=== PATIENT | male | born 1935 | race Caucasian/White ===

== ENCOUNTER 2018-02-02 17:33 | Emergency (ER) | payer MEDICARE ==
[~2018-02-02] VITALS: Ht 182.9 cm; Wt 105.2 kg
--- OUTSIDE RECORDS SUMMARY | 2018-02-02 17:35 | XMS REPORT | Summary of Care ---
Author Author [facility] Address [address] [place] [address] Phone Unavailable Care Team Providers Care Stem Teacher Name Role Phone SAMI Sewell, ALYX Unavailable Unavailable OLENA Sewell, ANN-MARIE Unavailable Unavailable Unavailable Unavailable Functional Status Name Dates Details Functional status health issues are not documented Status: Name Dates Details Cognitive status health issues are not documented Status: Problems Name Dates Details Pain, lower leg (729.5, M79.669) Status: Active Anxiety (300.00, F41.9) Status: Active Generalized anxiety disorder (300.02, F41.1) Status: Active Intermittent claudication (443.9, I73.9) Status: Active Rheumatic heart disease (398.90, I09.9) Status: Active Benign hypertensive 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, 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 Atrial fibrillation (427.31, I48.91) Status: Active 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, I25.10) Status: Active CABG Status: Active Diabetes mellitus (250.00, E11.9) Status: Active Edema (782.3, R60.9) Status: Active Encounter for long-term (current) use of medications (V58.69, Z79.899) Status: Active Peripheral neuropathy, hereditary/idiopathic (356.9, G60.9) Status: Active Renal insufficiency (593.9, N28.9) Status: Active Diabetes mellitus with peripheral circulatory disorder (250.70, E11.51) Status: Active CHF (congestive heart failure) (428.0, I50.9) Status: Active Back muscle spasm (724.8, M62.830) Status: Active Chronic kidney disease, stage III (moderate) (585.3, N18.3) Status: Active Decreased creatinine clearance (794.4, R94.4) Status: Active 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, M47.812) Status: Active Neck pain (723.1, M54.2) Status: Active Neck muscle spasm (728.85, M62.838) Status: Active Type 2 diabetes mellitus with chronic kidney disease, with long-term current use of insulin, unspecified CKD stage (250.40, E11.22) Status: Active Type 2 diabetes mellitus with other circulatory complication, with long-term current use of insulin (250.70, E11.59) Status: Active Essential (primary) hypertension (401.9, I10) Status: Active Hyperlipidemia (272.4, E78.5) Status: Active Medications Name Dates Details Klor-Con 8 MEQ Oral Tablet Extended Release TAKE 1 TABLET TWICE A DAY WITH MEALS Quantity: 180 ALYX GALLARDO M.D. * Start : 14-Dec-2008 Active Iron 325 (65 Fe) MG Oral Tablet TAKE 1 TABLET DAILY * Quantity: 90 Refills: 3 Active Potassium Chloride ER 8 MEQ Oral Tablet Extended Release TAKE 1 TABLET TWICE A DAY WITH MEALS * Quantity: 180 Refills: 2 ALYX GALLARDO M.D. * Start : 28-Sep-2016 Active Atorvastatin Calcium 20 MG Oral Tablet TAKE 1 TABLET DAILY AT BEDTIME * Quantity: 90 Refills: 3 ALYX GALLARDO M.D. * Start : 14-Sep-2016 Active Metoprolol Succinate ER 50 MG Oral Tablet Extended Release 24 Hour Take 1 tablet twice a day * Quantity: 180 Refills: 3 ALYX GALLARDO M.D. * Start : 14-Sep-2016 Active Colestipol HCl - 1 GM Oral Tablet Take 1 tablet twice a day * Quantity: 180 Refills: 2 ALYX GALLARDO M.D. * Start : 28-Sep-2016 Active Omeprazole 20 MG Oral Capsule Delayed Release take 1 capsule twice a day * Quantity: 180 Refills: 3 ALYX GALLARDO M.D. * Start : 14-Sep-2016 Active Accu-Chek FastClix Lancets Check BG 3x a day * Quantity: 3 Refills: 3 ANN-MARIE HYATT M.D. * Start : 25-Jan-2013 Active 102 Unit Box BD Pen Needle Mini U/F 31G X 5 MM 5 a day * Quantity: 5 Refills: 3 ANN-MARIE HYATT M.D. * Start : 02-Jun-2013 Active 100 Miscellaneous Box NovoLOG FlexPen 100 UNIT/ML Subcutaneous Solution Pen-injector 13 units breakfast; 12 lunch; 20 supper; 3-5 snacks; CF~40; up to 80 units Rep lacing Humalog in 2018 * Refills: 0 ANN-MARIE HYATT M.D. * Start : 05-Feb-2017 Active 5 x 3 ML Pen NovoLOG FlexPen 100 UNIT/ML Subcutaneous Solution Pen-injector 13 units breakfast; 12 lunch; 20 supper; 3-5 snacks; CF~40; up to 80 units Rep lacing Humalog * Refills: 0 ANN-MARIE HYATT M.D. * Start : 11-May-2017 Active 5 x 3 ML Pen Accu-Chek Guide In Vitro Strip CHECK 3 TIMES DAILY * Quantity: 6 Refills: 3 ANN-MARIE HYATT M.D. * Start : 14-Feb-2016 Active 50 Strip Bottle Uloric 40 MG Oral Tablet TAKE 1 TABLET DAILY. * Refills: 0 Active ALPRAZolam 0.5 MG Oral Tablet TAKE 1 TABLET 3 TIMES DAILY NEEDED. * Refills: 0 * Start : 24-Jan-2015 Active NovoTwist 32G X 5 MM USE 4 A DAY DIRECTED * Quantity: 4 Refills: 4 ANN-MARIE HYATT M.D. * Start : 08-Apr-2012 Active 100 EA Box Levemir FlexTouch 100 UNIT/ML Subcutaneous Solution Pen-injector INJECT 29-30 UNITS EVERY MORNING AND 29-30 UNITS EVERY NIGHT. MAY SELF TITRATE U PTO 60 UNITS DAILY. * Quantity: 4 Refills: 1 ANN-MARIE HYATT M.D. * Start : 08-Apr-2012 Active 5 x 3 ML Pen Allopurinol 300 MG Oral Tablet * Refills: 0 ANN-MARIE HYATT M.D. * Start : 02-Apr-2012 Active HydroCHLOROthiazide 25 MG Oral Tablet TAKE 1 TABLET DAILY * Quantity: 90 Refills: 3 ALYX GALLARDO M.D. * Start : 14-Sep-2016 Active Dipyridamole 75 MG Oral Tablet Take 1 tablet twice a day * Quantity: 180 Refills: 2 ALYX GALLARDO M.D. * Start : 28-Sep-2016 Active Lisinopril 20 MG Oral Tablet TAKE 1 TABLET DAILY * Quantity: 90 Refills: 2 ALYX GALLARDO M.D. * Start : 28-Sep-2016 Active Shayan Back & Body 500-32.5 MG Oral Tablet TAKE 1 TABLET DAILY PRN * Refills: 0 * Start : 30-Jul-2016 Active Aspirin 325 MG Oral Tablet TAKE 1 TABLET DAILY. * Refills: 0 * Start : 29-Sep-2005 Active Testosterone Cypionate 200 MG/ML Intramuscular Solution Per PCP * Refills: 0 ANN-MARIE HYATT M.D. * Start : 05-Dec-2015 Active HumaLOG KwikPen 100 UNIT/ML Subcutaneous Solution Pen-injector 13 units breakfast; 12 lunch; 20 supper; 3-5 snacks; CF~40; up to 80 units * Quantity: 25 Refills: 1 ANN-MARIE HYATT M.D. * Start : 02-Jun-2013 Active 3 ML Pen Micronized Colestipol HCl 1 GM TABS Take 1 tablet twice a day * Quantity: 180 Refills: 3 ALYX GALLARDO M.D. * Start : 12-Sep-2012 Active Vitamin D3 5000 UNIT Oral Tablet 1 a day * Refills: 0 Active Gabapentin 300 MG Oral Capsule TAKE 2 CAPSULES TWICE A DAY * Quantity: 540 Refills: 2 ALYX GALLARDO M.D. * Start : 17-Aug-2016 Active Allergies and Adverse Reactions Name Dates Details No Known Drug Allergies (Allergy) Status: Active Past Medical History Name Dates Details Personal history of gout (V12.29, Z87.39) Status: Resolved Procedures Procedure Dates Details History of CABG Completed CABG History of Hernia Repair Completed History of Cataract Surgery Completed History of Shoulder Surgery Completed Immunization Name Dates Details Influenza Comments: Approx [id number] Family History Name Dates Details Family history of Diabetes Mellitus (V18.0) Comments: Family History Status: Active Name Dates Details Family history of hypertension (V17.49, Z82.49) Status: Active Family history of cardiac disorder (V17.49, Z82.49) Status: Active Name Dates Details Family history of Diabetes Mellitus (V18.0) Status: Active Social History Name Dates Details - Status: Name Dates Details Former smoker Vital Signs Date Test Result Details :09 BP Systolic 140 mm[Hg] Status: BP Diastolic 70 mm[Hg] Status: [id number] BP Systolic 144 mm[Hg] Status: Comments: Location: LUE; Position: Sitting BP Diastolic 66 mm[Hg] Status: Comments: Location: LUE; Position: Sitting Height 72 in Status: Weight 235.5 lb Status: Body Mass Index Calculated 31.94 kg/m2 Status: Body Surface Area Calculated 2.28 m2 Status: Heart Rate 61 /min Status: Results Date Description Value Details [id number] [O] Hemoglobin A1c (in office) HEMOGLOBIN A1c 7.5 23-[id number]:44 [O] Lipid Panel (In Office) CHOLESTEROL, TOTAL 146 HDL CHOLESTEROL 37 TRIGLYCERIDES 243 LDL-CHOLESTEROL 60 NON HDL CHOLESTEROL 109 T. Chol/HDL Ratio 3.9 GLUCOSE 93 [id number] Glucose (Point of Care In Office) Glucose POC Lifescan 85 Plan of Care Name Dates Details Planned Observations Planned Goals not documented Planned Encounters Appointment; ALYX GALLARDO M.D. On: 22-Jun-2017 15:00 Appointment; ANN-MARIE HYATT M.D. On: 11-Aug-2017 14:15 Instructions Name Dates Details Instructions not documented Encounters Appointment; ALYX GALLARDO M.D. Encounter Diagnosis: Problem not documented On: 13-Jun-2015 14:40 Appointment; [facility] M.D. Encounter Diagnosis: Problem not documented On: 27-Jun-2015 13:00 Appointment; [facility] M.D. Encounter Diagnosis: Problem not documented On: 04-Jul-2015 13:30 Appointment; ANN-MARIE HYATT M.D. Encounter Diagnosis: Problem not documented On: 29-Aug-2015 14:45 Appointment; ANN-MARIE HYATT M.D. Encounter Diagnosis: Problem not documented On: 05-Dec-2015 14:15 Appointment; ALYX GALLARDO M.D. Encounter Diagnosis: Problem not documented On: 12-Dec-2015 15:00 Appointment; AMY JOHNSON M.D. Encounter Diagnosis: Problem not documented On: 19-Dec-2015 13:00 Appointment; AMY JOHNSON M.D. Encounter Diagnosis: Problem not documented On: 29-Jan-2016 15:00 Appointment; ANN-MARIE HYATT M.D. Encounter Diagnosis: Problem not documented On: 14-Feb-2016 9:30 Appointment; ANN-MARIE HYATT M.D. Encounter Diagnosis: Problem not documented On: 14-May-2016 14:15 Appointment; ALYX GALLARDO M.D. Encounter Diagnosis: Problem not documented On: 11-Jun-2016 14:40 Appointment; AMY JOHNSON M.D. Encounter Diagnosis: Problem not documented On: 29-Jul-2016 15:00 Appointment; AMY JOHNSON M.D. Encounter Diagnosis: Problem not documented On: 30-Jul-2016 15:30 Appointment; ANN-MARIE HYATT M.D. Encounter Diagnosis: Problem not documented On: 28-Aug-2016 14:15 Appointment; AMY JOHNSON M.D. Encounter Diagnosis: Problem not documented On: 01-Sep-2016 15:00 Appointment; ANN-MARIE HYATT M.D. Encounter Diagnosis: Problem not documented On: 20-Nov-2016 13:30 Appointment; AMY JOHNSON M.D. Encounter Diagnosis: Problem not documented On: 01-Dec-2016 14:30 Appointment; ALYX GALLARDO M.D. Encounter Diagnosis: Problem not documented On: 17-Dec-2016 14:40 Appointment; ANN-MARIE HYATT M.D. Encounter Diagnosis: Problem not documented On: 05-Feb-2017 13:00 Appointment; ANN-MARIE HYATT M.D. Encounter Diagnosis: Problem not documented On: 11-May-2017 15:45
[2018-02-02] MEDS ORDERED: CYCLOBENZAPRINE HCL 10 MG TAB PO ONE (18:00)
[2018-02-02] MEDS ORDERED: HYDROCODONE/APAP 5MG-325MG TAB PO ONE (18:00)
--- NOTE | 2018-02-02 18:40 | Diagnostic Imaging Report ---
Humerus left CPT code: 74334 Indication: Fell off chair, left shoulder pain. Technique: 5 views of the left humerus obtained. Comparison: Rib series performed at the same time. Findings: Glenohumeral fracture through the surgical neck with subtle fracture planes that extend through the lateral humeral head. There is mild ventral and medial angulation of the distal fracture fragment. The humeral head remains articulated with the glenoid. The glenoid, acromion, and scapula are intact. Visualized ribs are intact. The distal humerus and proximal radius/ulna are intact. Visualized portion of the left lung is clear. IMPRESSION: Comminuted and displaced fracture of the surgical neck of the left humerus with a fracture plane that extends to the lateral humeral head. No glenohumeral dislocation. The remainder of the humerus is intact. Signed by: Dr. Gifty Christina MD on 02/02/2018 6:37 PM
--- NOTE | 2018-02-02 18:45 | Diagnostic Imaging Report ---
Left rib multiple views CPT code: 85816 History: Fall Comparison: Humerus x-rays obtained at the same time. Findings: The patient is suboptimally positioned. The rib structures on the left appear intact. There is no evidence of acute rib fracture or dislocation identified. Single PA view of the chest demonstrates intact median sternotomy wires. The lungs are clear. No pleural effusion or pneumothorax. Fracture deformity of the surgical neck of the left humerus. The scapular body, acromion, and clavicle are intact. Visualized portion of the right shoulder is intact. IMPRESSION: No displaced rib fracture or dislocation. Thank you for your referral. Signed by: Dr. Gifty Christina MD on 02/02/2018 6:41 PM
== END 2018-02-02 18:48 | disposition home or self-care (01) ==
LOC: FSED 17:33
DX: R07.89 Other chest pain (principal); S20.212A Contusion of left front wall of thorax, initial encounter; S42.302A Unspecified fracture of shaft of humerus, left arm, initial encounter for closed fracture; W01.0XXA Fall on same level from slipping, tripping and stumbling without subsequent striking against object, initial encounter; Y92.89 Other specified places as the place of occurrence of the external cause; I10 Essential (primary) hypertension; E11.9 Type 2 diabetes mellitus without complications; I50.9 Heart failure, unspecified; K21.9 Gastro-esophageal reflux disease without esophagitis; E78.5 Hyperlipidemia, unspecified; G89.29 Other chronic pain
CPT/HCPCS: 71101; 99283

== ENCOUNTER 2018-04-12 11:57 | Outpatient (RCR) | payer MEDICARE | END 2018-04-14 | LOC: OT 11:57 | PROVIDERS: ATTEND Specialist | DX: S42.201D Unspecified fracture of upper end of right humerus, subsequent encounter for fracture with routine healing (principal); M25.512 Pain in left shoulder; M25.612 Stiffness of left shoulder, not elsewhere classified; R53.1 Weakness ==

== ENCOUNTER 2018-05-12 09:00 | Outpatient (RCR) | payer MEDICARE | END 2018-05-15 | LOC: OT 09:00 | PROVIDERS: ATTEND Specialist | DX: S42.202D Unspecified fracture of upper end of left humerus, subsequent encounter for fracture with routine healing (principal); M25.512 Pain in left shoulder; M25.612 Stiffness of left shoulder, not elsewhere classified; R53.1 Weakness ==

== ENCOUNTER 2018-06-10 10:00 | Outpatient (RCR) | payer MEDICARE | END 2018-06-14 | LOC: OT 10:00 | PROVIDERS: ATTEND Specialist | DX: S42.202A Unspecified fracture of upper end of left humerus, initial encounter for closed fracture (principal) | CPT/HCPCS: 97139 ==

== ENCOUNTER 2018-06-24 10:00 | Outpatient (RCR) | payer MEDICARE | END 2018-07-15 | LOC: OT 10:00 | PROVIDERS: ATTEND Specialist | DX: S42.202D Unspecified fracture of upper end of left humerus, subsequent encounter for fracture with routine healing (principal); M25.512 Pain in left shoulder; M25.612 Stiffness of left shoulder, not elsewhere classified; R53.1 Weakness | CPT/HCPCS: 97139 ==

== ENCOUNTER 2018-08-12 09:00 | Outpatient (RCR) | payer MEDICARE | END 2018-08-14 | LOC: OT 09:00 | PROVIDERS: ATTEND Specialist | DX: S42.202A Unspecified fracture of upper end of left humerus, initial encounter for closed fracture (principal) ==

== ENCOUNTER 2018-09-06 09:00 | Outpatient (RCR) | payer MEDICARE | END 2018-09-14 | LOC: OT 09:00 | PROVIDERS: ATTEND Specialist | DX: S42.202A Unspecified fracture of upper end of left humerus, initial encounter for closed fracture (principal) | CPT/HCPCS: 97139 ==

== ENCOUNTER 2019-07-20 13:12 | Observation (INO) | payer MEDICARE ==
[~2019-07-20] VITALS: Ht 182.9 cm; Wt 105.2 kg
[2019-07-20] MEDS: ALBUTEROL SULF 0.083% NEB SOLN 3 ML NEB NEB SCH (00:25)
[2019-07-20] MEDS ORDERED: CALCIUM GLUCONATE 10% INJ 4.65 MEQ in SODIUM CHLORIDE 0.9% 50ML 50 ML IV ONE (13:45)
[2019-07-20] MEDS ORDERED: ASPIRIN 81 MG CHEW TAB PO ONE (13:45)
--- OUTSIDE RECORDS SUMMARY | 2019-07-20 13:50 | XMS REPORT | Continuity of Care Document ---
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 Name Role Phone [facility] Unavailable Un available Problems Problem Status Onset Date Classification Date Reported Comments Source Diabetes Mellitus Active 05/17/2013 [facility] Benign Hypertensive Heart Disease Active 05/17/2013 [facility] Edema (On Exam) Active 05/17/2013 [facility] Generalized Anxiety Disorder A ctive 05/17/2013 [facility] Taking Medication For A Long Time Active 05/17/2013 [facility] Peripheral Neuropathy Active 05/17/2013 [facility] 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 [facility] Hypertension Active 05/17/2013 [facility] Hyperlipidemia Active 05/17/2013 [facility] Coronary Artery Disease Active 05/17/2013 [facility] Pain In The Leg (Below The Knee) Active 05/17/2013 [facility] Intermittent Claudication Acti ve 05/17/2013 [facility] Anxiety (Symptom) Active 05/17/2013 [facility] Chronic Kidney Disease, Stage 3 Active 05/17/2013 [facility] Medications Medication Details Route Status Patient Instructions Ordering Provider Order Date Source NovoLOG FlexPen 100 UNIT/ML Subcutaneous Solution ; Start Date: 05/17/2013; End Date: (Active) Active 05/17/2013 [facility] Shar Christensenets Fine Miscellaneous ; Start Date: 01/25/2013 (Active) Active 01/25/2013 [facility] Glimepiride 4 MG Oral Tablet ; Start Date: 11/18/2012 (Active) Active 11/18/2012 [facility] Pioglitazone HCl 15 MG Oral Tablet ; Start Date: 09/12/2012; End Date: (Active) Active 09/12/2012 [facility] Micronized Colestipol HCl 1 GM Oral Tablet ; Start Date: 09/12/2012 (Active) Active 09/12/2012 [facility] Micronized Colestipol HCl 1 GM Oral Tablet ; Start Date: 09/12/2012 (Active) Active 09/12/2012 [facility] Levemir FlexPen 100 UNIT/ML Subcutaneous Solution ; Start Date: 04/08/2012 (Active) Active 04/08/2012 [facility] NovoTwist 32G X 5 MM Miscellaneous ; Start Date: 04/08/2012; End Date: (Active) Active 04/08/2012 [facility] Allopurinol 300 MG Oral Tablet ; Start Date: 04/02/2012 (Active) Active 04/02/2012 [facility] Atorvastatin Calcium 20 MG Oral Tablet ; Start Date: 03/19/2011 (Active) Active 03/19/2011 [facility] Metoprolol Succinate ER 50 MG Oral Table t Extended Release 24 Hour ; Start Date: 03/19/2011 (Active) Active 03/19/2011 [facility] Diazepam 5 MG Oral Tablet ; St art Date: 03/19/2011 (Active) Active 03/19/2011 [facility] Colestipol HCl 1 GM Oral Tablet ; Start Date: 03/19/2011 (Active) Active 03/19/2011 [facility] Omeprazole 20 MG Oral Capsule Delayed Release ; Start Date: 03/19/2011 (Active) Active 03/19/2011 [facility] Lisinopril 40 MG Oral Tablet ; Start Date: 03/19/2011 (Active) Active 03/19/2011 [facility] Dipyridamole 75 MG Oral Tablet ; Start Date: 03/19/2011 (Active) Active 03/19/2011 [facility] Colestipol HCl 1 GM Oral Tablet ; Start Date: 03/19/2011 (Active) Active 03/19/2011 [facility] Metoprolol Succinate ER 50 MG Oral Table t Extended Release 24 Hour ; Start Date: 03/19/2011 (Active) Active 03/19/2011 [facility] Klor-Con 8 MEQ Oral Tablet Extended Release ; Start Date: 12/14/2008 (Active) Active 12/14/2008 [facility] Actos 45 MG Oral Tablet ; Star t Date: 02/19/2008 (Active) Active 02/19/2008 [facility] Hydrochlorothiazide 25 MG Oral Tablet ; Start Date: 12/26/2007 (Active) Active 12/26/2007 [facility] Omeprazole 20 MG Oral Capsule Delayed Release ; Start Date: 09/15/2007 (Active) Active 09/15/2007 [facility] Accu-Chek Compact Test Drum In Vitro Strip ; Start Date: 08/23/2006 (Active) Active 08/23/2006 [facility] Metoprolol Tartrate 50 MG Oral Tablet ; Start Date: 10/01/2005; End Date: (Active) Active 10/01/2005 [facility] Gabapentin 300 MG Oral Capsule ; Start Date: 09/29/2005 (Active) Active 09/29/2005 [facility] Lisinopril 40 MG Oral Tablet ; Start Date: 09/29/2005; End Date: (Active) Active 09/29/2005 [facility] Dipyridamole 75 MG Oral Tablet ; Start Date: 09/29/2005; End Date: (Active) Active 09/29/2005 [facility] GlyBURIDE-MetFORMIN 2.5-500 MG Oral Tablet ; Start Date: 09/29/2005 (Active) Active 09/29/2005 [facility] Aspirin 325 MG Oral Tablet ; S tart Date: 09/29/2005 (Active) Active 09/29/2005 [facility] Fish Oil CAPS ; Start Date: (Active) Active 09/29/2005 [facility] Iron 325 (65 Fe) MG Oral Tablet (Active) Active [facility] Victoza 18 MG/3ML Subcutaneous Solution (Active) Active [facility] Vitamin D3 5000 UNIT Oral Tablet (Active) Active [facility] Allergies, Adverse Reactions, Alerts Substance Category Reaction Severity Reaction type Status Date Reported Comments Source No Known Drug Allergies drug a llergy drug aller gy Active [facility] Immunizations No Data Provided for This Section Results No Data Provided for This Section Pathology Reports No Data Provided for This Section Diagnostic Reports No Data Provided for This Section Consultation Notes No Data Provided for This Section Discharge Summaries No Data Provided for This Section History and Physicals No Data Provided for This Section Vital Signs No Data Provided for This Section Encounters Location Location Details Encounter Type Encounter Number Reason For Visit Attending Provider ADM Date DC Date Status Source AUDIT [id number] 04/08/2012 04/08/2012 [facility] AUDIT [id number] 04/25/2012 04/25/2012 [facility] AUDIT [id number] 05/20/2012 05/20/2012 [facility] AUDIT [id number] 05/20/2012 05/20/2012 [facility] AUDIT [id number] 06/10/2012 06/10/2012 [facility] AUDIT [id number] 06/23/2012 06/23/2012 [facility] EST, Provi tosha: ALYX GALLARDO, Status: Pen, Time: 2:40 PM [id number] 06/23/2012 06/10/2012 [facility] AUDIT [id number] 07/21/2012 07/21/2012 [facility] E30, Provi tosha: ANN-MARIE HYATT, Status: Pen, Time: 3:30 PM [id number] 07/23/19 13 07/21/2012 [facility] AUDIT [id number] 07/22/2012 07/22/2012 [facility] AUDIT [id number] 07/25/2012 07/25/2012 [facility] AUDIT [id number] 08/12/2012 08/12/2012 [facility] AUDIT [id number] 09/09/2012 09/09/2012 [facility] AUDIT [id number] 09/12/2012 09/12/2012 [facility] ECH, Provi tosha: ROSALBA MCKEON, Status: Pen, Time: 1:00 PM [id number] 09/13/19 13 09/12/2012 [facility] AUDIT [id number] 09/12/2012 09/12/2012 [facility] E30, Provi tosha: ANN-MARIE HYATT, Status: Pen, Time: 4:00 PM [id number] 09/17/19 13 08/12/2012 [facility] AUDIT [id number] 09/22/2012 09/22/2012 [facility] EST, Provi tosha: ALYX GALLARDO, Status: Pen, Time: 3:20 PM [id number] 09/22/2012 09/12/2012 [facility] AUDIT [id number] 09/22/2012 09/22/2012 [facility] AUDIT [id number] 09/23/2012 09/23/2012 [facility] AUDIT [id number] 10/21/2012 10/21/2012 [facility] AUDIT [id number] 11/17/2012 11/17/2012 [facility] AUDIT [id number] 11/18/2012 11/18/2012 [facility] AUDIT [id number] 11/18/2012 11/18/2012 [facility] E30, Provi tosha: ANN-MARIE HYATT, Status: Pen, Time: 2:15 PM [id number] 11/19/19 13 10/21/2012 [facility] AUDIT [id number] 01/02/2013 01/02/2013 [facility] AUDIT [id number] 01/04/2013 01/04/2013 [facility] AUDIT [id number] 01/24/2013 01/24/2013 [facility] E30, Provi tosha: OLENAANN-MARIE, Status: Pen, Time: 10:15 AM [id number] 01/26/20 13 01/24/2013 [facility] AUDIT [id number] 01/25/2013 01/25/2013 [facility] EST, Provi tosha: ALYX GALLARDO, Status: Pen, Time: 1:20 PM [id number] 01/26/2013 01/25/2013 [facility] AUDIT [id number] 01/26/2013 01/26/2013 [facility] AUDIT [id number] 01/31/2013 01/31/2013 [facility] AUDIT [id number] 02/06/2013 02/06/2013 [facility] AUDIT [id number] 02/10/2013 02/10/2013 [facility] AUDIT [id number] 02/21/2013 02/21/2013 [facility] AUDIT [id number] 02/23/2013 02/23/2013 [facility] EST, Provi tosha: ALYX GALLARDO, Status: Pen, Time: 1:40 PM [id number] 05/11/2013 02/23/2013 [facility] AUDIT [id number] 05/11/2013 05/11/2013 [facility] AUDIT [id number] 05/12/2013 05/12/2013 [facility] E30, Provi tosha: OLENA,ANN-MARIE, Status: Pen, Time: 8:30 AM [id number] 05/18/19 14 05/12/2013 [facility] AUDIT [id number] 05/17/2013 05/17/2013 [facility] AUDIT [id number] 05/17/2013 05/17/2013 [facility] E30, Provi tosha: OLENAANN-MARIE, Status: Pen, Time: 11:30 AM [id number] 06/03/19 14 05/17/2013 [facility] EST, Provi tosha: ALYX GALLARDO, Status: Pen, Time: 2:20 PM [id number] 08/10/2013 05/17/2013 [facility] Procedures No Data Provided for This Section Assessment and Plan No Data Provided for This Section Plan of Care Plan of Care Date Source [N] Venous Duplex Lower Bilateral 2012 Routine[N] 2D Echo complete, with Doppler [id number] 06/23/2012 RoutinePulse 01/26/2013 Routine[QLH] CBC (INCLUDES DIFF/PLT) 05/11/2013 Routine[L] CMP14 05/11/2013 Routine[QLH] CREATINE KINASE, TOTAL 05/11/2013 Routine[QLH] LIPID PANEL 05/11/2013 Routine[QLH] HEMOGLOBIN A1c 05/11/2013 Routine[N] Arterial Duplex Lower Extremity Bilateral [id number] 09/22/2012 Routine 05/17/2013 [facility] [N] Venous Duplex Lower Bilateral 2012 Routine[N] 2D Echo complete, with Doppler 48350 06/23/2012 RoutinePulse 01/26/2013 Routine[QLH] CBC (INCLUDES DIFF/PLT) 05/11/2013 Routine[L] CMP14 05/11/2013 Routine[QLH] CREATINE KINASE, TOTAL 05/11/2013 Routine[QLH] LIPID PANEL 05/11/2013 Routine[QLH] HEMOGLOBIN A1c 05/11/2013 Routine[N] Arterial Duplex Lower Extremity Bilateral 47555 09/22/2012 Routine 05/17/2013 [facility] [N] Venous Duplex Lower Bilateral 2012 Routine[N] 2D Echo complete, with Doppler 69109 06/23/2012 RoutinePulse 01/26/2013 Routine[QLH] CBC (INCLUDES DIFF/PLT) 05/11/2013 Routine[L] CMP14 05/11/2013 Routine[QLH] CREATINE KINASE, TOTAL 05/11/2013 Routine[QLH] LIPID PANEL 05/11/2013 Routine[QLH] HEMOGLOBIN A1c 05/11/2013 Routine[N] Arterial Duplex Lower Extremity Bilateral 31627 09/22/2012 Routine 05/12/2013 [facility] [N] Venous Duplex Lower Bilateral 2012 Routine[N] 2D Echo complete, with Doppler 37587 06/23/2012 RoutinePulse 01/26/2013 Routine[QLH] CBC (INCLUDES DIFF/PLT) 05/11/2013 Routine[L] CMP14 05/11/2013 Routine[QLH] CREATINE KINASE, TOTAL 05/11/2013 Routine[QLH] LIPID PANEL 05/11/2013 Routine[QLH] HEMOGLOBIN A1c 05/11/2013 Routine[N] Arterial Duplex Lower Extremity Bilateral 49389 09/22/2012 Routine 05/11/2013 [facility] [N] Venous Duplex Lower Bilateral 2012 Routine[N] 2D Echo complete, with Doppler 21886 06/23/2012 RoutinePulse 01/26/2013 Routine[QLH] CBC (INCLUDES DIFF/PLT) 01/26/2013 Routine[L] CMP14 01/26/2013 Routine[QLH] CREATINE KINASE, TOTAL 01/26/2013 Routine[QLH] LIPID PANEL 01/26/2013 Routine[QLH] TSH, 3RD GENERATION 01/26/2013 Routine[QLH] HEMOGLOBIN A1c 01/26/2013 Routine[N] Arterial Duplex Lower Extremity Bilateral 54973 09/22/2012 Routine 02/23/2013 [facility] [N] Venous Duplex Lower Bilateral 2012 Routine[N] 2D Echo complete, with Doppler 37286 06/23/2012 RoutinePulse 01/26/2013 Routine[QLH] CBC (INCLUDES DIFF/PLT) 01/26/2013 Routine[L] CMP14 01/26/2013 Routine[QLH] CREATINE KINASE, TOTAL 01/26/2013 Routine[QLH] LIPID PANEL 01/26/2013 Routine[QLH] TSH, 3RD GENERATION 01/26/2013 Routine[QLH] HEMOGLOBIN A1c 01/26/2013 Routine[N] Arterial Duplex Lower Extremity Bilateral 73461 09/22/2012 Routine 02/21/2013 [facility] [N] Venous Duplex Lower Bilateral 2012 Routine[N] 2D Echo complete, with Doppler 94421 06/23/2012 RoutinePulse 01/26/2013 Routine[QLH] CBC (INCLUDES DIFF/PLT) 01/26/2013 Routine[L] CMP14 01/26/2013 Routine[QLH] CREATINE KINASE, TOTAL 01/26/2013 Routine[QLH] LIPID PANEL 01/26/2013 Routine[QLH] TSH, 3RD GENERATION 01/26/2013 Routine[QLH] HEMOGLOBIN A1c 01/26/2013 Routine[N] Arterial Duplex Lower Extremity Bilateral 46624 09/22/2012 Routine 02/10/2013 [facility] [N] Venous Duplex Lower Bilateral 2012 Routine[N] 2D Echo complete, with Doppler 69993 06/23/2012 RoutinePulse 01/26/2013 Routine[QLH] CBC (INCLUDES DIFF/PLT) 01/26/2013 Routine[L] CMP14 01/26/2013 Routine[QLH] CREATINE KINASE, TOTAL 01/26/2013 Routine[QLH] LIPID PANEL 01/26/2013 Routine[QLH] TSH, 3RD GENERATION 01/26/2013 Routine[QLH] HEMOGLOBIN A1c 01/26/2013 Routine[N] Arterial Duplex Lower Extremity Bilateral 73304 09/22/2012 Routine 02/06/2013 [facility] [N] Venous Duplex Lower Bilateral 2012 Routine[N] 2D Echo complete, with Doppler 17260 06/23/2012 RoutinePulse 01/26/2013 Routine[QLH] CBC (INCLUDES DIFF/PLT) 01/26/2013 Routine[L] CMP14 01/26/2013 Routine[QLH] CREATINE KINASE, TOTAL 01/26/2013 Routine[QLH] LIPID PANEL 01/26/2013 Routine[QLH] TSH, 3RD GENERATION 01/26/2013 Routine[QLH] HEMOGLOBIN A1c 01/26/2013 Routine[N] Arterial Duplex Lower Extremity Bilateral 95786 09/22/2012 Routine 01/31/2013 [facility] [N] Venous Duplex Lower Bilateral 2012 Routine[N] 2D Echo complete, with Doppler 54171 06/23/2012 RoutinePulse 01/26/2013 Routine[QLH] CBC (INCLUDES DIFF/PLT) 01/26/2013 Routine[L] CMP14 01/26/2013 Routine[QLH] CREATINE KINASE, TOTAL 01/26/2013 Routine[QLH] LIPID PANEL 01/26/2013 Routine[QLH] TSH, 3RD GENERATION 01/26/2013 Routine[QLH] HEMOGLOBIN A1c 01/26/2013 Routine[N] Arterial Duplex Lower Extremity Bilateral 19257 09/22/2012 Routine 01/26/2013 [facility] [N] Venous Duplex Lower Bilateral 2012 Routine[N] 2D Echo complete, with Doppler 65587 06/23/2012 Routine[N] Arterial Duplex Lower Extremity Bilateral 95178 09/22/2012 Routine 01/25/2013 [facility] [N] Venous Duplex Lower Bilateral 2012 Routine[N] 2D Echo complete, with Doppler 64302 06/23/2012 Routine[N] Arterial Duplex Lower Extremity Bilateral 53333 09/22/2012 Routine 01/24/2013 [facility] [N] Venous Duplex Lower Bilateral 2012 Routine[N] 2D Echo complete, with Doppler 34329 06/23/2012 Routine[QLH] CBC (INCLUDES DIFF/PLT) 09/22/2012 Routine[L] CMP14 09/22/2012 Routine[QLH] CREATINE KINASE, TOTAL 09/22/2012 Routine[N] Arterial Duplex Lower Extremity Bilateral 72091 09/22/2012 Routine 01/04/2013 [facility] [N] Venous Duplex Lower Bilateral 2012 Routine[N] 2D Echo complete, with Doppler 15909 06/23/2012 Routine[QLH] CBC (INCLUDES DIFF/PLT) 09/22/2012 Routine[L] CMP14 09/22/2012 Routine[QLH] CREATINE KINASE, TOTAL 09/22/2012 Routine[N] Arterial Duplex Lower Extremity Bilateral 67318 09/22/2012 Routine 01/02/2013 [facility] [QLH] CBC (INCLUDES DIFF/PLT) 12/24/2011 Routine[QLH] CMP W/EGFR 12/24/2011 Routine[QLH] CALCIUM 12/24/2011 Routine[QLH] CREATINE KINASE, TOTAL 12/24/2011 Routine[QLH] LIPID PANEL 12/24/2011 Routine[QLH] B TYPE NATRIURETIC PEPTIDE (BNP) 12/24/2011 Routine[QLH] HEMOGLOBIN A1c 12/24/2011 Routine[N] Venous Duplex Lower Bilateral 09/22/2012 Routine[N] 2D Echo complete, with Doppler 18560 06/23/2012 Routine[QLH] CBC (INCLUDES DIFF/PLT) 09/22/2012 Routine[L] CMP14 09/22/2012 Routine[QLH] CREATINE KINASE, TOTAL 09/22/2012 Routine[N] Arterial Duplex Lower Extremity Bilateral 46535 09/22/2012 Routine 11/18/2012 [facility] [QLH] CBC (INCLUDES DIFF/PLT) 12/24/2011 Routine[QLH] CMP W/EGFR 12/24/2011 Routine[QLH] CALCIUM 12/24/2011 Routine[QLH] CREATINE KINASE, TOTAL 12/24/2011 Routine[QLH] LIPID PANEL 12/24/2011 Routine[QLH] B TYPE NATRIURETIC PEPTIDE (BNP) 12/24/2011 Routine[QLH] HEMOGLOBIN A1c 12/24/2011 Routine[N] Venous Duplex Lower Bilateral 09/22/2012 Routine[N] 2D Echo complete, with Doppler 68162 06/23/2012 Routine[QLH] CBC (INCLUDES DIFF/PLT) 09/22/2012 Routine[L] CMP14 09/22/2012 Routine[QLH] CREATINE KINASE, TOTAL 09/22/2012 Routine[N] Arterial Duplex Lower Extremity Bilateral 65813 09/22/2012 Routine 11/18/2012 [facility] [QLH] CBC (INCLUDES DIFF/PLT) 12/24/2011 Routine[QLH] CMP W/EGFR 12/24/2011 Routine[QLH] CALCIUM 12/24/2011 Routine[QLH] CREATINE KINASE, TOTAL 12/24/2011 Routine[QLH] LIPID PANEL 12/24/2011 Routine[QLH] B TYPE NATRIURETIC PEPTIDE (BNP) 12/24/2011 Routine[QLH] HEMOGLOBIN A1c 12/24/2011 Routine[N] Venous Duplex Lower Bilateral 09/22/2012 Routine[N] 2D Echo complete, with Doppler 49254 06/23/2012 Routine[QLH] CBC (INCLUDES DIFF/PLT) 09/22/2012 Routine[L] CMP14 09/22/2012 Routine[QLH] CREATINE KINASE, TOTAL 09/22/2012 Routine[N] Arterial Duplex Lower Extremity Bilateral 12933 09/22/2012 Routine 11/17/2012 [facility] [QLH] CBC (INCLUDES DIFF/PLT) 12/24/2011 Routine[QLH] CMP W/EGFR 12/24/2011 Routine[QLH] CALCIUM 12/24/2011 Routine[QLH] CREATINE KINASE, TOTAL 12/24/2011 Routine[QLH] LIPID PANEL 12/24/2011 Routine[QLH] B TYPE NATRIURETIC PEPTIDE (BNP) 12/24/2011 Routine[QLH] HEMOGLOBIN A1c 12/24/2011 Routine[N] Venous Duplex Lower Bilateral 09/22/2012 Routine[N] 2D Echo complete, with Doppler 49370 06/23/2012 Routine[QLH] CBC (INCLUDES DIFF/PLT) 09/22/2012 Routine[L] CMP14 09/22/2012 Routine[QLH] CREATINE KINASE, TOTAL 09/22/2012 Routine[N] Arterial Duplex Lower Extremity Bilateral 69241 09/22/2012 Routine 10/21/2012 [facility] [QLH] CBC (INCLUDES DIFF/PLT) 12/24/2011 Routine[QLH] CMP W/EGFR 12/24/2011 Routine[QLH] CALCIUM 12/24/2011 Routine[QLH] CREATINE KINASE, TOTAL 12/24/2011 Routine[QLH] LIPID PANEL 12/24/2011 Routine[QLH] B TYPE NATRIURETIC PEPTIDE (BNP) 12/24/2011 Routine[QLH] HEMOGLOBIN A1c 12/24/2011 Routine[N] Venous Duplex Lower Bilateral 09/22/2012 Routine[N] 2D Echo complete, with Doppler 74880 06/23/2012 Routine[QLH] CBC (INCLUDES DIFF/PLT) 09/22/2012 Routine[L] CMP14 09/22/2012 Routine[QLH] CREATINE KINASE, TOTAL 09/22/2012 Routine[N] Arterial Duplex Lower Extremity Bilateral 65522 09/22/2012 Routine 09/23/2012 [facility] [QLH] CBC (INCLUDES DIFF/PLT) 12/24/2011 Routine[QLH] CMP W/EGFR 12/24/2011 Routine[QLH] CALCIUM 12/24/2011 Routine[QLH] CREATINE KINASE, TOTAL 12/24/2011 Routine[QLH] LIPID PANEL 12/24/2011 Routine[QLH] B TYPE NATRIURETIC PEPTIDE (BNP) 12/24/2011 Routine[QLH] HEMOGLOBIN A1c 12/24/2011 Routine[N] 2D Echo complete, with Doppler 22658 06/23/2012 Routine[QLH] CBC (INCLUDES DIFF/PLT) 09/22/2012 Routine[L] CMP14 09/22/2012 Routine[QLH] CREATINE KINASE, TOTAL 09/22/2012 Routine[N] Venous Duplex Lower Bilateral 09/22/2012 Routine[N] Arterial Duplex Lower Extremity Bilateral 56024 09/22/2012 Routine 09/22/2012 [facility] [QLH] CBC (INCLUDES DIFF/PLT) 12/24/2011 Routine[QLH] CMP W/EGFR 12/24/2011 Routine[QLH] CALCIUM 12/24/2011 Routine[QLH] CREATINE KINASE, TOTAL 12/24/2011 Routine[QLH] LIPID PANEL 12/24/2011 Routine[QLH] B TYPE NATRIURETIC PEPTIDE (BNP) 12/24/2011 Routine[QLH] HEMOGLOBIN A1c 12/24/2011 Routine[N] 2D Echo complete, with Doppler 15572 06/23/2012 Routine[QLH] CBC (INCLUDES DIFF/PLT) 09/22/2012 Routine[L] CMP14 09/22/2012 Routine[QLH] CREATINE KINASE, TOTAL 09/22/2012 Routine[N] Venous Duplex Lower Bilateral 09/22/2012 Routine[N] Arterial Duplex Lower Extremity Bilateral 09402 09/22/2012 Routine 09/22/2012 [facility] [QLH] CBC (INCLUDES DIFF/PLT) 12/18/2011 Routine[L] CMP14 12/18/2011 Routine[L] Calcium, Serum 12/18/2011 Routine[QLH] CREATINE KINASE, TOTAL 12/18/2011 Routine[QLH] LIPID PANEL 12/18/2011 Routine[QLH] TSH, 3RD GENERATION 12/18/2011 Routine[QLH] B TYPE NATRIURETIC PEPTIDE (BNP) 12/18/2011 Routine[QLH] HEMOGLOBIN A1c 12/18/2011 Routine[QLH] CBC (INCLUDES DIFF/PLT) 12/24/2011 Routine[QLH] CMP W/EGFR 12/24/2011 Routine[QLH] CALCIUM 12/24/2011 Routine[QLH] CREATINE KINASE, TOTAL 12/24/2011 Routine[QLH] LIPID PANEL 12/24/2011 Routine[QLH] B TYPE NATRIURETIC PEPTIDE (BNP) 12/24/2011 Routine[QLH] HEMOGLOBIN A1c 12/24/2011 Routine[QLH] CBC (INCLUDES DIFF/PLT) 06/23/2012 Routine[L] CMP14 06/23/2012 Routine[QLH] CALCIUM 06/23/2012 Routine[QLH] CREATINE KINASE, TOTAL 06/23/2012 Routine[QLH] LIPID PANEL 06/23/2012 Routine[QLH] TSH, 3RD GENERATION 06/23/2012 Routine[QLH] B TYPE NATRIURETIC PEPTIDE (BNP) 06/23/2012 Routine[QLH] HEMOGLOBIN A1c 06/23/2012 Routine[N] 2D Echo complete, with Doppler 34975 06/23/2012 Routine 09/12/2012 [facility] [QLH] CBC (INCLUDES DIFF/PLT) 12/18/2011 Routine[L] CMP14 12/18/2011 Routine[L] Calcium, Serum 12/18/2011 Routine[QLH] CREATINE KINASE, TOTAL 12/18/2011 Routine[QLH] LIPID PANEL 12/18/2011 Routine[QLH] TSH, 3RD GENERATION 12/18/2011 Routine[QLH] B TYPE NATRIURETIC PEPTIDE (BNP) 12/18/2011 Routine[QLH] HEMOGLOBIN A1c 12/18/2011 Routine[QLH] CBC (INCLUDES DIFF/PLT) 12/24/2011 Routine[QLH] CMP W/EGFR 12/24/2011 Routine[QLH] CALCIUM 12/24/2011 Routine[QLH] CREATINE KINASE, TOTAL 12/24/2011 Routine[QLH] LIPID PANEL 12/24/2011 Routine[QLH] B TYPE NATRIURETIC PEPTIDE (BNP) 12/24/2011 Routine[QLH] HEMOGLOBIN A1c 12/24/2011 Routine[QLH] CBC (INCLUDES DIFF/PLT) 06/23/2012 Routine[L] CMP14 06/23/2012 Routine[QLH] CALCIUM 06/23/2012 Routine[QLH] CREATINE KINASE, TOTAL 06/23/2012 Routine[QLH] LIPID PANEL 06/23/2012 Routine[QLH] TSH, 3RD GENERATION 06/23/2012 Routine[QLH] B TYPE NATRIURETIC PEPTIDE (BNP) 06/23/2012 Routine[QLH] HEMOGLOBIN A1c 06/23/2012 Routine[N] 2D Echo complete, with Doppler 08825 06/23/2012 Routine 09/12/2012 [facility] [QLH] CBC (INCLUDES DIFF/PLT) 12/18/2011 Routine[L] CMP14 12/18/2011 Routine[L] Calcium, Serum 12/18/2011 Routine[QLH] CREATINE KINASE, TOTAL 12/18/2011 Routine[QLH] LIPID PANEL 12/18/2011 Routine[QLH] TSH, 3RD GENERATION 12/18/2011 Routine[QLH] B TYPE NATRIURETIC PEPTIDE (BNP) 12/18/2011 Routine[QLH] HEMOGLOBIN A1c 12/18/2011 Routine[QLH] CBC (INCLUDES DIFF/PLT) 12/24/2011 Routine[QLH] CMP W/EGFR 12/24/2011 Routine[QLH] CALCIUM 12/24/2011 Routine[QLH] CREATINE KINASE, TOTAL 12/24/2011 Routine[QLH] LIPID PANEL 12/24/2011 Routine[QLH] B TYPE NATRIURETIC PEPTIDE (BNP) 12/24/2011 Routine[QLH] HEMOGLOBIN A1c 12/24/2011 Routine[QLH] CBC (INCLUDES DIFF/PLT) 06/23/2012 Routine[L] CMP14 06/23/2012 Routine[QLH] CALCIUM 06/23/2012 Routine[QLH] CREATINE KINASE, TOTAL 06/23/2012 Routine[QLH] LIPID PANEL 06/23/2012 Routine[QLH] TSH, 3RD GENERATION 06/23/2012 Routine[QLH] B TYPE NATRIURETIC PEPTIDE (BNP) 06/23/2012 Routine[QLH] HEMOGLOBIN A1c 06/23/2012 Routine[N] 2D Echo complete, with Doppler 76508 06/23/2012 Routine 09/09/2012 [facility] [QLH] CBC (INCLUDES DIFF/PLT) 12/18/2011 Routine[L] CMP14 12/18/2011 Routine[L] Calcium, Serum 12/18/2011 Routine[QLH] CREATINE KINASE, TOTAL 12/18/2011 Routine[QLH] LIPID PANEL 12/18/2011 Routine[QLH] TSH, 3RD GENERATION 12/18/2011 Routine[QLH] B TYPE NATRIURETIC PEPTIDE (BNP) 12/18/2011 Routine[[facility]] HEMOGLOBIN A1c 12/18/2011 Routine[[facility]] CBC (INCLUDES DIFF/PLT) 12/24/2011 Routine[[facility]] CMP W/EGFR 12/24/2011 Routine[[facility]] CALCIUM 12/24/2011 Routine[[facility]] CREATINE KINASE, TOTAL 12/24/2011 Routine[QL[facility]] LIPID PANEL 12/24/2011 Routine[QL[facility]] B TYPE NATRIURETIC PEPTIDE (BNP) 12/24/2011 Routine[[facility]] HEMOGLOBIN A1c 12/24/2011 Routine[[facility]] CBC (INCLUDES DIFF/PLT) 06/23/2012 Routine[L] CMP14 06/23/2012 Routine[QL[facility]] CALCIUM 06/23/2012 Routine[QL[facility]] CREATINE KINASE, TOTAL 06/23/2012 Routine[QLH] LIPID PANEL 06/23/2012 Routine[QL[facility]] TSH, 3RD GENERATION 06/23/2012 Routine[QLH] B TYPE NATRIURETIC PEPTIDE (BNP) 06/23/2012 Routine[QL[facility]] HEMOGLOBIN A1c 06/23/2012 Routine[N] 2D Echo complete, with Doppler 06/23/2012 Routine 08/12/2012 [facility] [[facility]] CBC (INCLUDES DIFF/PLT) 12/18/2011 Routine[L] CMP14 12/18/2011 Routine[L] Calcium, Serum 12/18/2011 Routine[QLH] CREATINE KINASE, TOTAL 12/18/2011 Routine[QLH] LIPID PANEL 12/18/2011 Routine[QL[facility]] TSH, 3RD GENERATION 12/18/2011 Routine[QL[facility]] B TYPE NATRIURETIC PEPTIDE (BNP) 12/18/2011 Routine[[facility]] HEMOGLOBIN A1c 12/18/2011 Routine[[facility]] CBC (INCLUDES DIFF/PLT) 12/24/2011 Routine[[facility]] CMP W/EGFR 12/24/2011 Routine[[facility]] CALCIUM 12/24/2011 Routine[QL[facility]] CREATINE KINASE, TOTAL 12/24/2011 Routine[QLH] LIPID PANEL 12/24/2011 Routine[QLH] B TYPE NATRIURETIC PEPTIDE (BNP) 12/24/2011 Routine[[facility]] HEMOGLOBIN A1c 12/24/2011 Routine[[facility]] CBC (INCLUDES DIFF/PLT) 06/23/2012 Routine[L] CMP14 06/23/2012 Routine[QLH] CALCIUM 06/23/2012 Routine[QLH] CREATINE KINASE, TOTAL 06/23/2012 Routine[QLH] LIPID PANEL 06/23/2012 Routine[QLH] TSH, 3RD GENERATION 06/23/2012 Routine[QLH] B TYPE NATRIURETIC PEPTIDE (BNP) 06/23/2012 Routine[QL[facility]] HEMOGLOBIN A1c 06/23/2012 Routine[N] 2D Echo complete, with Doppler 06/23/2012 Routine 07/25/2012 [facility] [[facility]] CBC (INCLUDES DIFF/PLT) 12/18/2011 Routine[L] CMP14 12/18/2011 Routine[L] Calcium, Serum 12/18/2011 Routine[QLH] CREATINE KINASE, TOTAL 12/18/2011 Routine[QLH] LIPID PANEL 12/18/2011 Routine[QLH] TSH, 3RD GENERATION 12/18/2011 Routine[QLH] B TYPE NATRIURETIC PEPTIDE (BNP) 12/18/2011 Routine[QLH] HEMOGLOBIN A1c 12/18/2011 Routine[QLH] CBC (INCLUDES DIFF/PLT) 12/24/2011 Routine[QLH] CMP W/EGFR 12/24/2011 Routine[QLH] CALCIUM 12/24/2011 Routine[QLH] CREATINE KINASE, TOTAL 12/24/2011 Routine[QLH] LIPID PANEL 12/24/2011 Routine[QLH] B TYPE NATRIURETIC PEPTIDE (BNP) 12/24/2011 Routine[QLH] HEMOGLOBIN A1c 12/24/2011 Routine[QLH] CBC (INCLUDES DIFF/PLT) 06/23/2012 Routine[L] CMP14 06/23/2012 Routine[QLH] CALCIUM 06/23/2012 Routine[QLH] CREATINE KINASE, TOTAL 06/23/2012 Routine[QLH] LIPID PANEL 06/23/2012 Routine[QLH] TSH, 3RD GENERATION 06/23/2012 Routine[QLH] B TYPE NATRIURETIC PEPTIDE (BNP) 06/23/2012 Routine[QLH] HEMOGLOBIN A1c 06/23/2012 Routine[N] 2D Echo complete, with Doppler 06/23/2012 Routine 07/22/2012 [facility] [QLH] CBC (INCLUDES DIFF/PLT) 12/18/2011 Routine[L] CMP14 12/18/2011 Routine[L] Calcium, Serum 12/18/2011 Routine[QLH] CREATINE KINASE, TOTAL 12/18/2011 Routine[QLH] LIPID PANEL 12/18/2011 Routine[QLH] TSH, 3RD GENERATION 12/18/2011 Routine[QLH] B TYPE NATRIURETIC PEPTIDE (BNP) 12/18/2011 Routine[QLH] HEMOGLOBIN A1c 12/18/2011 Routine[QLH] CBC (INCLUDES DIFF/PLT) 12/24/2011 Routine[QLH] CMP W/EGFR 12/24/2011 Routine[QLH] CALCIUM 12/24/2011 Routine[QLH] CREATINE KINASE, TOTAL 12/24/2011 Routine[QLH] LIPID PANEL 12/24/2011 Routine[QLH] B TYPE NATRIURETIC PEPTIDE (BNP) 12/24/2011 Routine[QLH] HEMOGLOBIN A1c 12/24/2011 Routine[QLH] CBC (INCLUDES DIFF/PLT) 06/23/2012 Routine[L] CMP14 06/23/2012 Routine[QLH] CALCIUM 06/23/2012 Routine[QLH] CREATINE KINASE, TOTAL 06/23/2012 Routine[QLH] LIPID PANEL 06/23/2012 Routine[QLH] TSH, 3RD GENERATION 06/23/2012 Routine[QLH] B TYPE NATRIURETIC PEPTIDE (BNP) 06/23/2012 Routine[QLH] HEMOGLOBIN A1c 06/23/2012 Routine[N] 2D Echo complete, with Doppler 06/23/2012 Routine 07/21/2012 [facility] [QLH] CBC (INCLUDES DIFF/PLT) 12/18/2011 Routine[L] CMP14 12/18/2011 Routine[L] Calcium, Serum 12/18/2011 Routine[QLH] CREATINE KINASE, TOTAL 12/18/2011 Routine[QLH] LIPID PANEL 12/18/2011 Routine[QLH] TSH, 3RD GENERATION 12/18/2011 Routine[QLH] B TYPE NATRIURETIC PEPTIDE (BNP) 12/18/2011 Routine[QLH] HEMOGLOBIN A1c 12/18/2011 Routine[QLH] CBC (INCLUDES DIFF/PLT) 12/24/2011 Routine[QLH] CMP W/EGFR 12/24/2011 Routine[QLH] CALCIUM 12/24/2011 Routine[QLH] CREATINE KINASE, TOTAL 12/24/2011 Routine[QLH] LIPID PANEL 12/24/2011 Routine[QLH] B TYPE NATRIURETIC PEPTIDE (BNP) 12/24/2011 Routine[QLH] HEMOGLOBIN A1c 12/24/2011 Routine[QLH] CBC (INCLUDES DIFF/PLT) 06/23/2012 Routine[L] CMP14 06/23/2012 Routine[QLH] CALCIUM 06/23/2012 Routine[QLH] CREATINE KINASE, TOTAL 06/23/2012 Routine[QLH] LIPID PANEL 06/23/2012 Routine[QLH] TSH, 3RD GENERATION 06/23/2012 Routine[QLH] B TYPE NATRIURETIC PEPTIDE (BNP) 06/23/2012 Routine[QLH] HEMOGLOBIN A1c 06/23/2012 Routine[N] 2D Echo complete, with Doppler 06/23/2012 Routine 06/23/2012 [facility] [QLH] CBC (INCLUDES DIFF/PLT) 09/17/2011 Routine[L] CMP14 09/17/2011 Routine[L] Calcium, Serum 09/17/2011 Routine[QLH] CREATINE KINASE, TOTAL 09/17/2011 Routine[QLH] LIPID PANEL 09/17/2011 Routine[QLH] TSH, 3RD GENERATION 09/17/2011 Routine[QLH] B TYPE NATRIURETIC PEPTIDE (BNP) 09/17/2011 Routine[QLH] LIPOPROTEIN (a) 09/17/2011 Routine[QLH] HEMOGLOBIN A1c 09/17/2011 Routine[QLH] URINALYSIS, COMPLETE 09/17/2011 Routine[QLH] MAGNESIUM 09/17/2011 Routine[QLH] CBC (INCLUDES DIFF/PLT) 12/18/2011 Routine[L] CMP14 12/18/2011 Routine[L] Calcium, Serum 12/18/2011 Routine[QLH] CREATINE KINASE, TOTAL 12/18/2011 Routine[QLH] LIPID PANEL 12/18/2011 Routine[QLH] TSH, 3RD GENERATION 12/18/2011 Routine[QLH] B TYPE NATRIURETIC PEPTIDE (BNP) 12/18/2011 Routine[QLH] HEMOGLOBIN A1c 12/18/2011 Routine[QLH] CBC (INCLUDES DIFF/PLT) 12/24/2011 Routine[QLH] CMP W/EGFR 12/24/2011 Routine[QLH] CALCIUM 12/24/2011 Routine[QLH] CREATINE KINASE, TOTAL 12/24/2011 Routine[QLH] LIPID PANEL 12/24/2011 Routine[QLH] B TYPE NATRIU RETIC PEPTIDE (BNP) 12/24/2011 Routine[QLH] HEMOGLOBIN A1c 12/24/2011 Routine[QLH] CBC (INCLUDES DIFF/PLT) 03/22/2012 Routine[L] CMP14 03/22/2012 Routine[QLH] CALCIUM 03/22/2012 Routine[QLH] CREATINE KINASE, TOTAL 03/22/2012 Routine[QLH] LIPID PANEL 03/22/2012 Routine[QLH] B TYPE NATRIURETIC PEPTIDE (BNP) 03/22/2012 Routine[QLH] HEMOGLOBIN A1c 03/22/2012 Routine[QLH] TSH, 3RD GENERATION 03/22/2012 Routine 06/10/2012 [facility] [QLH] CBC (INCLUDES DIFF/PLT) 09/17/2011 Routine[L] CMP14 09/17/2011 Routine[L] Calcium, Serum 09/17/2011 Routine[QLH] CREATINE KINASE, TOTAL 09/17/2011 Routine[QLH] LIPID PANEL 09/17/2011 Routine[QLH] TSH, 3RD GENERATION 09/17/2011 Routine[QLH] B TYPE NATRIURETIC PEPTIDE (BNP) 09/17/2011 Routine[QLH] LIPOPROTEIN (a) 09/17/2011 Routine[QLH] HEMOGLOBIN A1c 09/17/2011 Routine[QLH] URINALYSIS, COMPLETE 09/17/2011 Routine[QLH] MAGNESIUM 09/17/2011 Routine[QLH] CBC (INCLUDES DIFF/PLT) 12/18/2011 Routine[L] CMP14 12/18/2011 Routine[L] Calcium, Serum 12/18/2011 Routine[QLH] CREATINE KINASE, TOTAL 12/18/2011 Routine[QLH] LIPID PANEL 12/18/2011 Routine[QLH] TSH, 3RD GENERATION 12/18/2011 Routine[QLH] B TYPE NATRIURETIC PEPTIDE (BNP) 12/18/2011 Routine[QLH] HEMOGLOBIN A1c 12/18/2011 Routine[QLH] CBC (INCLUDES DIFF/PLT) 12/24/2011 Routine[QLH] CMP W/EGFR 12/24/2011 Routine[QLH] CALCIUM 12/24/2011 Routine[QLH] CREATINE KINASE, TOTAL 12/24/2011 Routine[QLH] LIPID PANEL 12/24/2011 Routine[QLH] B TYPE NATRIU RETIC PEPTIDE (BNP) 12/24/2011 Routine[QLH] HEMOGLOBIN A1c 12/24/2011 Routine[QLH] CBC (INCLUDES DIFF/PLT) 03/22/2012 Routine[L] CMP14 03/22/2012 Routine[QLH] CALCIUM 03/22/2012 Routine[QLH] CREATINE KINASE, TOTAL 03/22/2012 Routine[QLH] LIPID PANEL 03/22/2012 Routine[QLH] B TYPE NATRIURETIC PEPTIDE (BNP) 03/22/2012 Routine[QLH] HEMOGLOBIN A1c 03/22/2012 Routine[QLH] TSH, 3RD GENERATION 03/22/2012 Routine 05/20/2012 [facility] [QLH] CBC (INCLUDES DIFF/PLT) 09/17/2011 Routine[L] CMP14 09/17/2011 Routine[L] Calcium, Serum 09/17/2011 Routine[QLH] CREATINE KINASE, TOTAL 09/17/2011 Routine[QLH] LIPID PANEL 09/17/2011 Routine[QLH] TSH, 3RD GENERATION 09/17/2011 Routine[QLH] B TYPE NATRIURETIC PEPTIDE (BNP) 09/17/2011 Routine[QLH] LIPOPROTEIN (a) 09/17/2011 Routine[QLH] HEMOGLOBIN A1c 09/17/2011 Routine[QLH] URINALYSIS, COMPLETE 09/17/2011 Routine[QLH] MAGNESIUM 09/17/2011 Routine[QLH] CBC (INCLUDES DIFF/PLT) 12/18/2011 Routine[L] CMP14 12/18/2011 Routine[L] Calcium, Serum 12/18/2011 Routine[QLH] CREATINE KINASE, TOTAL 12/18/2011 Routine[QLH] LIPID PANEL 12/18/2011 Routine[QLH] TSH, 3RD GENERATION 12/18/2011 Routine[QLH] B TYPE NATRIURETIC PEPTIDE (BNP) 12/18/2011 Routine[QLH] HEMOGLOBIN A1c 12/18/2011 Routine[QLH] CBC (INCLUDES DIFF/PLT) 12/24/2011 Routine[QLH] CMP W/EGFR 12/24/2011 Routine[QLH] CALCIUM 12/24/2011 Routine[QLH] CREATINE KINASE, TOTAL 12/24/2011 Routine[QLH] LIPID PANEL 12/24/2011 Routine[QLH] B TYPE NATRIU RETIC PEPTIDE (BNP) 12/24/2011 Routine[QLH] HEMOGLOBIN A1c 12/24/2011 Routine[QLH] CBC (INCLUDES DIFF/PLT) 03/22/2012 Routine[L] CMP14 03/22/2012 Routine[QLH] CALCIUM 03/22/2012 Routine[QLH] CREATINE KINASE, TOTAL 03/22/2012 Routine[QLH] LIPID PANEL 03/22/2012 Routine[QLH] B TYPE NATRIURETIC PEPTIDE (BNP) 03/22/2012 Routine[QLH] HEMOGLOBIN A1c 03/22/2012 Routine[QLH] TSH, 3RD GENERATION 03/22/2012 Routine 05/20/2012 [facility] [QLH] CBC (INCLUDES DIFF/PLT) 09/17/2011 Routine[L] CMP14 09/17/2011 Routine[L] Calcium, Serum 09/17/2011 Routine[QLH] CREATINE KINASE, TOTAL 09/17/2011 Routine[QLH] LIPID PANEL 09/17/2011 Routine[QLH] TSH, 3RD GENERATION 09/17/2011 Routine[QLH] B TYPE NATRIURETIC PEPTIDE (BNP) 09/17/2011 Routine[QLH] LIPOPROTEIN (a) 09/17/2011 Routine[QLH] HEMOGLOBIN A1c 09/17/2011 Routine[QLH] URINALYSIS, COMPLETE 09/17/2011 Routine[QLH] MAGNESIUM 09/17/2011 Routine[QLH] CBC (INCLUDES DIFF/PLT) 12/18/2011 Routine[L] CMP14 12/18/2011 Routine[L] Calcium, Serum 12/18/2011 Routine[QLH] CREATINE KINASE, TOTAL 12/18/2011 Routine[QLH] LIPID PANEL 12/18/2011 Routine[QLH] TSH, 3RD GENERATION 12/18/2011 Routine[QLH] B TYPE NATRIURETIC PEPTIDE (BNP) 12/18/2011 Routine[QLH] HEMOGLOBIN A1c 12/18/2011 Routine[QLH] CBC (INCLUDES DIFF/PLT) 12/24/2011 Routine[QLH] CMP W/EGFR 12/24/2011 Routine[QLH] CALCIUM 12/24/2011 Routine[QLH] CREATINE KINASE, TOTAL 12/24/2011 Routine[QLH] LIPID PANEL 12/24/2011 Routine[QLH] B TYPE NATRIU RETIC PEPTIDE (BNP) 12/24/2011 Routine[QLH] HEMOGLOBIN A1c 12/24/2011 Routine[QLH] CBC (INCLUDES DIFF/PLT) 03/22/2012 Routine[L] CMP14 03/22/2012 Routine[QLH] CALCIUM 03/22/2012 Routine[QLH] CREATINE KINASE, TOTAL 03/22/2012 Routine[QLH] LIPID PANEL 03/22/2012 Routine[QLH] B TYPE NATRIURETIC PEPTIDE (BNP) 03/22/2012 Routine[QLH] HEMOGLOBIN A1c 03/22/2012 Routine[QLH] TSH, 3RD GENERATION 03/22/2012 Routine 04/25/2012 [facility] [QLH] CBC (INCLUDES DIFF/PLT) 09/17/2011 Routine[L] CMP14 09/17/2011 Routine[L] Calcium, Serum 09/17/2011 Routine[QLH] CREATINE KINASE, TOTAL 09/17/2011 Routine[QLH] LIPID PANEL 09/17/2011 Routine[QLH] TSH, 3RD GENERATION 09/17/2011 Routine[QLH] B TYPE NATRIURETIC PEPTIDE (BNP) 09/17/2011 Routine[QLH] LIPOPROTEIN (a) 09/17/2011 Routine[QLH] HEMOGLOBIN A1c 09/17/2011 Routine[QLH] URINALYSIS, COMPLETE 09/17/2011 Routine[QLH] MAGNESIUM 09/17/2011 Routine[QLH] CBC (INCLUDES DIFF/PLT) 12/18/2011 Routine[L] CMP14 12/18/2011 Routine[L] Calcium, Serum 12/18/2011 Routine[QLH] CREATINE KINASE, TOTAL 12/18/2011 Routine[QLH] LIPID PANEL 12/18/2011 Routine[QLH] TSH, 3RD GENERATION 12/18/2011 Routine[QLH] B TYPE NATRIURETIC PEPTIDE (BNP) 12/18/2011 Routine[QLH] HEMOGLOBIN A1c 12/18/2011 Routine[QLH] CBC (INCLUDES DIFF/PLT) 12/24/2011 Routine[QLH] CMP W/EGFR 12/24/2011 Routine[QLH] CALCIUM 12/24/2011 Routine[QLH] CREATINE KINASE, TOTAL 12/24/2011 Routine[QLH] LIPID PANEL 12/24/2011 Routine[QLH] B TYPE NATRIU RETIC PEPTIDE (BNP) 12/24/2011 Routine[QLH] HEMOGLOBIN A1c 12/24/2011 Routine[QLH] CBC (INCLUDES DIFF/PLT) 03/22/2012 Routine[L] CMP14 03/22/2012 Routine[QLH] CALCIUM 03/22/2012 Routine[QLH] CREATINE KINASE, TOTAL 03/22/2012 Routine[QLH] LIPID PANEL 03/22/2012 Routine[QLH] B TYPE NATRIURETIC PEPTIDE (BNP) 03/22/2012 Routine[QLH] HEMOGLOBIN A1c 03/22/2012 Routine[QLH] TSH, 3RD GENERATION 03/22/2012 Routine 04/08/2012 [facility] Social History Social History Date Source Smoking Cigarettes For ____ Pack-years (Active) Marital History - Currently (Active) Former Smoker (Active) 05/17/2013 [facility] Family History Value Date S ource No Family history of Pancreatitis (Denied) No Family history of Thyroid Cancer (Denied) Family history of Diabetes Mellitus (V18.0); (Active) 05/17/2013 [facility] No Family history of Pancreatitis (Denied) No Family history of Thyroid Cancer (Denied) Family history of Diabetes Mellitus (V18.0); (Active) 05/17/2013 [facility] No Family history of Pancreatitis (Denied) No Family history of Thyroid Cancer (Denied) Family history of Diabetes Mellitus (V18.0); (Active) 05/12/2013 [facility] No Family history of Pancreatitis (Denied) No Family history of Thyroid Cancer (Denied) Family history of Diabetes Mellitus (V18.0); (Active) 05/11/2013 [facility] No Family history of Pancreatitis (Denied) No Family history of Thyroid Cancer (Denied) Family history of Diabetes Mellitus (V18.0); (Active) 02/23/2013 [facility] No Family history of Pancreatitis (Denied) No Family history of Thyroid Cancer (Denied) Family history of Diabetes Mellitus (V18.0); (Active) 02/21/2013 [facility] No Family history of Pancreatitis (Denied) No Family history of Thyroid Cancer (Denied) Family history of Diabetes Mellitus (V18.0); (Active) 02/10/2013 [facility] No Family history of Pancreatitis (Denied) No Family history of Thyroid Cancer (Denied) Family history of Diabetes Mellitus (V18.0); (Active) 02/06/2013 [facility] No Family history of Pancreatitis (Denied) No Family history of Thyroid Cancer (Denied) Family history of Diabetes Mellitus (V18.0); (Active) 01/31/2013 [facility] No Family history of Pancreatitis (Denied) No Family history of Thyroid Cancer (Denied) Family history of Diabetes Mellitus (V18.0); (Active) 01/26/2013 [facility] No Family history of Pancreatitis (Denied) No Family history of Thyroid Cancer (Denied) Family history of Diabetes Mellitus (V18.0); (Active) 01/25/2013 [facility] No Family history of Pancreatitis (Denied) No Family history of Thyroid Cancer (Denied) Family history of Diabetes Mellitus (V18.0); (Active) 01/24/2013 [facility] No Family history of Pancreatitis (Denied) No Family history of Thyroid Cancer (Denied) Family history of Diabetes Mellitus (V18.0); (Active) 01/04/2013 [facility] No Family history of Pancreatitis (Denied) No Family history of Thyroid Cancer (Denied) Family history of Diabetes Mellitus (V18.0); (Active) 01/02/2013 [facility] No Family history of Pancreatitis (Denied) No Family history of Thyroid Cancer (Denied) Family history of Diabetes Mellitus (V18.0); (Active) 11/18/2012 [facility] No Family history of Pancreatitis (Denied) No Family history of Thyroid Cancer (Denied) Family history of Diabetes Mellitus (V18.0); (Active) 11/18/2012 [facility] No Family history of Pancreatitis (Denied) No Family history of Thyroid Cancer (Denied) Family history of Diabetes Mellitus (V18.0); (Active) 11/17/2012 [facility] No Family history of Pancreatitis (Denied) No Family history of Thyroid Cancer (Denied) Family history of Diabetes Mellitus (V18.0); (Active) 10/21/2012 [facility] No Family history of Pancreatitis (Denied) No Family history of Thyroid Cancer (Denied) Family history of Diabetes Mellitus (V18.0); (Active) 09/23/2012 [facility] No Family history of Pancreatitis (Denied) No Family history of Thyroid Cancer (Denied) Family history of Diabetes Mellitus (V18.0); (Active) 09/22/2012 [facility] No Family history of Pancreatitis (Denied) No Family history of Thyroid Cancer (Denied) Family history of Diabetes Mellitus (V18.0); (Active) 09/22/2012 [facility] No Family history of Pancreatitis (Denied) No Family history of Thyroid Cancer (Denied) Family history of Diabetes Mellitus (V18.0); (Active) 09/12/2012 [facility] No Family history of Pancreatitis (Denied) No Family history of Thyroid Cancer (Denied) Family history of Diabetes Mellitus (V18.0); (Active) 09/12/2012 [facility] No Family history of Pancreatitis (Denied) No Family history of Thyroid Cancer (Denied) Family history of Diabetes Mellitus (V18.0); (Active) 09/09/2012 [facility] No Family history of Pancreatitis (Denied) No Family history of Thyroid Cancer (Denied) Family history of Diabetes Mellitus (V18.0); (Active) 08/12/2012 [facility] No Family history of Pancreatitis (Denied) No Family history of Thyroid Cancer (Denied) Family history of Diabetes Mellitus (V18.0); (Active) 07/25/2012 [facility] No Family history of Pancreatitis (Denied) No Family history of Thyroid Cancer (Denied) Family history of Diabetes Mellitus (V18.0); (Active) 07/22/2012 [facility] No Family history of Pancreatitis (Denied) No Family history of Thyroid Cancer (Denied) Family history of Diabetes Mellitus (V18.0); (Active) 07/21/2012 [facility] No Family history of Pancreatitis (Denied) No Family history of Thyroid Cancer (Denied) Family history of Diabetes Mellitus (V18.0); (Active) 06/23/2012 [facility] No Family history of Pancreatitis (Denied) No Family history of Thyroid Cancer (Denied) Family history of Diabetes Mellitus (V18.0); (Active) 06/10/2012 [facility] No Family history of Pancreatitis (Denied) No Family history of Thyroid Cancer (Denied) Family history of Diabetes Mellitus (V18.0); (Active) 05/20/2012 [facility] No Family history of Pancreatitis (Denied) No Family history of Thyroid Cancer (Denied) Family history of Diabetes Mellitus (V18.0); (Active) 05/20/2012 [facility] No Family history of Pancreatitis (Denied) No Family history of Thyroid Cancer (Denied) Family history of Diabetes Mellitus (V18.0); (Active) 04/25/2012 [facility] No Family history of Pancreatitis (Denied) No Family history of Thyroid Cancer (Denied) Family history of Diabetes Mellitus (V18.0); (Active) 04/08/2012 [facility] Advance Directives Order Name Results Value Date Source Advance Directives Advance Dir ectives No Advance Directives available. 05/17/2013 [facility] Advance Directives Advance Dir ectives No Advance Directives available. 05/17/2013 [facility] Advance Directives Advance Dir ectives No Advance Directives available. 05/12/2013 [facility] Advance Directives Advance Dir ectives No Advance Directives available. 05/11/2013 [facility] Advance Directives Advance Dir ectives No Advance Directives available. 02/23/2013 [facility] Advance Directives Advance Dir ectives No Advance Directives available. 02/21/2013 [facility] Advance Directives Advance Dir ectives No Advance Directives available. 02/10/2013 [facility] Advance Directives Advance Dir ectives No Advance Directives available. 02/06/2013 [facility] Advance Directives Advance Dir ectives No Advance Directives available. 01/31/2013 [facility] Advance Directives Advance Dir ectives No Advance Directives available. 01/26/2013 [facility] Advance Directives Advance Dir ectives No Advance Directives available. 01/25/2013 [facility] Advance Directives Advance Dir ectives No Advance Directives available. 01/24/2013 [facility] Advance Directives Advance Dir ectives No Advance Directives available. 01/04/2013 [facility] Advance Directives Advance Dir ectives No Advance Directives available. 01/02/2013 [facility] Advance Directives Advance Dir ectives No Advance Directives available. 11/18/2012 [facility] Advance Directives Advance Dir ectives No Advance Directives available. 11/18/2012 [facility] Advance Directives Advance Dir ectives No Advance Directives available. 11/17/2012 [facility] Advance Directives Advance Dir ectives No Advance Directives available. 10/21/2012 [facility] Advance Directives Advance Dir ectives No Advance Directives available. 09/23/2012 [facility] Advance Directives Advance Dir ectives No Advance Directives available. 09/22/2012 [facility] Advance Directives Advance Dir ectives No Advance Directives available. 09/22/2012 [facility] Advance Directives Advance Dir ectives No Advance Directives available. 09/12/2012 [facility] Advance Directives Advance Dir ectives No Advance Directives available. 09/12/2012 [facility] Advance Directives Advance Dir ectives No Advance Directives available. 09/09/2012 [facility] Advance Directives Advance Dir ectives No Advance Directives available. 08/12/2012 [facility] Advance Directives Advance Dir ectives No Advance Directives available. 07/25/2012 [facility] Advance Directives Advance Dir ectives No Advance Directives available. 07/22/2012 [facility] Advance Directives Advance Dir ectives No Advance Directives available. 07/21/2012 [facility] Advance Directives Advance Dir ectives No Advance Directives available. 06/23/2012 [facility] Advance Directives Advance Dir ectives No Advance Directives available. 06/10/2012 [facility] Advance Directives Advance Dir ectives No Advance Directives available. 05/20/2012 [facility] Advance Directives Advance Dir ectives No Advance Directives available. 05/20/2012 [facility] Advance Directives Advance Dir ectives No Advance Directives available. 04/25/2012 [facility] Advance Directives Advance Dir ectives No Advance Directives available. 04/08/2012 [facility] Functional Status No Data Provided for This Section
--- OUTSIDE RECORDS SUMMARY | 2019-07-20 13:50 | XMS REPORT ---
Author Author VERONICA Lake Organization Unknown Address Unknown Phone Care Team Providers Care Grounds Crew Supervisor Name Role Phone [place]to Lake PP Reason for Referral No Reason for Referral was given. History of Present Illness No HPI available. 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); ( Active) * Hypertension (401.9); (Active) * Hyperlipidemia (272.4); (Active) * Coronary Artery Disease (414.00); (Active) Medication * Omeprazole 20 MG Oral Capsule Delayed Release; TAKE 1 CAPSULE TWICE DAILY; Start Date: 09/15/2007 (Active) * Gabapentin 300 MG Oral Capsule; TAKE 2 CAPSULE 3 TIMES DAILY; Start Date: 09/29/2005 (Active) * Metoprolol Tartrate 50 MG Oral Tablet; Take 1 tablet twice a day; Start Date: 10/01/2005; End Date: (Active) * Lisinopril 40 MG Oral Tablet; TAKE 1 TABLET DAILY.; Start Date: 09/29/2005; End Date: (Active) * Dipyridamole 75 MG Oral Tablet; TAKE TABLET TWICE DAILY; Start Date: 09/29/2005; End Date: (Active) * GlyBURIDE-MetFORMIN 2.5-500 MG Oral Tablet; TAKE 1 TABLET AT NOON AND 1 TABLET IN PM; Start Date: 09/29/2005 (Active) * Aspirin 325 MG Oral Tablet; TAKE 1 TABLET DAILY.; Start Date: 09/29/2005 (Active) * Fish Oil CAPS; TAKE TABLET; Start Date: 09/29/2005 (Active) * Hydrochlorothiazide 25 MG Oral Tablet; TAKE 1 TABLET DAILY.; Start Date: 12/26/2007; End Date: (Active) * Actos 45 MG Oral Tablet; TAKE 1/2 TABLET ONCE DAILY.; Start Date: 02/19/2008 (Active) * Accu-Chek Compact Test Drum In Vitro Strip; Check BG 2x a day; Start Date: 08/23/2006 (Active) * Iron 325 (65 Fe) MG Oral Tablet; TAKE 1 TABLET DAILY (Active) * Metoprolol Succinate ER 50 MG Oral Tablet Extended Release 24 Hour; TAKE 1 TABLET TWICE DAILY; Start Date: 03/19/2011; End Date: (Active) * Klor-Con 8 MEQ Oral Tablet Extended Release; TAKE 1 TABLET TWICE A DAY WITH MEALS; Start Date: 12/14/2008; End Date: (Active) * Colestipol HCl 1 GM Oral Tablet; TAKE 2 TABLETS TWICE DAILY; Start Date: 03/19/2011 (Active) * NovoTwist 32G X 5 MM Miscellaneous; 2 a day; Start Date: 04/08/2012 (Active) * Allopurinol 300 MG Oral Tablet; Start Date: 04/02/2012 (Active) * Victoza 18 MG/3ML Subcutaneous Solution; INJECT 1.8 MG SUBCUTANEOUSLY EVERY DAY (may take in morning at same time with Levemir) (Active) * Vitamin D3 5000 UNIT Oral Tablet; 1 a day (Active) * Omeprazole 20 MG Oral Capsule Delayed Release; TAKE 1 CAPSULE TWICE DAILY; Start Date: 03/19/2011; End Date: (Active) * Levemir FlexPen 100 UNIT/ML Subcutaneous Solution; 20 units every morning; Start Date: 04/08/2012 (Active) * Diazepam 5 MG Oral Tablet; TAKE 1 TABLET TWICE DAILY.; Start Date: 03/19/2011 (Active) * Atorvastatin Calcium 20 MG Oral Tablet; TAKE 1 TABLET DAILY AT BEDTIME; Start Date: 03/19/2011; End Date: (Active) Allergies and Adverse Reactions * No Known Drug Allergies (Active) Past Medical History * History of Gout (274.9); (Resolved) * No History of Pancreatitis (Denied) * No History of Thyroid Cancer (Denied) Procedures Procedure Procedure Date Date Completed Status CABG (CABG) - - Resolved Family History * No Family history of Pancreatitis (Denied) * No Family history of Thyroid Cancer (Denied) * Family history of Diabetes Mellitus (V18.0); (Active) Social History * Smoking Cigarettes For ____ Pack-years (Active) * Former Smoker (Active) * Marital History - Currently (Active) Treatment Plan * [QLH] CBC (INCLUDES DIFF/PLT) 12/18/2011 Routine * [L] CMP14 12/18/2011 Routine * [L] Calcium, Serum 12/18/2011 Routine * [QLH] CREATINE KINASE, TOTAL 12/18/2011 Routine * [QLH] LIPID PANEL 12/18/2011 Routine * [QLH] TSH, 3RD GENERATION 12/18/2011 Routine * [QLH] B TYPE NATRIURETIC PEPTIDE (BNP) 12/18/2011 Routine * [QLH] HEMOGLOBIN A1c 12/18/2011 Routine * [QLH] CBC (INCLUDES DIFF/PLT) 12/24/2011 Routine * [QLH] CMP W/EGFR 12/24/2011 Routine * [QLH] CALCIUM 12/24/2011 Routine * [QLH] CREATINE KINASE, TOTAL 12/24/2011 Routine * [QLH] LIPID PANEL 12/24/2011 Routine * [QLH] B TYPE NATRIURETIC PEPTIDE (BNP) 12/24/2011 Routine * [QLH] HEMOGLOBIN A1c 12/24/2011 Routine * [QLH] CBC (INCLUDES DIFF/PLT) 06/23/2012 Routine * [L] CMP14 06/23/2012 Routine * [QLH] CALCIUM 06/23/2012 Routine * [QLH] CREATINE KINASE, TOTAL 06/23/2012 Routine * [QLH] LIPID PANEL 06/23/2012 Routine * [QLH] TSH, 3RD GENERATION 06/23/2012 Routine * [QLH] B TYPE NATRIURETIC PEPTIDE (BNP) 06/23/2012 Routine * [QLH] HEMOGLOBIN A1c 06/23/2012 Routine * [N] 2D Echo complete, with Doppler 06/23/2012 Routine Advance Directives * No Advance Directives available. Encounters * AUDIT 08/12/2012 * E30, Provider: ANN-MARIE HYATT, Status: Pen, Time: 4:00 PM 09/16/2012 * EST, Provider: ALYX GALLARDO, Status: Pen, Time: 3:20 PM 09/22/2012
--- OUTSIDE RECORDS SUMMARY | 2019-07-20 13:50 | XMS REPORT ---
Author Author VERONICA Cannon Organization Unknown Address Unknown Phone Care Team Providers Care Drill Press Operator Helper Name Role Phone Davis Dede PP Reason for Referral No Reason for Referral was given. History of Present Illness No HPI available. 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); ( Active) * Diabetes Mellitus (250.00); (Active) * Hypertension (401.9); (Active) * Hyperlipidemia (272.4); (Active) * Coronary Artery Disease (414.00); (Active) Medication * Omeprazole 20 MG Oral Capsule Delayed Release; TAKE 1 CAPSULE TWICE DAILY; Start Date: 09/15/2007 (Active) * Gabapentin 300 MG Oral Capsule; TAKE 2 CAPSULE 3 TIMES DAILY; Start Date: 09/29/2005 (Active) * Lisinopril 40 MG Oral Tablet; [...] Start Date: 12/26/2007; End Date: (Active) * Accu-Chek Compact Test Drum In [...] TWICE DAILY; Start Date: 03/19/2011 (Active) * Allopurinol 300 MG Oral Tablet; Start Date: 04/02/2012 (Active) * NovoTwist 32G X 5 MM Miscellaneous; 2 a day; Start Date: 04/08/2012 (Active) * Vitamin D3 5000 UNIT Oral Tablet; 1 a day (Active) * Levemir FlexPen 100 UNIT/ML Subcutaneous Solution; 20 units every morning; Start Date: 04/08/2012 (Active) * Diazepam 5 MG Oral Tablet; TAKE 1 TABLET TWICE DAILY.; Start Date: 03/19/2011 (Active) * Micronized Colestipol HCl 1 GM Oral Tablet; TAKE 2 TABLET TWICE A DAY; Start Date: 09/12/2012 (Active) * Omeprazole 20 MG Oral Capsule Delayed Release; TAKE 1 CAPSULE TWICE DAILY; Start Date: 03/19/2011 (Active) * Atorvastatin Calcium 20 MG Oral Tablet; TAKE 1 TABLET DAILY AT BEDTIME; Start Date: 03/19/2011 (Active) * Victoza 18 MG/3ML Subcutaneous Solution; INJECT 1.8 MG SUBCUTANEOUSLY EVERY DAY (may take in morning at same time with Levemir) (Active) * Pioglitazone HCl 15 MG Oral Tablet; TAKE 1 TABLET ONCE DAILY.; Start Date: 09/12/2012 (Active) * Lisinopril 40 MG Oral Tablet; TAKE 1 TABLET DAILY; Start Date: 03/19/2011; End Date: (Active) Allergies [...] Treatment Plan * [QLH] CBC (INCLUDES DIFF/PLT) 12/24/2011 Routine * [QLH] CMP W/EGFR 12/24/2011 Routine * [QLH] CALCIUM 12/24/2011 Routine * [QLH] CREATINE KINASE, TOTAL 12/24/2011 Routine * [QLH] LIPID PANEL 12/24/2011 Routine * [QLH] B TYPE NATRIURETIC PEPTIDE (BNP) 12/24/2011 Routine * [QLH] HEMOGLOBIN A1c 12/24/2011 Routine * [N] Venous Duplex Lower Bilateral 09/22/2012 Routine * [N] 2D Echo complete, with Doppler [id number] 06/23/2012 Routine * [QLH] CBC (INCLUDES DIFF/PLT) 09/22/2012 Routine * [L] CMP14 09/22/2012 Routine * [QLH] CREATINE KINASE, TOTAL 09/22/2012 Routine * [N] Arterial Duplex Lower Extremity Bilateral [id number] 09/22/2012 Routine Advance Directives * No Advance Directives available. Encounters * AUDIT 10/21/2012 * E30, Provider: ANN-MARIE HYATT, Status: Elian, Time: 2:15 PM 11/18/2012 * EST, Provider: ALYX GALLARDO, Status: Elian, Time: 1:20 PM 01/26/2013
--- OUTSIDE RECORDS SUMMARY | 2019-07-20 13:50 | XMS REPORT ---
Author Author VERONICA HYATT Organization Unknown Address Unknown Phone Care Team Providers Care Sr. Manager Marketing Name Role Phone OLENA ANN-MARIE PP Reason for Referral No Reason for [...] TAKE TABLET; Start Date: 09/29/2005 (Active) * Accu-Chek Compact Test Drum In Vitro Strip; Start Date: 08/23/2006 (Active) * Hydrochlorothiazide 25 MG Oral Tablet; TAKE 1 TABLET DAILY.; Start Date: 12/26/2007; End Date: (Active) * Actos 45 MG Oral Tablet; TAKE 1/2 TABLET ONCE DAILY.; Start Date: 02/19/2008 (Active) * Iron 325 (65 Fe) MG Oral Tablet; TAKE 1 TABLET DAILY (Active) * Atorvastatin Calcium 20 MG Oral Tablet; TAKE 1 TABLET DAILY AT BEDTIME.; Start Date: 03/19/2011; End Date: (Active) * Metoprolol Succinate ER 50 MG Oral Tablet Extended Release 24 Hour; TAKE 1 TABLET TWICE DAILY; Start Date: 03/19/2011; End Date: (Active) * Klor-Con 8 MEQ Oral Tablet Extended Release; TAKE 1 TABLET TWICE A DAY WITH MEALS; Start Date: 12/14/2008; End Date: (Active) * Diazepam 5 MG Oral Tablet; TAKE 1 TABLET TWICE DAILY.; Start Date: 03/19/2011 (Active) * Colestipol HCl 1 GM Oral Tablet; TAKE 2 TABLETS TWICE DAILY; Start Date: 03/19/2011 (Active) * Allopurinol 300 MG Oral Tablet; Start Date: 04/02/2012 (Active) * Levemir FlexPen 100 UNIT/ML Subcutaneous Solution; 15 units every morning; Start Date: 04/08/2012 (Active) * NovoTwist 32G X 5 MM Miscellaneous; 2 a day; Start Date: 04/08/2012 (Active) * Victoza 18 MG/3ML Subcutaneous Solution; INJECT 1.8 MG SUBCUTANEOUSLY EVERY DAY (may take in morning at same time with Levemir) (Active) * Vitamin D3 5000 UNIT Oral Tablet; 1 a day (Active) Allergies and Adverse Reactions * No Known Drug Allergies (Active) Past Medical History * History of Gout (274.9); (Resolved) * No History of Pancreatitis (Denied) * No History of Thyroid Cancer (Denied) Procedures Procedure Procedure Date Date Completed Status Coronary Artery Bypass Graft (Cabg) - - Resolved Family History * No Family history of Pancreatitis (Denied) * No Family history of Thyroid Cancer (Denied) * Family history of Diabetes Mellitus (V18.0); (Active) Social History * Smoking Cigarettes For ____ Pack-Years (Active) * Former Smoker (Active) * Marital History - Currently (Active) Treatment Plan * [QLH] CBC (INCLUDES DIFF/PLT) 09/17/2011 Routine * [L] CMP14 09/17/2011 Routine * [L] Calcium, Serum 09/17/2011 Routine * [QLH] CREATINE KINASE, TOTAL 09/17/2011 Routine * [QLH] LIPID PANEL 09/17/2011 Routine * [QLH] TSH, 3RD GENERATION 09/17/2011 Routine * [QLH] B TYPE NATRIURETIC PEPTIDE (BNP) 09/17/2011 Routine * [QLH] LIPOPROTEIN (a) 09/17/2011 Routine * [QLH] HEMOGLOBIN A1c 09/17/2011 Routine * [QLH] URINALYSIS, COMPLETE 09/17/2011 Routine * [QLH] MAGNESIUM 09/17/2011 Routine * [QLH] CBC (INCLUDES DIFF/PLT) 12/18/2011 Routine [...] 12/24/2011 Routine * [QLH] CBC (INCLUDES DIFF/PLT) 03/22/2012 Routine * [L] CMP14 03/22/2012 Routine * [QLH] CALCIUM 03/22/2012 Routine * [QLH] CREATINE KINASE, TOTAL 03/22/2012 Routine * [QLH] LIPID PANEL 03/22/2012 Routine * [QLH] B TYPE NATRIURETIC PEPTIDE (BNP) 03/22/2012 Routine * [QLH] HEMOGLOBIN A1c 03/22/2012 Routine * [QL] TSH, 3RD GENERATION 03/22/2012 Routine Advance Directives * No Advance Directives available. Encounters * AUDIT 04/08/2012 * EST, Provider: ALYX GALLARDO, Status: Elian, Time: 2:40 PM 06/23/2012
--- OUTSIDE RECORDS SUMMARY | 2019-07-20 13:50 | XMS REPORT ---
Author Author VERONICA Hays Organization Unknown Address Unknown Phone Care Team Providers Care Instrument Technician Apprentice Name Role Phone Saúl Lola PP Reason for Referral No Reason for [...] Oral Tablet; Start Date: 04/02/2012 (Active) * Vitamin D3 5000 UNIT Oral [...] BEDTIME; Start Date: 03/19/2011; End Date: (Active) * Victoza 18 MG/3ML Subcutaneous Solution; INJECT 1.8 MG SUBCUTANEOUSLY EVERY DAY (may take in morning at same time with Levemir) (Active) * Pioglitazone HCl 15 MG Oral Tablet; TAKE 1 TABLET ONCE DAILY.; Start Date: 09/12/2012 (Active) * Micronized Colestipol HCl 1 GM Oral Tablet; TAKE 2 TABLET TWICE A DAY; Start Date: 09/12/2012; End Date: (Active) Allergies and Adverse Reactions [...] * [N] 2D Echo complete, with Doppler [id number] 06/23/2012 Routine Advance Directives * No Advance Directives available. Encounters * AUDIT 09/12/2012 * EST, Provider: ALYX GALLARDO, Status: Pen, Time: 3:20 PM 09/22/2012
--- OUTSIDE RECORDS SUMMARY | 2019-07-20 13:50 | XMS REPORT ---
Author Author VERONICA Thomas Organization Unknown Address Unknown Phone Care Team Providers Care Veterinary Radiologist Name Role Phone Newton HamiltonAnali gore PP Reason for Referral No Reason for [...] Start Date: 03/19/2011; End Date: (Active) * Micronized Colestipol HCl 1 GM [...] TYPE NATRIURETIC PEPTIDE (BNP) 06/23/2012 Routine * [QL] HEMOGLOBIN A1c 06/23/2012 Routine * [N] 2D Echo complete, with Doppler [id number] 06/23/2012 Routine Advance Directives * No Advance Directives available. Encounters * AUDIT 09/12/2012 * ECH, Provider: ROSALBA MCKEON, Status: Elian, Time: 1:00 PM 09/12/2012 * EST, Provider: ALYX GALLARDO, Status: Elian, Time: 3:20 PM 09/22/2012
--- OUTSIDE RECORDS SUMMARY | 2019-07-20 13:50 | XMS REPORT ---
Author Author VERONICA Grider Organization Unknown Address Unknown Phone Care Team Providers Care Banana Loader Name Role Phone [place] PP Reason for Referral No Reason for [...] [QLH] HEMOGLOBIN A1c 12/24/2011 Routine * [N] 2D Echo complete, with Doppler [id number] 06/23/2012 Routine * [QLH] CBC (INCLUDES DIFF/PLT) 09/22/2012 Routine * [L] CMP14 09/22/2012 Routine * [QLH] CREATINE KINASE, TOTAL 09/22/2012 Routine * [N] Venous Duplex Lower Bilateral 09/22/2012 Routine * [N] Arterial Duplex Lower Extremity Bilateral [id number] 09/22/2012 Routine Advance Directives * No Advance Directives available. Encounters * AUDIT 09/22/2012 * E30, Provider: ANN-MARIE HYATT, Status: Elian, Time: 2:15 PM 11/18/2012 * EST, Provider: ALYX GALLARDO, Status: Elian, Time: 1:20 PM 01/26/2013
--- OUTSIDE RECORDS SUMMARY | 2019-07-20 13:50 | XMS REPORT ---
Author Author VERONICA GALLARDO Organization Unknown Address Unknown Phone Care Team Providers Care Crm Administrator Name Role Phone GALLARDO, ALYX PP Reason for Referral No Reason for [...] * [N] 2D Echo complete, with Doppler [id number] 06/23/2012 Routine * [QLH] CBC (INCLUDES DIFF/PLT) 09/22/2012 Routine * [L] CMP14 09/22/2012 Routine * [QLH] CREATINE KINASE, TOTAL 09/22/2012 Routine * [N] Venous Duplex Lower Bilateral 09/22/2012 Routine * [N] Arterial Duplex Lower Extremity Bilateral [id number] 09/22/2012 Routine Advance Directives * No Advance Directives available. Encounters * AUDIT 09/22/2012 * E30, Provider: ANN-MARIE HYATT, Status: Elian, Time: 2:15 PM 11/18/2012 * EST, Provider: AYLX GALLARDO, Status: Elian, Time: 1:20 PM 01/26/2013
--- OUTSIDE RECORDS SUMMARY | 2019-07-20 13:50 | XMS REPORT ---
Author Author VERONICA GALLARDO Organization Unknown Address Unknown Phone Care Team Providers Care Director Airport Name Role Phone GALLARDO, ALYX PP Reason [...] * Levemir FlexPen 100 UNIT/ML Subcutaneous Solution; 17 units every morning; Start Date: 04/08/2012 (Active) * Omeprazole 20 MG Oral Capsule Delayed Release; TAKE 1 CAPSULE TWICE DAILY; Start Date: 03/19/2011; End Date: (Active) * Diazepam 5 MG Oral Tablet; TAKE 1 TABLET TWICE DAILY.; Start Date: 03/19/2011 (Active) Allergies and Adverse Reactions * No [...] No Advance Directives available. Encounters * AUDIT 06/23/2012 * E30, Provider: ANN-MARIE HYATT, Status: Pen, Time: 3:30 PM 07/22/2012 * EST, Provider: ALYX GALLARDO, Status: Pen, Time: 3:20 PM 09/22/2012
--- OUTSIDE RECORDS SUMMARY | 2019-07-20 13:50 | XMS REPORT ---
Author Author VERONICA GALLARDO Organization Unknown Address Unknown Phone Care Team Providers Care Audio Production Manager Name Role Phone GALLARDO, ALYX PP Reason [...] TWICE DAILY; Start Date: 03/19/2011 (Active) * Diazepam 5 MG Oral Tablet; TAKE 1 TABLET TWICE DAILY.; Start Date: 03/19/2011 (Active) * Micronized Colestipol HCl 1 GM Oral Tablet; TAKE 2 TABLET TWICE A DAY; Start Date: 09/12/2012 (Active) * Atorvastatin Calcium 20 MG Oral Tablet; TAKE 1 TABLET DAILY AT BEDTIME; Start Date: 03/19/2011 (Active) * Victoza 18 MG/3ML Subcutaneous Solution; INJECT 1.8 MG SUBCUTANEOUSLY EVERY DAY (may take in morning at same time with Levemir) (Active) * Pioglitazone HCl 15 MG Oral Tablet; TAKE 1 TABLET ONCE DAILY.; Start Date: 09/12/2012 (Active) Allergies and Adverse Reactions * No [...] * [N] 2D Echo complete, with Doppler [id number] 06/23/2012 Routine * [QLH] CBC (INCLUDES DIFF/PLT) 09/22/2012 Routine * [L] CMP14 09/22/2012 Routine * [QLH] CREATINE KINASE, TOTAL 09/22/2012 Routine * [N] Arterial Duplex Lower Extremity Bilateral [id number] 09/22/2012 Routine Advance Directives * No Advance Directives available. Encounters * AUDIT 09/23/2012 * E30, Provider: ANN-MARIE HYATT, Status: Elian, Time: 2:15 PM 11/18/2012 * EST, Provider: ALYX GALLARDO, Status: Elian, Time: 1:20 PM 01/26/2013
--- OUTSIDE RECORDS SUMMARY | 2019-07-20 13:50 | XMS REPORT ---
Author Author VERONICA HYATT Organization Unknown Address Unknown Phone Care Team Providers Care Veterinarian Epidemiologist Name Role Phone OLENA, ANN-MARIE PP Reason for Referral No Reason [...] * [QLH] HEMOGLOBIN A1c 03/22/2012 Routine * [QLH] TSH, 3RD GENERATION 03/22/2012 Routine Advance Directives * No Advance Directives available. Encounters * AUDIT 05/20/2012 * EST, Provider: ALYX GALLARDO, Status: Elian, Time: 2:40 PM 06/23/2012 * E30, Provider: ANN-MARIE HYATT, Status: Elina, Time: 3:30 PM 07/22/2012
--- OUTSIDE RECORDS SUMMARY | 2019-07-20 13:50 | XMS REPORT ---
Author Author VERONICA Thomas Organization Unknown Address Unknown Phone Care Team Providers Care Certified Pedorthotist Name Role Phone Anali Thomas PP Reason for Referral No Reason for [...] (Active) * Coronary Artery Disease (414.00); (Active) * Pain In The Leg (Below The Knee) (729.5); (Active) * Intermittent Claudication (443.9); (Active) Medication * Gabapentin 300 MG Oral Capsule; TAKE 2 CAPSULE 3 TIMES DAILY; Start Date: 09/29/2005 (Active) * Lisinopril 40 MG Oral Tablet; TAKE 1 TABLET DAILY.; Start Date: 09/29/2005; End Date: (Active) * Dipyridamole 75 MG Oral Tablet; TAKE TABLET TWICE DAILY; Start Date: 09/29/2005; End Date: (Active) * Aspirin 325 MG Oral Tablet; [...] Oral Tablet; 1 a day (Active) * Atorvastatin Calcium 20 MG Oral Tablet; TAKE 1 TABLET DAILY AT BEDTIME; Start Date: 03/19/2011 (Active) * Omeprazole 20 MG Oral Capsule Delayed Release; TAKE 1 CAPSULE TWICE DAILY; Start Date: 03/19/2011 (Active) * Diazepam 5 MG Oral Tablet; TAKE 1 TABLET TWICE DAILY.; Start Date: 03/19/2011 (Active) * Micronized Colestipol HCl 1 GM Oral Tablet; TAKE 2 TABLET TWICE A DAY; Start Date: 09/12/2012 (Active) * Pioglitazone HCl 15 MG Oral Tablet; TAKE 1 TABLET ONCE DAILY.; Start Date: 09/12/2012 (Active) * Victoza 18 MG/3ML Subcutaneous Solution; INJECT 1.8 MG SUBCUTANEOUSLY EVERY DAY (may take in morning at same time with Levemir) (Active) * Lisinopril 40 MG Oral Tablet; TAKE 1 TABLET DAILY; Start Date: 03/19/2011; End Date: (Active) * Glimepiride 4 MG Oral Tablet; TAKE 1 TABLET TWICE DAILY.; Start Date: 11/18/2012 (Active) * Levemir FlexPen 100 UNIT/ML Subcutaneous Solution; 20 units every morning; Start Date: 04/08/2012 (Active) * Dipyridamole 75 MG Oral Tablet; Take 1 tablet twice a day; Start Date: 03/19/2011; End Date: (Active) Allergies [...] History - Currently (Active) Treatment Plan * [N] Venous Duplex Lower Bilateral 09/22/2012 Routine * [N] 2D Echo complete, with Doppler [id number] 06/23/2012 Routine * [QLH] CBC (INCLUDES DIFF/PLT) 09/22/2012 Routine * [L] CMP14 09/22/2012 Routine * [QLH] CREATINE KINASE, TOTAL 09/22/2012 Routine * [N] Arterial Duplex Lower Extremity Bilateral [id number] 09/22/2012 Routine Advance Directives * No Advance Directives available. Encounters * AUDIT 01/04/2013 * E30, Provider: ANN-MARIE HYATT, Status: Elian, Time: 10:15 AM 01/25/2013 * EST, Provider: ALYX GALLARDO, Status: Elian, Time: 1:20 PM 01/26/2013
--- OUTSIDE RECORDS SUMMARY | 2019-07-20 13:50 | XMS REPORT ---
Author Author VERONICA Domingo Maia Organization Unknown Address Unknown Phone Care Team Providers Care Skein Mercerizing Machine Operator Name Role Phone Jose L, Maia PP Reason for Referral No Reason for [...] No Advance Directives available. Encounters * AUDIT 04/25/2012 * EST, Provider: ALYX GALLARDO, Status: Pen, Time: 2:40 PM 06/23/2012
--- OUTSIDE RECORDS SUMMARY | 2019-07-20 13:50 | XMS REPORT ---
Author Author VERONICA Domingo Organization Unknown Address Unknown Phone Care Team Providers Care Seed Packer Name Role Phone Jose L, Maia PP [...] No Advance Directives available. Encounters * AUDIT 07/25/2012 * E30, Provider: ANN-MARIE HYATT, Status: Elian, Time: 4:00 PM 09/16/2012 * EST, Provider: ALYX GALLARDO, Status: Elian, Time: 3:20 PM 09/22/2012
--- OUTSIDE RECORDS SUMMARY | 2019-07-20 13:50 | XMS REPORT ---
Author Author VERONICA HYATT Organization Unknown Address Unknown Phone Care Team Providers Care Bar Host Name Role Phone OLENA, ANN-MARIE PP Reason [...] No Advance Directives available. Encounters * AUDIT 07/21/2012 * E30, Provider: ANN-MARIE HYATT, Status: Pen, Time: 3:30 PM 07/22/2012 * EST, Provider: ALYX GALLARDO, Status: Pen, Time: 3:20 PM 09/22/2012
--- OUTSIDE RECORDS SUMMARY | 2019-07-20 13:50 | XMS REPORT ---
Author Author VERONICA Domingo Maia Organization Unknown Address Unknown Phone Care Team Providers Care Staffing Executive Name Role Phone Jose L, Maia PP [...] No Advance Directives available. Encounters * AUDIT 06/10/2012 * EST, Provider: ALYX GALLARDO, Status: Elian, Time: 2:40 PM 06/23/2012 * E30, Provider: ANN-MARIE HYATT, Status: Elian, Time: 3:30 PM 07/22/2012
--- OUTSIDE RECORDS SUMMARY | 2019-07-20 13:50 | XMS REPORT ---
Author Author VERONICA HYATT Organization Unknown Address Unknown Phone Care Team Providers Care Silk Snapper Name Role Phone OLENA, ANN-MARIE PP Reason [...] No Advance Directives available. Encounters * AUDIT 07/22/2012 * EST, Provider: ALYX GALLARDO, Status: Pen, Time: 3:20 PM 09/22/2012
--- OUTSIDE RECORDS SUMMARY | 2019-07-20 13:50 | XMS REPORT ---
Author Author VERONICA HYATT Organization Unknown Address Unknown Phone Care Team Providers Care Monotypist Name Role Phone OLENA, ANN-MARIE PP Reason [...] 05/20/2012 * EST, Provider: ALYX GALLARDO, Status: Pen, Time: 2:40 PM 06/23/2012
--- OUTSIDE RECORDS SUMMARY | 2019-07-20 13:51 | XMS REPORT ---
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 Encounters * AUDIT 11/17/2012 * EST, Provider: ALYX GALLARDO, Status: Elian, Time: 1:20 PM 01/26/2013
--- OUTSIDE RECORDS SUMMARY | 2019-07-20 13:51 | XMS REPORT ---
Author Author VERONICA Lake Organization Unknown Address Unknown Phone Care Team Providers Care Manager Editorial Name Role Phone Aleksandra Loreto PP Reason for Referral No Reason for [...] TIMES DAILY; Start Date: 09/29/2005 (Active) * Aspirin 325 MG Oral Tablet; TAKE 1 TABLET DAILY.; Start Date: 09/29/2005 (Active) * Fish Oil CAPS; TAKE TABLET; Start Date: 09/29/2005 (Active) * Lisinopril 40 MG Oral Tablet; TAKE 1 TABLET DAILY.; Start Date: 09/29/2005; End Date: (Active) * Dipyridamole 75 MG Oral Tablet; TAKE TABLET TWICE DAILY; Start Date: 09/29/2005; End Date: (Active) * GlyBURIDE-MetFORMIN 2.5-500 MG Oral Tablet; TAKE 1 TABLET AT NOON AND 1 TABLET IN PM; Start Date: 09/29/2005 (Active) * Iron 325 (65 Fe) MG [...] TWICE DAILY; Start Date: 03/19/2011 (Active) * Hydrochlorothiazide 25 MG Oral Tablet; TAKE 1 TABLET DAILY.; Start Date: 12/26/2007; End Date: (Active) * Vitamin D3 5000 UNIT Oral Tablet; 1 a day (Active) * Allopurinol 300 MG Oral Tablet; Start Date: 04/02/2012 (Active) * NovoTwist 32G X 5 MM Miscellaneous; 2 a day; Start Date: 04/08/2012 (Active) * Levemir FlexPen 100 UNIT/ML Subcutaneous Solution; 20 units every morning; Start Date: 04/08/2012 (Active) * Diazepam 5 MG Oral Tablet; TAKE 1 TABLET TWICE DAILY.; Start Date: 03/19/2011 (Active) * Omeprazole 20 MG Oral Capsule Delayed Release; TAKE 1 CAPSULE TWICE DAILY; Start Date: 03/19/2011 (Active) * Atorvastatin Calcium 20 MG Oral Tablet; TAKE 1 TABLET DAILY AT BEDTIME; Start Date: 03/19/2011 (Active) * Micronized Colestipol HCl 1 GM Oral Tablet; TAKE 2 TABLET TWICE A DAY; Start Date: 09/12/2012 (Active) * Accu-Chek Compact Test Drum In Vitro Strip; Check BG 2x a day; Start Date: 08/23/2006 (Active) * Pioglitazone HCl 15 MG Oral [...] * [N] 2D Echo complete, with Doppler [id number] 06/23/2012 Routine * [QLH] CBC (INCLUDES DIFF/PLT) 09/22/2012 Routine * [L] CMP14 09/22/2012 Routine * [QLH] CREATINE KINASE, TOTAL 09/22/2012 Routine * [N] Arterial Duplex Lower Extremity Bilateral 49475 09/22/2012 Routine Advance Directives * No Advance Directives available. Encounters * AUDIT 11/18/2012 * EST, Provider: ALYX GALLARDO, Status: Elian, Time: 1:20 PM 01/26/2013
--- OUTSIDE RECORDS SUMMARY | 2019-07-20 13:51 | XMS REPORT ---
Author Author VERONICA HYATT Organization Unknown Address Unknown Phone Care Team Providers Care Production Dispatcher Name Role Phone OLENA, ANN-MARIE PP Reason [...] Coronary Artery Disease (414.00); (Active) Medication * Gabapentin 300 MG Oral [...] Start Date: 09/29/2005; End Date: (Active) * Iron 325 (65 Fe) MG Oral Tablet; TAKE 1 TABLET DAILY (Active) * Metoprolol Succinate ER 50 MG Oral Tablet Extended Release 24 Hour; TAKE 1 TABLET TWICE DAILY; Start Date: 03/19/2011; End Date: (Active) * Colestipol HCl 1 GM Oral Tablet; TAKE 2 TABLETS TWICE DAILY; Start Date: 03/19/2011 (Active) * Klor-Con 8 MEQ Oral Tablet Extended Release; TAKE 1 TABLET TWICE A DAY WITH MEALS; Start Date: 12/14/2008; End Date: (Active) * Hydrochlorothiazide 25 MG Oral Tablet; TAKE 1 TABLET DAILY.; Start Date: 12/26/2007; End Date: (Active) * Vitamin D3 5000 UNIT Oral Tablet; 1 a day (Active) * Allopurinol 300 MG Oral Tablet; Start Date: 04/02/2012 (Active) * NovoTwist 32G X 5 MM Miscellaneous; 2 a day; Start Date: 04/08/2012 (Active) * Diazepam 5 [...] at same time with Levemir) (Active) * Accu-Chek Compact Test Drum In Vitro Strip; Check BG 2x a day; Start Date: 08/23/2006 (Active) * Lisinopril 40 MG Oral Tablet; TAKE 1 TABLET DAILY; Start Date: 03/19/2011; End Date: (Active) * Glimepiride 4 MG Oral Tablet; TAKE 1 TABLET TWICE DAILY.; Start Date: 11/18/2012 (Active) * Levemir FlexPen 100 UNIT/ML Subcutaneous Solution; 20 units every morning; Start Date: 04/08/2012 (Active) Allergies and Adverse Reactions * No [...] * [N] 2D Echo complete, with Doppler 53205 06/23/2012 Routine * [QLH] CBC (INCLUDES DIFF/PLT) 09/22/2012 Routine * [L] CMP14 09/22/2012 Routine * [QLH] CREATINE KINASE, TOTAL 09/22/2012 Routine * [N] Arterial Duplex Lower Extremity Bilateral 11037 09/22/2012 Routine Advance Directives * No Advance Directives available. Encounters * AUDIT 11/18/2012 * E30, Provider: ANN-MARIE HYATT, Status: Elian, Time: 10:15 AM 01/25/2013 * EST, Provider: ALYX GALLARDO, Status: Eilan, Time: 1:20 PM 01/26/2013
--- OUTSIDE RECORDS SUMMARY | 2019-07-20 13:51 | XMS REPORT ---
Author Author VERONICA HYATT Organization Unknown Address Unknown Phone Care Team Providers Care Waste Reclaimer Name Role Phone OLENA ANN-MARIE PP Unavailable Reason for Referral No Reason for Referral was given. History of Present Illness No HPI available. 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); ( Active) * Pain In The Leg (Below The Knee) (729.5); (Active) * Intermittent Claudication (443.9); (Active) * Diabetes Mellitus (250.00); (Active) * Anxiety (Symptom) (300.00); (Active) * Benign Hypertensive Heart Disease (402.10); (Active) * Chronic Kidney Disease, Stage 3 (585.3); (Active) * Coronary Artery Disease (414.00); (Active) * Edema (On Exam) (782.3); (Active) * Hyperlipidemia (272.4); (Active) * Hypertension (401.9); (Active) Medication * Gabapentin 300 MG Oral [...] TABLET DAILY.; Start Date: 09/29/2005 (Active) * Accu-Chek Compact Test Drum In Vitro Strip; Check BG 2x a day; Start Date: 08/23/2006 (Active) * Hydrochlorothiazide 25 MG Oral Tablet; TAKE 1 TABLET DAILY.; Start Date: 12/26/2007 (Active) * Iron 325 (65 Fe) MG Oral Tablet; TAKE 1 TABLET DAILY (Active) * Colestipol HCl 1 GM Oral [...] ONCE DAILY.; Start Date: 09/12/2012 (Active) * Glimepiride 4 MG Oral Tablet; TAKE 1 TABLET TWICE DAILY.; Start Date: 11/18/2012 (Active) * Levemir FlexPen 100 UNIT/ML Subcutaneous Solution; 22 units every morning; Start Date: 04/08/2012 (Active) * Omeprazole 20 MG Oral Capsule Delayed Release; TAKE 1 CAPSULE TWICE DAILY; Start Date: 03/19/2011 (Active) * Metoprolol Succinate ER 50 MG Oral Tablet Extended Release 24 Hour; TAKE 1 TABLET TWICE DAILY; Start Date: 03/19/2011 (Active) * Diazepam 5 MG Oral Tablet; TAKE 1 TABLET TWICE DAILY.; Start Date: 03/19/2011 (Active) * Klor-Con 8 MEQ Oral Tablet Extended Release; TAKE 1 TABLET TWICE A DAY WITH MEALS; Start Date: 12/14/2008 (Active) * Victoza 18 MG/3ML Subcutaneous Solution; INJECT 1.8 MG SUBCUTANEOUSLY EVERY DAY (may take in morning at same time with Levemir); declining eGFR, not a candidate for Exenatide (Active) * One Touch Ultra Test Strips; Check BG 3x a day; Start Date: 01/25/2013 (Active) * OneTouch Delica Lancets Fine Miscellaneous; Check BG 3x a day; Start Date: 01/25/2013 (Active) Allergies and Adverse Reactions * No [...] Smoking Cigarettes For ____ Pack-years (Active) * Marital History - Currently (Active) * Former Smoker (Active) Treatment Plan * [N] Venous Duplex Lower Bilateral 09/22/2012 Routine * [N] 2D Echo complete, with Doppler 19644 06/23/2012 Routine * Pulse 01/26/2013 Routine * [QLH] CBC (INCLUDES DIFF/PLT) 01/26/2013 Routine * [L] CMP14 01/26/2013 Routine * [QLH] CREATINE KINASE, TOTAL 01/26/2013 Routine * [QLH] LIPID PANEL 01/26/2013 Routine * [QLH] TSH, 3RD GENERATION 01/26/2013 Routine * [QLH] HEMOGLOBIN A1c 01/26/2013 Routine * [N] Arterial Duplex Lower Extremity Bilateral 35483 09/22/2012 Routine Advance Directives * No Advance Directives available. Encounters * AUDIT 02/21/2013 * EST, Provider: ALYX GALLARDO, Status: Elian, Time: 1:40 PM 05/11/2013 * E30, Provider: ANN-MARIE HYATT, Status: Elian, Time: 8:30 AM 05/17/2013
--- OUTSIDE RECORDS SUMMARY | 2019-07-20 13:51 | XMS REPORT ---
Author Author VERONICA HYATT Organization Unknown Address Unknown Phone Care Team Providers Care Extension Agent Name Role Phone OLENA ANN-MARIE PP Unavailable Reason for Referral No Reason for Referral was given. History of Present Illness No HPI available. 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); ( Active) * Diabetes Mellitus (250.00); (Active) * Hypertension (401.9); (Active) * Hyperlipidemia (272.4); (Active) Medication * Gabapentin 300 MG Oral [...] Oral Tablet; 1 a day (Active) * Micronized Colestipol HCl 1 GM Oral Tablet; TAKE 2 TABLET TWICE A DAY; Start Date: 09/12/2012 (Active) * Levemir FlexPen 100 UNIT/ML Subcutaneous Solution; 25 units every morning; Start Date: 04/08/2012 (Active) * NovoTwist 32G X 5 MM Miscellaneous; USE 4 A DAY DIRECTED; Start Date: 04/08/2012 (Active) * Diazepam 5 MG Oral Tablet; TAKE 1 TABLET TWICE DAILY.; Start Date: 03/19/2011 (Active) * Atorvastatin Calcium 20 MG Oral Tablet; TAKE 1 TABLET DAILY AT BEDTIME; Start Date: 03/19/2011 (Active) * Metoprolol Succinate ER 50 MG Oral Tablet Extended Release 24 Hour; TAKE 1 TABLET TWICE DAILY; Start Date: 03/19/2011 (Active) * Klor-Con 8 MEQ Oral Tablet Extended Release; TAKE 1 TABLET TWICE A DAY WITH MEALS; Start Date: 12/14/2008 (Active) * Omeprazole 20 MG Oral Capsule Delayed Release; TAKE 1 CAPSULE TWICE DAILY; Start Date: 03/19/2011 (Active) * Pioglitazone HCl 15 MG Oral Tablet; TAKE 1 TABLET ONCE DAILY.; Start Date: 09/12/2012; End Date: (Active) * One Touch Ultra Test Strips; Check BG 3x a day; Start Date: 01/25/2013 (Active) * OneTouch Delica Lancets Fine Miscellaneous; Check BG 3x a day; Start Date: 01/25/2013 (Active) * NovoLOG FlexPen 100 UNIT/ML Subcutaneous Solution; 10 breakfast; 5 lunch; 10 supper; may self titarte up to 50 units a day; Start Date: 05/17/2013 (Active) Allergies and Adverse Reactions * No Known Drug Allergies (Active) Past Medical History * History of Gout (274.9); (Resolved) * No History of Pancreatitis (Denied) * No History of Thyroid Cancer (Denied) Procedures Procedure Procedure Date Date Completed Status 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 Family History * No Family history of Pancreatitis (Denied) * No Family history of Thyroid Cancer (Denied) * Family history of Diabetes Mellitus (V18.0); (Active) Social History * Smoking Cigarettes For ____ Pack-years (Active) * Marital History - Currently (Active) * Former Smoker (Active) Treatment Plan * [N] Venous Duplex Lower Bilateral 09/22/2012 Routine * [N] 2D Echo complete, with Doppler 62447 06/23/2012 Routine * Pulse 01/26/2013 Routine * [QLH] CBC (INCLUDES DIFF/PLT) 05/11/2013 Routine * [L] CMP14 05/11/2013 Routine * [QLH] CREATINE KINASE, TOTAL 05/11/2013 Routine * [QLH] LIPID PANEL 05/11/2013 Routine * [QLH] HEMOGLOBIN A1c 05/11/2013 Routine * [N] Arterial Duplex Lower Extremity Bilateral 29731 09/22/2012 Routine Advance Directives * No Advance Directives available. Encounters * AUDIT 05/17/2013 * EST, Provider: ALYX GALLARDO, Status: Elian, Time: 2:20 PM 08/10/2013
--- OUTSIDE RECORDS SUMMARY | 2019-07-20 13:51 | XMS REPORT ---
Author Author VERONICA Cannon Cotri nna Organization Unknown Address Unknown Phone Care Team Providers Care Liquor Rectifier Name Role Phone Davis Dede PP Reason [...] 1 tablet twice a day; Start Date: 03/19/2011 (Active) Allergies and Adverse [...] * [N] 2D Echo complete, with Doppler 44182 06/23/2012 Routine * [QLH] CBC (INCLUDES DIFF/PLT) 09/22/2012 Routine * [L] CMP14 09/22/2012 Routine * [QLH] CREATINE KINASE, TOTAL 09/22/2012 Routine * [N] Arterial Duplex Lower Extremity Bilateral 57730 09/22/2012 Routine Advance Directives * No Advance Directives available. Encounters * AUDIT 01/02/2013 * E30, Provider: ANN-MARIE HYATT, Status: Elian, Time: 10:15 AM 01/25/2013 * EST, Provider: ALYX GALLARDO, Status: Elian, Time: 1:20 PM 01/26/2013
--- OUTSIDE RECORDS SUMMARY | 2019-07-20 13:51 | XMS REPORT ---
Author Author VERONICA HYATT Organization Unknown Address Unknown Phone Care Team Providers Care Printing Technician Name Role Phone OLENA ANN-MARIE PP Reason [...] * Coronary Artery Disease (414.00); (Active) * Chronic Kidney Disease, Stage 3 (585.3); (Active) Medication * Gabapentin 300 MG Oral [...] every morning; Start Date: 04/08/2012 (Active) * Victoza 18 MG/3ML Subcutaneous Solution; INJECT 1.8 MG SUBCUTANEOUSLY EVERY DAY (may take in morning at same time with Levemir); declining eGFR, not a candidate for Exenatide (Active) * Lisinopril 40 MG Oral Tablet; TAKE 1 TABLET DAILY; Start Date: 03/19/2011 (Active) * Dipyridamole 75 MG Oral Tablet; Take 1 tablet twice a day; Start Date: 03/19/2011 (Active) * One Touch Ultra Test Strips; [...] * [N] 2D Echo complete, with Doppler 14879 06/23/2012 Routine * [N] Arterial Duplex Lower Extremity Bilateral 51981 09/22/2012 Routine Advance Directives * No Advance Directives available. Encounters * AUDIT 01/25/2013 * EST, Provider: ALYX GALLARDO, Status: Elian, Time: 1:20 PM 01/26/2013 * E30, Provider: ANN-MARIE HYATT, Status: Elian, Time: 8:30 AM 05/17/2013
--- OUTSIDE RECORDS SUMMARY | 2019-07-20 13:51 | XMS REPORT ---
Author Author VERONICA GALLARDO Organization Unknown Address Unknown Phone Care Team Providers Care Vinyl Cutter Name Role Phone GALLARDOALYX PP Reason for Referral No Reason for [...] * [N] 2D Echo complete, with Doppler [id number] 06/23/2012 Routine * Pulse 01/26/2013 Routine * [QLH] CBC (INCLUDES DIFF/PLT) 01/26/2013 Routine * [L] CMP14 01/26/2013 Routine * [QLH] CREATINE KINASE, TOTAL 01/26/2013 Routine * [QLH] LIPID PANEL 01/26/2013 Routine * [QLH] TSH, 3RD GENERATION 01/26/2013 Routine * [QLH] HEMOGLOBIN A1c 01/26/2013 Routine * [N] Arterial Duplex Lower Extremity Bilateral [id number] 09/22/2012 Routine Advance Directives * No Advance Directives available. Encounters * AUDIT 02/10/2013 * EST, Provider: ALYX GALLARDO, Status: Elian, Time: 1:40 PM 05/11/2013 * E30, Provider: ANN-MARIE HYATT, Status: Elian, Time: 8:30 AM 05/17/2013
--- OUTSIDE RECORDS SUMMARY | 2019-07-20 13:51 | XMS REPORT ---
Author Author VERONICA GALLARDO Organization Unknown Address Unknown Phone Care Team Providers Care Orthodontic Band Maker Name Role Phone GALLARDOALYX PP Reason for [...] not a candidate for Exenatide (Active) * Glimepiride 4 MG Oral Tablet; [...] WITH MEALS; Start Date: 12/14/2008 (Active) * Metoprolol Succinate ER 50 MG Oral Tablet Extended Release 24 Hour; TAKE 1 TABLET TWICE DAILY; Start Date: 03/19/2011 (Active) * Diazepam 5 MG Oral Tablet; TAKE 1 TABLET TWICE DAILY.; Start Date: 03/19/2011 (Active) * One Touch [...] * [N] 2D Echo complete, with Doppler 48206 06/23/2012 Routine * Pulse 01/26/2013 Routine * [QLH] CBC (INCLUDES DIFF/PLT) 01/26/2013 Routine * [L] CMP14 01/26/2013 Routine * [QLH] CREATINE KINASE, TOTAL 01/26/2013 Routine * [QLH] LIPID PANEL 01/26/2013 Routine * [QLH] TSH, 3RD GENERATION 01/26/2013 Routine * [QLH] HEMOGLOBIN A1c 01/26/2013 Routine * [N] Arterial Duplex Lower Extremity Bilateral 37704 09/22/2012 Routine Advance Directives * No Advance Directives available. Encounters * AUDIT 01/31/2013 * EST, Provider: ALYX GALLARDO, Status: Elian, Time: 1:40 PM 05/11/2013 * E30, Provider: ANN-MARIE HYATT, Status: Elian, Time: 8:30 AM 05/17/2013
--- OUTSIDE RECORDS SUMMARY | 2019-07-20 13:51 | XMS REPORT ---
Author Author VERONICA HYATT Organization Unknown Address Unknown Phone Care Team Providers Care County Director Welfare Name Role Phone OLENA ANN-MARIE PP Unavailable [...] Start Date: 09/12/2012; End Date: (Active) * NovoTwist 32G X 5 MM Miscellaneous; USE 4 A DAY DIRECTED; Start Date: 04/08/2012; End Date: (Active) * One Touch Ultra Test Strips; Check BG 3x a day; Start Date: 01/25/2013 (Active) * OneTouch Delica Lancets Fine Miscellaneous; Check BG 3x a day; Start Date: 01/25/2013 (Active) * NovoLOG FlexPen 100 UNIT/ML Subcutaneous Solution; 10 breakfast; 5 lunch; 10 supper; may self titarte up to 50 units a day; Start Date: 05/17/2013; End Date: (Active) Allergies and Adverse Reactions [...] * [N] 2D Echo complete, with Doppler [id number] 06/23/2012 Routine * Pulse 01/26/2013 Routine * [QLH] CBC (INCLUDES DIFF/PLT) 05/11/2013 Routine * [L] CMP14 05/11/2013 Routine * [QLH] CREATINE KINASE, TOTAL 05/11/2013 Routine * [QLH] LIPID PANEL 05/11/2013 Routine * [QLH] HEMOGLOBIN A1c 05/11/2013 Routine * [N] Arterial Duplex Lower Extremity Bilateral 45655 09/22/2012 Routine Advance Directives * No Advance Directives available. Encounters * AUDIT 05/17/2013 * E30, Provider: ANN-MARIE HYATT, Status: Elian, Time: 11:30 AM 06/02/2013 * EST, Provider: ALYX GALLARDO, Status: Elian, Time: 2:20 PM 08/10/2013
--- OUTSIDE RECORDS SUMMARY | 2019-07-20 13:51 | XMS REPORT ---
Author Author VERONICA GALLARDO Organization Unknown Address Unknown Phone Care Team Providers Care Hospice Nurse Name Role Phone GALLARDOALYX PP Reason for [...] * [N] 2D Echo complete, with Doppler [id number] 06/23/2012 Routine * Pulse 01/26/2013 Routine * [QLH] CBC (INCLUDES DIFF/PLT) 01/26/2013 Routine * [L] CMP14 01/26/2013 Routine * [QLH] CREATINE KINASE, TOTAL 01/26/2013 Routine * [QLH] LIPID PANEL 01/26/2013 Routine * [QLH] TSH, 3RD GENERATION 01/26/2013 Routine * [QLH] HEMOGLOBIN A1c 01/26/2013 Routine * [N] Arterial Duplex Lower Extremity Bilateral 33125 09/22/2012 Routine Advance Directives * No Advance Directives available. Encounters * AUDIT 01/26/2013 * EST, Provider: ALYX GALLARDO, Status: Elian, Time: 1:40 PM 05/11/2013 * E30, Provider: ANN-MARIE HYATT, Status: Elian, Time: 8:30 AM 05/17/2013
--- OUTSIDE RECORDS SUMMARY | 2019-07-20 13:51 | XMS REPORT ---
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 Encounters * AUDIT 05/12/2013 * E30, Provider: ANN-MARIE HYATT, Status: Elian, Time: 8:30 AM 05/17/2013 * EST, Provider: ALYX GALLARDO, Status: Elian, Time: 2:20 PM 08/10/2013
--- OUTSIDE RECORDS SUMMARY | 2019-07-20 13:51 | XMS REPORT ---
Author Author VERONICA HYATT Organization Unknown Address Unknown Phone Care Team Providers Care Machine Puller Over Name Role Phone OLENA ANN-MARIE PP Reason [...] at same time with Levemir) (Active) * Glimepiride 4 MG Oral Tablet; TAKE 1 TABLET TWICE DAILY.; Start Date: 11/18/2012 (Active) * Levemir FlexPen 100 UNIT/ML Subcutaneous Solution; 20 units every morning; Start Date: 04/08/2012 (Active) * Lisinopril 40 MG Oral Tablet; [...] * [N] 2D Echo complete, with Doppler 39770 06/23/2012 Routine * [N] Arterial Duplex Lower Extremity Bilateral [id number] 09/22/2012 Routine Advance Directives * No Advance Directives available. Encounters * AUDIT 01/24/2013 * E30, Provider: ANN-MARIE HYATT, Status: Elian, Time: 10:15 AM 01/25/2013 * EST, Provider: ALYX GALLARDO, Status: Elian, Time: 1:20 PM 01/26/2013
--- OUTSIDE RECORDS SUMMARY | 2019-07-20 13:51 | XMS REPORT ---
Author Author VERONICA GALLARDO Organization Unknown Address Unknown Phone Care Team Providers Care Handle Lathe Operator Name Role Phone GALLARDO, ALYX PP Unavailable [...] (Active) * Diabetes Mellitus (250.00); (Active) * Benign Hypertensive Heart Disease (402.10); (Active) * Anxiety (Symptom) (300.00); (Active) * [...] * [N] 2D Echo complete, with Doppler [id number] 06/23/2012 Routine * Pulse 01/26/2013 Routine * [QLH] CBC (INCLUDES DIFF/PLT) 01/26/2013 Routine * [L] CMP14 01/26/2013 Routine * [QLH] CREATINE KINASE, TOTAL 01/26/2013 Routine * [QLH] LIPID PANEL 01/26/2013 Routine * [QLH] TSH, 3RD GENERATION 01/26/2013 Routine * [QLH] HEMOGLOBIN A1c 01/26/2013 Routine * [N] Arterial Duplex Lower Extremity Bilateral 75012 09/22/2012 Routine Advance Directives * No Advance Directives available. Encounters * AUDIT 02/23/2013 * EST, Provider: ALYX GALLARDO, Status: Elian, Time: 1:40 PM 05/11/2013 * E30, Provider: ANN-MARIE HYATT, Status: Elian, Time: 8:30 AM 05/17/2013
--- OUTSIDE RECORDS SUMMARY | 2019-07-20 13:51 | XMS REPORT ---
Author Author VERONICA GALLARDO Organization Unknown Address Unknown Phone Care Team Providers Care Chief Environmental Commitment Officer Name Role Phone GALLARDO, ALYX PP Unavailable [...] * [N] 2D Echo complete, with Doppler 29040 06/23/2012 Routine * Pulse 01/26/2013 Routine * [QLH] CBC (INCLUDES DIFF/PLT) 05/11/2013 Routine * [L] CMP14 05/11/2013 Routine * [QLH] CREATINE KINASE, TOTAL 05/11/2013 Routine * [QLH] LIPID PANEL 05/11/2013 Routine * [QLH] HEMOGLOBIN A1c 05/11/2013 Routine * [N] Arterial Duplex Lower Extremity Bilateral [id number] 09/22/2012 Routine Advance Directives * No Advance Directives available. Encounters * AUDIT 05/11/2013 * E30, Provider: ANN-MARIE HYATT, Status: Elian, Time: 8:30 AM 05/17/2013 * EST, Provider: ALYX GALLARDO, Status: Elian, Time: 2:20 PM 08/10/2013
--- OUTSIDE RECORDS SUMMARY | 2019-07-20 13:51 | XMS REPORT ---
Author Author VERONICA HYATT Organization Unknown Address Unknown Phone Care Team Providers Care Hydroelectric Systems Technician Name Role Phone OLENA ANN-MARIE PP [...] * [N] 2D Echo complete, with Doppler [id number] 06/23/2012 Routine * Pulse 01/26/2013 Routine * [QLH] CBC (INCLUDES DIFF/PLT) 01/26/2013 Routine * [L] CMP14 01/26/2013 Routine * [QLH] CREATINE KINASE, TOTAL 01/26/2013 Routine * [QLH] LIPID PANEL 01/26/2013 Routine * [QLH] TSH, 3RD GENERATION 01/26/2013 Routine * [QLH] HEMOGLOBIN A1c 01/26/2013 Routine * [N] Arterial Duplex Lower Extremity Bilateral [id number] 09/22/2012 Routine Advance Directives * No Advance Directives available. Encounters * AUDIT 02/06/2013 * EST, Provider: ALYX GALLARDO, Status: Elian, Time: 1:40 PM 05/11/2013 * E30, Provider: ANN-MARIE HYATT, Status: Elian, Time: 8:30 AM 05/17/2013
--- OUTSIDE RECORDS SUMMARY | 2019-07-20 13:51 | XMS REPORT ---
Author Author VERONICA HYATT Organization Unknown Address Unknown Phone Care Team Providers Care Sales Market Leader Name Role Phone OLENA, ANN-MARIE PP Reason [...] * [N] 2D Echo complete, with Doppler [id number] 06/23/2012 Routine Advance Directives * No Advance Directives available. Encounters * AUDIT 09/09/2012 * E[facility], Provider: ROSALBA MCKEON, Status: Elian, Time: 1:00 PM 09/12/2012 * EST, Provider: ALYX GALLARDO, Status: Elian, Time: 3:20 PM 09/22/2012
--- OUTSIDE RECORDS SUMMARY | 2019-07-20 13:52 | XMS REPORT | Summary of Care ---
Author Author VERONICA CHANG M.D. Organization Unknown Address Unknown Phone Unavailable Care Team Providers Care Seed Analyst Name Role Phone MARCIO Sewell, ALYX Unavailable Unavailable OLENA Sewell, ANN-MARIE Unavailable Unavailable BERNARDO Sewell, VAMSI Unavailable Robin HYATT MD, ANN-MARIE Unavailable Unavailable Marcio LEGGETT, Alyx Unavailable Unavailable BERNARDO LEGGETT UT, VAMSI Unavailable Unavailable CELESTE LEGGETT, DORCAS Calix Unavailable Unavailable Unavailable Unavailable Functional Status Name Dates Details Functional status health issues are not documented Status: Name Dates Details Cognitive status health issues are not d ocumented Status: Problems Name Dates Details Pain, lower leg (729.5, M79.669) Status: Active Anxiety (300.00, F41.9) Status: Active Generalized anxiety disorder (300.02, F4 1.1) Status: Active Intermittent claudication (443.9, I73.9) Status: Active Rheumatic heart disease (398.90, I09.9) Status: Active 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, 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 Edema (782.3, R60.9) Status: Active Encounter for long-term (current) use of medications (V58.69, Z79.899) Status: Active Peripheral neuropathy, hereditary/idiopa thic (356.9, G60.9) Status: Active Renal insufficiency (593.9, N28.9) Status: Active Diabetes mellitus with peripheral circul atory disorder (250.70, E11.51) Status: Active Back muscle spasm (724.8, M62.830) Status: Active Chronic kidney disease, stage III (moder ate) (585.3, N18.3) Status: Active Decreased creatinine clearance (794.4, R 94.4) Status: Active 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, M47.812) Status: Active Neck pain (723.1, M54.2) Status: Active Neck muscle spasm (728.85, M62.838) Status: Active 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, I25.10) Status: Active Left shoulder pain (719.41, M25.512) Status: Active 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, 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 Atrial fibrillation (427.31, I48.91) Status: Active CABG Status: Active CHF (congestive heart failure) (428.0, I 50.9) Status: Active Diabetes mellitus (250.00, E11.9) Status: Active Heavy smoker (more than 20 cigarettes pe r day) (305.1, F17.210) Status: Active 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, with long-term current use of insulin (250.70, E11.59) Status: Active 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, with long-term current use of insulin, unspecified CKD stage (250.40, E11.22) Status: Active Essential (primary) hypertension (401.9, I10) Status: Active Hyperlipidemia (272.4, E78.5) Status: Active Aftercare following left shoulder joint replacement surgery (V54.81, Z47.1) Status: Active 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 * Start : 29-Sep-2005 Active Dipyridamole 75 MG Oral Tablet Take 1 tablet twice a day * Quantity: 180 Refills: 2 ALYX GALLARDO M.D. * Start : 29-Sep-2005 Active Aspirin 325 MG Oral Tablet TAKE 1 TABLET DAILY. * Refills: 0 * Start : 29-Sep-2005 Active hydroCHLOROthiazide 25 MG Oral Tablet TAKE 1 TABLET DAILY * Quantity: 90 Refills: 3 ALYX GALLARDO M.D. * Start : 26-Dec-2007 Active Klor-Con 8 MEQ Oral Tablet Extended Release TAKE 1 TABLET TWICE A DAY WITH MEALS * Quantity: 180 Refills: 2 ALYX GALLARDO M.D. * Start : 14-Dec-2008 Active Vitamin D3 125 MCG (5000 UT) Oral Tablet 1 a day * Refills: 0 Active Iron 325 (65 Fe) MG Oral Tablet TAKE 1 TABLET DAILY * Quantity: 90 Refills: 3 Active Potassium Chloride ER 8 MEQ Oral Tablet Extended Release TAKE 1 TABLET TWICE A DAY WITH MEALS * Quantity: 180 Refills: 2 MARCIO Sewell, ALYX * Start : 04-Apr-2018 Active Atorvastatin Calcium 20 MG Oral Tablet TAKE 1 TABLET DAILY AT BEDTIME * Quantity: 90 Refills: 3 MARCIO Sewell, ALYX * Start : 19-Mar-2011 Active Metoprolol Succinate ER 50 MG Oral Tablet Extended Release 24 Hour Take 1 tablet twice a day * Quantity: 180 Refills: 3 MARCIO Sewell, ALYX * Start : 19-Mar-2011 Active Colestipol HCl - 1 GM Oral Tablet Take 1 tablet twice a day * Quantity: 180 Refills: 2 MARCIO Sewell, ALYX * Start : 19-Mar-2011 Active Omeprazole 20 MG Oral Capsule Delayed Release take 1 capsule twice a day * Quantity: 180 Refills: 3 ALYX GALLARDO M.D. * Start : 19-Mar-2011 Active Levemir FlexTouch 100 UNIT/ML Subcutaneous Solution Pen-injector INJECT 22-30 UNITS EVERY MORNING AND 22-30 UNITS EVERY NIGHT. MAY SELF TITRATE U PTO 60 UNITS DAILY. * Quantity: 4 Refills: 0 ANN-MARIE HYATT M.D. * Start : 08-Apr-2012 Active 5 x 3 ML Pen NovoTwist 32G X 5 MM USE 4 A DAY DIRECTED * Quantity: 4 Refills: 4 ANN-MARIE HYATT M.D. * Start : 08-Apr-2012 Active 100 EA Box Accu-Chek FastClix Lancets Check BG 3x a day * Quantity: 3 Refills: 3 ANN-MARIE HYATT M.D. * Start : 25-Jan-2013 Active 102 Unit Box BD Pen Needle Mini U/F 31G X 5 MM 5 a day * Quantity: 500 Refills: 3 ANN-MARIE HYATT M.D. * Start : 02-Jun-2013 Active ALPRAZolam 0.5 MG Oral Tablet TAKE 1 TABLET 3 TIMES DAILY NEEDED. * Quantity: 180 Refills: 1 ALYX GALLARDO M.D. * Start : 24-Jan-2015 Active Uloric 40 MG Oral Tablet TAKE 1 TABLET DAILY. * Refills: 0 Active Testosterone Cypionate 200 MG/ML Intramuscular Solution Per PCP * Refills: 0 ANN-MARIE HYATT M.D. * Start : 05-Dec-2015 Active Accu-Chek Guide In Vitro Strip Use as directed three times daily * Quantity: 300 Refills: 3 ANN-MARIE HYATT M.D. * Start : 14-Feb-2016 Active Shayan Back & Body 500-32.5 MG Oral Tablet TAKE 1 TABLET DAILY PRN * Refills: 0 * Start : 30-Jul-2016 Active NovoLOG FlexPen 100 UNIT/ML Subcutaneous Solution Pen-injector 10-12 units breakfast; 10-12; lunch; 20 supper; 3-5 snacks; CF~40; REplacing HUmalog MDD:80 * Quantity: 5 Refills: 0 ANN-MARIE HYATT M.D. * Start : 11-Aug-2017 Active 5 x 3 ML Pen Iron 325 (65 Fe) MG Oral Tablet TAKE 1 TABLET TWICE DAILY. * Quantity: 14 Refills: 0 VAMSI CHANG M.D. * Start : 10-Jan-2019 Active Fioricet/Codeine CAPS TAKE CAPSULE PRN HEADACHE * Refills: 0 Active Allergies and Adverse Reactions Name Dates Details No Known Drug Allergies (Allergy) Status : Active Past Medical History Name Dates Details Diabetes mellitus (250.00, E11.9) Status: Active History of arthritis (V13.4, Z87.39) Status: Resolved History of Hernia (553.9, K46.9) Status: Resolved Personal history of gout (V12.29, Z87.39 ) Status: Resolved Procedures Procedure Dates Details History of CABG Completed History of Hernia Repair Completed History of Cataract Surgery Completed History of Shoulder Surgery Completed CABG Immunization Name Dates Details Influenza Comments: Approx [id number] Family History Name Dates Details Family history of Diabetes Mellitus (V18 .0) Comments: Family History Status: Active Name Dates Details Family history of hypertension (V17.49, Z82.49) Status: Active Family history of cardiac disorder (V17. 49, Z82.49) Status: Active Name Dates Details Family history of Diabetes Mellitus (V18 .0) Status: Active Social History Name Dates Details - Status: Name Dates Details Former smoker Vital Signs Date Test Result Details :31 BP Systolic 138 mm[Hg] Status: BP Diastolic 66 mm[Hg] Status: Weight 227.3 lb Status: Body Mass Index Calculated 30.83 kg/m2 Status: Body Surface Area Calculated 2.25 m2 Status: Heart Rate 61 /min Status: :26 BP Systolic 123 mm[Hg] Status: Comments: Lo cation: RUE; Position: Sitting BP Diastolic 66 mm[Hg] Status: Comments: Lo cation: RUE; Position: Sitting Weight 227.1875 lb Status: Body Mass Index Calculated 30.81 kg/m2 Status: Body Surface Area Calculated 2.25 m2 Status: Heart Rate 61 /min Status: Height 72 in Status: :32 BP Systolic 144 mm[Hg] Status: Comments: Lo cation: RUE; Position: Sitting BP Diastolic 78 mm[Hg] Status: Comments: Lo cation: RUE; Position: Sitting Weight 227 lb Status: Body Mass Index Calculated 30.79 kg/m2 Status: Body Surface Area Calculated 2.25 m2 Status: Heart Rate 65 /min Status: Comments: Lo cation: R Radial; Height 72 in Status: Results Date Description Value Details :50 [U] XRAY SHOULDER MIN 2 VWS LEFT [id number] XR SHOULDER MIN 2 VWS LEFT Images acquir ed, not reported on this accession number. [id number] Post Op Promis 29 Survey Pain Interference: 57.3 (Normal) Pain Intensity: 40.5 (Normal) Physical Function: 43.2 (Normal) Satisfaction Role: 40 (Normal) :25 Glucose (Point of Care In Office) Glucose POC Lifescan 167 :26 [O] Hemoglobin A1c (in office) HEMOGLOBIN A1c 5.8 Plan of Care Name Dates Details Planned Observations Planned Goals not documented Planned Encounters Appointment; VAMSI CHANG M.D. On: 02-May-2019 13:00 Appointment; ANN-MARIE HYATT M.D. On: 29-Jun-2019 14:45 Appointment; ALYX GALLARDO M.D. On: 27-Jul-2019 15:00 Interventions Provided Labs/Procedures/Imaging* [U] XRAY SHOULDER MIN 2 VWS LEFT [id number]; Done: 21 Mar 2019 Plan* Patient Education/Instructions: * Patient education and reassurance was provided for better understanding of the diagnosis and treatment plan. An opportunity to ask questions was provided. * Patient/caregiver was instructed to contact the office or emergency room for worsening pain, swelling, and/or any concerns. Understanding was acknowledged. * Instructions to keep site iced and elevated were explained in detail. Instructions to contact the office or emergency room for worsening pain, swelling, and/or any concerns were provided. Understanding was acknowledged. * A gradual return to normal physical activities as tolerated was recommended. Understanding was acknowledged. * X-ray images/reports were reviewed. Findings were discussed in detail. * Significant time was spent educating and counseling the patient. * Orders: * Physical Therapy * Follow Up: * Return to the clinic in 6-8 weeks or as needed. * x-ray(s) needed at next visit. * Will monitor the radiolucency * X-rays to be completed at next visit: Shoulder Instructions Name Dates Details Instructions not documented Encounters Appointment; ANN-MARIE HYATT M.D. Encounter Diagnosis: Problem not documented On: 11-May-2017 15:45 Appointment; ALYX GALLARDO M.D. Encounter Diagnosis: Problem not documented On: 22-Jun-2017 15:00 Appointment; ANN-MARIE HYATT M.D. Encounter Diagnosis: Problem not documented On: 11-Aug-2017 14:15 Appointment; ANN-MARIE HYATT M.D. Encounter Diagnosis: Problem not documented On: 11-Nov-2017 15:15 Appointment; ALYX GALLARDO M.D. Encounter Diagnosis: Problem not documented On: 02-Dec-2017 14:40 Appointment; ALYX GALLARDO M.D. Encounter Diagnosis: Problem not documented On: 28-Dec-2017 14:40 Appointment; ANN-MARIE HYATT M.D. Encounter Diagnosis: Problem not documented On: 04-Feb-2018 14:45 Appointment; ANN-MARIE HYATT M.D. Encounter Diagnosis: Problem not documented On: 12-May-2018 14:15 Appointment; ALYX GALLARDO M.D. Encounter Diagnosis: Problem not documented On: 02-Jun-2018 15:00 Appointment; ALYX GALLARDO M.D. Encounter Diagnosis: Problem not documented On: 30-Jun-2018 15:20 Appointment; ANN-MARIE HYATT M.D. Encounter Diagnosis: Problem not documented On: 24-Aug-2018 15:45 Appointment; VAMSI CHANG M.D. Encounter Diagnosis: Problem not documented On: 16-Nov-2018 10:30 Appointment; ANN-MARIE HYATT M.D. Encounter Diagnosis: Problem not documented On: 24-Nov-2018 14:15 Appointment; VAMSI CHANG M.D. Encounter Diagnosis: Problem not documented On: 20-Dec-2018 15:30 Appointment; [facility] [place] Encounter Diagnosis: Problem not documented On: 11-Jan-2019 14:00 Appointment; ALYX GALLARDO M.D. Encounter Diagnosis: Problem not documented On: 19-Jan-2019 15:20 Appointment; VAMSI CHANG M.D. Encounter Diagnosis: Problem not documented On: 23-Jan-2019 13:00 Appointment; VAMSI CHANG M.D. Encounter Diagnosis: Problem not documented On: 03-Feb-2019 11:00 Appointment; VAMSI CHANG M.D. Encounter Diagnosis: Problem not documented On: 14-Feb-2019 12:00 Appointment; VAMSI CHANG M.D. Encounter Diagnosis: Problem not documented On: 21-Mar-2019 13:00
--- OUTSIDE RECORDS SUMMARY | 2019-07-20 13:52 | XMS REPORT | Summary of Care ---
Author Author [facility] Address [address] [place] [address] Phone Unavailable Care Team Providers Care Sales Order Processor Name Role Phone MARCIO Sewell, ALYX Unavailable Robin HYATT M.D., ANN-MARIE Unavailable Unavailable BERNARDO Sewell, VAMSI Unavailable Unavailable OLENA LEGGETT, ANN-MARIE Unavailable Unavailable Marcio LEGGETT, Alyx Unavailable Unavailable BERNARDO LEGGETT OR, VAMSI Unavailable Unavailable Unavailable Unavailable Functional Status Name [...] hx of CABG (414.01, I25.10) Status: Active Essential (primary) hypertension (401.9, I10) Status: Active Hyperlipidemia (272.4, E78.5) Status: Active Left shoulder pain (719.41, M25.512) Status: Active 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, with long-term current use of insulin, unspecified CKD stage (250.40, E11.22) Status: Active 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, with long-term current use of insulin (250.70, E11.59) Status: Active 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, 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 Atrial fibrillation (427.31, I48.91) Status: Active CABG Status: Active CHF (congestive heart failure) (428.0, I 50.9) Status: Active Diabetes mellitus (250.00, E11.9) Status: Active Aftercare following left shoulder joint replacement surgery (V54.81, Z47.1) Status: Active Heavy smoker (more than 20 cigarettes pe r day) (305.1, F17.210) Status: Active 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 * Quantity: 180 Refills: 1 ALYX GALLARDO M.D. * Start : 24-Jan-2015 Active Testosterone Cypionate 200 MG/ML Intramuscular Solution Per PCP * Refills: 0 ANN-MARIE HYATT M.D. * Start : 05-Dec-2015 Active Accu-Chek Guide In Vitro Strip Use as directed three times daily * Quantity: 300 Refills: 3 OLENA ANN-MARIE Sewell * Start : 14-Feb-2016 Active NovoLOG FlexPen 100 UNIT/ML Subcutaneous Solution Pen-injector 10-12 units breakfast; 10-12; lunch; 20 supper; 3-5 snacks; CF~40; REplacing HUmalog MDD:80 * Quantity: 5 Refills: 0 OLENA Sewell ANN-MARIE * Start : 11-Aug-2017 Active 5 x 3 ML Pen HYDROcodone-Acetaminophen 7.5-325 MG Oral Tablet TAKE 1 TABLET EVERY 4 HOURS PRN * Quantity: 42 Refills: 0 BERNARDO Sewell, VAMSI * Start : 23-Jan-2019 Active Omeprazole 20 MG Oral Capsule Delayed Release take 1 capsule twice a day * Quantity: 180 Refills: 3 ALYX GALLARDO M.D. * Start : 19-Mar-2011 Active Colestipol HCl - 1 GM Oral Tablet Take 1 tablet twice a day * Quantity: 180 Refills: 2 ALYX GALLARDO M.D. * Start : 19-Mar-2011 Active Metoprolol Succinate ER 50 MG Oral Tablet Extended Release 24 Hour Take 1 tablet twice a day * Quantity: 180 Refills: 3 ALYX GALLARDO M.D. * Start : 19-Mar-2011 Active Atorvastatin Calcium 20 MG Oral Tablet TAKE 1 TABLET DAILY AT BEDTIME * Quantity: 90 Refills: 3 ALYX GALLARDO M.D. * Start : 19-Mar-2011 Active Klor-Con 8 MEQ Oral Tablet Extended Release TAKE 1 TABLET TWICE A DAY WITH MEALS * Quantity: 180 Refills: 2 ALYX GALLARDO M.D. * Start : 14-Dec-2008 Active Aspirin 325 MG Oral Tablet TAKE 1 TABLET DAILY. * Refills: 0 * Start : 29-Sep-2005 Active Dipyridamole 75 MG Oral Tablet Take 1 tablet twice a day * Quantity: 180 Refills: 2 ALYX GALLARDO M.D. * Start : 29-Sep-2005 Active Lisinopril 20 MG Oral Tablet TAKE 1 TABLET DAILY * Quantity: 90 Refills: 3 MARCIO Sewell, ALYX * Start : 29-Sep-2005 Active Gabapentin 300 MG Oral Capsule TAKE 2 CAPSULES TWICE A DAY * Quantity: 360 Refills: 2 ALYX GALLARDO M.D. * Start : 29-Sep-2005 Active Vitamin D3 125 MCG (5000 UT) Oral Tablet 1 a day * Refills: 0 Active Iron 325 (65 Fe) MG Oral Tablet TAKE 1 TABLET DAILY * Quantity: 90 Refills: 3 Active Potassium Chloride ER 8 MEQ Oral Tablet Extended Release TAKE 1 TABLET TWICE A DAY WITH MEALS * Quantity: 180 Refills: 2 ALYX GALLARDO M.D. * Start : 04-Apr-2018 Active Accu-Chek FastClix Lancets Check BG 3x a day * Quantity: 3 Refills: 3 ANN-MARIE HYATT M.D. * Start : 25-Jan-2013 Active 102 Unit Box Uloric 40 MG Oral Tablet TAKE 1 TABLET DAILY. * Refills: 0 Active Iron 325 (65 Fe) MG Oral Tablet TAKE 1 TABLET TWICE DAILY. * Quantity: 14 Refills: 0 VAMSI CHANG M.D. * Start : 10-Jan-2019 Active Shayan Back & Body 500-32.5 MG Oral Tablet TAKE 1 TABLET DAILY PRN * Refills: 0 * Start : 30-Jul-2016 Active NovoTwist 32G X 5 MM USE 4 A DAY DIRECTED * Quantity: 4 Refills: 4 ANN-MARIE HYATT M.D. * Start : 08-Apr-2012 Active 100 EA Box Levemir FlexTouch 100 UNIT/ML Subcutaneous Solution Pen-injector INJECT 24-30 UNITS EVERY MORNING AND 24-30 UNITS EVERY NIGHT. MAY SELF TITRATE U PTO 60 UNITS DAILY. * Quantity: 4 Refills: 0 ANN-MARIE HYATT M.D. * Start : 08-Apr-2012 Active 5 x 3 ML Pen hydroCHLOROthiazide 25 MG Oral Tablet TAKE 1 TABLET DAILY * Quantity: 90 Refills: 3 ALYX GALLARDO M.D. * Start : 26-Dec-2007 Active Allergies and Adverse Reactions Name Dates Details No Known Drug Allergies (Allergy) Status : Active Past Medical History Name Dates Details Diabetes mellitus (250.00, E11.9) Status: Active History of arthritis (V13.4, Z87.39) Status: Resolved History of Hernia (553.9, K46.9) Status: Resolved Personal history of gout (V12.29, Z87.39 ) Status: Resolved Procedures Procedure Dates Details Post Op Promis 29 Survey Date: 03-Mar-2019 [[facility]] TSH, 3RD GENERATION W/REFLEX TO FT4 Date: 19-Jan-2019 [[facility]] LIPID PANEL Date: 19-Jan-2019 [[facility]] CREATINE KINASE, TOTAL Date: 19-Jan-2019 [[facility]] CMP W/EGFR Date: 19-Jan-2019 [[facility]] CBC (INCLUDES DIFF/PLT) Date: 19-Jan-2019 History of CABG Completed History of Hernia Repair Completed History of Cataract Surgery Completed History of Shoulder Surgery Completed CABG Immunization Name Dates Details Influenza Comments: Approx [id number] Family History Name Dates Details Family history [...] smoker Vital Signs Date Test Result Details No Known Vitals to report Results Date Description Value Details Results not documented Plan of Care Name Dates Details Planned Observations Planned Goals not documented Planned Encounters Appointment; VAMSI CHANG M.D. On: 21-Mar-2019 13:00 Appointment; ANN-MARIE HYATT M.D. On: 30-Mar-2019 15:15 Appointment; ALXY GALLARDO M.D. On: 27-Jul-2019 15:00 Instructions Name Dates Details Instructions not documented [...] 20-Dec-2018 15:30 Appointment; [facility] [place] Encounter Diagnosis: Problem not documented On: 11-Jan-2019 14:00 Appointment; ALYX GALLARDO M.D. Encounter Diagnosis: Problem not documented On: 19-Jan-2019 15:20 Appointment; VAMSI CHANG M.D. Encounter Diagnosis: Problem not documented On: 23-Jan-2019 13:00 Appointment; VAMSI CHAGN M.D. Encounter Diagnosis: Problem not documented On: 03-Feb-2019 11:00 Appointment; VAMSI CHANG M.D. Encounter Diagnosis: Problem not documented On: 14-Feb-2019 12:00
--- OUTSIDE RECORDS SUMMARY | 2019-07-20 13:52 | XMS REPORT | Summary of Care ---
Author Author BERNARDO Sewell, VERONICA COHEN Organization Unknown Address Unknown Phone Unavailable Care Team Providers Care Lining Parts Sewer Name Role Phone MARCIO Sewell, ALYX Unavailable Unavailable OLENA Sewell, ANN-MARIE Unavailable Unavailable BERNARDO Sewell, VAMSI Unavailable Unavailable OLENA LEGGETT, ANN-MARIE Unavailable Unavailable Marcio LEGGETT, Alyx Unavailable Unavailable BERNARDO LEGGETT DC, VAMSI Unavailable Unavailable Unavailable Unavailable Functional Status Name Dates Details Functional status health issues are not documented Status: Name Dates Details Cognitive status health issues are not d ocumented Status: Problems Name Dates Details Anxiety (300.00, F41.9) Status: Active Rheumatic heart disease (398.90, I09.9) Status: Active Renal insufficiency (593.9, N28.9) Status: Active Intermittent claudication (443.9, I73.9) Status: Active Pain, lower leg (729.5, M79.669) Status: Active 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, 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 Atrial fibrillation (427.31, I48.91) Status: Active Edema (782.3, R60.9) Status: Active CHF (congestive heart failure) (428.0, I 50.9) Status: Active 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, 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 CABG Status: Active Peripheral neuropathy, hereditary/idiopa thic (356.9, G60.9) Status: Active Generalized anxiety disorder (300.02, F4 1.1) Status: Active 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, I25.10) Status: Active Encounter for long-term (current) use of medications (V58.69, Z79.899) Status: Active Hyperlipidemia (272.4, E78.5) Status: Active Essential (primary) hypertension (401.9, I10) Status: Active Diabetes mellitus with peripheral circul atory disorder (250.70, E11.51) Status: Active Decreased creatinine clearance (794.4, R 94.4) Status: Active 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, M47.812) Status: Active Neck muscle spasm (728.85, M62.838) Status: Active Neck pain (723.1, M54.2) Status: Active Chronic kidney disease, stage III (moder ate) (585.3, N18.3) Status: Active Back muscle spasm (724.8, M62.830) Status: Active Diabetes mellitus (250.00, E11.9) Status: Active Heavy smoker (more than 20 cigarettes pe r day) (305.1, F17.210) Status: Active Aftercare following left shoulder joint replacement surgery (V54.81, Z47.1) Status: Active 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, with long-term current use of insulin (250.70, E11.59) Status: Active 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, subsequent encounter (733.82, S42.292K) Status: Active 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, with long-term current use of insulin, unspecified CKD stage (250.40, E11.22) Status: Active Left shoulder pain (719.41, M25.512) Status: Active Medications Name Dates Details Gabapentin 300 MG Oral Capsule TAKE 2 CAPSULES TWICE A DAY Quantity: 360 GALLARDO Melodie, ALYX * Start : 29-Sep-2005 Active Lisinopril 20 MG Oral Tablet TAKE 1 TABLET DAILY * Quantity: 90 Refills: 3 GALLARDO ALYX Sewell * Start : 29-Sep-2005 Active Dipyridamole 75 MG Oral Tablet Take 1 tablet twice a day * Quantity: 180 Refills: 2 MARCIO Sewell, ALYX * Start : 29-Sep-2005 Active Aspirin 325 [...] WITH MEALS * Quantity: 180 Refills: 2 GALLARDO M.D., ALYX * Start : 14-Dec-2008 Active Vitamin D3 [...] Sewell, ALYX * Start : 19-Mar-2011 Active Levemir FlexTouch [...] Post Op Promis 29 Survey Date: 03-Mar-2019 [[facility]] CBC (INCLUDES DIFF/PLT) Date: 19-Jan-2019 [[facility]] CMP W/EGFR Date: 19-Jan-2019 [[facility]] CREATINE KINASE, TOTAL Date: 19-Jan-2019 [[facility]] LIPID PANEL Date: 19-Jan-2019 [[facility]] TSH, 3RD GENERATION W/REFLEX TO FT4 Date: 19-Jan-2019 History of Shoulder Surgery Completed History of Cataract Surgery Completed History of CABG Completed CABG History of Hernia Repair Completed Immunization Name Dates Details Influenza Comments: Approx [id number] Family History Name Dates Details Family history of Diabetes Mellitus (V18 .0) Comments: Family History Status: Active Name Dates Details Family history of cardiac disorder (V17. 49, Z82.49) Status: Active Family history of hypertension (V17.49, Z82.49) Status: Active Name Dates Details Family history of Diabetes Mellitus (V18 .0) Status: Active Social History Name Dates Details - Status: Name Dates Details Former smoker Vital Signs Date Test Result Details [id number] BP Systolic 144 mm[Hg] Status: Comments: Lo cation: RUE; Position: Sitting BP Diastolic 78 mm[Hg] Status: Comments: Lo cation: RUE; Position: Sitting Height 72 in Status: Weight 227 lb Status: Body Mass Index Calculated 30.79 kg/m2 Status: Body Surface Area Calculated 2.25 m2 Status: Heart Rate 65 /min Status: Comments: Lo cation: R Radial; Results Date Description Value Details [id number] [U] XRAY SHOULDER MIN 2 VWS LEFT [id number] XR SHOULDER MIN 2 VWS LEFT Images acquir ed, not reported on this accession number. Plan of Care Name Dates Details Planned Observations Planned Goals not documented Planned Encounters Appointment; ANN-MARIE HYATT M.D. On: 30-Mar-2019 15:15 Appointment; VAMSI CHANG M.D. On: 02-May-2019 13:00 Appointment; ALYX GALLARDO M.D. On: 27-Jul-2019 15:00 Interventions Provided Labs/Procedures/Imaging* [U] XRAY SHOULDER MIN 2 VWS LEFT [id number]; Done: 21 Mar 2019 Plan* Orders: * Physical Therapy * Follow Up: * Return to the clinic in 6-8 weeks or as needed. * x-ray(s) needed at next visit. * X-rays to be completed at next [...] Problem not documented On: 20-Dec-2018 15:30 [facility] Encounter Diagnosis: Problem not documented On: 11-Jan-2019 [...]
--- OUTSIDE RECORDS SUMMARY | 2019-07-20 13:52 | XMS REPORT | Summary of Care ---
Author Author VERONICA CHANG M.D. Organization Unknown Address Unknown Phone Unavailable Care Team Providers Care Senior Product Designer Name Role Phone MARCIO Sewell, ALYX Unavailable [...] joint replacement surgery (V54.81, Z47.1) Status: Active Medications Name Dates Details Gabapentin [...] [U] XRAY SHOULDER MIN 2 VWS LEFT [id number] XR SHOULDER MIN 2 VWS LEFT Images acquir ed, not reported on this accession number. [id number] Post Op Promis 29 Survey Pain Interference: [...] [U] XRAY SHOULDER MIN 2 VWS LEFT [id number]; Done: 21 Mar 2019 Plan* Patient Education/Instructions: * Patient education and reassurance was provided for better understanding of the diagnosis and treatment plan. An opportunity to ask questions was provided. * Patient/caregiver was instructed to contact the office or emergency room for worsening pain, swelling, and/or any concerns. Understanding was acknowledged. * Significant time was spent educating and [...] Problem not documented On: 20-Dec-2018 15:30 Appointment; LASHELL DOWNING Encounter Diagnosis: Problem not documented On: 11-Jan-2019 [...]
--- OUTSIDE RECORDS SUMMARY | 2019-07-20 13:52 | XMS REPORT | Summary of Care ---
Author VERONICA Montague R.N. Organization Unknown Address Unknown Phone Unavailable Care Team Providers Care Check Embosser Name Role Phone MARCIO Sewell, ALYX Unavailable Unavailable OLENA Sewell, ANN-MARIE Unavailable Unavailable Harshal Ring, Saundra Unavailable Unavailable BERNARDO Sewell, VAMSI Unavailable Robin HYATT MD, ANN-MARIE Unavailable Unavailable Marcio LEGGETT, Alyx Unavailable Unavailable BERNARDO LEGGETT IN, VAMSI Unavailable Unavailable CELESTE LEGGETT, DORCAS Calix [...] 2 CAPSULES TWICE A DAY Quantity: 360 ALYX GALLARDO M.D. * Start : 29-Sep-2005 [...] GALLARDO M.D. * Start : 04-Apr-2018 Active Atorvastatin Calcium [...] GALLARDO M.D. * Start : 19-Mar-2011 Active Omeprazole 20 [...] m2 Status: Heart Rate 61 /min Status: [id number] BP Systolic 123 mm[Hg] Status: Comments: Lo [...] [U] XRAY SHOULDER MIN 2 VWS LEFT [id number] XR SHOULDER MIN 2 VWS LEFT Images acquir ed, not reported on this accession number. [id number] Post Op Promis 29 Survey Pain Interference: [...] GALLARDO M.D. On: 27-Jul-2019 15:00 Interventions Provided Discussion/Summary* Guideline Used: * Other: Call back from clinic staff * Recommended Disposition: Task sent to [facility] Instructions Name Dates Details Instructions not documented [...] Problem not documented On: 03-Feb-2019 11:00 Appointment; VMASI CHANG M.D. Encounter Diagnosis: Problem not documented On: 14-Feb-2019 12:00 Appointment; VAMSI CHANG M.D. Encounter Diagnosis: Problem not documented On: 21-Mar-2019 13:00 Appointment; ANN-MARIE HYATT M.D. Encounter Diagnosis: Problem not documented On: 30-Mar-2019 15:15
--- OUTSIDE RECORDS SUMMARY | 2019-07-20 13:52 | XMS REPORT | Continuity of Care Document ---
Author Author [facility] t Organization [facility] Address [facility] 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 Attphys Unavailable VAMSI CHANG M.D. Attphys Unavailable ALYX GALLARDO M.D. Attphys Unavailable [facility] Attphys Unavailable [place] VILLEGAS Attphys Unavailable AMY JOHNSON M.D. Attphys Unavailable [facility] Attphys Unavailable Problems Condition Name Condition Details Condition Category Status Onset Date Resolution Date Last Treatment Date Treating Clinician Comments Source CABG CABG Problem Active [facility] Personal history of gout Personal history of gout Problem Resolved [facility] History of Hernia History of Hernia Problem Resolved [facility] Pain, lower leg Pain, lower leg Problem Active [facility] Anxiety Anxiety Problem Active [facility] Generalized anxiety disorder Generalized anxiety disorder Problem Active [facility] Intermittent claudication Intermittent claudication Problem Active [facility] Rheumatic heart disease Rheumatic heart disease Problem Active [facility] Benign hypertensive heart disease Benign hypertensive heart dise ase Problem Active [facility] Edema Edema Problem Active [facility] Encounter for long-term (current) use of medications E ncounter for long-term (current) use of medications Problem Active [facility] Peripheral neuropathy, hereditary/idiopathic Periphera l neuropathy, hereditary/idiopathic Problem Active [facility] Renal insufficiency Renal insufficiency Problem Active [facility] Diabetes mellitus with peripheral circulatory disorder Diabetes mellitus with peripheral circulatory disorder Problem Active [facility] Back muscle spasm Back muscle spasm Problem Active [facility] Chronic kidney disease, stage III (moderate) Chronic k idney disease, stage III (moderate) Problem Active [facility] Decreased creatinine clearance Decreased creatinine clearance Problem Active [facility] Osteoarthritis of neck Osteoarthritis of neck Problem Active [facility] Neck pain Neck pain Problem Active [facility] Neck muscle spasm Neck muscle spasm Problem Active [facility] 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 Problem Active [facility] Left shoulder pain Left shoulder pain Problem Active [facility] 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 Active [facility] Atrial fibrillation Atrial fibrillation Problem Active [facility] CHF (congestive heart failure) CHF (congestive heart failure) Problem Active [facility] Diabetes mellitus Diabetes mellitus Problem Active [facility] Heavy smoker (more than 20 cigarettes per day) Heavy s moker (more than 20 cigarettes per day) Problem Active [facility] 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, with long-term current use of insulin 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, with long-term current use of insulin Problem Active [facility] 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, with long-term current use of insulin, unspecified CKD stage 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, with long-term current use of insulin, unspecified CKD stage Problem Active [facility] Essential (primary) hypertension Essential (primary) hypertensio n Problem Active [facility] Hyperlipidemia Hyperlipidemia Problem Active [facility] Aftercare following left shoulder joint replacement daly rgery Aftercare following left shoulder joint replacement surgery Problem Active [facility] 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, 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, subsequent encounter Problem Active [facility] BMI 30.0-30.9,adult BMI 30.0-30.9,adult Problem Active [facility] Diabetes Mellitus Diab etes Mellitus Active 05/17/2013 [facility] Problem Active 2013-05-17 15:45:27 [facility] Benign Hypertensive Heart Disease Benign Hypertensive Heart Disease Active 05/17/2013 [facility] Problem Active 2013-05-17 15:45:27 [facility] Edema (On Exam) Neno a (On Exam) Active 05/17/2013 [facility] Problem Active 2013-05-17 15:45:27 [facility] Generalized Anxiety Disorder G eneralized Anxiety Disorder Active 05/17/2013 [facility] Problem Active 2013-05-17 15:45:27 [facility] Taking Medication For A Long Time Taking Medication For A Long Time Active 05/17/2013 [facility] Problem Active 2013-05-17 15:45:27 [facility] Peripheral Neuropathy Kayla pheral Neuropathy Active 05/17/2013 [facility] Problem Active 2013-05-17 15:45:27 [facility] Diabetes Mellitus With Peripheral Circulatory Disorder 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 [facility] Problem Active 2013-05-17 15:45:27 [facility] Hypertension Hype rtension Active 05/17/2013 [facility] Problem Active 2013-05-17 15:45:27 [facility] Hyperlipidemia Hype rlipidemia Active 05/17/2013 [facility] Problem Active 2013-05-17 15:45:27 [facility] Coronary Artery Disease Humphrey nary Artery Disease Active 05/17/2013 [facility] Problem Active 2013-05-17 15:45: 27 [facility] Pain In The Leg (Below The Knee) Pain In The Leg (Below The Knee) Active 05/17/2013 [facility] Problem Active 2013-05-17 15:45:27 [facility] Intermittent Claudication Inte rmittent Claudication Active 05/17/2013 [facility] Problem Active 2013-05-17 15:45: 27 [facility] Anxiety (Symptom) Anxi ety (Symptom) Active 05/17/2013 [facility] Problem Active 2013-05-17 15:45:27 [facility] Chronic Kidney Disease, Stage 3 Chronic Kidney Disease, Stage 3 Active 05/17/2013 [facility] Problem Active 2 15:45:27 [facility] Allergies, Adverse Reactions, Alerts Allergy Name Allergy Type Status Severity Reaction(s) Onset Date Inacti ve Date Treating Clinician Comments Source No Known Drug Allergies No Known Drug Allergies Active [facility] Family History Family Member Diagnosis Comments Start Date Stop Date Source Unknown Family Member Family history of Diabetes Mellitus Family His tory [facility] aunt Family history of hypertension [facility] aunt Family history of cardiac disorder [facility] Sister Family history of Diabetes Mellitus [facility] Social History Social Habit Start Date Stop Date Quantity Comments Source Social History 2013-05-17 15:45:27 2013-05-17 15:45:27 [facility] Smoking Status Start Date Stop Date Source Ex-smoker (finding) [place] [facility] Medications Ordered Medication Name Filled Medication Name Start Date Stop Da te Current Medication? Ordering Clinician Indication Dosage Frequency Signature (SIG) Comments Components Source NovoLOG FlexPen 100 UNIT/ML Subcutaneous Solution Pen- injector NovoLOG FlexPen 100 UNIT/ML Subcutaneous Solution Pen-injector 2017-08-11 00:00:00 Yes ANN-MARIE HYATT M.D. 10-13 units thien kfast; 10-13; lunch; 21 supper; 3-5 snacks; CF~40; REplacing HUmalog MDD:80 [facility] Shayan Back & Body 500-32.5 MG Oral Tablet Shayan Back & Body 500-32.5 MG Oral Tablet 2016-07-30 00:00:00 Yes M.A. 1 QD TAKE 1 TABLET KODI LY PRN [facility] Accu-Chek Guide In Vitro Strip Accu-Chek Guide In Vitro Stri p 2016-02-14 00:00:00 Yes ANN-MARIE HYATT M.D. Use as directed thre e times daily [facility] Testosterone Cypionate 200 MG/ML Intramuscular Solutio n Testosterone Cypionate 200 MG/ML Intramuscular Solution 2015-12-05 00:00:00 Yes ANN-MARIE DANG M.D. Per PCP [facility] Potassium Chloride ER 8 MEQ Oral Tablet Extended Relea se Potassium Chloride ER 8 MEQ Oral Tablet Extended Release 2015-11-15 00:00:00 Yes ALYX GALLARDO M.D. Q0.5D TAKE 1 TABLET TWICE A DAY WITH MEALS [facility] ALPRAZolam 0.5 MG Oral Tablet ALPRAZolam 0.5 MG Oral Tablet 2014 00:00:00 Yes ALYX GALLARDO M.D. 1 Q0.3333D TAKE 1 TABLET 3 TIMES DAILY NEEDED. [facility] BD Pen Needle Mini U/F 31G X 5 MM BD Pen Needle Mini U/F 31G X 5 MM 2013-06-02 00:00:00 Yes ANN-MARIE HYATT M.D. 5 a day [facility] Iron 325 (65 Fe) MG Oral Tablet 2013-05-17 15:45:27 Yes (Active) [facility] Vitamin D3 5000 UNIT Oral Tablet 2013-05-17 15:45:27 Yes (Active) [facility] NovoLOG FlexPen 100 UNIT/ML Subcutaneous Solution 2013-05-17 05:00:00 Yes ; Start Date: 05/17/2013; End Date: (Active) [facility] Victoza 18 MG/3ML Subcutaneous Solution 2013-05-12 22:15:25 Yes (Active) [facility] OneTouch Delica Lancets Fine Miscellaneous 2013-01-25 06:00:00 Yes ; Start Date: 01/25/2013 (Active) [facility] Accu-Chek FastClix Lancets Accu-Chek FastClix Lancets 2013-01-25 00:0 0:00 Yes ANN-MARIE HYATT M.D. Check BG 3x a day [facility] Glimepiride 4 MG Oral Tablet 2012-11-18 05:00:00 Yes ; Start Date: 11/18/2012 (Active) [facility] Pioglitazone HCl 15 MG Oral Tablet 2012-09-12 05:00:00 Yes ; Start Date: 09/12/2012; End Date: (Active) [facility] Micronized Colestipol HCl 1 GM Oral Tablet 2012-09-12 05:00:00 Yes ; Start Date: 09/12/2012 (Active) [facility] Micronized Colestipol HCl 1 GM Oral Tablet 2012-09-12 05:00:00 Yes ; Start Date: 09/12/2012 (Active) [facility] Levemir FlexPen 100 UNIT/ML Subcutaneous Solution 2012-04-08 06:00:00 Yes ; Start Date: 04/08/2012 (Active) [facility] NovoTwist 32G X 5 MM Miscellaneous 2012-04-08 06:00:00 Yes ; Start Date: 04/08/2012; End Date: (Active) [facility] Levemir FlexTouch 100 UNIT/ML Subcutaneous Solution Pe n-injector Levemir FlexTouch 100 UNIT/ML Subcutaneous Solution Pen-injector 2012-04-08 00:00:00 Yes ANN-MARIE HYATT M.D. INJECT 22 TO 30 UNITS SUBCUTANEOUSLY EVERY MORNING AND 22 TO 30 UNITS EVERY NIGHT. MAY SELF TITRATE UP TO 60 UNITS DAILY. [facility] NovoTwist 32G X 5 MM NovoTwist 32G X 5 MM 2012-04-08 00:00:00 Yes ANN-MARIE HYATT M.D. USE 4 A DAY DIRECTED [facility] Allopurinol 300 MG Oral Tablet 2012-04-02 06:00:00 Yes ; Start Date: 04/02/2012 (Active) [facility] Atorvastatin Calcium 20 MG Oral Tablet 2011-03-19 06:00:00 Yes ; Start Date: 03/19/2011 (Active) [facility] Metoprolol Succinate ER 50 MG Oral Tablet Extended Release 2 4 Hour 2011-03-19 06:00:00 Yes ; Start Date: 03/19/2011 (Act saranya) [facility] Diazepam 5 MG Oral Tablet 2011-03-19 06:00:00 Yes ; Start Date: 03/19/2011 (Active) [facility] Colestipol HCl 1 GM Oral Tablet 2011-03-19 06:00:00 Yes ; Start Date: 03/19/2011 (Active) [facility] Omeprazole 20 MG Oral Capsule Delayed Release 2011-03-19 06:00:0 0 Yes ; Start Date: 03/19/2011 (Active) [facility] Lisinopril 40 MG Oral Tablet 2011-03-19 06:00:00 Yes ; Start Date: 03/19/2011 (Active) [facility] Dipyridamole 75 MG Oral Tablet 2011-03-19 06:00:00 Yes ; Start Date: 03/19/2011 (Active) [facility] Colestipol HCl 1 GM Oral Tablet 2011-03-19 06:00:00 Yes ; Start Date: 03/19/2011 (Active) [facility] Metoprolol Succinate ER 50 MG Oral Tablet Extended Release 2 4 Hour 2011-03-19 06:00:00 Yes ; Start Date: 03/19/2011 (Act saranya) [facility] Atorvastatin Calcium 20 MG Oral Tablet Atorvastatin Calcium 20 MG Oral Tablet 2011-03-19 00:00:00 Yes ALYX GALLARDO M.D. QD TAKE 1 TABLET DAILY AT BEDTIME [facility] Metoprolol Succinate ER 50 MG Oral Tablet Extended Rel ease 24 Hour Metoprolol Succinate ER 50 MG Oral Tablet Extended Release 24 Hour 2011-03-19 00:00:00 Yes ALYX GALLARDO M.D. Q0.5D Take 1 tablet twice a day [facility] Colestipol HCl - 1 GM Oral Tablet Colestipol HCl - 1 GM Oral Tablet 2011-03-19 00:00:00 Yes ALYX GALLARDO M.D. Q0.5D Take 1 tablet twice a day [facility] Klor-Con 8 MEQ Oral Tablet Extended Release 2008-12-14 05:00:00 Yes ; Start Date: 12/14/2008 (Active) [facility] puentes Klor-Con 8 MEQ Oral Tablet Extended Release Klor-Con 8 MEQ Oral Tablet Extended Release 2008-12-14 00:00:00 Yes ALYX GALLARDO M.D. TAKE 1 TABLET TWICE A DAY WITH MEALS [facility] Actos 45 MG Oral Tablet 2008-02-19 06:00:00 Yes ; Start Date: 02/19/2008 (Active) [facility] Hydrochlorothiazide 25 MG Oral Tablet 2007-12-26 06:00:00 Y es ; Start Date: 12/26/2007 (Active) [facility] hydroCHLOROthiazide 25 MG Oral Tablet hydroCHLOROthiazide 25 MG Oral Tablet 2007-12-26 00:00:00 Yes ALYX GALLARDO M.D. 1 QD TA KE 1 TABLET DAILY [facility] Omeprazole 20 MG Oral Capsule Delayed Release 2007-09-15 05:00:0 0 Yes ; Start Date: 09/15/2007 (Active) [facility] Accu-Chek Compact Test Drum In Vitro Strip 2006-08-23 05:00:00 Yes ; Start Date: 08/23/2006 (Active) [facility] Metoprolol Tartrate 50 MG Oral Tablet 2005-10-01 05:00:00 Y es ; Start Date: 10/01/2005; End Date: (Active) [facility] Gabapentin 300 MG Oral Capsule 2005-09-29 05:00:00 Yes ; Start Date: 09/29/2005 (Active) [facility] Lisinopril 40 MG Oral Tablet 2005-09-29 05:00:00 Yes ; Start Date: 09/29/2005; End Date: (Active) [facility] Dipyridamole 75 MG Oral Tablet 2005-09-29 05:00:00 Yes ; Start Date: 09/29/2005; End Date: (Active) [facility] GlyBURIDE-MetFORMIN 2.5-500 MG Oral Tablet 2005-09-29 05:00:00 Yes ; Start Date: 09/29/2005 (Active) [facility] Aspirin 325 MG Oral Tablet 2005-09-29 05:00:00 Yes ; Start Date: 09/29/2005 (Active) [facility] Fish Oil CAPS 2005-09-29 05:00:00 Yes ; Start Date: 09/29/2005 (Active) [facility] Gabapentin 300 MG Oral Capsule Gabapentin 300 MG Oral Capsul e 2005-09-29 00:00:00 Yes ALYX GALLARDO M.D. TAKE 2 CAPSUL ES TWICE A DAY [facility] Lisinopril 20 MG Oral Tablet Lisinopril 20 MG Oral Tablet 2005-09-15 5 00:00:00 Yes ALYX GALLARDO M.D. 1 QD TAKE 1 TABLET DAILY [facility] Dipyridamole 75 MG Oral Tablet Dipyridamole 75 MG Oral Table t 2005-09-29 00:00:00 Yes ALYX GALLARDO M.D. Q0.5D Take 1 tablet twice a day [facility] Aspirin 325 MG Oral Tablet Aspirin 325 MG Oral Tablet 2005-09-29 00:0 0:00 Yes M.A. 1 QD TAKE 1 TABLET DAILY. [facility] Vitamin D3 125 MCG (5000 UT) Oral Tablet Vitamin D3 12 5 MCG (5000 UT) Oral Tablet Yes M.A. 1 a day [facility] Iron 325 (65 Fe) MG Oral Tablet Iron 325 (65 Fe) MG Oral Tablet Yes M.A. 1 QD TAKE 1 TABLET DAILY [facility] Uloric 40 MG Oral Tablet Uloric 40 MG Oral Tablet Yes M. A. 1 QD TAKE 1 TABLET DAILY. [facility] Fioricet/Codeine CAPS Fioricet/Codeine CAPS Yes M.A. TAKE CAPSULE PRN HEADACHE [facility] Immunizations Ordered Immunization Name Filled Immunization Name Date Status Comments Source Influenza Unknown Completed Approx [id number] [facility] Vital Signs Vital Name Observation Time Observation Value Comments Source Systolic blood pressure 2019-06-29 09:23:00 110 mm[Hg] [facility] Diastolic blood pressure 2019-06-29 09:23:00 70 mm[Hg] [facility] Weight 2019-06-29 09:23:00 208 [lb_av] [facility] Body mass index (BMI) [Ratio] 2019-06-29 09:23:00 28.21 kg/m2 [facility] Heart Rate 2019-06-29 09:23:00 73 /min [facility] Systolic blood pressure 2019-06-29 09:04:00 119 mm[Hg] Loca tion: LUE; Position: Sitting [facility] Diastolic blood pressure 2019-06-29 09:04:00 68 mm[Hg] Loc ation: LUE; Position: Sitting [facility] Weight 2019-06-29 09:04:00 208 [lb_av] [facility] Body mass index (BMI) [Ratio] 2019-06-29 09:04:00 28.21 kg/m2 [facility] Heart Rate 2019-06-29 09:04:00 73 /min [facility] Body height 2019-06-29 09:04:00 72 [in_us] [facility] Body temperature 2019-06-29 09:04:00 97.7 [degF] Method: Temporal [facility] Systolic blood pressure 2019-03-30 15:31:00 138 mm[Hg] [facility] Diastolic blood pressure 2019-03-30 15:31:00 66 mm[Hg] [facility] Weight 2019-03-30 15:31:00 227.3 [lb_av] [facility] Body mass index (BMI) [Ratio] 2019-03-30 15:31:00 30.83 kg/m2 [facility] Heart Rate 2019-03-30 15:31:00 61 /min [facility] Systolic blood pressure 2019-03-30 15:26:00 123 mm[Hg] Loca tion: RUE; Position: Sitting [facility] Diastolic blood pressure 2019-03-30 15:26:00 66 mm[Hg] Loc ation: RUE; Position: Sitting [facility] Weight 2019-03-30 15:26:00 227.1875 [lb_av] [facility] Body mass index (BMI) [Ratio] 2019-03-30 15:26:00 30.81 kg/m2 [facility] Heart Rate 2019-03-30 15:26:00 61 /min [facility] Body height 2019-03-30 15:26:00 72 [in_us] [facility] Systolic blood pressure 2019-03-21 13:32:00 144 mm[Hg] Loca tion: RUE; Position: Sitting [facility] Diastolic blood pressure 2019-03-21 13:32:00 78 mm[Hg] Loc ation: RUE; Position: Sitting [facility] Body height 2019-03-21 13:32:00 72 [in_us] [facility] Weight 2019-03-21 13:32:00 227 [lb_av] [facility] Body mass index (BMI) [Ratio] 2019-03-21 13:32:00 30.79 kg/m2 [facility] Heart Rate 2019-03-21 13:32:00 65 /min Location: R Radial; [facility] BP Systolic 2019-01-19 15:20:00 139 mm[Hg] Location: [place]; [place] on: Sitting [facility] BP Diastolic 2019-01-19 15:20:00 75 mm[Hg] Location: [place]; [place] on: Sitting [facility] Height 2019-01-19 15:20:00 72 [in_us] [facility] Weight 2019-01-19 15:20:00 227.25 [lb_av] [facility] Body Mass Index Calculated 2019-01-19 15:20:00 30.82 kg/m2 [facility] Heart Rate 2019-01-19 15:20:00 61 /min Location: L Radial; [facility] O2 SAT 2019-01-19 15:20:00 98 % Source: RA [facility] BP Systolic 2018-11-24 14:26:00 93 mm[Hg] Location: [place]; [place] on: Sitting [facility] BP Diastolic 2018-11-24 14:26:00 58 mm[Hg] Location: [place]; [place] on: Sitting [facility] Height 2018-11-24 14:26:00 72 [in_us] [facility] Weight 2018-11-24 14:26:00 222.3125 [lb_av] [facility] Body Mass Index Calculated 2018-11-24 14:26:00 30.15 kg/m2 [facility] Heart Rate 2018-11-24 14:26:00 71 /min [facility] BP Systolic 2018-11-16 11:53:00 162 mm[Hg] Location: LLE; [place] on: Sitting [facility] BP Diastolic 2018-11-16 11:53:00 77 mm[Hg] Location: LLE; [place] on: Sitting [facility] Weight 2018-11-16 11:53:00 211 [lb_av] [facility] Body Mass Index Calculated 2018-11-16 11:53:00 28.62 kg/m2 [facility] Heart Rate 2018-11-16 11:53:00 56 /min [facility] BP Systolic 2018-08-24 16:30:00 140 mm[Hg] [facility] BP Diastolic 2018-08-24 16:30:00 70 mm[Hg] [facility] Heart Rate 2018-08-24 16:30:00 62 /min [facility] BP Systolic 2018-08-24 15:34:00 134 mm[Hg] Location: LUE; [place] on: Sitting [facility] BP Diastolic 2018-08-24 15:34:00 75 mm[Hg] Location: LUE; [place] on: Sitting [facility] Heart Rate 2018-08-24 15:34:00 54 /min [facility] Height 2018-08-24 15:34:00 72 [in_us] [facility] Weight 2018-08-24 15:34:00 220.375 [lb_av] [facility] Body Mass Index Calculated 2018-08-24 15:34:00 29.89 kg/m2 [facility] BP Systolic 2018-06-30 14:53:00 95 mm[Hg] Location: LUE; [place] on: Sitting [facility] BP Diastolic 2018-06-30 14:53:00 57 mm[Hg] Location: LUE; [place] on: Sitting [facility] Height 2018-06-30 14:53:00 72 [in_us] [facility] Weight 2018-06-30 14:53:00 220 [lb_av] [facility] Body Mass Index Calculated 2018-06-30 14:53:00 29.84 kg/m2 [facility] Heart Rate 2018-06-30 14:53:00 62 /min Location: L Radial; [facility] O2 SAT 2018-06-30 14:53:00 94 % Source: [facility] BP Systolic 2018-05-12 14:45:00 125 mm[Hg] Location: MOON [place] on: Sitting [facility] BP Diastolic 2018-05-12 14:45:00 74 mm[Hg] Location: MOON [place]: Sitting [facility] Weight 2018-05-12 14:45:00 216.3125 [lb_av] [facility] Body Mass Index Calculated 2018-05-12 14:45:00 29.34 kg/m2 [facility] Heart Rate 2018-05-12 14:45:00 73 /min [facility] Height 2018-05-12 14:45:00 72 [facility]in[facility]us[facility] BP Systolic 2018-05-12 14:39:00 138 mm[facility]Hg] [facility] BP Diastolic 2018-05-12 14:39:00 70 mm[Hg] [facility] Weight 2018-05-12 14:39:00 216.5 [lb_av] [facility] Body Mass Index Calculated 2018-05-12 14:39:00 29.36 kg/m2 [facility] Heart Rate 2018-05-12 14:39:00 73 /min [facility] BP Systolic 2018-02-04 14:46:00 120 mm[Hg] Location: MOON [facility] BP Diastolic 2018-02-04 14:46:00 68 mm[Hg] Location: [place] [facility] Height 2018-02-04 14:46:00 72 [in_us] [facility] Weight 2018-02-04 14:46:00 232 [lb_av] [facility] Body Mass Index Calculated 2018-02-04 14:46:00 31.47 kg/m2 [facility] Temperature 2018-02-04 14:46:00 97.9 [degF] Method: Oral [facility] [facility] Heart Rate 2018-02-04 14:46:00 94 /min Location: L Brachial Artery; [facility] BP Systolic 2017-12-02 13:56:00 133 mm[Hg] Location: MOON Mcfarlane on: Sitting [facility] BP Diastolic 2017-12-02 13:56:00 75 mm[Hg] Location: CHERELLE; Positi on: Sitting [facility] Height 2017-12-02 13:56:00 72 [in_us] [facility] Weight 2017-12-02 13:56:00 224.125 [lb_av] [facility] Body Mass Index Calculated 2017-12-02 13:56:00 30.4 kg/m2 [facility] Heart Rate 2017-12-02 13:56:00 83 /min Location: L Radial; [facility] BP Systolic 2017-11-11 15:40:00 110 mm[Hg] [facility] BP Diastolic 2017-11-11 15:40:00 70 mm[Hg] [facility] BP Systolic 2017-11-11 15:27:00 94 mm[Hg] Location: CHERELLE; Positi on: Sitting [facility] BP Diastolic 2017-11-11 15:27:00 55 mm[Hg] Location: CHERELLE; Positi on: Sitting [facility] Height 2017-11-11 15:27:00 72 [in_us] [facility] Weight 2017-11-11 15:27:00 231.1875 [lb_av] [facility] Body Mass Index Calculated 2017-11-11 15:27:00 31.35 kg/m2 [facility] Heart Rate 2017-11-11 15:27:00 74 /min [facility] BP Systolic 2017-08-11 14:53:00 138 mm[Hg] [facility] BP Diastolic 2017-08-11 14:53:00 78 mm[Hg] [facility] BP Systolic 2017-08-11 14:26:00 111 mm[Hg] Location: CHERELLE; Positi on: Sitting [facility] BP Diastolic 2017-08-11 14:26:00 64 mm[Hg] Location: CHERELLE; Positi on: Sitting [facility] Height 2017-08-11 14:26:00 72 [in_us] [facility] Weight 2017-08-11 14:26:00 232.0625 [lb_av] [facility] Body Mass Index Calculated 2017-08-11 14:26:00 31.47 kg/m2 [facility] Heart Rate 2017-08-11 14:26:00 73 /min [facility] BP Systolic 2017-06-22 15:30:00 118 mm[Hg] Location: CHERELLE; Positi on: Sitting [facility] BP Diastolic 2017-06-22 15:30:00 72 mm[Hg] Location: CHERELLE; Positi on: Sitting [facility] Height 2017-06-22 15:30:00 72 [in_us] [facility] Weight 2017-06-22 15:30:00 229.375 [lb_av] [facility] Body Mass Index Calculated 2017-06-22 15:30:00 31.11 kg/m2 [facility] Heart Rate 2017-06-22 15:30:00 87 /min Location: L Brachial Artery; [facility] BP Systolic 2017-05-11 16:09:00 140 mm[Hg] [facility] BP Diastolic 2017-05-11 16:09:00 70 mm[Hg] [facility] BP Systolic 2017-05-11 15:43:00 144 mm[Hg] Location: CHERELLE; Positi on: Sitting [facility] BP Diastolic 2017-05-11 15:43:00 66 mm[Hg] Location: CHERELLE; Positi on: Sitting [facility] Height 2017-05-11 15:43:00 72 [in_us] [facility] Weight 2017-05-11 15:43:00 235.5 [lb_av] [facility] Body Mass Index Calculated 2017-05-11 15:43:00 31.94 kg/m2 [facility] Heart Rate 2017-05-11 15:43:00 61 /min [facility] BP Systolic 2017-02-05 13:30:00 110 mm[Hg] [facility] BP Diastolic 2017-02-05 13:30:00 70 mm[Hg] [facility] BP Systolic 2017-02-05 13:11:00 107 mm[Hg] Location: CHERELLE; Positi on: Sitting [facility] BP Diastolic 2017-02-05 13:11:00 61 mm[Hg] Location: CHERELLE; Positi on: Sitting [facility] Height 2017-02-05 13:11:00 72 [in_us] [facility] Weight 2017-02-05 13:11:00 224.3125 [lb_av] [facility] Body Mass Index Calculated 2017-02-05 13:11:00 30.42 kg/m2 [facility] Heart Rate 2017-02-05 13:11:00 71 /min [facility] BP Systolic 2016-12-17 15:04:00 92 mm[Hg] Location: CHERELLE; Positi on: Sitting [facility] BP Diastolic 2016-12-17 15:04:00 54 mm[Hg] Location: CHERELLE; Positi on: Sitting [facility] Height 2016-12-17 15:04:00 72 [in_us] [facility] Weight 2016-12-17 15:04:00 233 [lb_av] [facility] Body Mass Index Calculated 2016-12-17 15:04:00 31.6 kg/m2 [facility] Heart Rate 2016-12-17 15:04:00 57 /min Location: L Radial; [facility] Procedures Procedure Date / Time Performed Performing Clinician Sour e [U] XRAY SHOULDER MIN 2 VWS LEFT [id number] 2019-06-26 00:00:00 [facility] [U] XRAY SHOULDER MIN 2 VWS LEFT [id number] 2019-04-28 00:00:00 [facility] [U] XRAY SHOULDER MIN 2 VWS LEFT [id number] 2019-03-20 00:00:00 [facility] Post Op Promis 29 Survey 2019-03-03 00:00:00 [facility] [U] XRAY SHOULDER MIN 2 VWS LEFT [id number] 2019-02-02 00:00:00 [facility] [U] XRAY SHOULDER MIN 2 VWS LEFT [id number] 2019-01-30 00:00:00 [facility] [[facility]] CBC (INCLUDES DIFF/PLT) 2019-01-19 00:00:00 [facility] [[facility]] CMP W/EGFR 2019-01-19 00:00:00 [facility] [[facility]] CREATINE KINASE, TOTAL 2019-01-19 00:00:00 [facility] [[facility]] LIPID PANEL 2019-01-19 00:00:00 [facility] [[facility]] TSH, 3RD GENERATION W/REFLEX TO FT4 2019-01-19 00:00:00 [facility] Initial Promis 29 Survey 2018-12-29 00:00:00 [facility] MR Shoulder wo contrast [id number] 2018-11-17 00:00:00 [facility] [[facility]] CBC (INCLUDES DIFF/PLT) 2018-06-30 00:00:00 [facility] [[facility]] CMP W/EGFR 2018-06-30 00:00:00 [facility] [[facility]] CREATINE KINASE, TOTAL 2018-06-30 00:00:00 [facility] [[facility]] LIPID PANEL 2018-06-30 00:00:00 [facility] [[facility]] TSH, 3RD GENERATION W/REFLEX TO FT4 2018-06-30 00:00:00 [facility] [N] 2D Echo complete, with Doppler [id number] 2018-06-30 00:00:00 [facility] STRAPPING OF SHOULDER 2018-02-02 00:00:00 GABINO VILLEGAS [facility] [[facility]] CBC (INCLUDES DIFF/PLT) 2017-12-02 00:00:00 [facility] [[facility]] CMP W/EGFR 2017-12-02 00:00:00 [facility] [[facility]] LIPID PANEL 2017-12-02 00:00:00 [facility] [[facility]] TSH, 3RD GENERATION 2017-12-02 00:00:00 [facility]] CREATINE KINASE, TOTAL 2017-12-02 00:00:00 [facility] [[facility]] CBC (INCLUDES DIFF/PLT) 2017-06-22 00:00:00 [facility] [QL] CMP W/EGFR 2017-06-22 00:00:00 [facility] [[facility]] MAGNESIUM 2017-06-22 00:00:00 [facility] [[facility]] CREATINE KINASE, TOTAL 2017-06-22 00:00:00 [facility] [[facility]] LIPID PANEL 2017-06-22 00:00:00 [facility] [[facility]] TSH, 3RD GENERATION W/REFLEX TO FT4 2017-06-22 00:00:00 [facility] [[facility]] HEMOGLOBIN A1c 2017-06-22 00:00:00 [facility] [QLH] LIPID PANEL 2016-12-17 00:00:00 [facility] [[facility]] CBC (INCLUDES DIFF/PLT) 2016-12-17 00:00:00 [facility] [[facility]] CMP W/EGFR 2016-12-17 00:00:00 [facility] [QL] CREATINE KINASE, TOTAL 2016-12-17 00:00:00 [facility] [QL] TSH, 3RD GENERATION 2016-12-17 00:00:00 [facility] [QL[facility]] HEMOGLOBIN A1c 2016-12-17 00:00:00 [facility] [QL] CARDIO CRP(R) 2016-12-17 00:00:00 [facility] History of Hernia Repair [facility] History of Cataract Surgery [facility] History of Shoulder Surgery [facility] Plan of Care Planned Activity Planned Date Details Comments Source Diagnostic Test Pending 2018-11-17 00:00:00 MR Shoulder wo c ontrast 13790 [code = 77435] [facility] Diagnostic Test Pending 2018-06-30 00:00:00 [N] 2D Echo comp lete, with Doppler 89218 [code = [N] 2D Echo complete, with Doppler 45465] [facility] Diagnostic Test Pending 2018-06-30 00:00:00 [N] 2D Echo comp lete, with Doppler 20455 [code = [N] 2D Echo complete, with Doppler 69971] [facility] Future Scheduled Test [QLH] CBC (INCLUDE S DIFF/PLT) [code = [QLH] CBC (INCLUDES DIFF/PLT)] BEFORE 12/28/17 [facility] ns Future Scheduled Test [QLH] CMP W/EGFR [code = [ QLH] CMP W/EGFR] BEFORE 12/28/17 [facility] Future Scheduled Test [QLH] MAGNESIUM [code = [Q LH] MAGNESIUM] BEFORE 12/28/17 [facility] Future Scheduled Test [QL] CREATINE KIN ASE, TOTAL [code = [QLH] CREATINE KINASE, TOTAL] BEFORE 12/28/17 [facility] Future Scheduled Test [QLH] LIPID PANEL [code = [QL] LIPID PANEL] BEFORE 12/28/17 [facility] Future Scheduled Test [QLH] TSH, 3RD GEN ERATION W/REFLEX TO FT4 [code = [QLH] TSH, 3RD GENERATION W/REFLEX TO FT4] BEFORE 12/28/17 [facility]icians Future Scheduled Test [QLH] HEMOGLOBIN A1c [code = [QLH] HEMOGLOBIN A1c] BEFORE 12/28/17 [facility] Future Scheduled Test [QLH] CBC (INCLUDE S DIFF/PLT) [code = [QLH] CBC (INCLUDES DIFF/PLT)] ONE WEEK BEFORE [facility] Future Scheduled Test [QLH] CMP W/EGFR [code = [ QLH] CMP W/EGFR] ONE WEEK BEFORE [facility] Future Scheduled Test [QLH] CREATINE KIN ASE, TOTAL [code = [QLH] CREATINE KINASE, TOTAL] ONE WEEK BEFORE [facility] Future Scheduled Test [QLH] LIPID PANEL [code = [QLH] LIPID PANEL] ONE WEEK BEFORE [facility] Future Scheduled Test [QLH] TSH, 3RD GEN ERATION W/REFLEX TO FT4 [code = [QLH] TSH, 3RD GENERATION W/REFLEX TO FT4] ONE WEEK BEFORE [facility] Future Scheduled Test Plan of Care [code = 36415-4] [facility] Future Scheduled Test Plan of Care [code = 32400-0] [facility] Future Scheduled Test Plan of Care [code = 53195-8] [facility] Future Scheduled Test Plan of Care [code = 94406-3] [facility] Future Scheduled Test Plan of Care [code = 34280-5] [facility] Future Scheduled Test Plan of Care [code = 13797-8] [facility] Future Scheduled Test Plan of Care [code = 85213-8] [facility] Future Scheduled Test Plan of Care [code = 94022-7] [facility] Future Scheduled Test Plan of Care [code = 57577-4] [facility] Future Scheduled Test Plan of Care [code = 18938-4] [facility] Future Scheduled Test Plan of Care [code = 87243-2] [facility] Future Scheduled Test Plan of Care [code = 35526-6] [facility] Future Scheduled Test Plan of Care [code = 18044-0] [facility] Future Scheduled Test Plan of Care [code = 48582-5] [facility] Future Scheduled Test Plan of Care [code = 18828-5] [facility] Future Scheduled Test Plan of Care [code = 41332-5] [facility] Future Scheduled Test Plan of Care [code = 69340-8] [facility] Future Scheduled Test Plan of Care [code = 24734-5] [facility] Future Scheduled Test Plan of Care [code = 53180-8] [facility] Future Scheduled Test Plan of Care [code = 88533-3] [facility] Future Scheduled Test Plan of Care [code = 48994-2] [facility] Future Scheduled Test Plan of Care [code = 71806-2] [facility] Future Scheduled Test Plan of Care [code = 80234-3] [facility] Future Scheduled Test Plan of Care [code = 27041-3] [facility] Future Scheduled Test Plan of Care [code = 88211-6] [facility] Future Scheduled Test Plan of Care [code = 25319-0] [facility] Future Scheduled Test Plan of Care [code = 48119-6] [facility] Future Scheduled Test Plan of Care [code = 13860-7] [facility] Future Scheduled Test Plan of Care [code = 08376-3] [facility] Future Scheduled Test Plan of Care [code = 79105-5] [facility] Future Scheduled Test Plan of Care [code = 46401-6] [facility] Future Scheduled Test Plan of Care [code = 27250-2] [facility] Future Scheduled Test Plan of Care [code = 10491-4] [facility] Future Scheduled Test Plan of Care [code = 48874-6] [facility] Future Appointment 2020-01-02 14:30:00 Melodie AGUSTIN, [facility] Future Appointment 2019-10-10 14:15:00 Melodie JACOBSEN, [facility] Future Appointment 2019-07-27 15:00:00 Melodie WISDOM, [facility] Encounters Start Date/Time End Date/Time Encounter Type Admission Type Attendi [facility] Care Department Encounter ID Source 2019-06-29 09:00:00 2019-06-29 09:00:00 Appointment; ANN-MARIE HYATT M .D. CHIU, ALICE, M.D. [facility] [id number] [facility] 2019-06-27 15:00:00 2019-06-27 15:00:00 Appointment; VAMSI CHAUHAN M.D. TORRES-BARRE, LAURA, M.D. [facility] [id number] [facility] 2019-05-11 14:00:00 2019-05-11 14:00:00 Appointment; VAMSI CHAUHAN M.D. TORRES-BARRE, LAURA, M.D. [facility] [id number] [facility] 2019-03-30 15:15:00 2019-03-30 15:15:00 Appointment; ANN-MARIE HYATT M .D. CHIU, ALICE, M.D. [facility], [address] [id number] [facility] 2019-03-21 13:00:00 2019-03-21 13:00:00 Appointment; VAMSI CHAUHAN M.D. TORRES-BARRE, LAURA, M.D. [facility] [id number] [facility] 2019-02-14 12:00:00 2019-02-14 12:00:00 Appointment; VAMSI CHAUHAN M.D. TORRES-BARRE, LAURA, M.D. [facility] [id number] [facility] 2019-02-03 11:00:00 2019-02-03 11:00:00 Appointment; VAMSI CHAUHAN M.D. TORRES-BARRE, LAURA, M.D. [facility] [id number] [facility] 2019-01-31 16:30:00 2019-01-31 16:30:00 Appointment; VAMSI CHAUHAN M.D. TORRES-BARRE, LAURA, M.D. [facility] [id number] [facility] 2019-01-23 13:00:00 2019-01-23 13:00:00 Appointment; VAMSI CHAUHAN M.D. TORRES-BARRE, LAURA, M.D. [id number] [facility] 2019-01-19 15:20:00 2019-01-19 15:20:00 Appointment; FR GERRI GALLARDO M.D. FUENTES, FRANCISCO, M.D. [facility] Cardiology [facility] [id number] [facility] 2019-01-11 14:00:00 2019-01-11 14:00:00 Appointment; Lincoln DOWNING ECHO [facility] [id number] [facility] 2018-12-20 15:30:00 2018-12-20 15:30:00 Appointment; VAMSI CHAUHAN M.D. TORRES-BARRE, LAURA, M.D. [facility] [id number] [facility] 2018-11-24 14:15:00 2018-11-24 14:15:00 Appointment; ANN-MARIE HYATT M .D. CHIU, ALICE, M.D. [facility] [id number] [facility] 2018-11-16 10:30:00 2018-11-16 10:30:00 Appointment; VAMSI CHAUHAN M.D. TORRES-BARRE, LAURA, M.D. [facility] [id number] [facility] 2018-09-06 09:00:00 2018-09-14 23:59:00 Discharged Recurring [facility] [id number] [facility] 2018-08-24 15:45:00 2018-08-24 15:45:00 Appointment; ANN-MARIE HYATT M .D. CHIU, ALICE, M.D. [facility] [id number] [facility] 2018-07-21 09:06:00 2018-08-14 23:59:00 Discharged Recurring [facility] [id number] [facility] 2018-06-15 10:15:00 2018-07-15 23:59:00 Discharged Recurring [facility] [id number] [facility] 2018-06-30 15:20:00 2018-06-30 15:20:00 Appointment; FR GERRI GALLARDO M.D. FUENTES, FRANCISCO, M.D. [facility] [id number] [facility] 2018-05-17 11:07:00 2018-06-14 23:59:00 Discharged Recurring [facility] [id number] [facility] 2018-06-02 15:00:00 2018-06-02 15:00:00 Appointment; FR GERRI GALLARDO M.D. FUENTES, FRANCISCO, M.D. [facility] [id number] [facility] 2018-04-18 14:48:00 2018-05-15 23:59:00 Discharged Recurring [facility] [id number] [facility] 2018-05-12 14:15:00 2018-05-12 14:15:00 Appointment; ANN-MARIE HYATT M .D. CHIU, ALICE, M.D. [facility] [id number] [facility] 2018-04-08 08:07:00 2018-04-14 23:59:00 Discharged Recurring [facility] [id number] [facility] 2018-02-04 14:45:00 2018-02-04 14:45:00 Appointment; ANN-MARIE HYATT M .D. CHIU, ALICE, M.D. [email or web address] [id number] [facility] 2018-02-02 17:33:00 2018-02-02 18:48:00 Departed Emergency Room 1 GABINO VILLEGAS [facility] [id number] [facility] 2017-12-28 14:40:00 2017-12-28 14:40:00 Appointment; GALLARDO, FR ANCMelodie PATTON FRANCISCO, M.D. [facility] [id number] [facility] [place] [facility] 2017-12-02 14:40:00 2017-12-02 14:40:00 Appointment; FR GERRI GALLARDO M.D. FUENTES, FRANCISCO, M.D. [facility] [id number] [facility] [place] [facility] 2017-11-11 15:15:00 2017-11-11 15:15:00 Appointment; ANN-MARIE HYATT M .D. CHIU, ALICE, M.D. [facility] [id number] [facility] 2017-08-11 14:15:00 2017-08-11 14:15:00 Appointment; ANN-MARIE HYATT M .D. CHIU, ALICE, M.D. [facility] [id number] [facility] 2017-06-22 15:00:00 2017-06-22 15:00:00 Appointment; FR GERRI GALLARDO M.D. FUENTES, FRANCISCO, M.D. [facility] [id number] [facility] [place] [facility] 2017-05-11 15:45:00 2017-05-11 15:45:00 Appointment; ANN-MARIE HYATT M .D. CHIU, ALICE, M.D. [facility] [id number] [facility] 2017-02-05 13:00:00 2017-02-05 13:00:00 Appointment; ANN-MARIE HYATT M .D. CHIU, ALICE, M.D. [facility] [id number] [facility] 2016-12-17 14:40:00 2016-12-17 14:40:00 Appointment; FR GERRI GALLARDO M.D. FUENTES, FRANCISCO, M.D. [facility] [id number] [facility] [place] [facility] 2016-12-01 14:30:00 2016-12-01 14:30:00 Appointment; AMY JOHNSON M.D. JAMALYARIA, FAROKH, M.D. [facility] [id number] [facility] [place] [facility] 2016-11-20 13:30:00 2016-11-20 13:30:00 Appointment; ANN-MARIE HYATT M .D. CHIU, ALICE, M.D. [facility]TP [id number] [facility] 2016-09-01 15:00:00 2016-09-01 15:00:00 Appointment; AMY JOHNSON M.D. JAMALYARIA, FAROKH, M.D. [facility] [id number] [facility] [place] [facility] 2016-08-28 14:15:00 2016-08-28 14:15:00 Appointment; ANN-MARIE HYATT M .D. CHIU, ALICE, M.D. [facility]TP [id number] [facility] 2016-07-30 15:30:00 2016-07-30 15:30:00 Appointment; AMY JOHNSON M.D. JAMALYARIA, FAROKH, M.D. [facility]TP [id number] [facility] [place] [facility] 2016-07-29 15:00:00 2016-07-29 15:00:00 Appointment; AMY JOHNSON M.D. JAMALYARIA, FAROKH, M.D. [facility]TP [id number] [facility] [place] [facility] 2016-06-11 14:40:00 2016-06-11 14:40:00 Appointment; FR GERRI GALLARDO M.D. FUENTES, FRANCISCO, M.D. [facility] [id number] [facility] [place] [facility] 2016-05-14 14:15:00 2016-05-14 14:15:00 Appointment; ANN-MARIE HYATT M .D. CHIU, ALICE, M.D. [facility]TP [id number] [facility] 2016-02-14 09:30:00 2016-02-14 09:30:00 Appointment; ANN-MARIE HYATT M .D. CHIU, ALICE, M.D. [facility]TP [id number] [facility] 2016-01-29 15:00:00 2016-01-29 15:00:00 Appointment; AMY JOHNSON M.D. JAMALYARIA, FAROKH, M.D. [facility]TP [id number] [facility] [place] [facility] 2015-12-19 13:00:00 2015-12-19 13:00:00 Appointment; AMY JOHNSON M.D. JAMALYARIA, FAROKH, M.D. [facility] [id number] [facility] [place] [facility] 2015-12-12 15:00:00 2015-12-12 15:00:00 Appointment; FR GERRI GALLARDO M.D. FUENTES, FRANCISCO, M.D. [facility] UTP [id number] [facility] [place] [facility] 2015-12-05 14:15:00 2015-12-05 14:15:00 Appointment; ANN-MARIE HYATT M .D. CHIU, ALICE, M.D. [facility] [id number] [facility] 2015-08-29 14:45:00 2015-08-29 14:45:00 Appointment; ANN-MARIE HYATT M .D. CHIU, ALICE, M.D. [facility] [id number] [facility] 2015-07-04 13:30:00 2015-07-04 13:30:00 Appointment; VA WHITE M.D. FINKEL, KEVIN, M.D. [facility] UTP [id number] [facility] 2015-06-27 13:00:00 2015-06-27 13:00:00 Appointment; VA WHITE M.D. FINKEL, KEVIN, M.D. [facility] UTP [id number] [facility] 2015-06-13 14:40:00 2015-06-13 14:40:00 Appointment; FR GERRI GALLARDO M.D. FUENTES, FRANCISCO, M.D. [facility] UTP [id number] [facility] 2015-05-08 14:45:00 2015-05-08 14:45:00 Appointment; ANN-MARIE HYATT M .D. CHIU, ALICE, M.D. [facility] [id number] [facility] 2015-02-05 14:15:00 2015-02-05 14:15:00 Appointment; ANN-MARIE HYATT M .D. CHIU, ALICE, M.D. [facility] [id number] [facility] 2015-01-28 13:00:00 2015-01-28 13:00:00 Appointment; Lincoln DOWNING, ECHO [facility]TP [id number] [facility] 2015-01-24 14:20:00 2015-01-24 14:20:00 Appointment; FR GERRI GALLARDO M.D. FUENTES, FRANCISCO, M.D. [facility] UTP [id number] [facility] 2013-08-10 14:20:00 2013-05-17 15:45:27 EST, Provider: ALYX MARRUFO, Status: Pen, Time: 2:20 PM [facility] [id number] [facility] 2013-06-02 11:30:00 2013-05-17 15:45:27 E30, Provider: ANN-MARIE HYATT, Status: Pen, Time: 11:30 AM [facility] [id number] [facility] 2013-05-17 10:45:28 2013-05-17 15:45:27 AUDIT [facility] [id number] [facility] 2013-05-17 09:30:56 2013-05-17 14:30:54 AUDIT [facility] [id number] [facility] 2013-05-17 10:45:28 2013-05-17 10:45:27 Outpatient MHIEA LT [facility]ALT [id number] 2013-05-17 09:30:56 2013-05-17 09:30:54 Outpatient [facility]IEA LT [facility] [id number] 2013-05-17 08:30:00 2013-05-12 22:15:25 E30, Provider: ANN-MARIE HYATT, Status: Pen, Time: 8:30 AM [facility] [id number] [facility] 2013-05-12 17:15:27 2013-05-12 22:15:25 AUDIT [facility] [id number] [facility] 2013-05-12 17:15:27 2013-05-12 17:15:25 Outpatient MHIEA LT [facility] [id number] 2013-05-11 14:15:22 2013-05-11 19:15:21 AUDIT [facility] [id number] [facility] 2013-05-11 14:15:22 2013-05-11 14:15:21 Outpatient [facility]IEA LT [facility] [id number] 2013-05-11 13:40:00 2013-02-23 21:00:32 EST, Provider: ALYX MARRUFO, Status: Pen, Time: 1:40 PM [facility] [id number] [facility] 2013-02-23 15:00:33 2013-02-23 21:00:32 AUDIT [facility] [id number] [facility] 2013-02-23 15:00:33 2013-02-23 15:00:32 Outpatient [facility]IEA LT [facility] [id number] 2013-02-21 16:15:37 2013-02-21 22:15:35 AUDIT [facility] [id number] [facility] 2013-02-21 16:15:37 2013-02-21 16:15:35 Outpatient [facility]IEA LT [facility] [id number] 2013-02-10 11:25:51 2013-02-10 17:25:48 AUDIT [facility] [id number] [facility] 2013-02-10 11:25:51 2013-02-10 11:25:48 Outpatient [facility]IEA LT [facility] [id number] 2013-02-06 12:16:01 2013-02-06 18:15:59 AUDIT [facility] [id number] [facility] 2013-02-06 12:16:01 2013-02-06 12:15:59 Outpatient [facility]IEA LT [facility] [id number] 2013-01-31 13:30:31 2013-01-31 19:30:30 AUDIT [facility] [id number] [facility] 2013-01-31 13:30:31 2013-01-31 13:30:30 Outpatient [facility]IEA LT [facility] [id number] 2013-01-26 16:45:23 2013-01-26 22:45:21 AUDIT [facility] [id number] [facility] 2013-01-26 16:45:23 2013-01-26 16:45:21 Outpatient [facility]IEA LT [facility] [id number] 2013-01-26 13:20:00 2013-01-25 17:15:12 EST, Provider: ALYX MARRUFO, Status: Pen, Time: 1:20 PM [facility] [id number] [facility] 2013-01-25 11:15:14 2013-01-25 17:15:12 AUDIT [facility] [id number] [facility] 2013-01-25 11:15:14 2013-01-25 11:15:12 Outpatient [facility]IEA LT [facility] [id number] 2013-01-25 10:15:00 2013-01-24 16:45:04 E30, Provider: ANN-MARIE HYATT, Status: Pen, Time: 10:15 AM [facility] [id number] [facility] 2013-01-24 10:45:06 2013-01-24 16:45:04 AUDIT [facility] [id number] [facility] 2013-01-24 10:45:06 2013-01-24 10:45:04 Outpatient [facility]IEA LT [facility] [id number] 2013-01-04 14:30:56 2013-01-04 20:30:55 AUDIT [facility] [id number] [facility] 2013-01-04 14:30:56 2013-01-04 14:30:55 Outpatient [facility]IEA LT [facility] [id number] 2013-01-02 12:40:44 2013-01-02 18:40:41 AUDIT [facility] [id number] [facility] 2013-01-02 12:40:44 2013-01-02 12:40:41 Outpatient [facility]IEA LT [facility] [id number] 2012-11-18 12:15:14 2012-11-18 17:15:12 AUDIT [facility] [id number] [facility] 2012-11-18 08:45:27 2012-11-18 13:45:26 AUDIT [facility] [id number] [facility] 2012-11-18 12:15:14 2012-11-18 12:15:12 Outpatient MHIEA LT [facility] [id number] 2012-11-18 08:45:27 2012-11-18 08:45:26 Outpatient [facility]IEA LT [facility] [id number] 2012-11-17 17:30:16 2012-11-17 22:30:14 AUDIT [facility] [id number] [facility] 2012-11-17 17:30:16 2012-11-17 17:30:14 Outpatient [facility]IEA LT [facility] [id number] 2012-11-18 14:15:00 2012-10-21 13:15:12 E30, Provider: ANN-MARIE HYATT, Status: Pen, Time: 2:15 PM [facility] [id number] [facility] 2012-10-21 08:15:13 2012-10-21 13:15:12 AUDIT [facility] [id number] [facility] 2012-10-21 08:15:13 2012-10-21 08:15:12 Outpatient MHIEA LT [facility] [id number] 2012-09-23 08:55:58 2012-09-23 13:55:37 AUDIT [facility] [id number] [facility] 2012-09-23 08:55:58 2012-09-23 08:55:37 Outpatient [facility]IEA LT [facility] [id number] 2012-09-22 16:27:15 2012-09-22 21:26:53 AUDIT [facility] [id number] [facility] 2012-09-22 13:55:51 2012-09-22 18:55:27 AUDIT [facility] [id number] [facility] 2012-09-22 16:27:15 2012-09-22 16:26:53 Outpatient [facility]IEA LT [facility] [id number] 2012-09-22 13:55:51 2012-09-22 13:55:27 Outpatient [facility]IEA LT [facility] [id number] 2012-09-22 15:20:00 2012-09-12 22:00:24 EST, Provider: ALYX MARRUFO, Status: Pen, Time: 3:20 PM [facility] [id number] [facility] 2012-09-12 17:00:25 2012-09-12 22:00:24 AUDIT [facility] [id number] [facility] 2012-09-12 17:00:25 2012-09-12 17:00:24 Outpatient [facility]IEA LT [facility] [id number] 2012-09-12 13:00:00 2012-09-12 14:30:25 ECH, Provider: ROSALBA PITT, Status: Pen, Time: 1:00 PM [facility] [id number] [facility] 2012-09-12 09:30:26 2012-09-12 14:30:25 AUDIT [facility] [id number] [facility] 2012-09-12 09:30:26 2012-09-12 09:30:25 Outpatient MHIEA LT [facility] [id number] 2012-09-09 18:30:26 2012-09-09 23:30:05 AUDIT [facility] [id number] [facility] 2012-09-09 18:30:26 2012-09-09 18:30:05 Outpatient [facility]IEA LT [facility] [id number] 2012-09-16 16:00:00 2012-08-12 18:36:17 E30, Provider: ANN-MARIE HYATT, Status: Pen, Time: 4:00 PM [facility] [id number] [facility] 2012-08-12 13:36:39 2012-08-12 18:36:17 AUDIT [facility] [id number] [facility] 2012-08-12 13:36:39 2012-08-12 13:36:17 Outpatient MHIEA LT [facility] [id number] 2012-07-25 11:31:57 2012-07-25 16:31:34 AUDIT [facility] [id number] [facility] 2012-07-25 11:31:57 2012-07-25 11:31:34 Outpatient MHIEA LT [facility] [id number] 2012-07-22 15:40:50 2012-07-22 20:40:27 AUDIT [facility] [id number] [facility] 2012-07-22 15:40:50 2012-07-22 15:40:27 Outpatient MHIEA LT [facility] [id number] 2012-07-22 15:30:00 2012-07-21 23:15:07 E30, Provider: ANN-MARIE HYATT, Status: Elian, Time: 3:30 PM [facility] [id number] [facility] 2012-07-21 18:15:30 2012-07-21 23:15:07 AUDIT [facility] [id number] [facility] 2012-07-21 18:15:30 2012-07-21 18:15:07 Outpatient MHIEA LT [facility] [id number] 2012-06-23 14:21:04 2012-06-23 19:20:44 AUDIT [facility] [id number] [facility] 2012-06-23 14:21:04 2012-06-23 14:20:44 Outpatient MHIEA LT [facility] [id number] 2012-06-23 14:40:00 2012-06-10 14:45:53 EST, Provider: ALYX MARRUFO, Status: Elian, Time: 2:40 PM [facility] [id number] [facility] 2012-06-10 09:46:13 2012-06-10 14:45:53 AUDIT [facility] [id number] [facility] 2012-06-10 09:46:13 2012-06-10 09:45:53 Outpatient MHIEA LT [facility] [id number] 2012-05-20 15:46:28 2012-05-20 20:46:07 AUDIT [facility] [id number] [facility] 2012-05-20 15:46:28 2012-05-20 15:46:07 Outpatient MHIEA LT [facility] [id number] 2012-05-20 06:30:27 2012-05-20 11:30:08 AUDIT [facility] [id number] [facility] 2012-05-20 06:30:27 2012-05-20 06:30:08 Outpatient MHIEA LT [facility] [id number] 2012-04-25 09:16:37 2012-04-25 14:16:18 AUDIT [facility] [id number] [facility] 2012-04-25 09:16:37 2012-04-25 09:16:18 Outpatient MHIEA LT [facility] [id number] 2012-04-08 11:16:05 2012-04-08 17:15:45 AUDIT [facility] [id number] [facility] 2012-04-08 11:16:05 2012-04-08 11:15:45 [id number] Results Test Description Test Time Test Comments Results Result Comments Source [O] Hemoglobin A1c (in office) 2019-06-29 09:05:00 Test Item HEMOGLOBIN A1c (test code = 4548-4) 7.3 [facility]2019-06-29 09:05:00* Test Item Value Reference Range Interpretation Comments Glucose POC Lifescan (test code = Glucose POC Lifescan) 117 [facility][U] XRAY SHOULDER MIN 2 VWS LEFT [id number] 14:57:00Images acquired, not reported on this accession number.[facility][O] Hemoglobin A1c (in office)2019-03-30 15:26:00* Test Item Value Reference Range Interpretation Comments HEMOGLOBIN A1c (test code = 4548-4) 5.8 [facility]2019-03-30 15:25:00* Test Item Value Reference Range Interpretation Comments Glucose POC Lifescan (test code = Glucose POC Lifescan) 167 [facility]iciansPost Op Promis 29 [id number] 10:29:30* Test Item Value Reference Range Interpretation Comments Pain Interference: (test code = Pain Interference:) 57.3 1 N Pain Intensity: (test code = Pain Intensity:) 40.5 1 N Physical Function: (test code = Physical Function:) 43.2 1 N Satisfaction Role: (test code = Satisfaction Role:) 40 1 N [facility][U] XRAY SHOULDER MIN 2 VWS LEFT [id number] 12:50:00Images acquired, not reported on this accession number.[facility][U] XRAY SHOULDER MIN 2 VWS LEFT [id number] 10:53:00Images acquired, not reported on this accession number.[facility] Initial Promis 29 [id number] 09:55:30* Test Item Value Reference Range Interpretation Comments Pain Interference: (test code = Pain Interference:) 65.6 1 N Pain Intensity: (test code = Pain Intensity:) 51.3 1 N Physical Function: (test code = Physical Function:) 39.8 1 N Satisfaction Role: (test code = Satisfaction Role:) 45.8 1 N [facility]] LIPID [id number] 08:47:00* Test Item Value Reference Range Interpretation Comments CHOLESTEROL, TOTAL; Normal (test code = 2093-3) 144 mg/dl <200 N HDL CHOLESTEROL; Below Low Threshold (test code = 2085-9) 40 mg/dl >40 TRIGLYCERIDES; Above High Threshold (test code = 2571-8) 220 mg/dl <150 If a non-fasting specimen was collected, considerrepeat triglyceride testing on a fasting specimenif clinically indicated. Coby et al. J. of Clin. Lipidol. 2015;9:129-169. LDL-CHOLESTEROL; Normal (test code = 22881-4) 72 {MG/DL MEHNAZ} N Reference range: <100 Desirable range <100 mg/dL for primary prevention; <70 mg/dL for patients with CHD or diabetic patients with > or = 2 CHD risk factors. LDL-C is now calculated using the Dmitriy-Dajuan calculation, which is a validated novel method providing better accuracy than the Friedewald equation in the estimation of LDL-C. Dmitriy SS et al. JONNA. 2013;310(19): 2116-3386 (http ://education.Stilnest.Apozy/faq/LTV213) CHOL/HDLC RATIO (test code = CHOL/HDLC RATIO) 3.6 {CALC} <5.0 N NON HDL CHOLESTEROL (test code = NON HDL CHOLESTEROL) 104 {MG/DL C AL} <130 N For patients with diabetes plus 1 major ASCVD risk factor, treating to a non-HDL-C goal of <100 mg/dL (LDL-C of <70 mg/dL) is considered a therapeutic option. [facility]] CMP [id number] 08:47:00* Test Item Value Reference Range Interpretation Comments GLUCOSE; Above High Threshold (test code = 1547-9) 102 mg/dl 65- 99 Fasting reference interval For someone without known diabetes, a glucose valuebetween 100 and 125 mg/dL is consistent withprediabetes and should be confirmed with afollow-up test. UREA NITROGEN (BUN) (test code = UREA NITROGEN (BUN)) 38 mg/dl 7-25 CREATININE (test code = CREATININE) 1.30 mg/dl 0.70-1.11 For patients >49 years of age, the reference limitfor Creatinine is approximately 13% higher for peopleidentified as -Ghanaian. eGFR NON- (test code = eGFR NON-MANJULA N [place]) 51 {ML/MIN/1.7} > OR = 60 eGFR (test code = eGFR ) 59 {ML/MIN/1.7} > OR = 60 BUN/CREATININE RATIO (test code = BUN/CREATININE RATIO) 29 {CALC} 6-22 SODIUM (test code = SODIUM) 141 mmol/L 135-146 N POTASSIUM (test code = POTASSIUM) 4.3 mmol/L 3.5-5.3 N CHLORIDE (test code = CHLORIDE) 107 mmol/L 98-110 N CARBON DIOXIDE (test code = CARBON DIOXIDE) 29 mmol/L 20-32 N CALCIUM (test code = CALCIUM) 9.5 mg/dl 8.6-10.3 N PROTEIN, TOTAL (test code = PROTEIN, TOTAL) 6.2 g/dl 6.1-8.1 N ALBUMIN (test code = ALBUMIN) 3.7 g/dl 3.6-5.1 N GLOBULIN (test code = GLOBULIN) 2.5 {G/DL CALC} 1.9-3.7 N ALBUMIN/GLOBULIN RATIO (test code = ALBUMIN/GLOBULIN RATIO) 1.5 {CALC} 1.0-2.5 N BILIRUBIN, TOTAL; Normal (test code = 86725-2) 0.4 mg/dl 0.2-1.2 N ALKALINE PHSPHATASE (test code = ALKALINE PHSPHATASE) 107 u/l 40-115 N AST; Normal (test code = 1916-6) 19 u/l 10-35 N ALT; Normal (test code = 1742-6) 29 u/l 9-46 N [facility]] CREATINE KINASE, [id number] 08:47:00* Test Item Value Reference Range Interpretation Comments CREATINE KINASE, TOTAL (test code = CREATINE KINASE, TOTAL) 52 u/l 44-196 N [facility]] CBC (INCLUDES DIFF/PLT)2018-12-29 08:47:00* Test Item Value Reference Range Interpretation Comments WHITE BLOOD CELL COUNT (test code = WHITE BLOOD CELL COUNT) 5.2 {Thousand/u} 3.8-10.8 N RED BLOOD CELL COUNT (test code = RED BLOOD CELL COUNT) 4.27 {Million/uL} 4.20-5.80 N HEMAGLOBIN; Normal (test code = 72031-7) 13.6 g/dl 13.2-17.1 N HEMATOCRIT; Normal (test code = 4544-3) 40.3 % 38.5-50.0 N MCV; Normal (test code = 787-2) 94.4 fL 80.0-100.0 N MCHC; Normal (test code = 33790-8) 33.7 g/dl 32.0-36.0 N RDW; Normal (test code = 788-0) 13.1 % 11.0-15.0 N PLATELET COUNT; Below Low Threshold (test code = 777-3) 122 {Thousand/u} 140-400 MPV; Normal (test code = 03275-6) 10.7 fL 7.5-12.5 N ABSOLUTE NEUTROPHILS (test code = ABSOLUTE NEUTROPHILS) 2610 {cells/uL} 6733-3264 N ABSOLUTE LYMPHOCYTES (test code = ABSOLUTE LYMPHOCYTES) 2007 {cells/uL} 850-3900 N ABSOLUTE MONOCYTES (test code = ABSOLUTE MONOCYTES) 421 {cells/uL} 200-950 N ABSOLUTE EOSINOPHILS (test code = ABSOLUTE EOSINOPHILS) 130 {cells/ uL} 15-500 N ABSOLUTE BASOPHILS (test code = ABSOLUTE BASOPHILS) 31 {cells/uL} 0 -200 N NEUTROPHILS (test code = NEUTROPHILS) 50.2 % N LYMPHOCYTES (test code = LYMPHOCYTES) 38.6 % N MONOCYTES; Normal (test code = 81302-5) 8.1 % N EOSINOPHILS; Normal (test code = 18422-1) 2.5 % N BASOPHILS; Normal (test code = 81289-0) 0.6 % N [facility]] TSH, 3RD [id number] 08:47:00* Test Item Value Reference Range Interpretation Comments TSH; Normal (test code = 59767-2) 4.31 {MIU/L} 0.40-4.50 N [facility][O] Hemoglobin A1c (in office)2018-11-24 14:27:00 * Test Item Value Reference Range Interpretation Comments HEMOGLOBIN A1c (test code = 4548-4) 6.2 [facility]2018-11-24 14:26:00* Test Item Value Reference Range Interpretation Comments Glucose POC Lifescan (test code = Glucose POC Lifescan) 61 [facility][U] XRAY SHOULDER MIN 2 VWS LEFT [id number] 12:01:00Images acquired, not reported on this accession number.[facility][O] Hemoglobin A1c (in office)2018-08-24 15:35:00* Test Item Value Reference Range Interpretation Comments HEMOGLOBIN A1c (test code = 4548-4) 6.3 [facility]2018-08-24 15:35:00* Test Item Value Reference Range Interpretation Comments Glucose POC Lifescan (test code = Glucose POC Lifescan) 144 [facility][O] Hemoglobin A1c (in office)2018-05-12 14:45:00 * Test Item Value Reference Range Interpretation Comments HEMOGLOBIN A1c (test code = 4548-4) 6.4 [facility]2018-05-12 14:45:00* Test Item Value Reference Range Interpretation Comments Glucose POC Lifescan (test code = Glucose POC Lifescan) 150 [facility][H] LIPID [id number] 11:39:00* Test Item Value Reference Range Interpretation Comments CHOLESTEROL, TOTAL; Normal (test code = 2093-3) 147 mg/dl <200 N HDL CHOLESTEROL; Normal (test code = 2085-9) 43 mg/dl >40 N TRIGLYCERIDES; Above High Threshold (test code = 2571-8) 150 mg/dl <150 LDL-CHOLESTEROL; Normal (test code = 03522-0) 79 {MG/DL MEHNAZ} N Reference range: <100 Desirable range <100 mg/dL for primary prevention; <70 mg/dL for patients with CHD or diabetic patients with > or = 2 CHD risk factors. LDL-C is now calculated using the Dmitriy-Dajuan calculation, which is a validated novel method providing better accuracy than the Friedewald equation in the estimation of LDL-C. Dmitriy SS et al. JONNA. 2013;310(19): 5358-4843 (http ://education.Stilnest.Apozy/faq/QHN069) CHOL/HDLC RATIO (test code = CHOL/HDLC RATIO) 3.4 {CALC} <5.0 N NON HDL CHOLESTEROL (test code = NON HDL CHOLESTEROL) 104 {MG/DL C AL} <130 N For patients with diabetes plus 1 major ASCVD risk factor, treating to a non-HDL-C goal of <100 mg/dL (LDL-C of <70 mg/dL) is considered a therapeutic option. [facility]] CMP [id number] 11:39:00* Test Item Value Reference Range Interpretation Comments GLUCOSE; Below Low Threshold (test code = 1547-9) 49 mg/dl 65-9 9 Fasting reference interval UREA NITROGEN (BUN) (test code = UREA NITROGEN (BUN)) 35 mg/dl 7-25 CREATININE (test code = CREATININE) 1.53 mg/dl 0.70-1.11 For patients >49 years of age, the reference limitfor Creatinine is approximately 13% higher for peopleidentified as -Ghanaian. eGFR NON- (test code = eGFR NON-MANJULA N [place]) 42 {ML/MIN/1.7} > OR = 60 eGFR (test code = eGFR ) 49 {ML/MIN/1.7} > OR = 60 BUN/CREATININE RATIO (test code = BUN/CREATININE RATIO) 23 {CALC} 6-22 SODIUM (test code = SODIUM) 142 mmol/L 135-146 N POTASSIUM (test code = POTASSIUM) 4.7 mmol/L 3.5-5.3 N CHLORIDE (test code = CHLORIDE) 106 mmol/L 98-110 N CARBON DIOXIDE (test code = CARBON DIOXIDE) 27 mmol/L 20-32 N CALCIUM (test code = CALCIUM) 9.7 mg/dl 8.6-10.3 N PROTEIN, TOTAL (test code = PROTEIN, TOTAL) 6.6 g/dl 6.1-8.1 N ALBUMIN (test code = ALBUMIN) 3.9 g/dl 3.6-5.1 N GLOBULIN (test code = GLOBULIN) 2.7 {G/DL CALC} 1.9-3.7 N ALBUMIN/GLOBULIN RATIO (test code = ALBUMIN/GLOBULIN RATIO) 1.4 {CALC} 1.0-2.5 N BILIRUBIN, TOTAL; Normal (test code = 76279-7) 0.6 mg/dl 0.2-1.2 N ALKALINE PHSPHATASE (test code = ALKALINE PHSPHATASE) 194 u/l 40-115 AST; Normal (test code = 1916-6) 22 u/l 10-35 N ALT; Normal (test code = 1742-6) 22 u/l 9-46 N [facility]] CREATINE KINASE, [id number] 11:39:00* Test Item Value Reference Range Interpretation Comments CREATINE KINASE, TOTAL (test code = CREATINE KINASE, TOTAL) 45 u/l 44-196 N [facility]] CBC (INCLUDES DIFF/PLT)2018-05-10 11:39:00* Test Item Value Reference Range Interpretation Comments WHITE BLOOD CELL COUNT (test code = WHITE BLOOD CELL COUNT) 5.9 {Thousand/u} 3.8-10.8 N RED BLOOD CELL COUNT (test code = RED BLOOD CELL COUNT) 4.66 {Million/uL} 4.20-5.80 N HEMAGLOBIN; Normal (test code = 25890-1) 14.0 g/dl 13.2-17.1 N HEMATOCRIT; Normal (test code = 4544-3) 42.6 % 38.5-50.0 N MCV; Normal (test code = 787-2) 91.4 fL 80.0-100.0 N MCHC; Normal (test code = 13315-4) 32.9 g/dl 32.0-36.0 N RDW; Normal (test code = 788-0) 13.7 % 11.0-15.0 N PLATELET COUNT; Normal (test code = 777-3) 175 {Thousand/u} 140-400 N MPV; Normal (test code = 77247-3) 10.5 fL 7.5-12.5 N ABSOLUTE NEUTROPHILS (test code = ABSOLUTE NEUTROPHILS) 3204 {cells/uL} 2560-1059 N ABSOLUTE LYMPHOCYTES (test code = ABSOLUTE LYMPHOCYTES) 2024 {cells/uL} 850-3900 N ABSOLUTE MONOCYTES (test code = ABSOLUTE MONOCYTES) 566 {cells/uL} 200-950 N ABSOLUTE EOSINOPHILS (test code = ABSOLUTE EOSINOPHILS) 89 {cells/u L} 15-500 N ABSOLUTE BASOPHILS (test code = ABSOLUTE BASOPHILS) 18 {cells/uL} 0 -200 N NEUTROPHILS (test code = NEUTROPHILS) 54.3 % N LYMPHOCYTES (test code = LYMPHOCYTES) 34.3 % N MONOCYTES; Normal (test code = 00307-4) 9.6 % N EOSINOPHILS; Normal (test code = 41686-1) 1.5 % N BASOPHILS; Normal (test code = 09842-2) 0.3 % N [facility][] CARDIO CRP(R)2018-05-10 11:39:00* Test Item Value Reference Range Interpretation Comments HS CRP (test code = HS CRP) 7.3 mg/L Higher relative cardiovascular risk according to AHA/CDCguidelines. Consider retesting in 1 to 2 weeks to excludea benign transient elevation in the baseline CRP valuesecondary to infection or inflammation. For ages >17 Years:hs-CRP mg/L Risk According to AHA/CDC Guidelines<1.0 Lower relative cardiovascular risk.1.0-3.0 Average relative cardiovascular risk.3.1-10.0 Higher relative cardiovascular risk. Consider retesting in 1 to 2 weeks to exclude a benign transient elevation in the baseline CRP value secondary to infection or inflammation.>10.0 Persistent elevation, upon retesting, may be associated with infection and inflammation. [facility]] TSH, 3RD [id number] 11:39:00* Test Item Value Reference Range Interpretation Comments TSH; Normal (test code = 72038-7) 2.60 {MIU/L} 0.40-4.50 N [facility]] HEMOGLOBIN [id number] 11:39:00* Test Item Value Reference Range Interpretation Comments HEMOGLOBIN A1c; Above High Threshold (test code = 4548-4) 6.3 {% of total} <5.7 For someone without known diabetes, a he moglobin A1c value between 5.7% and 6.4% is consistent withprediabetes and should be confirmed with a follow-up test. For someone with known diabetes, a value <7%indicates that their diabetes is well controlled. [id number] should be individualized based on duration ofdiabetes, age, comorbid conditions, and otherconsiderations. This assay result is consistent with an increased riskof diabetes. Currently, no consensus exists regarding use ofhemoglobin A1c for diagnosis of diabetes for children. [facility][O] Hemoglobin A1c (in office)2018-02-04 14:47:00 * Test Item Value Reference Range Interpretation Comments HEMOGLOBIN A1c (test code = 4548-4) 7.8 [facility]2018-02-04 14:47:00* Test Item Value Reference Range Interpretation Comments Glucose POC Lifescan (test code = Glucose POC Lifescan) 196 [facility]iciansRIBS UNILAT W/CXR- [id number] 18:37:00 [facility] [address] [address] Patient Name: VERONICA LEOS MR #: [id number] : 1935 Age/Sex: 82/M Req #: [id number] Adm Physician: Ordered by: GABINO VILLEGAS MD Report #: [id number] Location: [facility] Room/Bed: Procedure: [id number] HOPD/RIBS UNILAT W/CXR- HOPD Exam Date: 02/02/18 Abraham alvarez Time: 1816 REPORT STATUS: Signed Left rib multiple views CPT code: 49793 History: Fall Comparis on: Humerus x-rays obtained at the same time. Findings: The patient is s uboptimally positioned. The rib structures on the left appear intact. There is no evidence of acute rib fracture or dislocation identified. Single PA view of the chest demonstrates intact median sternotomy wires. The lungs a re clear. No pleural effusion or pneumothorax. Fracture deformity of the daly rgical neck of the left humerus. The scapular body, acromion, and clavicle are intact. Visualized portion of the right shoulder is intact. IMPRESSION: No displaced rib fracture or dislocation. Thank you for your referral . Signed by: Dr. Asa Moser MD on 02/02/2018 6:41 PM Dictat ed By: ASA MOSER MD 40 Transcribed By: TERESA on 02/02/181840 COPY TO: GABINO VILLEGAS MD HUMERUS 2 VIEW - [id number] 18:31:00 [address] [address] Patient Name: VERONICA LEOS MR #: [id number] : 1935 Age/Sex: 82/M Req #: [id number] Adm Physician: Ordered by: GABINO VILLEGAS MD Report #: [id number] Location: [facility] Room/Bed: Procedure: [id number] HOPD/HUMERUS 2 VIEW LT - HOPD Exam Date: 02/02/18 Ex am Time: 1816 REPORT STATUS: Signed Humerus left CPT code: 07037 Indication: Fell off chair, left shou lder pain. Technique: 5 views of the left humerus obtained. Comparison : Rib series performed at the same time. Findings: Glenohumeral fractu re through the surgical neck with subtle fracture planes that extend through t he lateral humeral head. There is mild ventral and medial angulation of the di stal fracture fragment. The humeral head remains articulated with the glenoid. The glenoid, acromion, and scapula are intact. Visualized ribs are intact. Th e distal humerus and proximal radius/ulna are intact. Visualized portion of th e left lung is clear. IMPRESSION: Comminuted and displaced fracture of the surgical neck of the left humerus with a fracture plane that extends to t he lateral humeral head. No glenohumeral dislocation. The remainder of the hum erus is intact. Signed by: Dr. Asa Moser MD on 02/02/2018 6:37 PM Dictated By: ASA MOSER MD 36 Transcribed By: TERESA on 02/02/181836 COPY T O: GABINO VILLEGAS MD [[facility]] LIPID [id number] 08:56:00* Test Item Value Reference Range Interpretation Comments CHOLESTEROL, TOTAL; Normal (test code = 2093-3) 158 mg/dl <200 N HDL CHOLESTEROL; Below Low Threshold (test code = 2085-9) 38 mg/dl >40 TRIGLYCERIDES; Above High Threshold (test code = 2571-8) 285 mg/dl <150 LDL-CHOLESTEROL; Normal (test code = 26993-6) 83 {MG/DL MEHNAZ} N Reference range: <100 Desirable range <100 mg/dL for primary prevention; <70 mg/dL for patients with CHD or diabetic patients with > or = 2 CHD risk factors. LDL-C is now calculated using the Dmitriy-Graff calculation, which is a validated novel method providing better accuracy than the Friedewald equation in the estimation of LDL-C. Dmitriy SS et al. JONNA. 2013;310(19): 3193-5457 (http ://education.Stilnest.Apozy/faq/MEQ100) CHOL/HDLC RATIO (test code = CHOL/HDLC RATIO) 4.2 {CALC} <5.0 N NON HDL CHOLESTEROL (test code = NON HDL CHOLESTEROL) 120 {MG/DL C AL} <130 N For patients with diabetes plus 1 major ASCVD risk factor, treating to a non-HDL-C goal of <100 mg/dL (LDL-C of <70 mg/dL) is considered a therapeutic option. [facility]] CMP [id number] 08:56:00* Test Item Value Reference Range Interpretation Comments GLUCOSE; Above High Threshold (test code = 1547-9) 134 mg/dl 65- 99 Fasting reference interval For someone without known diabetes, a glucosevalue >125 mg/dL indicates that they may havediabetes and this should be confirmed with afollow- up test. UREA NITROGEN (BUN) (test code = UREA NITROGEN (BUN)) 42 mg/dl 7-25 CREATININE (test code = CREATININE) 1.51 mg/dl 0.70-1.11 For patients >49 years of age, the reference limitfor Creatinine is approximately 13% higher for peopleidentified as -Ghanaian. eGFR NON- (test code = eGFR NON-MANJULA N [place]) 43 {ML/MIN/1.7} > OR = 60 eGFR (test code = eGFR ) 50 {ML/MIN/1.7} > OR = 60 BUN/CREATININE RATIO (test code = BUN/CREATININE RATIO) 28 {CALC} 6-22 SODIUM (test code = SODIUM) 141 mmol/L 135-146 N POTASSIUM (test code = POTASSIUM) 4.6 mmol/L 3.5-5.3 N CHLORIDE (test code = CHLORIDE) 103 mmol/L 98-110 N CARBON DIOXIDE (test code = CARBON DIOXIDE) 30 mmol/L 20-32 N CALCIUM (test code = CALCIUM) 9.7 mg/dl 8.6-10.3 N PROTEIN, TOTAL (test code = PROTEIN, TOTAL) 6.5 g/dl 6.1-8.1 N ALBUMIN (test code = ALBUMIN) 4.0 g/dl 3.6-5.1 N GLOBULIN (test code = GLOBULIN) 2.5 {G/DL CALC} 1.9-3.7 N ALBUMIN/GLOBULIN RATIO (test code = ALBUMIN/GLOBULIN RATIO) 1.6 {CALC} 1.0-2.5 N BILIRUBIN, TOTAL; Normal (test code = 66611-1) 0.6 mg/dl 0.2-1.2 N ALKALINE PHSPHATASE (test code = ALKALINE PHSPHATASE) 92 u/l 40-115 N AST; Normal (test code = 1916-6) 16 u/l 10-35 N ALT; Normal (test code = 1742-6) 17 u/l 9-46 N [facility]] CREATINE KINASE, [id number] 08:56:00* Test Item Value Reference Range Interpretation Comments CREATINE KINASE, TOTAL (test code = CREATINE KINASE, TOTAL) 50 u/l 44-196 N [facility]] CBC (INCLUDES DIFF/PLT)2017-11-25 08:56:00* Test Item Value Reference Range Interpretation Comments WHITE BLOOD CELL COUNT (test code = WHITE BLOOD CELL COUNT) 4.9 {Thousand/u} 3.8-10.8 N RED BLOOD CELL COUNT (test code = RED BLOOD CELL COUNT) 4.44 {Million/uL} 4.20-5.80 N HEMAGLOBIN; Normal (test code = 29423-2) 13.9 g/dl 13.2-17.1 N HEMATOCRIT; Normal (test code = 4544-3) 42.2 % 38.5-50.0 N MCV; Normal (test code = 787-2) 95.0 fL 80.0-100.0 N MCHC; Normal (test code = 92642-2) 32.9 g/dl 32.0-36.0 N RDW; Normal (test code = 788-0) 13.3 % 11.0-15.0 N PLATELET COUNT; Below Low Threshold (test code = 777-3) 129 {Thousand/u} 140-400 Review of the peripheral sme ar revealsdecreased numbers of platelets. MPV; Normal (test code = 88690-2) 10.4 fL 7.5-12.5 N ABSOLUTE NEUTROPHILS (test code = ABSOLUTE NEUTROPHILS) 3097 {cells/uL} 0212-5518 N ABSOLUTE LYMPHOCYTES (test code = ABSOLUTE LYMPHOCYTES) 1308 {cells/uL} 850-3900 N ABSOLUTE MONOCYTES (test code = ABSOLUTE MONOCYTES) 358 {cells/uL} 200-950 N ABSOLUTE EOSINOPHILS (test code = ABSOLUTE EOSINOPHILS) 118 {cells/ uL} 15-500 N ABSOLUTE BASOPHILS (test code = ABSOLUTE BASOPHILS) 20 {cells/uL} 0 -200 N NEUTROPHILS (test code = NEUTROPHILS) 63.2 % N LYMPHOCYTES (test code = LYMPHOCYTES) 26.7 % N MONOCYTES; Normal (test code = 06436-6) 7.3 % N EOSINOPHILS; Normal (test code = 31261-1) 2.4 % N BASOPHILS; Normal (test code = 87278-1) 0.4 % N COMMENT(S) (test code = COMMENT(S)) See Comment Review of peripheral smear confirmsautomated results. [facility]] TSH, 3RD GENERATION W/REFLEX TO FT4 2017-11-25 08:56:00* Test Item Value Reference Range Interpretation Comments TSH, 3RD GENERATION W/REFLEX TO FT4 (ryley t code = TSH, 3RD GENERATION W/REFLEX TO FT4) 2.13 {MIU/L} 0.40-4.50 N [facility]2017-11-11 15:29:00* Test Item Value Reference Range Interpretation Comments Glucose POC Lifescan (test code = Glucose POC Lifescan) 57 [facility][O] Hemoglobin A1c (in office)2017-11-11 15:28:00 * Test Item Value Reference Range Interpretation Comments HEMOGLOBIN A1c (test code = 4548-4) 7.3 [facility][O] Lipid Panel (In Office)2017-11-11 15:28:00* Test Item Value Reference Range Interpretation Comments CHOLESTEROL, TOTAL (test code = 2093-3) 148 HDL CHOLESTEROL (test code = 2085-9) 34 TRIGLYCERIDES (test code = 2571-8) 203 LDL-CHOLESTEROL (test code = 39238-3) 74 NON HDL CHOLESTEROL (test code = NON HDL CHOLESTEROL) 114 T. Chol/HDL Ratio (test code = 9830-1) 4.4 GLUCOSE (test code = 1547-9) 71 [facility]2017-08-11 14:27:00* Test Item Value Reference Range Interpretation Comments Glucose POC Lifescan (test code = Glucose POC Lifescan) 63 [facility][O] Hemoglobin A1c (in office)2017-08-11 14:26:00 * Test Item Value Reference Range Interpretation Comments HEMOGLOBIN A1c (test code = 4548-4) 6.9 [facility][O] Lipid Panel (In Office)2017-08-11 14:26:00* Test Item Value Reference Range Interpretation Comments CHOLESTEROL, TOTAL (test code = 2093-3) 147 HDL CHOLESTEROL (test code = 2085-9) 35 TRIGLYCERIDES (test code = 2571-8) 216 LDL-CHOLESTEROL (test code = 37127-8) 69 NON HDL CHOLESTEROL (test code = NON HDL CHOLESTEROL) 112 T. Chol/HDL Ratio (test code = 9830-1) 4.2 GLUCOSE (test code = 1547-9) 75 [facility]icians[facility] Ret[facility] Eye Exam (Diabetic)2017-06-30 05:00:00* Test Item Value Reference Range Interpretation Comments Negative Diabetic Eye Screening (test code = Negative Diabetic Eye Screening) [id number] [facility]] LIPID [id number] 08:25:00* Test Item Value Reference Range Interpretation Comments CHOLESTEROL, TOTAL; Normal (test code = 2093-3) 151 mg/dl <200 N HDL CHOLESTEROL; Below Low Threshold (test code = 2085-9) 39 mg/dl >40 TRIGLYCERIDES; Above High Threshold (test code = 2571-8) 175 mg/dl <150 LDL-CHOLESTEROL; Normal (test code = 86305-0) 85 {MG/DL MEHNAZ} N Reference range: <100 Desirable range <100 mg/dL for primary prevention; <70 mg/dL for patients with CHD or diabetic patients with > or = 2 CHD risk factors. LDL-C is now calculated using the Dmitriy-Graff calculation, which is a validated novel method providing better accuracy than the Friedewald equation in the estimation of LDL-C. Dmitriy EATON et al. JONNA. 2013;310(19): 2101-7890 (http ://education.Admittedly/faq/UPW674) CHOL/HDLC RATIO (test code = CHOL/HDLC RATIO) 3.9 {CALC} <5.0 N NON HDL CHOLESTEROL (test code = NON HDL CHOLESTEROL) 112 {MG/DL C AL} <130 N For patients with diabetes plus 1 major ASCVD risk factor, treating to a non-HDL-C goal of <100 mg/dL (LDL-C of <70 mg/dL) is considered a therapeutic option. [facility]] CMP [id number] 08:25:00* Test Item Value Reference Range Interpretation Comments GLUCOSE; Above High Threshold (test code = 1547-9) 143 mg/dl 65- 99 Fasting reference interval For someone without known diabetes, a glucosevalue >125 mg/dL indicates that they may havediabetes and this should be confirmed with afollow- up test. UREA NITROGEN (BUN) (test code = UREA NITROGEN (BUN)) 29 mg/dl 7-25 CREATININE (test code = CREATININE) 1.29 mg/dl 0.70-1.11 For patients >49 years of age, the reference limitfor Creatinine is approximately 13% higher for peopleidentified as -Ghanaian. eGFR NON- (test code = eGFR NON-MANJULA N [place]) 52 {ML/MIN/1.7} > OR = 60 eGFR (test code = eGFR ) 60 {ML/MIN/1.7} > OR = 60 N BUN/CREATININE RATIO (test code = BUN/CREATININE RATIO) 22 {CALC} 6-22 N SODIUM (test code = SODIUM) 143 mmol/L 135-146 N POTASSIUM (test code = POTASSIUM) 4.8 mmol/L 3.5-5.3 N CHLORIDE (test code = CHLORIDE) 108 mmol/L 98-110 N CARBON DIOXIDE (test code = CARBON DIOXIDE) 31 mmol/L 20-31 N CALCIUM (test code = CALCIUM) 9.6 mg/dl 8.6-10.3 N PROTEIN, TOTAL (test code = PROTEIN, TOTAL) 6.0 g/dl 6.1-8.1 ALBUMIN (test code = ALBUMIN) 3.8 g/dl 3.6-5.1 N GLOBULIN (test code = GLOBULIN) 2.2 {G/DL CALC} 1.9-3.7 N ALBUMIN/GLOBULIN RATIO (test code = ALBUMIN/GLOBULIN RATIO) 1.7 {CALC} 1.0-2.5 N BILIRUBIN, TOTAL; Normal (test code = 58116-6) 0.5 mg/dl 0.2-1.2 N ALKALINE PHSPHATASE (test code = ALKALINE PHSPHATASE) 79 u/l 40-115 N AST; Normal (test code = 1916-6) 18 u/l 10-35 N ALT; Normal (test code = 1742-6) 17 u/l 9-46 N [facility]] CREATINE KINASE, [id number] 08:25:00* Test Item Value Reference Range Interpretation Comments CREATINE KINASE, TOTAL (test code = CREATINE KINASE, TOTAL) 54 u/l 44-196 N [facility]] CBC (INCLUDES DIFF/PLT)2017-06-15 08:25:00* Test Item Value Reference Range Interpretation Comments WHITE BLOOD CELL COUNT (test code = WHITE BLOOD CELL COUNT) 4.0 {Thousand/u} 3.8-10.8 N RED BLOOD CELL COUNT (test code = RED BLOOD CELL COUNT) 4.64 {Million/uL} 4.20-5.80 N HEMOGLOBIN; Normal (test code = 84588-3) 14.1 g/dl 13.2-17.1 N HEMATOCRIT; Normal (test code = 4544-3) 42.9 % 38.5-50.0 N MCV; Normal (test code = 787-2) 92.5 fL 80.0-100.0 N MCHC; Normal (test code = 70936-2) 32.9 g/dl 32.0-36.0 N RDW; Normal (test code = 788-0) 12.7 % 11.0-15.0 N PLATELET COUNT; Below Low Threshold (test code = 777-3) 98 {Thou sand/u} 140-400 MPV; Normal (test code = 53617-7) 10.5 fL 7.5-12.5 N ABSOLUTE NEUTROPHILS (test code = ABSOLUTE NEUTROPHILS) 2304 {cells/uL} 6171-4097 N ABSOLUTE LYMPHOCYTES (test code = ABSOLUTE LYMPHOCYTES) 1264 {cells/uL} 850-3900 N ABSOLUTE MONOCYTES (test code = ABSOLUTE MONOCYTES) 332 {cells/uL} 200-950 N ABSOLUTE EOSINOPHILS (test code = ABSOLUTE EOSINOPHILS) 80 {cells/u L} 15-500 N ABSOLUTE BASOPHILS (test code = ABSOLUTE BASOPHILS) 20 {cells/uL} 0 -200 N NEUTROPHILS (test code = NEUTROPHILS) 57.6 % N LYMPHOCYTES (test code = LYMPHOCYTES) 31.6 % N MONOCYTES; Normal (test code = 43871-6) 8.3 % N EOSINOPHILS; Normal (test code = 05654-4) 2.0 % N BASOPHILS; Normal (test code = 62154-7) 0.5 % N [facility][] CARDIO CRP(R)2017-06-15 08:25:00* Test Item Value Reference Range Interpretation Comments HS CRP (test code = HS CRP) 2.1 mg/L N Average relative cardiovascular risk according toAHA/CDC guidelines. For ages >17 Years:hs-CRP mg/L Risk According to AHA/CDC Guidelines<1.0 Lower relative cardiovascular risk.1.0-3.0 Average relative cardiovascular risk.3.1-10.0 Higher relative cardiovascular risk. Consider retesting in 1 to 2 weeks to exclude a benign transient elevation in the baseline CRP value secondary to infection or inflammation.>10.0 Persistent elevation, upon retesting, may be associated with infection and inflammation. [facility]] TSH, 3RD [id number] 08:25:00* Test Item Value Reference Range Interpretation Comments TSH; Normal (test code = 88982-6) 2.46 {MIU/L} 0.40-4.50 N [facility]] HEMOGLOBIN [id number] 08:25:00* Test Item Value Reference Range Interpretation Comments HEMOGLOBIN A1c; Above High Threshold (test code = 4548-4) 7.3 {% of total} <5.7 For someone without known diabetes, a [facility] [place] [facility] [id number] of 6.5% or greater indicates that they may have diabetes and this should be confirmed with a follow-up test. For someone with known diabetes, a value <7% indicates that their diabetes is well controlled and a value greater than or equal to 7% indicates suboptimal control. A1c targets should be individualized based on duration of diabetes, age, comorbid conditions, and other considerations. Currently, no consensus exists regarding use ofhemoglobin A1c for diagnosis of diabetes for children. [facility]2017-05-11 15:45:00* Test Item Value Reference Range Interpretation Comments Glucose POC Lifescan (test code = Glucose POC Lifescan) 85 [facility][O] Hemoglobin A1c (in office)2017-05-11 15:44:00 * Test Item Value Reference Range Interpretation Comments HEMOGLOBIN A1c (test code = 4548-4) 7.5 [facility][O] Lipid Panel (In Office)2017-05-11 15:44:00* Test Item Value Reference Range Interpretation Comments CHOLESTEROL, TOTAL (test code = 2093-3) 146 HDL CHOLESTEROL (test code = 2085-9) 37 TRIGLYCERIDES (test code = 2571-8) 243 LDL-CHOLESTEROL (test code = 37272-2) 60 NON HDL CHOLESTEROL (test code = NON HDL CHOLESTEROL) 109 T. Chol/HDL Ratio (test code = 9830-1) 3.9 GLUCOSE (test code = 1547-9) 93 [facility]2017-02-05 13:14:00* Test Item Value Reference Range Interpretation Comments Glucose POC Lifescan (test code = Glucose POC Lifescan) 70 [facility][O] Hemoglobin A1c (in office)2017-02-05 13:12:00 * Test Item Value Reference Range Interpretation Comments HEMOGLOBIN A1c (test code = 4548-4) 6.7 [facility][O] Lipid Panel (In Office)2017-02-05 13:12:00* Test Item Value Reference Range Interpretation Comments CHOLESTEROL, TOTAL (test code = 2093-3) 139 HDL CHOLESTEROL (test code = 2085-9) 39 TRIGLYCERIDES (test code = 2571-8) 225 LDL-CHOLESTEROL (test code = 49819-2) 54 NON HDL CHOLESTEROL (test code = NON HDL CHOLESTEROL) 99 T. Chol/HDL Ratio (test code = 9830-1) 3.5 GLUCOSE (test code = 1547-9) 76 [facility]
--- OUTSIDE RECORDS SUMMARY | 2019-07-20 13:52 | XMS REPORT | Summary of Care ---
Author Author OLENA Sewell, VERONICA JACOBSEN Organization Unknown Address Unknown Phone Unavailable Care Team Providers Care Director Of Analytical Development Name Role Phone MARCIO Sewell, ALYX Unavailable Unavailable OLENA Sewell, ANN-MARIE Unavailable Unavailable BERNARDO Sewell, VAMSI Unavailable Unavailable ANN-MARIE HYATT MD Unavailable Unavailable Marcio LEGGETT, Alyx Unavailable Unavailable BERNARDO LEGGETT IA, VAMSI Unavailable Unavailable Unavailable Unavailable Functional Status [...] E78.5) Status: Active Medications Name Dates Details Gabapentin 300 MG Oral Capsule TAKE 2 CAPSULES TWICE A DAY Quantity: 360 MARCIO Sewell, ALYX * Start : 29-Sep-2005 Active Lisinopril 20 MG Oral Tablet TAKE 1 TABLET DAILY * Quantity: 90 Refills: 3 MARCIO Sewell, ALYX * Start : 29-Sep-2005 Active Dipyridamole 75 [...] 3 MARCIO Sewell, ALYX * Start : 26-Dec-2007 Active Klor-Con 8 [...] DAILY NEEDED. * Quantity: 180 Refills: 1 GALLARDO M.D., ALYX * Start : 24-Jan-2015 Active Uloric 40 [...] Immunization Name Dates Details Influenza Comments: Approx [id number] Family History Name Dates Details Family history [...] smoker Vital Signs Date Test Result Details [id number] BP Systolic 144 mm[Hg] Status: Comments: Lo cation: RUE; Position: Sitting BP Diastolic 78 mm[Hg] Status: Comments: Lo cation: RUE; Position: Sitting Height 72 in Status: Weight 227 lb Status: Body Mass Index Calculated 30.79 kg/m2 Status: Body Surface Area Calculated 2.25 m2 Status: Heart Rate 65 /min Status: Comments: Lo cation: R Radial; Results Date Description Value Details :50 [U] XRAY SHOULDER MIN 2 VWS LEFT 16491 XR SHOULDER MIN 2 VWS LEFT Images acquir ed, not reported on this accession number. [id number] Post Op Promis 29 Survey Pain Interference: 57.3 (Normal) Pain Intensity: 40.5 (Normal) Physical Function: 43.2 (Normal) Satisfaction Role: 40 (Normal) Plan of Care Name Dates Details Planned Observations Planned Goals not documented Planned Encounters Appointment; ANN-MARIE HYATT M.D. On: 30-Mar-2019 15:15 Appointment; VAMSI CHANG M.D. On: 02-May-2019 13:00 Appointment; ALYX GALLARDO M.D. On: 27-Jul-2019 15:00 Interventions Provided Discussion/Summary* Discussed the importance of DM control and its complications. Stressed the importance of consistent MNT and med compliance in DM control * do SMBG. * take insulin timely * Take medicine. Discussed the importance of BP control. * Take medicine. MNT reiterated. Discussed the importance of Lipid control. Instructions Name Dates Details Instructions not documented [...] Problem not documented On: 20-Dec-2018 15:30 Appointment; [facility] [place] Encounter Diagnosis: Problem not documented On: [...]
--- OUTSIDE RECORDS SUMMARY | 2019-07-20 13:52 | XMS REPORT | Summary of Care ---
Author Author [facility] Address [address] [place] [address] Phone Unavailable Care Team Providers Care Body Designer Name Role Phone MARCIO Sewell, ALYX Unavailable Unavailable OLENA Sewell, ANN-MARIE Unavailable Unavailable BERNARDO Sewell, VAMSI Unavailable Unavailable OLENA LEGGETT, ANN-MARIE Unavailable Unavailable Marcio LEGGETT, Alyx Unavailable Unavailable BERNARDO LEGGETT [place], VAMSI Unavailable Unavailable Unavailable Unavailable Functional Status [...] Rheumatic heart disease (398.90, I09.9) Status: Active Edema (782.3, R60.9) Status: Active Encounter for long-term (current) use of medications (V58.69, Z79.899) Status: Active Peripheral neuropathy, hereditary/idiopa thic (356.9, G60.9) Status: Active Back muscle spasm (724.8, M62.830) Status: Active Chronic kidney disease, stage III (moder ate) (585.3, N18.3) Status: Active Essential (primary) hypertension (401.9, I10) Status: Active Hyperlipidemia (272.4, E78.5) Status: Active Diabetes mellitus (250.00, E11.9) Status: Active Aftercare following left shoulder joint replacement surgery (V54.81, Z47.1) Status: Active Heavy smoker (more than 20 cigarettes pe r day) (305.1, F17.210) Status: Active 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, subsequent encounter (733.82, S42.292K) Status: Active Neck muscle spasm (728.85, M62.838) Status: Active Neck pain (723.1, M54.2) Status: Active 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, M47.812) Status: Active Decreased creatinine clearance (794.4, R 94.4) Status: Active Diabetes mellitus with peripheral circul atory disorder (250.70, E11.51) Status: Active Renal insufficiency (593.9, N28.9) Status: Active 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, 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, 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 CHF (congestive heart failure) (428.0, I 50.9) Status: Active CABG Status: Active Atrial fibrillation (427.31, I48.91) Status: Active 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 * Start : 29-Sep-2005 Active Dipyridamole 75 MG Oral Tablet Take 1 tablet twice a day * Quantity: 180 Refills: 2 ALYX GALLARDO M.D. * Start : 29-Sep-2005 Active Aspirin 325 MG Oral Tablet TAKE 1 TABLET DAILY. * Refills: 0 * Start : 29-Sep-2005 Active Klor-Con 8 MEQ Oral Tablet Extended Release TAKE 1 TABLET TWICE A DAY WITH MEALS * Quantity: 180 Refills: 2 ALYX GALLARDO M.D. * Start : 14-Dec-2008 Active Atorvastatin Calcium 20 MG Oral Tablet [...] GALLARDO M.D. * Start : 19-Mar-2011 Active ALPRAZolam 0.5 MG Oral Tablet TAKE 1 TABLET 3 TIMES DAILY NEEDED. * Quantity: 180 Refills: 1 ALYX GALLARDO M.D. * Start : 24-Jan-2015 Active Accu-Chek Guide In Vitro Strip Use as directed three times daily * Quantity: 300 Refills: 3 ANN-MARIE HYATT M.D. * Start : 14-Feb-2016 Active Fioricet/Codeine CAPS TAKE CAPSULE PRN HEADACHE * Refills: 0 Active NovoTwist 32G X 5 MM USE 4 A DAY DIRECTED * Quantity: 4 Refills: 4 ANN-MARIE HYATT M.D. * Start : 08-Apr-2012 Active 100 EA Box Metoprolol Succinate ER 50 MG Oral Tablet Extended Release 24 Hour Take 1 tablet twice a day * Quantity: 180 Refills: 3 ALYX GALLARDO M.D. * Start : 19-Mar-2011 Active BD Pen Needle Mini U/F 31G X 5 MM 5 a day * Quantity: 500 Refills: 3 ANN-MARIE HYATT M.D. * Start : 02-Jun-2013 Active Levemir FlexTouch 100 UNIT/ML Subcutaneous Solution Pen-injector INJECT 24-30 UNITS EVERY MORNING AND 24-30 UNITS EVERY NIGHT. MAY SELF TITRATE U PTO 60 UNITS DAILY. * Quantity: 4 Refills: 0 ANN-MARIE HYATT M.D. * Start : 08-Apr-2012 Active 5 x 3 ML Pen Gabapentin 300 MG Oral Capsule TAKE 2 CAPSULES TWICE A DAY * Quantity: 360 Refills: 2 ALYX GALLARDO M.D. * Start : 29-Sep-2005 Active Testosterone Cypionate 200 MG/ML Intramuscular Solution Per PCP * Refills: 0 ANN-MARIE HYATT M.D. * Start : 05-Dec-2015 Active Iron 325 (65 Fe) MG Oral Tablet TAKE 1 TABLET TWICE DAILY. * Quantity: 14 Refills: 0 VAMSI CHANG M.D. * Start : 10-Jan-2019 Active Iron 325 (65 Fe) MG Oral Tablet TAKE 1 TABLET DAILY * Quantity: 90 Refills: 3 Active Uloric 40 MG Oral Tablet TAKE 1 TABLET DAILY. * Refills: 0 Active NovoLOG FlexPen 100 UNIT/ML Subcutaneous Solution Pen-injector 10-12 units breakfast; 10-12; lunch; 20 supper; 3-5 snacks; CF~40; REplacing HUmalog MDD:80 * Quantity: 5 Refills: 0 ANN-MARIE HYATT M.D. * Start : 11-Aug-2017 Active 5 x 3 ML Pen Accu-Chek FastClix Lancets Check BG 3x a day * Quantity: 3 Refills: 3 ANN-MARIE HYATT M.D. * Start : 25-Jan-2013 Active 102 Unit Box hydroCHLOROthiazide 25 MG Oral Tablet TAKE 1 TABLET DAILY * Quantity: 90 Refills: 3 ALYX GALLARDO M.D. * Start : 26-Dec-2007 Active Shayan Back & Body 500-32.5 MG Oral Tablet TAKE 1 TABLET DAILY PRN * Refills: 0 * Start : 30-Jul-2016 Active Vitamin D3 125 MCG (5000 UT) Oral Tablet 1 a day * Refills: 0 Active Potassium Chloride ER 8 MEQ Oral Tablet Extended Release TAKE 1 TABLET TWICE A DAY WITH MEALS * Quantity: 180 Refills: 2 ALYX GALLARDO M.D. * Start : 04-Apr-2018 Active Allergies and Adverse Reactions Name Dates [...] Immunization Name Dates Details Influenza Comments: Approx [id number] Family History Name Dates Details Family history [...] smoker Vital Signs Date Test Result Details :32 BP Systolic 144 mm[Hg] Status: Comments: [...] [U] XRAY SHOULDER MIN 2 VWS LEFT [id number] XR SHOULDER MIN 2 VWS LEFT Images acquir ed, not reported on this accession number. [id number] Post Op Promis 29 Survey Pain Interference: 57.3 (Normal) Pain Intensity: 40.5 (Normal) Physical Function: 43.2 (Normal) Satisfaction Role: 40 (Normal) Plan of Care Name Dates Details Planned Observations Planned Goals not documented Planned Encounters Appointment; ANN-MARIE HYATT M.D. On: 30-Mar-2019 15:15 Appointment; VAMSI CHANG M.D. On: 02-May-2019 13:00 Appointment; ALYX GALLARDO M.D. On: 27-Jul-2019 15:00 Instructions Name [...] Problem not documented On: 20-Dec-2018 15:30 [facility] [place] Encounter Diagnosis: Problem not documented On: [...]
--- OUTSIDE RECORDS SUMMARY | 2019-07-20 13:52 | XMS REPORT | Summary of Care ---
Author Author MARCIO Sewell, VERONICA MASSEY Organization Unknown Address Unknown Phone Unavailable Care Team Providers Care Program Project Manager Name Role Phone MARCIO Sewell, ALYX Unavailable Unavailable OLENA Sewell, ANN-MARIE Unavailable Unavailable BERNARDO Sewell, VAMSI Unavailable Unavailable OLENA LEGGETT, ANN-MARIE Unavailable Unavailable Marcio LEGGETT, Alyx Unavailable Unavailable BERNARDO LEGGETT [place], VAMSI Unavailable Unavailable Unavailable Unavailable Functional Status [...] day * Quantity: 180 Refills: 2 MARCIO Seewll, ALYX * Start : 29-Sep-2005 Active Aspirin 325 MG Oral Tablet TAKE 1 TABLET DAILY. * Refills: 0 * Start : 29-Sep-2005 Active hydroCHLOROthiazide 25 MG Oral Tablet TAKE 1 TABLET DAILY * Quantity: 90 Refills: 3 GALLARDO Melodie, ALYX * Start : 26-Dec-2007 Active Klor-Con [...] CHANG M.D. * Start : 10-Jan-2019 Active HYDROcodone-Acetaminophen 7.5-325 MG Oral Tablet TAKE 1 TABLET EVERY 4 HOURS PRN * Quantity: 42 Refills: 0 VAMSI CHANG M.D. * Start : 23-Jan-2019 Active Allergies and Adverse Reactions Name Dates Details No Known Drug Allergies (Allergy) Status : Active Past Medical History Name Dates Details Diabetes mellitus (250.00, E11.9) Status: Active History of arthritis (V13.4, Z87.39) Status: Resolved History of Hernia (553.9, K46.9) Status: Resolved Personal history of gout (V12.29, Z87.39 ) Status: Resolved Procedures Procedure Dates Details Post Op Promis 29 Survey Date: 03-Mar-2019 [[facility]] CBC (INCLUDES DIFF/PLT) Date: 19-Jan-2019 [[facility]] CMP W/EGFR Date: 19-Jan-2019 [[facility]] CREATINE KINASE, TOTAL Date: 19-Jan-2019 [[facility]] LIPID PANEL Date: 19-Jan-2019 [[facility]] TSH, 3RD GENERATION W/REFLEX TO FT4 Date: 19-Jan-2019 History of CABG Completed History of Hernia Repair Completed History of Cataract Surgery Completed History of Shoulder Surgery Completed CABG Immunization Name Dates Details Influenza Comments: Approx [id number] Family History Name Dates Details Family history [...] ANN-MARIE HYATT M.D. On: 30-Mar-2019 15:15 Appointment; ALYX GALLARDO M.D. On: 27-Jul-2019 15:00 Interventions Provided Medication Changes* Colestipol HCl - 1 GM Oral Tablet - Renew * Dipyridamole 75 MG Oral Tablet - Renew Instructions Name Dates Details Instructions not documented [...]
--- OUTSIDE RECORDS SUMMARY | 2019-07-20 13:52 | XMS REPORT | Summary of Care ---
Author Author [facility] Address [address] [place] [address] Phone Unavailable Care Team Providers Care Brusher And Shearer Name Role Phone MARCIO Sewell, ALYX Unavailable Robin HYATT M.D., ANN-MARIE Unavailable Unavailable BERNARDO Sewell, VAMSI Unavailable Unavailable OLENA LEGGETT, ANN-MARIE Unavailable Unavailable Marcio LEGGETT, Alyx Unavailable Unavailable BERNARDO LEGGETT [place], VAMSI Unavailable Unavailable Unavailable Unavailable Functional Status [...] CAPSULES TWICE A DAY Quantity: 360 GALLARDO Christine.Jose, ALYX * Start : 29-Sep-2005 Active Lisinopril 20 MG Oral Tablet TAKE 1 TABLET DAILY * Quantity: 90 Refills: 3 GALLARDO Melodie, ALYX * Start : 29-Sep-2005 Active Dipyridamole 75 MG Oral Tablet Take 1 tablet twice a day * Quantity: 180 Refills: 2 GALLARDO Melodie, ALYX * Start : 29-Sep-2005 Active Aspirin [...] Post Op Promis 29 Survey Date: 03-Mar-2019 [[facility]] CBC (INCLUDES DIFF/PLT) Date: 19-Jan-2019 [[facility]] CMP W/EGFR Date: 19-Jan-2019 [[facility]] CREATINE KINASE, TOTAL Date: 19-Jan-2019 [[facility]] LIPID PANEL Date: 19-Jan-2019 [[facility]] TSH, 3RD GENERATION W/REFLEX TO FT4 Date: 19-Jan-2019 [U] XRAY SHOULDER MIN 2 VWS LEFT [id number] Date: 20-Mar-2019 History of CABG Completed History of Hernia [...] Problem not documented On: 24-Nov-2018 14:15 Appointment; VAMIS CHANG M.D. Encounter Diagnosis: Problem not documented On: 20-Dec-2018 15:30 [facility] Encounter Diagnosis: Problem not documented On: [...]
--- OUTSIDE RECORDS SUMMARY | 2019-07-20 13:52 | XMS REPORT | Summary of Care ---
Author VERONICA Farr LVN Organization Unknown Address [facility] Phone Unavailable Care Team Providers Care Seismology Teacher Name Role Phone MARCIO Sewell, ALXY Unavailable Robin HYATT M.D., ANN-MARIE Unavailable Unavailable [...] Immunization Name Dates Details Influenza Comments: Approx [id number] Family History Name Dates Details Family history [...] [U] XRAY SHOULDER MIN 2 VWS LEFT [id number] XR SHOULDER MIN 2 VWS LEFT Images acquir ed, not reported on this accession number. :29 Post Op Promis 29 Survey Pain Interference: 57.3 (Normal) Pain Intensity: 40.5 (Normal) Physical Function: 43.2 (Normal) Satisfaction Role: 40 (Normal) :25 Glucose (Point of Care In Office) Glucose POC Lifescan 167 :26 [O] Hemoglobin A1c (in office) HEMOGLOBIN A1c 5.8 Plan of Care Name Dates Details Planned Observations Planned Goals not documented Planned Encounters Appointment; VAMIS CHANG M.D. On: 02-May-2019 13:00 Appointment; ALYX GALLARDO M.D. On: 27-Jul-2019 15:00 Interventions Provided Medication Changes* Levemir FlexTouch 100 UNIT/ML Subcutaneous Solution Pen- injector - Renew Labs/Procedures/Imaging* [O] Hemoglobin A1c (in office); Done: 30 Mar 2019 * Glucose (Point of Care In Office); Done: 30 Mar 2019 Discussion/Summary* A1c okay. Continue regimen. Advised to decrease levemir from 24 units bid to 22 units bid to minimize risks of low BG. He does not want to change his Novolog. Discussed the importance of DM control and its complications. Stressed the importance of consistent MNT and med compliance in DM control * Advised to do SMBG AM/PM. * take insulin timely * Exercise encouraged * Take medicine per foil operator. Discussed the importance of BP control. * Take medicine per foil operator. MNT reiterated. Discussed the importance of Lipid control. * F/u foil operator * Spent 20/25 mins counseling pt and spouse Instructions Name Dates Details Instructions not documented [...] Problem not documented On: 20-Dec-2018 15:30 [facility] [place] Encounter Diagnosis: Problem not documented On: [...]
--- OUTSIDE RECORDS SUMMARY | 2019-07-20 13:52 | XMS REPORT | Summary of Care ---
Author VERONICA Bianchi M.A. Organization Unknown Address Unknown Phone Unavailable Care Team Providers Care Operating System Designer Name Role Phone MARCIO Sewell, ALYX [...] day * Quantity: 500 Refills: 3 ANN-MARIE HAYTT M.D. * Start : 02-Jun-2013 Active ALPRAZolam [...] Post Op Promis 29 Survey Date: 03-Mar-2019 [[facility]] CBC (INCLUDES DIFF/PLT) Date: 19-Jan-2019 [[facility]] CMP W/EGFR Date: 19-Jan-2019 [[facility]] CREATINE KINASE, TOTAL Date: 19-Jan-2019 [[facility]] LIPID PANEL Date: 19-Jan-2019 [[facility]] TSH, 3RD GENERATION W/REFLEX TO FT4 Date: 19-Jan-2019 [U] XRAY SHOULDER MIN 2 VWS LEFT [id number] Date: 20-Mar-2019 History of CABG Completed History of Hernia Repair Completed History of Cataract Surgery Completed History of Shoulder Surgery Completed CABG Immunization Name Dates Details Influenza Comments: Approx [id number] Family History Name Dates Details Family history [...] [U] XRAY SHOULDER MIN 2 VWS LEFT [id number]; To Be Done: 21 Mar 2019 Instructions Name Dates Details Instructions not documented [...] Problem not documented On: 20-Dec-2018 15:30 [facility] [place] Encounter Diagnosis: Problem not documented On: 11-Jan-2019 14:00 Appointment; ALYX GALLARDO M.D. Encounter Diagnosis: Problem not documented On: 19-Jan-2019 15:20 Appointment; VAMSI CHANG M.D. Encounter Diagnosis: Problem not documented On: 23-Jan-2019 13:00 Appointment; VAMSI CHNAG M.D. Encounter Diagnosis: Problem not documented On: 03-Feb-2019 11:00 Appointment; VAMSI CHANG M.D. Encounter Diagnosis: Problem not documented On: 14-Feb-2019 12:00 Appointment; VAMSI CHANG M.D. Encounter Diagnosis: Problem not documented On: 21-Mar-2019 13:00
--- OUTSIDE RECORDS SUMMARY | 2019-07-20 13:52 | XMS REPORT | Summary of Care ---
Author Author [facility] Address [address] [place] [address] Phone Unavailable Care Team Providers Care Family Court Registrar Name Role Phone MARCIO Sewell, ALYX Unavailable Robin HYATT M.D., ANN-MARIE Unavailable Unavailable BERNARDO Sewell, VAMSI Unavailable Unavailable OLENA LEGGETT, ANN-MARIE Unavailable Unavailable Marcio LEGGETT, Alyx Unavailable Unavailable BERNARDO LEGGETT [place], VAMSI Unavailable Unavailable Unavailable Unavailable Functional Status [...] Post Op Promis 29 Survey Date: 03-Mar-2019 [[facility]] CBC (INCLUDES DIFF/PLT) Date: 19-Jan-2019 [[facility]] CMP W/EGFR Date: 19-Jan-2019 [[facility]] CREATINE KINASE, TOTAL Date: 19-Jan-2019 [[facility]] LIPID PANEL Date: 19-Jan-2019 [[facility]] TSH, 3RD GENERATION W/REFLEX TO FT4 Date: 19-Jan-2019 [U] XRAY SHOULDER MIN 2 VWS LEFT [id number] Date: 20-Mar-2019 History of Shoulder Surgery Completed History of [...] not documented On: 02-Jun-2018 15:00 Appointment; ALYX GALLRADO M.D. Encounter Diagnosis: Problem not documented On: 30-Jun-2018 15:20 Appointment; ANN-MARIE HYATT M.D. Encounter Diagnosis: Problem not documented On: 24-Aug-2018 15:45 Appointment; VAMSI CHANG M.D. Encounter Diagnosis: Problem not documented On: 16-Nov-2018 10:30 Appointment; ANN-MARIE HYATT M.D. Encounter Diagnosis: Problem not documented On: 24-Nov-2018 14:15 Appointment; VAMSI CHANG M.D. Encounter Diagnosis: Problem not documented On: 20-Dec-2018 15:30 Appointment; [facility], [place] Encounter Diagnosis: Problem not documented [...]
--- OUTSIDE RECORDS SUMMARY | 2019-07-20 13:53 | XMS REPORT | Summary of Care ---
Author Author OLENA Sewell, VERONICA JACOBSEN Organization Unknown Address Unknown Phone Unavailable Care Team Providers Care Filling Mixer Name Role Phone MARCIO Sewell, ALYX Unavailable [...] FlexTouch 100 UNIT/ML Subcutaneous Solution Pen-injector INJECT 24 TO 30 UNITS SUBCUTANEOUSLY EVERY MORNING AND 24 TO 30 UNITS EVERY NIGH T. MAY SELF TITRATE UP TO 60 UNITS DAILY. * Quantity: 60 Refills: 0 ANN-MARIE HYATT M.D. * Start : 08-Apr-2012 Active NovoTwist 32G X 5 MM USE 4 A DAY DIRECTED * Quantity: 4 Refills: 4 ANN-MARIE HYATT M.D. Start : 08-Apr-2012 Active 100 EA Box Accu-Chek FastClix Lancets Check BG 3x a day * Quantity: 3 Refills: 3 ANN-MARIE HYATT M.D. Start : 25-Jan-2013 Active 102 Unit Box [...] Immunization Name Dates Details Influenza Comments: Approx [id number] Family History Name Dates Details Family history of Diabetes Mellitus (V18 .0) Comments: Family History Status: Active Name Dates Details Family history of hypertension (V17.49, Z82.49) Status: Active Family history of cardiac disorder (V17. 49, Z82.49) Status: Active Name Dates Details Family history of Diabetes Mellitus (V18 .0) Status: Active Social History Name Dates Details - Status: Name Dates Details Ex-smoker (finding) Vital Signs Date Test Result Details :31 Systolic blood pressure 138 mm[Hg] Status: Diastolic blood pressure 66 mm[Hg] Status: Weight 227.3 lb Status: Body mass index (BMI) [Ratio] 30.83 kg/m2 Status: Body surface area Derived from formula 2.25 m2 S tatus: Heart Rate 61 /min Status: :26 Systolic blood pressure 123 mm[Hg] Status: Comments : Location: RUE; Position: Sitting Diastolic blood pressure 66 mm[Hg] Status: Comment s: Location: RUE; Position: Sitting Weight 227.1875 lb Status: Body mass index (BMI) [Ratio] 30.81 kg/m2 Status: Body surface area Derived from formula 2.25 m2 S tatus: Heart Rate 61 /min Status: Body height 72 in Status: :32 Systolic blood pressure 144 mm[Hg] Status: Comments : Location: RUE; Position: Sitting Diastolic blood pressure 78 mm[Hg] Status: Comment s: Location: RUE; Position: Sitting Weight 227 lb Status: Body mass index (BMI) [Ratio] 30.79 kg/m2 Status: Body surface area Derived from formula 2.25 m2 S tatus: Heart Rate 65 /min Status: Comments: Lo cation: R Radial; Body height 72 in Status: Results Date Description Value Details :50 [U] XRAY SHOULDER MIN 2 VWS LEFT 13089 XR SHOULDER MIN 2 VWS LEFT Images acquir ed, not reported on this accession number. [id number] Post Op Promis 29 Survey Pain Interference: [...] UNIT/ML Subcutaneous Solution Pen- injector - Renew Instructions Name Dates Details Instructions [...]
--- OUTSIDE RECORDS SUMMARY | 2019-07-20 13:53 | XMS REPORT | Summary of Care ---
Author Author [facility] Address [address] [place] [address] Phone Unavailable Care Team Providers Care Fifth Hand Name Role Phone MARCIO Sewell, ALYX Unavailable Robin HYATT M.D., ANN-MARIE Unavailable Unavailable BERNARDO Sewell, VAMSI Unavailable Unavailable OLENA LEGGETT, ANN-MARIE Unavailable Unavailable Marcio LEGGETT, Alyx Unavailable Unavailable BERNARDO LEGGETT [place], VAMSI Unavailable Unavailable CELESTE LEGGETT, DORCAS Calix [...] S42.292K) Status: Active Medications Name Dates Details Colestipol HCl - 1 GM Oral Tablet Take 1 tablet twice a day Quantity: 180 ALYX GALLARDO M.D. * Start : 19-Mar-2011 Active Fioricet/Codeine CAPS TAKE CAPSULE PRN HEADACHE * Refills: 0 Active Atorvastatin Calcium 20 MG Oral Tablet TAKE 1 TABLET DAILY AT BEDTIME * Quantity: 90 Refills: 3 ALYX GALLARDO M.D. * Start : 19-Mar-2011 Active Testosterone Cypionate 200 MG/ML Intramuscular Solution Per PCP * Refills: 0 ANN-MARIE HYATT M.D. * Start : 05-Dec-2015 Active BD Pen Needle Mini U/F 31G X 5 MM 5 a day * Quantity: 500 Refills: 3 ANN-MARIE HYATT M.D. * Start : 02-Jun-2013 Active Accu-Chek FastClix Lancets Check BG 3x a day * Quantity: 3 Refills: 3 ANN-MARIE HYATT M.D. * Start : 25-Jan-2013 Active 102 Unit Box NovoTwist 32G X 5 MM USE 4 [...] GALLARDO M.D. * Start : 14-Dec-2008 Active hydroCHLOROthiazide 25 MG Oral Tablet TAKE 1 TABLET DAILY * Quantity: 90 Refills: 3 ALYX GALLARDO M.D. * Start : 26-Dec-2007 Active Aspirin 325 MG Oral Tablet TAKE 1 TABLET DAILY. * Refills: 0 * Start : 29-Sep-2005 Active ALPRAZolam 0.5 MG Oral Tablet TAKE 1 TABLET 3 TIMES DAILY NEEDED. * Quantity: 180 Refills: 1 ALYX GALLARDO M.D. * Start : 24-Jan-2015 Active Uloric 40 MG Oral Tablet TAKE 1 TABLET DAILY. * Refills: 0 Active Shayan Back & Body 500-32.5 MG Oral Tablet TAKE 1 TABLET DAILY PRN * Refills: 0 * Start : 30-Jul-2016 Active Gabapentin 300 MG Oral Capsule TAKE [...] GALLARDO M.D. * Start : 29-Sep-2005 Active Levemir FlexTouch 100 UNIT/ML Subcutaneous Solution Pen-injector INJECT 24 TO 30 UNITS SUBCUTANEOUSLY EVERY MORNING AND 24 TO 30 UNITS EVERY NIGH T. MAY SELF TITRATE UP TO 60 UNITS DAILY. * Quantity: 60 Refills: 0 ANN-MARIE HYATT M.D. * Start : 08-Apr-2012 Active Potassium Chloride ER 8 MEQ Oral Tablet Extended Release TAKE 1 TABLET TWICE A DAY WITH MEALS * Quantity: 180 Refills: 2 ALYX GALLARDO M.D. * Start : 15-Nov-2015 Active Iron 325 (65 Fe) MG Oral Tablet TAKE 1 TABLET DAILY * Quantity: 90 Refills: 3 Active Vitamin D3 125 MCG (5000 UT) Oral Tablet 1 a day * Refills: 0 Active Omeprazole 20 MG Oral Capsule Delayed Release take 1 capsule twice a day * Quantity: 180 Refills: 3 ALYX GALLARDO M.D. * Start : 19-Mar-2011 Active NovoLOG FlexPen 100 UNIT/ML Subcutaneous Solution [...] CHANG M.D. * Start : 10-Jan-2019 Active Accu-Chek Guide In Vitro Strip Use as directed three times daily * Quantity: 300 Refills: 3 ANN-MARIE HYATT M.D. * Start : 14-Feb-2016 Active Allergies and Adverse Reactions Name Dates [...] Immunization Name Dates Details Influenza Comments: Approx [id number] Family History Name Dates Details Family history [...] (finding) Vital Signs Date Test Result Details No Known Vitals to report Results Date Description Value Details Results not documented Plan of Care Name Dates Details Planned Observations Planned Goals not documented Planned Encounters Appointment; VAMSI CHANG M.D. On: 27-Jun-2019 15:00 Appointment; ANN-MARIE HYATT M.D. On: 29-Jun-2019 14:45 [...] Problem not documented On: 20-Dec-2018 15:30 [facility] [place] Encounter Diagnosis: Problem not documented On: [...]
--- OUTSIDE RECORDS SUMMARY | 2019-07-20 13:53 | XMS REPORT | Summary of Care ---
Author VERONICA Mcelroy Organization Unknown Address Unknown Phone Unavailable Care Team Providers Care Catalog Library Assistant Name Role Phone MARCIO Sewell, ALYX Unavailable Unavailable OLENA Sewell, ANN-MARIE Unavailable Unavailable Janice Mejia Unavailable Unavailable BERNARDO Sewell, VAMSI Unavailable Unavailable [...] 2 MARCIO Sewell, ALYX * Start : 15-Nov-2015 Active Atorvastatin Calcium 20 MG Oral Tablet [...] Problem not documented On: 20-Dec-2018 15:30 [facility]; [facility] [place] [place] Encounter Diagnosis: Problem not documented On: [...]
--- OUTSIDE RECORDS SUMMARY | 2019-07-20 13:53 | XMS REPORT | Summary of Care ---
Author Author MARCIO Sewell, VERONICA Amanda Organization Unknown Address Unknown Phone Unavailable Care Team Providers Care Branch Lead Name Role Phone MARCIO Sewell, ALYX Unavailable Unavailable OLENA Sewell, ANN-MARIE Unavailable Unavailable Matt HARDIN, Sandra Unavailable Unavailable BERNARDO Sewell, VAMSI Unavailable Unavailable [...] /min Status: Body height 72 in Status: Results Date Description Value Details :25 Glucose (Point of Care In Office) Glucose POC Lifescan 167 :26 [O] Hemoglobin A1c (in office) HEMOGLOBIN A1c 5.8 Plan of Care Name Dates Details Planned Observations Planned Goals not documented Planned Encounters Appointment; VAMSI CHANG M.D. On: 11-May-2019 14:00 Appointment; ANN-MARIE HYATT M.D. On: 29-Jun-2019 14:45 Appointment; ALYX GALLARDO M.D. On: 27-Jul-2019 15:00 Interventions Provided Medication Changes* Dipyridamole 75 MG Oral Tablet - Renew [...] Problem not documented On: 20-Dec-2018 15:30 Appointment; [facility] [place] Encounter Diagnosis: Problem not [...]
--- OUTSIDE RECORDS SUMMARY | 2019-07-20 13:53 | XMS REPORT | Summary of Care ---
Author Author MARCIO Sewell, VERONICA Amanda Organization Unknown Address Unknown Phone Unavailable Care Team Providers Care Donkey Ride Operator Name Role Phone MARCIO Sewell, ALYX Unavailable [...] day * Quantity: 180 Refills: 2 GALLARDO ALYX Sewell * Start : 29-Sep-2005 Active Aspirin 325 [...] 1 a day * Refills: 0 Active NovoTwist 32G X 5 MM USE 4 A DAY DIRECTED * Quantity: 4 Refills: 4 ANN-MARIE HYATT M.D. * Start : 08-Apr-2012 Active 100 EA Box Uloric 40 MG Oral Tablet TAKE 1 TABLET DAILY. * Refills: 0 Active Testosterone Cypionate 200 MG/ML Intramuscular Solution Per PCP * Refills: 0 ANN-MARIE HYATT M.D. * Start : 05-Dec-2015 Active Shayan Back & Body 500-32.5 MG Oral Tablet TAKE 1 TABLET DAILY PRN * Refills: 0 * Start : 30-Jul-2016 Active Accu-Chek FastClix Lancets Check BG 3x [...] GALLARDO M.D. * Start : 24-Jan-2015 Active Atorvastatin Calcium 20 MG Oral Tablet [...] Sewell, ALYX * Start : 19-Mar-2011 Active Iron 325 (65 Fe) MG Oral Tablet TAKE 1 TABLET TWICE DAILY. * Quantity: 14 Refills: 0 VAMSI CHANG M.D. * Start : 10-Jan-2019 Active Accu-Chek Guide In Vitro Strip Use as directed three times daily * Quantity: 300 Refills: 3 ANN-MARIE HYATT M.D. * Start : 14-Feb-2016 Active NovoLOG FlexPen 100 UNIT/ML Subcutaneous Solution Pen-injector 10-12 units breakfast; 10-12; lunch; 20 supper; 3-5 snacks; CF~40; REplacing HUmalog MDD:80 * Quantity: 5 Refills: 0 ANN-MARIE HYATT M.D. * Start : 11-Aug-2017 Active 5 x 3 ML Pen Colestipol HCl - 1 GM Oral Tablet Take 1 tablet twice a day * Quantity: 180 Refills: 2 ALYX GALLARDO M.D. * Start : 19-Mar-2011 Active Fioricet/Codeine CAPS TAKE CAPSULE PRN HEADACHE * Refills: 0 Active Levemir FlexTouch 100 UNIT/ML Subcutaneous Solution [...] GALLARDO M.D. * Start : 15-Nov-2015 Active Allergies and Adverse Reactions Name Dates Details No Known Drug Allergies (Allergy) Status : Active Past Medical History Name Dates Details Diabetes mellitus (250.00, E11.9) Status: Active History of arthritis (V13.4, Z87.39) Status: Resolved History of Hernia (553.9, K46.9) Status: Resolved Personal history of gout (V12.29, Z87.39 ) Status: Resolved Procedures Procedure Dates Details [U] XRAY SHOULDER MIN 2 VWS LEFT [id number] Date: 28-Apr-2019 History of CABG Completed History of Hernia [...] On: 27-Jul-2019 15:00 Interventions Provided Medication Changes* Potassium Chloride ER 8 MEQ Oral Tablet Extended Release - Renew Instructions Name Dates Details Instructions [...]
--- OUTSIDE RECORDS SUMMARY | 2019-07-20 13:53 | XMS REPORT | Summary of Care ---
Author Author VERONICA Gutierrez LVN Organization Unknown Address Unknown Phone Unavailable Care Team Providers Care Appian Bpm Developer Name Role Phone MARCIO Sewell, ALYX Unavailable [...] CAPSULES TWICE A DAY Quantity: 360 GALLARDO M.D., ALYX * Start : 29-Sep-2005 Active Lisinopril 20 MG Oral Tablet TAKE 1 TABLET DAILY * Quantity: 90 Refills: 3 GALLARDO M.D., ALYX * Start : 29-Sep-2005 Active Dipyridamole 75 MG Oral Tablet Take 1 tablet twice a day * Quantity: 180 Refills: 2 GALLARDO M.D., ALYX * Start : 29-Sep-2005 Active Aspirin 325 MG Oral Tablet TAKE 1 TABLET DAILY. * Refills: 0 * Start : 29-Sep-2005 Active hydroCHLOROthiazide 25 MG Oral Tablet TAKE 1 TABLET DAILY * Quantity: 90 Refills: 3 GALLARDO M.D., ALYX * Start : 26-Dec-2007 Active Klor-Con [...] GALLARDO M.D. * Start : 15-Nov-2015 Active Atorvastatin Calcium [...] [U] XRAY SHOULDER MIN 2 VWS LEFT [id number] Date: 28-Apr-2019 History of CABG Completed History [...]
--- OUTSIDE RECORDS SUMMARY | 2019-07-20 13:53 | XMS REPORT | Summary of Care ---
Author Author [facility] Address [address] [place] [address] Phone Unavailable Care Team Providers Care Photo Equipment Technician Name Role Phone MARCIO Sewell, ALYX Unavailable Robin HYATT M.D., ANN-MARIE Unavailable Unavailable BERNARDO Sewell, VAMSI Unavailable Unavailable OLENA LEGGETT, ANN-MARIE Unavailable Unavailable Marcio LEGGETT, Alyx Unavailable Unavailable BERNARDO LEGGETT [place], VAMSI Unavailable Unavailable CELESTE LEGGETT, DORCAS [employer] Unavailable Unavailable Unavailable Unavailable Functional Status Name Dates Details Functional status health issues are not documented Status: Name Dates Details Cognitive status health issues are not d ocumented Status: Problems Name Dates Details Pain, lower leg (729.5, M79.669) Status: Active Anxiety (300.00, F41.9) Status: Active Generalized anxiety disorder (300.02, F4 1.1) Status: Active Rheumatic heart disease (398.90, I09.9) [...] Left shoulder pain (719.41, M25.512) Status: Active Atrial fibrillation (427.31, I48.91) Status: [...] nonunion, 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 * Start : 29-Sep-2005 Active hydroCHLOROthiazide 25 MG Oral Tablet TAKE 1 TABLET DAILY * Quantity: 90 Refills: 3 ALYX GALLARDO M.D. * Start : 26-Dec-2007 Active Klor-Con 8 MEQ Oral Tablet Extended Release TAKE 1 TABLET TWICE A DAY WITH MEALS * Quantity: 180 Refills: 2 ALYX GALLARDO M.D. * Start : 14-Dec-2008 Active Potassium Chloride ER 8 MEQ Oral [...] Refills: 0 * Start : 30-Jul-2016 Active Iron 325 (65 Fe) MG Oral Tablet TAKE 1 TABLET TWICE DAILY. * Quantity: 14 Refills: 0 VAMSI CHANG M.D. * Start : 10-Jan-2019 Active Fioricet/Codeine CAPS TAKE CAPSULE PRN HEADACHE * Refills: 0 Active Uloric 40 MG Oral Tablet TAKE 1 TABLET DAILY. * Refills: 0 Active NovoLOG FlexPen 100 UNIT/ML Subcutaneous Solution Pen-injector 11-26 units breakfast; 10-12; lunch; 20 supper; 3-5 snacks; CF~40; REplacing HUmalog MDD:80 * Quantity: 5 Refills: 0 ANN-MARIE HYATT M.D. * Start : 11-Aug-2017 Active 5 x 3 ML Pen Iron 325 (65 Fe) MG Oral Tablet TAKE 1 TABLET DAILY * Quantity: 90 Refills: 3 Active Accu-Chek FastClix Lancets Check BG 3x [...] HYATT M.D. * Start : 08-Apr-2012 Active Vitamin D3 125 MCG (5000 UT) Oral Tablet 1 a day * Refills: 0 Active Aspirin 325 MG Oral Tablet TAKE 1 TABLET DAILY. * Refills: 0 * Start : 29-Sep-2005 Active Allergies and Adverse Reactions Name Dates [...] in Status: Results Date Description Value Details : Glucose (Point of Care In Office) Glucose [...] Problem not documented On: 12-May-2018 14:15 Appointment; LAYX GALLARDO M.D. Encounter Diagnosis: Problem not documented [...] documented On: 20-Dec-2018 15:30 [facility] Encounter Diagnosis: Problem not documented On: 11-Jan-2019 [...]
--- OUTSIDE RECORDS SUMMARY | 2019-07-20 13:53 | XMS REPORT | Summary of Care ---
Author VERONICA Bianchi M.A. Organization Unknown Address Unknown Phone Unavailable Care Team Providers Care Defensive Line Coach Name Role Phone MARCIO Sweell, ALYX Unavailable Robin HYATT M.D., ANN-MARIE Unavailable [...] Quantity: 60 Refills: 0 ANN-MARIE HYATT M.D. Start : 08-Apr-2012 Active NovoTwist 32G X [...] [U] XRAY SHOULDER MIN 2 VWS LEFT [id number] Date: 28-Apr-2019 History of CABG Completed History [...] [U] XRAY SHOULDER MIN 2 VWS LEFT [id number]; To Be Done: 11 May 2019 Instructions Name Dates Details Instructions not [...] not documented On: 20-Dec-2018 15:30 [facility] Encounter Diagnosis: Problem not documented On: [...] Diagnosis: Problem not documented On: 30-Mar-2019 15:15 Appointment; VAMSI CHANG M.D. Encounter Diagnosis: Problem not documented On: 11-May-2019 14:00
--- OUTSIDE RECORDS SUMMARY | 2019-07-20 13:53 | XMS REPORT | Summary of Care ---
Author Author [facility] Address [address] [place] [address] Phone Unavailable Care Team Providers Care Manager Graphic Name Role Phone MARCIO Sewell, ALYX Unavailable Robin HYATT M.D., ANN-MARIE Unavailable Unavailable BERNARDO Sewell, VAMSI Unavailable Unavailable OLENA LEGGETT, ANN-MARIE Unavailable Unavailable Marcio LEGGETT, Alyx Unavailable Unavailable BERNARDO LEGGETT [place], VAMSI Unavailable Unavailable CELESTE LEGGETT, DORCAS Calix [...] 2 MARCIO Sewell, ALYX * Start : 14-Dec-2008 Active Potassium Chloride [...] Sewell, ALYX * Start : 19-Mar-2011 Active NovoTwist 32G X 5 MM USE 4 A DAY DIRECTED * Quantity: 4 Refills: 4 ANN-MARIE HYATT M.D. * Start : 08-Apr-2012 Active 100 EA Box BD Pen Needle Mini U/F 31G [...] CAPSULE PRN HEADACHE * Refills: 0 Active NovoLOG FlexPen 100 UNIT/ML Subcutaneous Solution Pen-injector 10-12 units breakfast; 10-12; lunch; 20 supper; 3-5 snacks; CF~40; REplacing HUmalog MDD:80 * Quantity: 5 Refills: 0 ANN-MARIE HYATT M.D. Start : 11-Aug-2017 Active 5 x 3 ML Pen Testosterone Cypionate 200 MG/ML Intramuscular Solution Per PCP * Refills: 0 ANN-MARIE HYATT M.D. Start : 05-Dec-2015 Active Uloric 40 MG Oral Tablet TAKE 1 TABLET DAILY. * Refills: 0 Active Accu-Chek FastClix Lancets Check BG 3x a day * Quantity: 3 Refills: 3 ANN-MARIE HYATT M.D. Start : 25-Jan-2013 Active 102 Unit Box Levemir FlexTouch 100 UNIT/ML Subcutaneous Solution Pen-injector INJECT 24 TO 30 UNITS SUBCUTANEOUSLY EVERY MORNING AND 24 TO 30 UNITS EVERY NIGH T. MAY SELF TITRATE UP TO 60 UNITS DAILY. * Quantity: 60 Refills: 0 ANN-MARIE HYATT M.D. Start : 08-Apr-2012 Active Iron 325 (65 Fe) MG Oral Tablet TAKE 1 TABLET DAILY * Quantity: 90 Refills: 3 Active Vitamin D3 125 MCG (5000 UT) Oral Tablet 1 a day * Refills: 0 Active Allergies and Adverse [...] Problem not documented On: 20-Dec-2018 15:30 Appointment; [facility], [place] Encounter Diagnosis: Problem not [...]
--- OUTSIDE RECORDS SUMMARY | 2019-07-20 13:53 | XMS REPORT | Summary of Care ---
Author Author [facility] Address [address] [place] [address] Phone Unavailable Care Team Providers Care Driver Messenger Name Role Phone MARCIO Sewell, ALYX Unavailable Robin HYATT M.D., ANN-MARIE Unavailable Unavailable BERNARDO Sewell, VAMSI Unavailable Unavailable OLENA LEGGETT, ANN-MARIE Unavailable Unavailable Marcio LEGGETT, Alyx Unavailable Unavailable BERNARDO LEGGETT [place], VAMSI Unavailable Unavailable CELESTE LEGGETT, DORCAS Calix [...] S42.292K) Status: Active Medications Name Dates Details hydroCHLOROthiazide 25 MG Oral Tablet TAKE 1 TABLET DAILY Quantity: 90 ALYX GALLARDO M.D. * Start : 26-Dec-2007 [...] HYATT M.D. * Start : 02-Jun-2013 Active Shayan Back & Body 500-32.5 MG [...] ML Pen Accu-Chek Guide In Vitro Strip Use as directed three times daily * Quantity: 300 Refills: 3 ANN-MARIE HYATT M.D. * Start : 14-Feb-2016 Active Aspirin 325 MG Oral Tablet TAKE 1 TABLET DAILY. * Refills: 0 * Start : 29-Sep-2005 Active Lisinopril 20 MG Oral Tablet TAKE 1 TABLET DAILY * Quantity: 90 Refills: 3 ALYX GALLARDO M.D. * Start : 29-Sep-2005 Active Gabapentin 300 MG Oral Capsule TAKE 2 CAPSULES TWICE A DAY * Quantity: 360 Refills: 2 ALYX GALLARDO M.D. * Start : 29-Sep-2005 Active Fioricet/Codeine CAPS TAKE CAPSULE PRN HEADACHE * Refills: 0 Active Levemir FlexTouch 100 UNIT/ML Subcutaneous Solution Pen-injector INJECT 24 TO 30 UNITS SUBCUTANEOUSLY EVERY MORNING AND 24 TO 30 UNITS EVERY NIGH T. MAY SELF TITRATE UP TO 60 UNITS DAILY. * Quantity: 60 Refills: 0 ANN-MARIE HYATT M.D. * Start : 08-Apr-2012 Active Accu-Chek FastClix Lancets Check BG 3x a day * Quantity: 3 Refills: 3 ANN-MARIE HYATT M.D. * Start : 25-Jan-2013 Active 102 Unit Box Testosterone Cypionate 200 MG/ML Intramuscular Solution Per PCP * Refills: 0 ANN-MARIE HYATT M.D. * Start : 05-Dec-2015 Active Iron 325 (65 Fe) MG Oral Tablet TAKE 1 TABLET TWICE DAILY. * Quantity: 14 Refills: 0 VAMSI CHANG M.D. * Start : 10-Jan-2019 Active ALPRAZolam 0.5 MG Oral Tablet TAKE 1 TABLET 3 TIMES DAILY NEEDED. * Quantity: 180 Refills: 1 ALYX GALLARDO M.D. * Start : 24-Jan-2015 Active Colestipol HCl - 1 GM Oral Tablet Take 1 tablet twice a day * Quantity: 180 Refills: 2 ALYX GALLARDO M.D. * Start : 19-Mar-2011 Active Iron 325 (65 Fe) MG Oral Tablet TAKE 1 TABLET DAILY * Quantity: 90 Refills: 3 Active Vitamin D3 125 MCG (5000 UT) Oral Tablet 1 a day * Refills: 0 Active Uloric 40 MG Oral Tablet TAKE 1 TABLET DAILY. * Refills: 0 Active Dipyridamole 75 MG Oral Tablet Take 1 tablet twice a day * Quantity: 180 Refills: 2 ALYX GALLARDO M.D. * Start : 29-Sep-2005 Active NovoTwist 32G X 5 MM USE 4 A DAY DIRECTED * Quantity: 4 Refills: 4 ANN-MARIE HYATT M.D. * Start : 08-Apr-2012 Active 100 EA Box Allergies and Adverse Reactions Name Dates Details [...] Problem not documented On: 20-Dec-2018 15:30 Appointment; [facility] [place] Encounter Diagnosis: Problem not documented On: [...]
--- OUTSIDE RECORDS SUMMARY | 2019-07-20 13:53 | XMS REPORT | Summary of Care ---
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 * Refills: 0 Active Accu-Chek FastClix Lancets Check BG 3x a day * Quantity: 3 Refills: 3 ANN-MARIE HYATT M.D. * Start : 25-Jan-2013 Active 102 Unit Box Iron 325 (65 Fe) MG Oral Tablet TAKE 1 TABLET TWICE DAILY. * Quantity: 14 Refills: 0 VAMSI CHANG M.D. * Start : 10-Jan-2019 Active Allergies and Adverse Reactions Name Dates Details No Known Drug Allergies (Allergy) Status : Active Past Medical History Name Dates Details Diabetes mellitus (250.00, E11.9) Status: Active History of arthritis (V13.4, Z87.39) Status: Resolved History of Hernia (553.9, K46.9) Status: Resolved Personal history of gout (V12.29, Z87.39 ) Status: Resolved Procedures Procedure Dates Details [U] XRAY SHOULDER MIN 2 VWS LEFT [id number] Date: 28-Apr-2019 History of Shoulder Surgery Completed History of [...] Problem not documented On: 20-Dec-2018 15:30 [facility] Encounter Diagnosis: Problem not documented On: [...]
--- OUTSIDE RECORDS SUMMARY | 2019-07-20 13:53 | XMS REPORT | Summary of Care ---
Author Author VERONICA CHANG M.D. Organization Unknown Address Unknown Phone Unavailable Care Team Providers Care Rock Worker Name Role Phone MARCIO Sewell, ALYX Unavailable [...]
--- OUTSIDE RECORDS SUMMARY | 2019-07-20 13:53 | XMS REPORT | Summary of Care ---
Author Author VERONICA CHANG M.D. Organization Unknown Address Unknown Phone Unavailable Care Team Providers Care Elementary Librarian Name Role Phone MARCIO Sewell, ALYX Unavailable [...] TAKE 1 TABLET DAILY. * Refills: 0 M.A. * Start : 29-Sep-2005 Active hydroCHLOROthiazide 25 [...] Tablet 1 a day * Refills: 0 M.A. Active Iron 325 (65 Fe) MG Oral Tablet TAKE 1 TABLET DAILY * Quantity: 90 Refills: 3 M.A. Active Potassium Chloride ER 8 MEQ Oral [...] TAKE 1 TABLET DAILY. * Refills: 0 M.A. Active Testosterone Cypionate 200 MG/ML Intramuscular Solution Per PCP * Refills: 0 ANN-MARIE HYATT M.D. * Start : 05-Dec-2015 Active Accu-Chek Guide In Vitro Strip Use as directed three times daily * Quantity: 300 Refills: 3 ANN-MARIE HYATT M.D. * Start : 14-Feb-2016 Active Shayan Back & Body 500-32.5 MG Oral Tablet TAKE 1 TABLET DAILY PRN * Refills: 0 M.A. * Start : 30-Jul-2016 Active NovoLOG FlexPen 100 UNIT/ML Subcutaneous Solution Pen-injector 10-12 units breakfast; 10-12; lunch; 20 supper; 3-5 snacks; CF~40; REplacing HUmalog MDD:80 * Quantity: 5 Refills: 0 ANN-MAIRE HYATT M.D. * Start : 11-Aug-2017 Active 5 x 3 ML Pen Iron 325 (65 Fe) MG Oral Tablet TAKE 1 TABLET TWICE DAILY. * Quantity: 14 Refills: 0 VAMSI CHANG M.D. * Start : 10-Jan-2019 Active Fioricet/Codeine CAPS TAKE CAPSULE PRN HEADACHE * Refills: 0 M.A. Active Allergies and Adverse Reactions Name Dates [...]
--- OUTSIDE RECORDS SUMMARY | 2019-07-20 13:54 | XMS REPORT | Summary of Care ---
Author Author Kris Pyle, VERONICA Kelly Organization Unknown Address Unknown Phone Unavailable Care Team Providers Care Genetic Counsellor Name Role Phone MARCIO Sewell, ALYX Unavailable [...] 11-Aug-2017 Active 5 x 3 ML Pen Fioricet/Codeine CAPS TAKE CAPSULE PRN HEADACHE * [...] Immunization Name Dates Details Influenza Comments: Approx [id number] Family History Name Dates Details Family history [...] to report Results Date Description Value Details :57 [U] XRAY SHOULDER MIN 2 VWS LEFT [id number] XR SHOULDER MIN 2 VWS LEFT Images acquir ed, not reported on this accession number. Plan of Care Name Dates Details Planned Observations Planned Goals not documented Planned Encounters Appointment; ANN-MARIE HYATT M.D. On: 29-Jun-2019 9:00 Appointment; ALYX GALLARDO M.D. On: 27-Jul-2019 15:00 Appointment; VAMSI CHANG M.D. On: 02-Jan-2020 14:30 Interventions Provided Labs/Procedures/Imaging* [U] XRAY SHOULDER MIN 2 VWS LEFT [id number]; Done: 27 Jun 2019 Instructions Name Dates Details Instructions not [...] M.D. Encounter Diagnosis: Problem not documented On: 27-Jun-2019 15:00
--- OUTSIDE RECORDS SUMMARY | 2019-07-20 13:54 | XMS REPORT | Summary of Care ---
Author Author OLENA Sewell, VERONICA JACOBSEN Organization Unknown Address Unknown Phone Unavailable Care Team Providers Care Dispatcher Street Department Name Role Phone SAMI Sewell, ALYX Unavailable Unavailable OLENA Sewell, ANN-MARIE Unavailable Unavailable ANN-MARIE HYATT MD Unavailable Unavailable Alyx Buckley MD Unavailable Unavailable BERNARDO LEGGETT [place], VAMSI Unavailable Unavailable CELESTE LEGGETT, DORCAS Calix [...] Status: Active Hyperlipidemia (272.4, E78.5) Status: Active BMI 30.0-30.9,adult (V85.30, Z68.30) Status: Active Medications Name Dates Details Gabapentin 300 MG Oral Capsule TAKE 2 CAPSULES TWICE A DAY Quantity: 360 ALYX BUCKLEY M.D. * Start : 29-Sep-2005 Active Lisinopril 20 MG Oral Tablet TAKE 1 TABLET DAILY * Quantity: 90 Refills: 3 ALYX BUCKLEY M.D. * Start : 29-Sep-2005 Active Dipyridamole 75 MG Oral Tablet Take 1 tablet twice a day * Quantity: 180 Refills: 2 ALYX BUCKLEY M.D. * Start : 29-Sep-2005 Active Aspirin 325 MG Oral Tablet TAKE 1 TABLET DAILY. * Refills: 0 * Start : 29-Sep-2005 Active hydroCHLOROthiazide 25 MG Oral Tablet TAKE 1 TABLET DAILY * Quantity: 90 Refills: 3 ALYX BUCKLEY M.D. * Start : 26-Dec-2007 Active Klor-Con 8 MEQ Oral Tablet Extended Release TAKE 1 TABLET TWICE A DAY WITH MEALS * Quantity: 180 Refills: 2 ALYX BUCKLEY M.D. * Start : 14-Dec-2008 Active Vitamin D3 125 MCG (5000 UT) Oral Tablet 1 a day * Refills: 0 Active Iron 325 (65 Fe) MG Oral Tablet TAKE 1 TABLET DAILY * Quantity: 90 Refills: 3 Active Potassium Chloride ER 8 MEQ Oral Tablet Extended Release TAKE 1 TABLET TWICE A DAY WITH MEALS * Quantity: 180 Refills: 2 ALYX BUCKLEY M.D. * Start : 15-Nov-2015 Active Atorvastatin Calcium 20 MG Oral Tablet TAKE 1 TABLET DAILY AT BEDTIME * Quantity: 90 Refills: 3 ALYX BUCKLEY M.D. * Start : 19-Mar-2011 Active Metoprolol Succinate ER 50 MG Oral Tablet Extended Release 24 Hour Take 1 tablet twice a day * Quantity: 180 Refills: 3 ALYX BUCKLEY M.D. * Start : 19-Mar-2011 Active Colestipol HCl - 1 GM Oral Tablet Take 1 tablet twice a day * Quantity: 180 Refills: 2 ALYX BUCKLEY M.D. * Start : 19-Mar-2011 Active Levemir FlexTouch 100 UNIT/ML Subcutaneous Solution Pen-injector INJECT 22 TO 30 UNITS SUBCUTANEOUSLY EVERY MORNING AND 22 TO 30 UNITS EVERY NIGH T. MAY [...] NEEDED. * Quantity: 180 Refills: 1 ALYX BUCKLEY M.D. * Start : 24-Jan-2015 Active Uloric 40 MG Oral Tablet TAKE 1 TABLET DAILY. * Refills: 0 Active Testosterone Cypionate 200 MG/ML Intramuscular Solution Per PCP * Refills: 0 ANN-MARIE HYATT M.D. Start : 05-Dec-2015 Active Accu-Chek Guide In Vitro Strip Use as directed three times daily * Quantity: 300 Refills: 3 ANN-MARIE HYATT M.D. * Start : 14-Feb-2016 Active Shayan Back & Body 500-32.5 MG Oral Tablet TAKE 1 TABLET DAILY PRN * Refills: 0 * Start : 30-Jul-2016 Active NovoLOG FlexPen 100 UNIT/ML Subcutaneous Solution Pen-injector 10-13 units breakfast; 10-13; lunch; 21 supper; 3-5 snacks; CF~40; [...] (finding) Vital Signs Date Test Result Details :23 Systolic blood pressure 110 mm[Hg] Status: Diastolic blood pressure 70 mm[Hg] Status: Weight 208 lb Status: Body mass index (BMI) [Ratio] 28.21 kg/m2 Status: Body surface area Derived from formula 2.17 m2 S tatus: Heart Rate 73 /min Status: :04 Systolic blood pressure 119 mm[Hg] Status: Comments : Location: LUE; Position: Sitting Diastolic blood pressure 68 mm[Hg] Status: Comment s: Location: LUE; Position: Sitting Weight 208 lb Status: Body mass index (BMI) [Ratio] 28.21 kg/m2 Status: Body surface area Derived from formula 2.17 m2 S tatus: Heart Rate 73 /min Status: Body height 72 in Status: Body temperature 97.7 f Status: Comments: Me thod: Temporal Results Date Description Value Details [id number] [U] XRAY SHOULDER MIN 2 VWS LEFT [id number] XR SHOULDER MIN 2 VWS LEFT Images acquir ed, not reported on this accession number. :05 [O] Hemoglobin A1c (in office) HEMOGLOBIN A1c 7.3 :05 Glucose (Point of Care In Office) Glucose POC [facility] Plan of Care Name Dates Details Planned Observations Planned Goals not documented Planned Encounters Appointment; ALYX BUCKLEY M.D. On: 27-Jul-2019 15:00 Appointment; VAMSI CHANG M.D. On: 02-Jan-2020 14:30 Interventions Provided Medication Changes* BD Pen Needle Mini U/F 31G X 5 MM - Renew Discussion/Summary* A1c higher. Continue Levemir 22 units twice a day. Increase Novolog to . Discussed the importance of DM control and its metabolic and vascular complications. Stressed the importance of consistent MNT and med compliance in DM control * Advised to do SMBG AC/PC. * Take insulin timely * Exercise encouraged * Take medicine per oil field pipeline supervisor. Discussed the importance of BP control. * Take medicine per oil field pipeline supervisor. MNT reiterated. Discussed the importance of Lipid control. * He will be getting blood tests for Dr Buckley soon and declines blood draw today * Spent 25/30 mins counseling Instructions Name Dates Details Instructions not documented Encounters Appointment; ANN-MARIE HYATT M.D. Encounter Diagnosis: Problem not documented On: 11-Aug-2017 14:15 Appointment; ANN-MARIE HYATT M.D. Encounter Diagnosis: Problem not documented On: 11-Nov-2017 15:15 Appointment; ALYX BUCKLEY M.D. Encounter Diagnosis: Problem not documented On: 02-Dec-2017 14:40 Appointment; ALYX BUCKLEY M.D. Encounter Diagnosis: Problem not documented On: 28-Dec-2017 14:40 Appointment; ANN-MARIE HYATT M.D. Encounter Diagnosis: Problem not documented On: 04-Feb-2018 14:45 Appointment; ANN-MARIE HYATT M.D. Encounter Diagnosis: Problem not documented On: 12-May-2018 14:15 Appointment; ALYX BUCKLEY M.D. Encounter Diagnosis: Problem not documented On: 02-Jun-2018 15:00 Appointment; ALYX BUCKLEY M.D. Encounter Diagnosis: Problem not documented On: 30-Jun-2018 15:20 Appointment; ANN-MARIE HYATT M.D. Encounter Diagnosis: Problem not documented On: 24-Aug-2018 15:45 Appointment; VAMSI CHANG M.D. Encounter Diagnosis: Problem not documented On: 16-Nov-2018 10:30 Appointment; ANN-MARIE HYATT M.D. Encounter Diagnosis: Problem not documented On: 24-Nov-2018 14:15 Appointment; VAMSI CHANG M.D. Encounter Diagnosis: Problem not documented On: 20-Dec-2018 15:30 [facility] Encounter Diagnosis: Problem not documented On: 11-Jan-2019 14:00 Appointment; ALYX BUCKLEY M.D. Encounter Diagnosis: Problem not documented On: [...] Diagnosis: Problem not documented On: 27-Jun-2019 15:00 Appointment; ANN-MARIE HYATT M.D. Encounter Diagnosis: Problem not documented On: 29-Jun-2019 9:00
--- OUTSIDE RECORDS SUMMARY | 2019-07-20 13:54 | XMS REPORT | Summary of Care ---
Author Author VERONICA CHANG M.D. 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 CABG Status: Active Peripheral neuropathy, hereditary/idiopa thic (356.9, G60.9) Status: Active Generalized anxiety disorder (300.02, F4 1.1) Status: Active 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, I25.10) Status: Active Encounter for long-term (current) use of medications (V58.69, Z79.899) Status: Active Edema (782.3, R60.9) Status: Active CHF (congestive heart failure) (428.0, I 50.9) Status: Active 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, with long-term current use of insulin, unspecified CKD stage (250.40, E11.22) Status: Active 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, with long-term current use of insulin (250.70, E11.59) Status: Active Hyperlipidemia (272.4, E78.5) Status: Active BMI 30.0-30.9,adult (V85.30, Z68.30) Status: Active Essential (primary) hypertension (401.9, I10) Status: Active Diabetes mellitus with peripheral circul atory disorder (250.70, E11.51) Status: Active Decreased creatinine clearance (794.4, R 94.4) Status: Active 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, M47.812) Status: Active Neck muscle spasm (728.85, M62.838) Status: Active Chronic kidney disease, stage III (moder ate) (585.3, N18.3) Status: Active Neck pain (723.1, M54.2) Status: Active Back muscle spasm (724.8, M62.830) Status: Active Diabetes mellitus (250.00, E11.9) Status: Active Heavy smoker (more than 20 cigarettes pe r day) (305.1, F17.210) Status: Active Left shoulder pain (719.41, M25.512) Status: Active 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 :05 [O] Hemoglobin A1c (in office) HEMOGLOBIN A1c 7.3 :05 Glucose (Point of Care In Office) Glucose POC [facility] Plan of Care Name Dates Details Planned Observations Planned Goals not documented Planned Encounters Appointment; ALYX GALLARDO M.D. On: 27-Jul-2019 15:00 Appointment; ANN-MARIE HYATT M.D. On: 10-Oct-2019 14:15 Appointment; VAMSI CHANG M.D. On: 02-Jan-2020 14:30 Interventions Provided Labs/Procedures/Imaging* [U] XRAY SHOULDER MIN 2 VWS LEFT [id number]; Done: 27 Jun 2019 Plan* Patient Education/Instructions: * Patient education [...] concerns were provided. Understanding was acknowledged. * Instruction to rest and refrain from vigorous or strenuous activity was given. Understanding was acknowledged. * A gradual return to normal physical activities as tolerated was recommended. Understanding was acknowledged. * A home exercise program was recommended to reduce symptoms and to improve/restore function. Understanding was acknowledged. * X-ray images/reports were reviewed. Findings were discussed in detail. * Significant time was spent educating and counseling the patient. More than 50% of the 15 minute visit was spent educating and counseling the patient. Diagnosis, treatment options, and prognosis were discussed. Various non- surgical, surgical and alternative treatments were discussed thoroughly. The natural history and prognosis of the diagnosis was reviewed in detail. Understanding was acknowledged. Activity modification was recommended to prevent recurrence or aggravation of symptoms. Methods to accomplish this were discussed in detail. Understanding was acknowledged. Safety precautions and methods of injury prevention were discussed and reviewed in detail. Understanding was acknowledged. * Follow Up: * Return to the clinic in 6 months or as needed. * x-ray(s) needed at [...] Problem not documented On: 20-Dec-2018 15:30 [facility] [place] Encounter Diagnosis: Problem not documented On: [...]
--- OUTSIDE RECORDS SUMMARY | 2019-07-20 13:54 | XMS REPORT | Summary of Care ---
Author VERONICA Ba M.A. Organization Unknown Address Unknown Phone Unavailable Care Team Providers Care Creosoting Engineer Name Role Phone MARCIO Sewell, ALYX Unavailable [...] [U] XRAY SHOULDER MIN 2 VWS LEFT [id number] Date: 26-Jun-2019 History of CABG Completed History of Hernia [...] [U] XRAY SHOULDER MIN 2 VWS LEFT [id number]; To Be Done: 27 Jun 2019 Instructions Name Dates [...]
--- OUTSIDE RECORDS SUMMARY | 2019-07-20 13:54 | XMS REPORT | Summary of Care ---
Author Author OLENA Sewell, VERONICA JACOBSEN Organization Unknown Address Unknown Phone Unavailable Care Team Providers Care Communications Professional Name Role Phone SAMI Sewell, ALYX Unavailable Unavailable OLENA Sewell, ANN-MARIE Unavailable Unavailable ANN-MARIE HYATT MD Unavailable Unavailable Alyx Buckley MD Unavailable Unavailable BERNARDO LEGGETT [place], VAMSI Unavailable Unavailable CELESTE LEGGETT, DORCAS Calix [...] [U] XRAY SHOULDER MIN 2 VWS LEFT [id number] XR SHOULDER MIN 2 VWS LEFT Images acquir ed, not reported on this accession number. Plan of Care Name Dates Details Planned Observations Planned Goals not documented Planned Encounters Appointment; ANN-MARIE HYATT M.D. On: 29-Jun-2019 9:00 Appointment; ALYX BUCKLEY M.D. On: 27-Jul-2019 15:00 Appointment; VAMSI CHANG M.D. On: 02-Jan-2020 14:30 Interventions Provided Discussion/Summary* Discussed the importance of DM control and its complications. Stressed the importance of consistent MNT and med compliance in DM control * do SMBG. * Take insulin timely * Exercise encouraged * Take medicine. Discussed the importance of [...]
--- OUTSIDE RECORDS SUMMARY | 2019-07-20 13:54 | XMS REPORT | Summary of Care ---
Author Author OLENA Sewell, VERONICA JACOBSEN Organization Unknown Address Unknown Phone Unavailable Care Team Providers Care Tower Climber Name Role Phone SAMI Sewell, ALYX Unavailable Unavailable OLENA Sewell, ANN-MARIE Unavailable Unavailable ANN-MARIE HYATT MD Unavailable Unavailable Alyx Buckley MD Unavailable Unavailable BERNARDO LEGGETT [place], VAMSI Unavailable Unavailable CELESTE LEGGETT, DORCAS Calix [...] AT BEDTIME * Quantity: 90 Refills: 3 SAMI Sewell, ALYX * Start : 19-Mar-2011 Active Metoprolol Succinate ER 50 MG Oral Tablet Extended Release 24 Hour Take 1 tablet twice a day * Quantity: 180 Refills: 3 SAMI Sewell, ALYX * Start : 19-Mar-2011 Active [...] daily * Quantity: 300 Refills: 3 OLENA M.ANN-MARIE Garcia * Start : 14-Feb-2016 Active Shayan Back & Body 500-32.5 MG Oral Tablet TAKE 1 TABLET DAILY PRN * Refills: 0 M.A. * Start : 30-Jul-2016 Active NovoLOG FlexPen 100 UNIT/ML Subcutaneous Solution Pen-injector 10-13 units breakfast; 10-13; lunch; 21 supper; 3-5 snacks; CF~40; REplacing HUmalog MDD:80 * Quantity: 5 Refills: 0 OLENA M.ANN-MARIE Garcia * Start : 11-Aug-2017 Active 5 x [...] thod: Temporal Results Date Description Value Details [id number] [U] XRAY SHOULDER MIN 2 VWS LEFT [id number] XR SHOULDER MIN 2 VWS LEFT Images acquir ed, not reported on this accession number. :05 [O] Hemoglobin A1c (in office) HEMOGLOBIN A1c 7.3 :05 Glucose (Point of Care In Office) Glucose POC [facility] Plan of Care Name Dates Details Planned Observations Planned Goals not documented Planned Encounters Appointment; ALYX BUCKLEY M.D. On: 27-Jul-2019 15:00 Appointment; ANN-MARIE HYATT M.D. On: 10-Oct-2019 14:15 Appointment; VAMSI CHANG M.D. On: 02-Jan-2020 14:30 Interventions Provided Labs/Procedures/Imaging* [O] Hemoglobin A1c (in office); Done: 29 Jun 2019 * Glucose (Point of Care In Office); Done: 29 Jun 2019 Instructions Name Dates Details Instructions [...] Problem not documented On: 20-Dec-2018 15:30 [facility] Encounter Diagnosis: Problem not documented On: 11-Jan-2019 [...]
--- OUTSIDE RECORDS SUMMARY | 2019-07-20 13:54 | XMS REPORT | Summary of Care ---
Author Author VERONICA CHANG M.D. Organization Unknown Address Unknown Phone Unavailable Care Team Providers Care Sugar Drier Name Role Phone MARCIO Sewell, ALYX Unavailable Unavailable OLENA Sewell, ANN-MARIE Unavailable Robin HYATT MD, ANN-MARIE Unavailable Unavailable [...] day * Quantity: 180 Refills: 2 GALLARDO Christine.Jose, ALYX * Start : 29-Sep-2005 Active Aspirin 325 MG Oral Tablet TAKE 1 TABLET DAILY. * Refills: 0 M.A. * Start : 29-Sep-2005 Active hydroCHLOROthiazide 25 MG Oral Tablet TAKE 1 TABLET DAILY * Quantity: 90 Refills: 3 GALLARDO Christine.Jose, ALYX * Start : 26-Dec-2007 Active Klor-Con [...] Intramuscular Solution Per PCP * Refills: 0 OLENA ANN-MARIE Sewell * Start : 05-Dec-2015 Active Accu-Chek Guide In Vitro Strip Use as directed three times daily * Quantity: 300 Refills: 3 OLENA M.Ricardo., ANN-MARIE * Start : 14-Feb-2016 Active Shayan Back & Body 500-32.5 MG Oral Tablet TAKE 1 TABLET DAILY PRN * Refills: 0 M.A. * Start : 30-Jul-2016 Active NovoLOG FlexPen 100 UNIT/ML Subcutaneous Solution Pen-injector 10-12 units breakfast; 10-12; lunch; 20 supper; 3-5 snacks; CF~40; REplacing HUmalog MDD:80 * Quantity: 5 Refills: 0 OLENA M.D., ANN-MARIE * Start : 11-Aug-2017 Active 5 [...] [U] XRAY SHOULDER MIN 2 VWS LEFT [id number] Date: 26-Jun-2019 History of CABG Completed History [...] Problem not documented On: 20-Dec-2018 15:30 [facility] Encounter Diagnosis: Problem not documented On: [...]
--- OUTSIDE RECORDS SUMMARY | 2019-07-20 13:54 | XMS REPORT | Summary of Care ---
Author Author [facility] Address [address] [place] [address] Phone Unavailable Care Team Providers Care Access Services Assistant Name Role Phone MARCIO Sewell, ALYX Unavailable Robin HYATT M.D., ANN-MARIE Unavailable Unavailable BERNARDO Sewell, VAMSI Unavailable Unavailable OLENA LEGGETT, ANN-MARIE Unavailable Unavailable Marcio LEGGETT, Alyx Unavailable Unavailable BERNARDO LEGGETT [place], VAMSI Unavailable Unavailable CELESTE LEGGETT, DORCAS Calix [...] ANN-MARIE HYATT M.D. Start : 08-Apr-2012 Active BD Pen Needle Mini U/F 31G X 5 MM 5 a day * Quantity: 500 Refills: 3 ANN-MARIE HYATT M.D. Start : 02-Jun-2013 Active Shayan Back & Body 500-32.5 MG Oral Tablet TAKE 1 TABLET DAILY PRN * Refills: 0 * Start : 30-Jul-2016 Active ALPRAZolam 0.5 MG Oral Tablet TAKE 1 TABLET 3 TIMES DAILY NEEDED. * Quantity: 180 Refills: 1 ALYX GALLARDO M.D. Start : 24-Jan-2015 Active NovoLOG FlexPen 100 UNIT/ML Subcutaneous Solution Pen-injector 10-12 units breakfast; 10-12; lunch; 20 supper; 3-5 snacks; CF~40; REplacing HUmalog MDD:80 * Quantity: 5 Refills: 0 ANN-MARIE HYATT M.D. * Start : 11-Aug-2017 Active 5 x 3 ML Pen Accu-Chek Guide In Vitro Strip Use as directed three times daily * Quantity: 300 Refills: 3 ANN-MARIE HYATT M.D. * Start : 14-Feb-2016 Active NovoTwist 32G X 5 MM USE 4 A DAY DIRECTED * Quantity: 4 Refills: 4 ANN-MARIE HYATT M.D. * Start : 08-Apr-2012 Active 100 EA Box Iron 325 (65 Fe) MG Oral Tablet TAKE 1 TABLET DAILY * Quantity: 90 Refills: 3 Active Accu-Chek FastClix Lancets Check BG 3x a day * Quantity: 3 Refills: 3 ANN-MARIE HYATT M.D. * Start : 25-Jan-2013 Active 102 Unit Box Fioricet/Codeine CAPS TAKE CAPSULE PRN HEADACHE * Refills: 0 Active Iron 325 (65 Fe) MG Oral Tablet TAKE 1 TABLET TWICE DAILY. * Quantity: 14 Refills: 0 VAMSI CHANG M.D. * Start : 10-Jan-2019 Active Vitamin D3 125 MCG (5000 UT) Oral Tablet 1 a day * Refills: 0 Active Uloric 40 MG Oral Tablet TAKE 1 TABLET DAILY. * Refills: 0 Active Testosterone Cypionate 200 MG/ML Intramuscular Solution Per PCP * Refills: 0 ANN-MARIE HYATT M.D. * Start : 05-Dec-2015 Active Allergies and Adverse Reactions Name Dates [...] Problem not documented On: 20-Dec-2018 15:30 [facility] Encounter Diagnosis: Problem not documented On: [...]
--- OUTSIDE RECORDS SUMMARY | 2019-07-20 13:54 | XMS REPORT | Summary of Care ---
Author VERONICA Myers R.N. 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 * Start : 19-Mar-2011 [...] daily * Quantity: 300 Refills: 3 OLENA M.Ricardo.ANN-MARIE * Start : 14-Feb-2016 Active Shayan Back [...] Immunization Name Dates Details Influenza Comments: Approx [id number] Family History Name Dates Details Family history [...] thod: Temporal Results Date Description Value Details [id number] [U] XRAY SHOULDER MIN 2 VWS LEFT [id number] XR SHOULDER MIN 2 VWS LEFT Images [...] Appointment; VAMSI CHANG M.D. On: 02-Jan-2020 14:30 Instructions Name Dates Details Instructions not documented [...] not documented On: 20-Dec-2018 15:30 [facility] Encounter Diagnosis: Problem not documented On: 11-Jan-2019 [...]
--- OUTSIDE RECORDS SUMMARY | 2019-07-20 13:54 | XMS REPORT | Summary of Care ---
Author Author [facility] Address [address] [place] [address] Phone Unavailable Care Team Providers Care Glove Pairer Name Role Phone MARCIO Sewell, ALYX Unavailable Robin HYATT M.D., ANN-MARIE Unavailable Unavailable OLENA LEGGETT, ANN-MARIE Unavailable Unavailable Marcio LEGGETT, Alyx Unavailable Unavailable BERNARDO LEGGETT [place], VAMSI Unavailable [...] ANN-MARIE HYATT M.D. Start : 05-Dec-2015 Active Accu-Chejuan Guide In Vitro Strip Use as directed three times daily * Quantity: 300 Refills: 3 ANN-MARIE HYATT M.D. Start : 14-Feb-2016 Active Shayan Back & [...] CAPSULE PRN HEADACHE * Refills: 0 Active BD Pen Needle Mini U/F 31G [...] HYATT M.D. * Start : 08-Apr-2012 Active Colestipol HCl - 1 GM Oral Tablet Take 1 tablet twice a day * Quantity: 180 Refills: 2 ALYX GALLARDO M.D. * Start : 19-Mar-2011 Active Vitamin D3 125 MCG (5000 UT) [...] [U] XRAY SHOULDER MIN 2 VWS LEFT [id number] Date: 26-Jun-2019 History of CABG Completed History [...] Problem not documented On: 20-Dec-2018 15:30 [facility] Encounter Diagnosis: Problem not documented On: [...]
--- OUTSIDE RECORDS SUMMARY | 2019-07-20 13:54 | XMS REPORT | Summary of Care ---
Author Author Kris Pyle, VERONICA Kelly Organization Unknown Address Unknown Phone Unavailable Care Team Providers Care Electronic Tester Name Role Phone MARCIO Sewell, ALYX Unavailable [...] [U] XRAY SHOULDER MIN 2 VWS LEFT [id number] Date: 26-Jun-2019 History of CABG Completed History [...] [U] XRAY SHOULDER MIN 2 VWS LEFT [id number]; To Be Done: 27 Jun 2019 Instructions [...] On: 20-Dec-2018 15:30 [facility] [place] Encounter Diagnosis: Problem not documented On: [...]
--- OUTSIDE RECORDS SUMMARY | 2019-07-20 13:54 | XMS REPORT | Summary of Care ---
Author Author OLENA Sewell, VERONICA JACOBSEN Organization Unknown Address Unknown Phone Unavailable Care Team Providers Care Audit Director Name Role Phone SAMI Sewell, ALYX Unavailable Unavailable OLENA Sewell, ANN-MARIE Unavailable Unavailable ANN-MARIE HYATT MD Unavailable Unavailable Alyx Buckley MD Unavailable Unavailable BERNARDO LEGGETT [place], VAMSI Unavailable [...] 2 CAPSULES TWICE A DAY Quantity: 360 SAMI Sewell, ALYX * Start : 29-Sep-2005 Active Lisinopril 20 MG Oral Tablet TAKE 1 TABLET DAILY * Quantity: 90 Refills: 3 ALYX BUCKLEY M.D. * Start : 29-Sep-2005 Active Dipyridamole 75 MG Oral Tablet Take 1 tablet twice a day * Quantity: 180 Refills: 2 SAMI Sewell, ALYX * Start : 29-Sep-2005 Active [...] WITH MEALS * Quantity: 180 Refills: 2 BUCKLEYALYX Alejandro M.D. * Start : 14-Dec-2008 Active Vitamin [...] [U] XRAY SHOULDER MIN 2 VWS LEFT [id number] XR SHOULDER MIN 2 VWS LEFT Images [...] Problem not documented On: 20-Dec-2018 15:30 [facility] [place] [facility] Encounter Diagnosis: Problem not documented On: [...]
--- NOTE | 2019-07-20 14:10 | Emergency Department Note ---
History of Present Illnes History of Present Illness Chief Complaint: General Medicine Complaints History of Present Illness This is a 83 year old male arrives to the ED with elevated potassium, patient denies any complain: Chest pain shortness of breath or weakness. Patient states he was told by his account support associate to come to the nearest emergency department. . Historian: Patient Arrival Mode: Car Onset (how long ago): unknown Severity: mild Onset quality: unable to specify Timing of current episode: unable to specify Progression: resolved Associated symptoms: denies other symptoms Past Medical/Family History Physician Review I have reviewed the patient's past medical and family history. Any updates have been documented here. Past Medical History Recent Fever: No Clinical Suspicion of Infectio: No New/Unexplained Change in Ment: No Past Medical History: Hypertension, Diabetes, CHF, GERD, Hyperlipedemia, Chronic Back Pain Other Medical History: GOUT Past Surgical History: CABG, T&A, Hernia Repair, Back Surgery Other Surgery: LEFT SHOULDER REPAIR Social History Smoking Cessation: Never Smoker Alcohol Use: None Any Illegal Drug Use: No TB Exposure/Symptoms: No Family History Family history of heart diseas: Yes Other Last Tetanus: UNKNOWN Review of Systems Review of Systems Constitutional: malaise, weakness EENTM: no symptoms Cardiovascular: no symptoms Respiratory: no symptoms Gastrointestinal: no symptoms Genitourinary: no symptoms Musculoskeletal: no symptoms Neurological: no symptoms Psychological: no symptoms Endocrine: no symptoms Hematological/Lymphatic: no symptoms Review of other systems All other systems reviewed and negative. Physical Exam Related Data Allergies: Coded Allergies: No Known Allergies (Unverified , 02/02/18) Triage Vital Signs Vital Signs Date Time Temp Pulse Resp B/P (MAP) Pulse Ox O2 Delivery O2 Flow Rate FiO2 07/20/19 13:41 98.1 70 16 115/64 97 Vital signs reviewed: Yes Physical Exam CONSTITUTIONAL Constitutional: well-developed, well-nourished HENT HENT: normocephalic, atraumatic, oropharynx clear/moist, nose normal HENT L/R: left ext ear normal, right ext ear normal EYES Eyes: PERRL, conjunctivae normal NECK Neck: ROM normal PULMONARY Pulmonary: effort normal, breath sounds normal CARDIOVASCULAR Cardiovascular: regular rhythm, heart sounds normal, capillary refill normal, normal rate GASTROINTESTINAL Abdominal: soft, nontender, bowel sounds normal GENITOURINARY Genitourinary: exam deferred SKIN Skin: warm, dry MUSCULOSKELETAL Musculoskeletal: ROM normal NEUROLOGICAL Neurological: alert, oriented x 3, no gross motor or sensory deficits PSYCHOLOGICAL Psychological: mood/affect normal, judgement normal Results Laboratory Laboratory Laboratory Tests Test 07/20/19 13:50 Lab results reviewed: Yes Laboratory comments Laboratory Tests Test 07/21/19 07:10 07/21/19 04:45 07/21/19 01:08 07/21/19 01:00 Bedside Glucose 140 mg/dL (70-120) 222 mg/dL (70-120) White Blood Count 5.09 x10e3/uL (4.8-10.8) Red Blood Count 3.31 x10e6/uL (4.3-5.7) Hemoglobin 10.4 g/dL (14.0-18.0) Hematocrit 32.1 % (38.2-49.6) Mean Corpuscular Volume 97.0 fL (81-99) Mean Corpuscular Hemoglobin 31.4 pg (28-32) Mean Corpuscular Hemoglobin Concent 32.4 g/dL (31-35) Red Cell Distribution Width 15.6 % (11.7-14.4) Platelet Count 132 x10e3/uL (140-360) Neutrophils (%) (Auto) 52.8 % (38.7-80.0) Lymphocytes (%) (Auto) 33.6 % (18.0-39.1) Monocytes (%) (Auto) 10.8 % (4.4-11.3) Eosinophils (%) (Auto) 2.0 % (0.0-6.0) Basophils (%) (Auto) 0.4 % (0.0-1.0) Neutrophils # (Auto) 2.7 (2.1-6.9) Lymphocytes # (Auto) 1.7 (1.0-3.2) Monocytes # (Auto) 0.6 (0.2-0.8) Eosinophils # (Auto) 0.1 (0.0-0.4) Basophils # (Auto) 0.0 (0.0-0.1) Absolute Immature Granulocyte (auto 0.02 x10e3/uL (0-0.1) Sodium Level 143 mmol/L (136-145) 143 mmol/L (136-145) Potassium Level 5.2 mmol/L (3.5-5.1) 5.4 mmol/L (3.5-5.1) Chloride Level 115 mmol/L (98-107) 114 mmol/L (98-107) Carbon Dioxide Level 21 mmol/L (22-29) 21 mmol/L (22-29) Anion Gap 12.2 mmol/L (8-16) 12.4 mmol/L (8-16) Blood Urea Nitrogen 42 mg/dL (7-26) 42 mg/dL (7-26) Creatinine 1.69 mg/dL (0.72-1.25) 1.75 mg/dL (0.72-1.25) Estimat Glomerular Filtration Rate 39 ML/MIN (60-) 38 ML/MIN (60-) BUN/Creatinine Ratio 25 (6-25) 24 (6-25) Glucose Level 163 mg/dL (74-118) 225 mg/dL (74-118) Calcium Level 9.1 mg/dL (8.4-10.2) 9.2 mg/dL (8.4-10.2) Total Bilirubin 0.3 mg/dL (0.2-1.2) Aspartate Amino Transf (AST/SGOT) 21 IU/L (5-34) Alanine Aminotransferase (ALT/SGPT) 28 IU/L (0-55) Alkaline Phosphatase 138 IU/L (40-150) Creatine Kinase 35 IU/L (30-200) Creatine Kinase MB 1.10 ng/mL (0-5.0) Troponin I 0.003 ng/mL (0-0.300) Total Protein 5.7 g/dL (6.5-8.1) Albumin 2.9 g/dL (3.5-5.0) Globulin 2.8 g/dL (2.3-3.5) Albumin/Globulin Ratio 1.0 (0.8-2.0) Imaging Impressions IMPRESSION: No acute cardiopulmonary process identified. 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 Assessment & Plan Reassessment Reassessment Patient got to the ER with elevated potassium, patient given Kayexalate, insulin, D50 however repeat potassium still elevated. Mild history of present illness which worsened on the BMP. Vishal admitted for further medications repeat potassium Assessment & Plan Final Impression: (1) HYPERKALEMIA (2) OTH DISORDERS OF ELECTROLYTE AND FLUID BALANCE, NEC (3) ACUTE KIDNEY FAILURE, UNSPECIFIED Assessment & Plan CBC, CMP EKG Depart Disposition: ADMITTED Last Vital Signs Date Time Temp Pulse Resp B/P (MAP) Pulse Ox O2 Delivery O2 Flow Rate FiO2 07/20/19 13:41 98.1 70 16 115/64 97 Medications in the ED Aspirin 81 mg PRN ONCE PO ; Start 07/20/19 at 13:45; Stop 07/20/19 at 13:52; Status DC Calcium Gluconate 4.65 meq/Sodium Chloride 60 ml @ 60 mls/hr ONCE ONCE IV ; Start 07/20/19 at 13:45; Stop 07/20/19 at 14:44 BILLY NAVAS DO Jul 20, 2019 13:53
[2019-07-20 14:15] LABS: BASOPHILS % 0.3 % (0.0-1.0); EOSINOPHILS # (AUTO) 0.1 (0.0-0.4); EOSINOPHILS % 1.7 % (0.0-6.0); HEMATOCRIT 34.9 % (38.2-49.6); HEMOGLOBIN 10.9 g/dL (14.0-18.0); LYMPHOCYTES % 30.7 % (18.0-39.1); MEAN CORPUSCULAR HEMOGLOBIN 29.7 pg (28-32); MEAN CORPUSCULAR HGB CONC 31.2 g/dL (31-35); MEAN CORPUSCULAR VOLUME 95.1 fL (81-99); MONOCYTES # (AUTO) 0.7 (0.2-0.8); MONOCYTES % 10.1 % (4.4-11.3); NEUTROPHILS # (AUTO) 3.8 (2.1-6.9); NEUTROPHILS % 56.7 % (38.7-80.0); PLATELET COUNT 174 x10e3/uL (140-360); RED BLOOD COUNT 3.67 x10e6/uL (4.3-5.7); RED CELL DISTRIBUTION WIDTH 15.7 % (11.7-14.4)
--- NOTE | 2019-07-20 14:30 | NUR ---
Unable to verify home medications at this time. Patient unsure of exact medications he takes.
[2019-07-20 14:33] LABS: ALBUMIN 3.1 g/dL (3.5-5.0); ALBUMIN/GLOBULIN RATIO 0.9 (0.8-2.0); ANION GAP 11.8 mmol/L (8-16); CALCIUM 9.5 mg/dL (8.4-10.2); CREATININE, SERUM 1.89 mg/dL (0.72-1.25)
[2019-07-20 14:36] LABS: POTASSIUM 5.8 mmol/L (3.5-5.1)
[2019-07-20 14:49] LABS: CREATINE KINASE MB 1.5 ng/mL (0-5.0)
[2019-07-20] MEDS ORDERED: DEXTROSE 50% SYRINGE 50 ML IV STA ×2 (14:53)
[2019-07-20] MEDS ORDERED: SOD POLYSTYRENE SULFONATE SUSP 15 GM/60 ML BTL PO ONE ×2 (15:00→18:15)
[2019-07-20] MEDS ORDERED: INSULIN REGULAR, HUMAN 100 UNIT/1 ML 3ML VIAL IV SCH (15:00)
--- NOTE | 2019-07-20 15:50 | Diagnostic Imaging Report ---
EXAM: CHEST SINGLE (PORTABLE) DATE: 07/20/2019 3:18 PM INDICATION: Hyperkalemia COMPARISON: 02/02/2018 FINDINGS: There are postsurgical changes from prior median sternotomy. The trachea is midline. Right basilar opacities identified suggestive of atelectasis. The lungs are otherwise symmetrically expanded without evidence for large focal consolidation, pneumothorax, or significant pleural effusion. Cardiomediastinal silhouette appears mildly prominent which may be secondary to technique. Atherosclerotic calcifications noted within the thoracic aorta. There are partially visualized postsurgical changes from left shoulder arthroplasty. No acute osseous abnormality is identified. IMPRESSION: No acute cardiopulmonary process identified. Signed by: Dr. Lewis Paulino MD on 07/20/2019 3:47 PM
--- NOTE | 2019-07-20 16:25 | NUR ---
Patients repeat glucose 283 ER MD aware. No futher orders given.
[2019-07-20 17:15] LABS: ALBUMIN 2.8 g/dL (3.5-5.0); ALBUMIN/GLOBULIN RATIO 0.9 (0.8-2.0); ANION GAP 11.6 mmol/L (8-16); CALCIUM 9.3 mg/dL (8.4-10.2); CREATININE, SERUM 1.93 mg/dL (0.72-1.25); POTASSIUM 5.6 mmol/L (3.5-5.1)
--- OUTSIDE RECORDS SUMMARY | 2019-07-20 18:33 | XMS REPORT | Continuity of Care Document ---
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 Name Role Phone [employer] [facility] Unavailable Un available Problems Problem Status Onset Date Classification Date Reported Comments Source Diabetes Mellitus Active 05/17/2013 [facility] Benign Hypertensive Heart Disease Active 05/17/2013 [facility] Edema (On Exam) Active 05/17/2013 [facility] Generalized Anxiety Disorder A ctive 05/17/2013 [facility] Taking Medication For A Long Time Active 05/17/2013 [facility] Peripheral Neuropathy Active 05/17/2013 [facility] 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 [facility] Hypertension Active 05/17/2013 [facility] Hyperlipidemia Active 05/17/2013 [facility] Coronary Artery Disease Active 05/17/2013 [facility] Pain In The Leg (Below The Knee) Active 05/17/2013 [facility] Intermittent Claudication Acti ve 05/17/2013 [facility] Anxiety (Symptom) Active 05/17/2013 [facility] Chronic Kidney Disease, Stage 3 Active 05/17/2013 [facility] Medications Medication Details Route Status Patient Instructions Ordering Provider Order Date Source NovoLOG FlexPen 100 UNIT/ML Subcutaneous Solution ; Start Date: 05/17/2013; End Date: (Active) Active 05/17/2013 [facility] Shar Christensenets Fine Miscellaneous ; Start Date: 01/25/2013 (Active) Active 01/25/2013 [facility] Glimepiride 4 MG Oral Tablet ; Start Date: 11/18/2012 (Active) Active 11/18/2012 [facility] Pioglitazone HCl 15 MG Oral Tablet ; Start Date: 09/12/2012; End Date: (Active) Active 09/12/2012 [facility] Micronized Colestipol HCl 1 GM Oral Tablet ; Start Date: 09/12/2012 (Active) Active 09/12/2012 [facility] Micronized Colestipol HCl 1 GM Oral Tablet ; Start Date: 09/12/2012 (Active) Active 09/12/2012 [facility] Levemir FlexPen 100 UNIT/ML Subcutaneous Solution [...] ; Start Date: 08/23/2006 (Active) Active 08/23/2006 [facility] Metoprolol Tartrate 50 MG Oral Tablet ; Start Date: 10/01/2005; End Date: (Active) Active 10/01/2005 [facility] Gabapentin 300 MG Oral Capsule ; Start Date: 09/29/2005 (Active) Active 09/29/2005 [facility] Lisinopril 40 MG Oral Tablet ; Start Date: 09/29/2005; End Date: (Active) Active 09/29/2005 [facility] Dipyridamole 75 MG Oral Tablet ; Start Date: 09/29/2005; End Date: (Active) Active 09/29/2005 [facility] GlyBURIDE-MetFORMIN 2.5-500 MG Oral Tablet ; Start Date: 09/29/2005 (Active) Active 09/29/2005 [facility] Aspirin 325 MG Oral Tablet ; S tart Date: 09/29/2005 (Active) Active 09/29/2005 [facility] Fish Oil CAPS ; Start Date: (Active) Active 09/29/2005 [facility] Iron 325 (65 Fe) MG Oral Tablet (Active) Active [facility] Victoza 18 MG/3ML Subcutaneous Solution (Active) Active [facility] Vitamin D3 5000 UNIT Oral Tablet (Active) Active [facility] Allergies, Adverse Reactions, Alerts Substance Category Reaction Severity Reaction type Status Date Reported Comments Source No Known Drug Allergies drug a llergy drug aller gy Active [facility] Immunizations No Data Provided for This [...] ADM Date DC Date Status Source AUDIT [id number] 04/08/2012 04/08/2012 [facility] AUDIT [id number] 04/25/2012 04/25/2012 [facility] AUDIT [id number] 05/20/2012 05/20/2012 [facility] AUDIT [id number] 05/20/2012 05/20/2012 [facility] AUDIT [id number] 06/10/2012 06/10/2012 [facility] AUDIT [id number] 06/23/2012 06/23/2012 [facility] EST, Provi tosha: ALYX GALLARDO, Status: Pen, Time: 2:40 PM [id number] 06/23/2012 06/10/2012 [facility] AUDIT [id number] 07/21/2012 07/21/2012 [facility] E30, Provi tosha: ANN-MARIE HYATT, Status: Pen, Time: 3:30 PM [id number] 07/23/19 13 07/21/2012 [facility] AUDIT [id number] 07/22/2012 07/22/2012 [facility] AUDIT [id number] 07/25/2012 07/25/2012 [facility] AUDIT [id number] 08/12/2012 08/12/2012 [facility] AUDIT [id number] 09/09/2012 09/09/2012 [facility] AUDIT [id number] 09/12/2012 09/12/2012 [facility] ECH, Provi tosha: ROSALBA MCKEON, Status: Pen, Time: 1:00 PM [id number] 09/13/19 13 09/12/2012 [facility] AUDIT [id number] 09/12/2012 09/12/2012 [facility] E30, Provi tosha: ANN-MARIE HYATT, Status: Pen, Time: 4:00 PM [id number] 09/17/19 13 08/12/2012 [facility] AUDIT [id number] 09/22/2012 09/22/2012 [facility] EST, Provi tosha: ALYX GALLARDO, Status: Pen, Time: 3:20 PM [id number] 09/22/2012 09/12/2012 [facility] AUDIT [id number] 09/22/2012 09/22/2012 [facility] AUDIT [id number] 09/23/2012 09/23/2012 [facility] AUDIT [id number] 10/21/2012 10/21/2012 [facility] AUDIT [id number] 11/17/2012 11/17/2012 [facility] AUDIT [id number] 11/18/2012 11/18/2012 [facility] AUDIT [id number] 11/18/2012 11/18/2012 [facility] E30, Provi tosha: ANN-MARIE HYATT, Status: Pen, Time: 2:15 PM [id number] 11/19/19 13 10/21/2012 [facility] AUDIT [id number] 01/02/2013 01/02/2013 [facility] AUDIT [id number] 01/04/2013 01/04/2013 [facility] AUDIT [id number] 01/24/2013 01/24/2013 [facility] E30, Provi tosha: OLENAANN-MARIE, Status: Pen, Time: 10:15 AM [id number] 01/26/20 13 01/24/2013 [facility] AUDIT [id number] 01/25/2013 01/25/2013 [facility] EST, Provi tosha: ALYX GALLARDO, Status: Pen, Time: 1:20 PM [id number] 01/26/2013 01/25/2013 [facility] AUDIT [id number] 01/26/2013 01/26/2013 [facility] AUDIT [id number] 01/31/2013 01/31/2013 [facility] AUDIT [id number] 02/06/2013 02/06/2013 [facility] AUDIT [id number] 02/10/2013 02/10/2013 [facility] AUDIT [id number] 02/21/2013 02/21/2013 [facility] AUDIT [id number] 02/23/2013 02/23/2013 [facility] EST, Provi tosha: ALYX GALLARDO, Status: Pen, Time: 1:40 PM [id number] 05/11/2013 02/23/2013 [facility] AUDIT [id number] 05/11/2013 05/11/2013 [facility] AUDIT [id number] 05/12/2013 05/12/2013 [facility] E30, Provi tosha: OLENA,ANN-MARIE, Status: Pen, Time: 8:30 AM [id number] 05/18/19 14 05/12/2013 [facility] AUDIT [id number] 05/17/2013 05/17/2013 [facility] AUDIT [id number] 05/17/2013 05/17/2013 [facility] E30, Provi tosha: OLENAANN-MARIE, Status: Pen, Time: 11:30 AM [id number] 06/03/19 14 05/17/2013 [facility] EST, Provi tosha: ALYX GALLARDO, Status: Pen, Time: 2:20 PM [id number] 08/10/2013 05/17/2013 [facility] Procedures No Data Provided for This Section Assessment and Plan No Data Provided for This Section Plan of Care Plan of Care Date Source [N] Venous Duplex Lower Bilateral 2012 Routine[N] 2D Echo complete, with Doppler [id number] 06/23/2012 RoutinePulse 01/26/2013 Routine[QLH] CBC (INCLUDES DIFF/PLT) 05/11/2013 Routine[L] CMP14 05/11/2013 Routine[QLH] CREATINE KINASE, TOTAL 05/11/2013 Routine[QLH] LIPID PANEL 05/11/2013 Routine[QLH] HEMOGLOBIN A1c 05/11/2013 Routine[N] Arterial Duplex Lower Extremity Bilateral [id number] 09/22/2012 Routine 05/17/2013 [facility] [N] Venous Duplex Lower Bilateral 2012 Routine[N] 2D Echo complete, with Doppler [id number] 06/23/2012 RoutinePulse 01/26/2013 Routine[QLH] CBC (INCLUDES DIFF/PLT) 05/11/2013 Routine[L] CMP14 05/11/2013 Routine[QLH] CREATINE KINASE, TOTAL 05/11/2013 Routine[QLH] LIPID PANEL 05/11/2013 Routine[QLH] HEMOGLOBIN A1c 05/11/2013 Routine[N] Arterial Duplex Lower Extremity Bilateral 07105 09/22/2012 Routine 05/17/2013 [facility] [N] Venous Duplex Lower Bilateral 2012 Routine[N] 2D Echo complete, with Doppler [id number] 06/23/2012 RoutinePulse 01/26/2013 Routine[QLH] CBC (INCLUDES DIFF/PLT) 05/11/2013 Routine[L] CMP14 05/11/2013 Routine[QLH] CREATINE KINASE, TOTAL 05/11/2013 Routine[QLH] LIPID PANEL 05/11/2013 Routine[QLH] HEMOGLOBIN A1c 05/11/2013 Routine[N] Arterial Duplex Lower Extremity Bilateral [id number] 09/22/2012 Routine 05/12/2013 [facility] [N] Venous Duplex Lower Bilateral 2012 Routine[N] 2D Echo complete, with Doppler [id number] 06/23/2012 RoutinePulse 01/26/2013 Routine[QLH] CBC (INCLUDES DIFF/PLT) 05/11/2013 Routine[L] CMP14 05/11/2013 Routine[QLH] CREATINE KINASE, TOTAL 05/11/2013 Routine[QLH] LIPID PANEL 05/11/2013 Routine[QLH] HEMOGLOBIN A1c 05/11/2013 Routine[N] Arterial Duplex Lower Extremity Bilateral [id number] 09/22/2012 Routine 05/11/2013 [facility] [N] Venous Duplex Lower Bilateral 2012 Routine[N] 2D Echo complete, with Doppler [id number] 06/23/2012 RoutinePulse 01/26/2013 Routine[QLH] CBC (INCLUDES DIFF/PLT) 01/26/2013 Routine[L] CMP14 01/26/2013 Routine[QLH] CREATINE KINASE, TOTAL 01/26/2013 Routine[QLH] LIPID PANEL 01/26/2013 Routine[QLH] TSH, 3RD GENERATION 01/26/2013 Routine[QLH] HEMOGLOBIN A1c 01/26/2013 Routine[N] Arterial Duplex Lower Extremity Bilateral 88769 09/22/2012 Routine 02/23/2013 [facility] [N] Venous Duplex Lower Bilateral 2012 Routine[N] 2D Echo complete, with Doppler 60099 06/23/2012 RoutinePulse 01/26/2013 Routine[QLH] CBC (INCLUDES DIFF/PLT) 01/26/2013 Routine[L] CMP14 01/26/2013 Routine[QLH] CREATINE KINASE, TOTAL 01/26/2013 Routine[QLH] LIPID PANEL 01/26/2013 Routine[QLH] TSH, 3RD GENERATION 01/26/2013 Routine[QLH] HEMOGLOBIN A1c 01/26/2013 Routine[N] Arterial Duplex Lower Extremity Bilateral 51931 09/22/2012 Routine 02/21/2013 [facility] [N] Venous Duplex Lower Bilateral 2012 Routine[N] 2D Echo complete, with Doppler 27914 06/23/2012 RoutinePulse 01/26/2013 Routine[QLH] CBC (INCLUDES DIFF/PLT) 01/26/2013 Routine[L] CMP14 01/26/2013 Routine[QLH] CREATINE KINASE, TOTAL 01/26/2013 Routine[QLH] LIPID PANEL 01/26/2013 Routine[QLH] TSH, 3RD GENERATION 01/26/2013 Routine[QLH] HEMOGLOBIN A1c 01/26/2013 Routine[N] Arterial Duplex Lower Extremity Bilateral 75620 09/22/2012 Routine 02/10/2013 [facility] [N] Venous Duplex Lower Bilateral 2012 Routine[N] 2D Echo complete, with Doppler [id number] 06/23/2012 RoutinePulse 01/26/2013 Routine[QLH] CBC (INCLUDES DIFF/PLT) 01/26/2013 Routine[L] CMP14 01/26/2013 Routine[QLH] CREATINE KINASE, TOTAL 01/26/2013 Routine[QLH] LIPID PANEL 01/26/2013 Routine[QLH] TSH, 3RD GENERATION 01/26/2013 Routine[QLH] HEMOGLOBIN A1c 01/26/2013 Routine[N] Arterial Duplex Lower Extremity Bilateral 49267 09/22/2012 Routine 02/06/2013 [facility] [N] Venous Duplex Lower Bilateral 2012 Routine[N] 2D Echo complete, with Doppler 70775 06/23/2012 RoutinePulse 01/26/2013 Routine[QLH] CBC (INCLUDES DIFF/PLT) 01/26/2013 Routine[L] CMP14 01/26/2013 Routine[QLH] CREATINE KINASE, TOTAL 01/26/2013 Routine[QLH] LIPID PANEL 01/26/2013 Routine[QLH] TSH, 3RD GENERATION 01/26/2013 Routine[QLH] HEMOGLOBIN A1c 01/26/2013 Routine[N] Arterial Duplex Lower Extremity Bilateral 45074 09/22/2012 Routine 01/31/2013 [facility] [N] Venous Duplex Lower Bilateral 2012 Routine[N] 2D Echo complete, with Doppler 76966 06/23/2012 RoutinePulse 01/26/2013 Routine[QLH] CBC (INCLUDES DIFF/PLT) 01/26/2013 Routine[L] CMP14 01/26/2013 Routine[QLH] CREATINE KINASE, TOTAL 01/26/2013 Routine[QLH] LIPID PANEL 01/26/2013 Routine[QLH] TSH, 3RD GENERATION 01/26/2013 Routine[QLH] HEMOGLOBIN A1c 01/26/2013 Routine[N] Arterial Duplex Lower Extremity Bilateral 68570 09/22/2012 Routine 01/26/2013 [facility] [N] Venous Duplex Lower Bilateral 2012 Routine[N] 2D Echo complete, with Doppler 21718 06/23/2012 Routine[N] Arterial Duplex Lower Extremity Bilateral 86468 09/22/2012 Routine 01/25/2013 [facility] [N] Venous Duplex Lower Bilateral 2012 Routine[N] 2D Echo complete, with Doppler 99161 06/23/2012 Routine[N] Arterial Duplex Lower Extremity Bilateral 14270 09/22/2012 Routine 01/24/2013 [facility] [N] Venous Duplex Lower Bilateral 2012 Routine[N] 2D Echo complete, with Doppler 36191 06/23/2012 Routine[QLH] CBC (INCLUDES DIFF/PLT) 09/22/2012 Routine[L] CMP14 09/22/2012 Routine[QLH] CREATINE KINASE, TOTAL 09/22/2012 Routine[N] Arterial Duplex Lower Extremity Bilateral 56215 09/22/2012 Routine 01/04/2013 [facility] [N] Venous Duplex Lower Bilateral 2012 Routine[N] 2D Echo complete, with Doppler 56450 06/23/2012 Routine[QLH] CBC (INCLUDES DIFF/PLT) 09/22/2012 Routine[L] CMP14 09/22/2012 Routine[QLH] CREATINE KINASE, TOTAL 09/22/2012 Routine[N] Arterial Duplex Lower Extremity Bilateral 19032 09/22/2012 Routine 01/02/2013 [facility] [QLH] CBC (INCLUDES DIFF/PLT) 12/24/2011 Routine[QLH] CMP W/EGFR 12/24/2011 Routine[QLH] CALCIUM 12/24/2011 Routine[QLH] CREATINE KINASE, TOTAL 12/24/2011 Routine[QLH] LIPID PANEL 12/24/2011 Routine[QLH] B TYPE NATRIURETIC PEPTIDE (BNP) 12/24/2011 Routine[QLH] HEMOGLOBIN A1c 12/24/2011 Routine[N] Venous Duplex Lower Bilateral 09/22/2012 Routine[N] 2D Echo complete, with Doppler 45231 06/23/2012 Routine[QLH] CBC (INCLUDES DIFF/PLT) 09/22/2012 Routine[L] CMP14 09/22/2012 Routine[QLH] CREATINE KINASE, TOTAL 09/22/2012 Routine[N] Arterial Duplex Lower Extremity Bilateral 73756 09/22/2012 Routine 11/18/2012 [facility] [QLH] CBC (INCLUDES DIFF/PLT) 12/24/2011 Routine[QLH] CMP W/EGFR 12/24/2011 Routine[QLH] CALCIUM 12/24/2011 Routine[QLH] CREATINE KINASE, TOTAL 12/24/2011 Routine[QLH] LIPID PANEL 12/24/2011 Routine[QLH] B TYPE NATRIURETIC PEPTIDE (BNP) 12/24/2011 Routine[QLH] HEMOGLOBIN A1c 12/24/2011 Routine[N] Venous Duplex Lower Bilateral 09/22/2012 Routine[N] 2D Echo complete, with Doppler 45860 06/23/2012 Routine[QLH] CBC (INCLUDES DIFF/PLT) 09/22/2012 Routine[L] CMP14 09/22/2012 Routine[QLH] CREATINE KINASE, TOTAL 09/22/2012 Routine[N] Arterial Duplex Lower Extremity Bilateral 73754 09/22/2012 Routine 11/18/2012 [facility] [QLH] CBC (INCLUDES DIFF/PLT) 12/24/2011 Routine[QLH] CMP W/EGFR 12/24/2011 Routine[QLH] CALCIUM 12/24/2011 Routine[QLH] CREATINE KINASE, TOTAL 12/24/2011 Routine[QLH] LIPID PANEL 12/24/2011 Routine[QLH] B TYPE NATRIURETIC PEPTIDE (BNP) 12/24/2011 Routine[QLH] HEMOGLOBIN A1c 12/24/2011 Routine[N] Venous Duplex Lower Bilateral 09/22/2012 Routine[N] 2D Echo complete, with Doppler 39111 06/23/2012 Routine[QLH] CBC (INCLUDES DIFF/PLT) 09/22/2012 Routine[L] CMP14 09/22/2012 Routine[QLH] CREATINE KINASE, TOTAL 09/22/2012 Routine[N] Arterial Duplex Lower Extremity Bilateral 96387 09/22/2012 Routine 11/17/2012 [facility] [QLH] CBC (INCLUDES DIFF/PLT) 12/24/2011 Routine[QLH] CMP W/EGFR 12/24/2011 Routine[QLH] CALCIUM 12/24/2011 Routine[QLH] CREATINE KINASE, TOTAL 12/24/2011 Routine[QLH] LIPID PANEL 12/24/2011 Routine[QLH] B TYPE NATRIURETIC PEPTIDE (BNP) 12/24/2011 Routine[QLH] HEMOGLOBIN A1c 12/24/2011 Routine[N] Venous Duplex Lower Bilateral 09/22/2012 Routine[N] 2D Echo complete, with Doppler 62494 06/23/2012 Routine[QLH] CBC (INCLUDES DIFF/PLT) 09/22/2012 Routine[L] CMP14 09/22/2012 Routine[QLH] CREATINE KINASE, TOTAL 09/22/2012 Routine[N] Arterial Duplex Lower Extremity Bilateral 87341 09/22/2012 Routine 10/21/2012 [facility] [QLH] CBC (INCLUDES DIFF/PLT) 12/24/2011 Routine[QLH] CMP W/EGFR 12/24/2011 Routine[QLH] CALCIUM 12/24/2011 Routine[QLH] CREATINE KINASE, TOTAL 12/24/2011 Routine[QLH] LIPID PANEL 12/24/2011 Routine[QLH] B TYPE NATRIURETIC PEPTIDE (BNP) 12/24/2011 Routine[QLH] HEMOGLOBIN A1c 12/24/2011 Routine[N] Venous Duplex Lower Bilateral 09/22/2012 Routine[N] 2D Echo complete, with Doppler 00928 06/23/2012 Routine[QLH] CBC (INCLUDES DIFF/PLT) 09/22/2012 Routine[L] CMP14 09/22/2012 Routine[QLH] CREATINE KINASE, TOTAL 09/22/2012 Routine[N] Arterial Duplex Lower Extremity Bilateral 95070 09/22/2012 Routine 09/23/2012 [facility] [QLH] CBC (INCLUDES DIFF/PLT) 12/24/2011 Routine[QLH] CMP W/EGFR 12/24/2011 Routine[QLH] CALCIUM 12/24/2011 Routine[QLH] CREATINE KINASE, TOTAL 12/24/2011 Routine[QLH] LIPID PANEL 12/24/2011 Routine[QLH] B TYPE NATRIURETIC PEPTIDE (BNP) 12/24/2011 Routine[QLH] HEMOGLOBIN A1c 12/24/2011 Routine[N] 2D Echo complete, with Doppler 19853 06/23/2012 Routine[QLH] CBC (INCLUDES DIFF/PLT) 09/22/2012 Routine[L] CMP14 09/22/2012 Routine[QLH] CREATINE KINASE, TOTAL 09/22/2012 Routine[N] Venous Duplex Lower Bilateral 09/22/2012 Routine[N] Arterial Duplex Lower Extremity Bilateral 59591 09/22/2012 Routine 09/22/2012 [facility] [QLH] CBC (INCLUDES DIFF/PLT) 12/24/2011 Routine[QLH] CMP W/EGFR 12/24/2011 Routine[QLH] CALCIUM 12/24/2011 Routine[QLH] CREATINE KINASE, TOTAL 12/24/2011 Routine[QLH] LIPID PANEL 12/24/2011 Routine[QLH] B TYPE NATRIURETIC PEPTIDE (BNP) 12/24/2011 Routine[QLH] HEMOGLOBIN A1c 12/24/2011 Routine[N] 2D Echo complete, with Doppler 56259 06/23/2012 Routine[QLH] CBC (INCLUDES DIFF/PLT) 09/22/2012 Routine[L] CMP14 09/22/2012 Routine[QLH] CREATINE KINASE, TOTAL 09/22/2012 Routine[N] Venous Duplex Lower Bilateral 09/22/2012 Routine[N] Arterial Duplex Lower Extremity Bilateral 24162 09/22/2012 Routine 09/22/2012 [facility] [QLH] CBC [...] 06/23/2012 Routine[N] 2D Echo complete, with Doppler 75244 06/23/2012 Routine 09/12/2012 [facility] [QLH] CBC [...] 06/23/2012 Routine[N] 2D Echo complete, with Doppler 29826 06/23/2012 Routine 09/12/2012 [facility] [QLH] CBC [...] 06/23/2012 Routine[N] 2D Echo complete, with Doppler 81835 06/23/2012 Routine 09/09/2012 [facility] [QLH] CBC [...] Routine[QLH] TSH, 3RD GENERATION 03/22/2012 Routine 04/08/2012 [facility] Social History Social History Date Source Smoking Cigarettes For ____ Pack-years (Active) Marital History - Currently (Active) Former Smoker (Active) 05/17/2013 [facility] Family History Value Date S ource No Family history of Pancreatitis (Denied) No Family history of Thyroid Cancer (Denied) Family history of Diabetes Mellitus (V18.0); (Active) 05/17/2013 [facility] No Family history of Pancreatitis (Denied) No Family history of Thyroid Cancer (Denied) Family history of Diabetes Mellitus (V18.0); (Active) 05/17/2013 [facility] No Family history of Pancreatitis (Denied) No Family history of Thyroid Cancer (Denied) Family history of Diabetes Mellitus (V18.0); (Active) 05/12/2013 [facility] No Family history of Pancreatitis (Denied) No Family history of Thyroid Cancer (Denied) Family history of Diabetes Mellitus (V18.0); (Active) 05/11/2013 [facility] No Family history of Pancreatitis (Denied) No Family history of Thyroid Cancer (Denied) Family history of Diabetes Mellitus (V18.0); (Active) 02/23/2013 [facility] No Family history of Pancreatitis (Denied) No Family history of Thyroid Cancer (Denied) Family history of Diabetes Mellitus (V18.0); (Active) 02/21/2013 [facility] No Family history of Pancreatitis (Denied) No Family history of Thyroid Cancer (Denied) Family history of Diabetes Mellitus (V18.0); (Active) 02/10/2013 [facility] No Family history of Pancreatitis (Denied) No Family history of Thyroid Cancer (Denied) Family history of Diabetes Mellitus (V18.0); (Active) 02/06/2013 [facility] No Family history of Pancreatitis (Denied) No Family history of Thyroid Cancer (Denied) Family history of Diabetes Mellitus (V18.0); (Active) 01/31/2013 [facility] No Family history of Pancreatitis (Denied) No Family history of Thyroid Cancer (Denied) Family history of Diabetes Mellitus (V18.0); (Active) 01/26/2013 [facility] No Family history of Pancreatitis (Denied) No Family history of Thyroid Cancer (Denied) Family history of Diabetes Mellitus (V18.0); (Active) 01/25/2013 [facility] No Family history of Pancreatitis (Denied) No Family history of Thyroid Cancer (Denied) Family history of Diabetes Mellitus (V18.0); (Active) 01/24/2013 [facility] No Family history of Pancreatitis (Denied) No Family history of Thyroid Cancer (Denied) Family history of Diabetes Mellitus (V18.0); (Active) 01/04/2013 [facility] No Family history of Pancreatitis (Denied) No Family history of Thyroid Cancer (Denied) Family history of Diabetes Mellitus (V18.0); (Active) 01/02/2013 [facility] No Family history of Pancreatitis (Denied) No Family history of Thyroid Cancer (Denied) Family history of Diabetes Mellitus (V18.0); (Active) 11/18/2012 [facility] No Family history of Pancreatitis (Denied) No Family history of Thyroid Cancer (Denied) Family history of Diabetes Mellitus (V18.0); (Active) 11/18/2012 [facility] No Family history of Pancreatitis (Denied) No Family history of Thyroid Cancer (Denied) Family history of Diabetes Mellitus (V18.0); (Active) 11/17/2012 [facility] No Family history of Pancreatitis (Denied) No Family history of Thyroid Cancer (Denied) Family history of Diabetes Mellitus (V18.0); (Active) 10/21/2012 [facility] No Family history of Pancreatitis (Denied) No Family history of Thyroid Cancer (Denied) Family history of Diabetes Mellitus (V18.0); (Active) 09/23/2012 [facility] No Family history of Pancreatitis (Denied) No Family history of Thyroid Cancer (Denied) Family history of Diabetes Mellitus (V18.0); (Active) 09/22/2012 [facility] No Family history of Pancreatitis (Denied) No Family history of Thyroid Cancer (Denied) Family history of Diabetes Mellitus (V18.0); (Active) 09/22/2012 [facility] No Family history of Pancreatitis (Denied) No Family history of Thyroid Cancer (Denied) Family history of Diabetes Mellitus (V18.0); (Active) 09/12/2012 [facility] No Family history of Pancreatitis (Denied) No Family history of Thyroid Cancer (Denied) Family history of Diabetes Mellitus (V18.0); (Active) 09/12/2012 [facility] No Family history of Pancreatitis (Denied) No Family history of Thyroid Cancer (Denied) Family history of Diabetes Mellitus (V18.0); (Active) 09/09/2012 [facility] No Family history of Pancreatitis (Denied) [...] history of Diabetes Mellitus (V18.0); (Active) 06/23/2012 [facility] No Family history of Pancreatitis (Denied) [...] history of Diabetes Mellitus (V18.0); (Active) 05/20/2012 [facility] No Family history of Pancreatitis (Denied) No Family history of Thyroid Cancer (Denied) Family history of Diabetes Mellitus (V18.0); (Active) 04/25/2012 [facility] No Family history of Pancreatitis (Denied) No Family history of Thyroid Cancer (Denied) Family history of Diabetes Mellitus (V18.0); (Active) 04/08/2012 [facility] Advance Directives Order Name Results Value Date Source Advance Directives Advance Dir ectives No Advance Directives available. 05/17/2013 [facility] Advance Directives Advance Dir ectives No Advance Directives available. 05/17/2013 [facility] Advance Directives Advance Dir ectives No Advance Directives available. 05/12/2013 [facility] Advance Directives Advance Dir ectives No Advance Directives available. 05/11/2013 [facility] Advance Directives Advance Dir ectives No Advance Directives available. 02/23/2013 [facility] Advance Directives Advance Dir ectives No Advance Directives available. 02/21/2013 [facility] Advance Directives Advance Dir ectives No Advance Directives available. 02/10/2013 [facility] Advance Directives Advance Dir ectives No Advance Directives available. 02/06/2013 [facility] Advance Directives Advance Dir ectives No Advance Directives available. 01/31/2013 [facility] Advance Directives Advance Dir ectives No Advance Directives available. 01/26/2013 [facility] Advance Directives Advance Dir ectives No Advance Directives available. 01/25/2013 [facility] Advance Directives Advance Dir ectives No Advance Directives available. 01/24/2013 [facility] Advance Directives Advance Dir ectives No Advance Directives available. 01/04/2013 [facility] Advance Directives Advance Dir ectives No Advance Directives available. 01/02/2013 [facility] Advance Directives Advance Dir ectives No Advance Directives available. 11/18/2012 [facility] Advance Directives Advance Dir ectives No Advance Directives available. 11/18/2012 [facility] Advance Directives Advance Dir ectives No Advance Directives available. 11/17/2012 [facility] Advance Directives Advance Dir ectives No Advance Directives available. 10/21/2012 [facility] Advance Directives Advance Dir ectives No Advance Directives available. 09/23/2012 [facility] Advance Directives Advance Dir ectives No Advance Directives available. 09/22/2012 [facility] Advance Directives Advance Dir ectives No Advance Directives available. 09/22/2012 [facility] Advance Directives Advance Dir ectives No Advance Directives available. 09/12/2012 [facility] Advance Directives Advance Dir ectives No Advance Directives available. 09/12/2012 [facility] Advance Directives Advance Dir ectives No Advance Directives available. 09/09/2012 [facility] Advance Directives Advance Dir ectives No Advance Directives available. 08/12/2012 [facility] Advance Directives Advance Dir ectives No Advance Directives available. 07/25/2012 [facility] Advance Directives Advance Dir ectives No Advance Directives available. 07/22/2012 [facility] Advance Directives Advance Dir ectives No Advance Directives available. 07/21/2012 [facility] Advance Directives Advance Dir ectives No Advance Directives available. 06/23/2012 [facility] Advance Directives Advance Dir ectives No Advance Directives available. 06/10/2012 [facility] Advance Directives Advance Dir ectives No Advance Directives available. 05/20/2012 [facility] Advance Directives Advance Dir ectives No Advance Directives available. 05/20/2012 [facility] Advance Directives Advance Dir ectives No Advance Directives available. 04/25/2012 [facility] Advance Directives Advance Dir ectives No Advance Directives available. 04/08/2012 [facility] Functional Status No Data Provided for This Section
--- OUTSIDE RECORDS SUMMARY | 2019-07-20 18:34 | XMS REPORT | Continuity of Care Document ---
Author Author [facility] t Organization [facility] Address [facility] Patrick Layton [address] [place] [address] Phone Unavailable Care Team Providers Care Softball Coach Name Role Phone Fifi ALONSO PCP Flavia NAVAS Attphys Unavailable ANN-MARIE HYATT M.D. Attphys Unavailable VAMSI CHANG M.D. Attphys Unavailable ALYX GALLARDO M.D. Attphys Unavailable [facility] Attphys Unavailable Lincoln VILLEGAS Attphys Unavailable AMY JOHNSON M.D. Attphys Unavailable [facility] WH[facility] Attphys Unavailable Problems Condition Name Condition Details Condition Category Status Onset Date Resolution Date Last Treatment Date Treating Clinician Comments Source CABG CABG Problem Active [facility] Personal history of gout Personal history of gout Problem Resolved [facility] History of Hernia History of Hernia Problem Resolved [facility] Pain, lower leg Pain, lower leg Problem Active [facility] Anxiety Anxiety Problem Active [facility] Generalized anxiety disorder Generalized anxiety disorder Problem Active [facility] Intermittent claudication Intermittent claudication Problem Active [facility] Rheumatic heart disease Rheumatic heart disease Problem Active [facility] Benign hypertensive heart disease Benign hypertensive heart dise ase Problem Active [facility] Edema Edema Problem Active [facility] Encounter for long-term (current) use of medications E ncounter for long-term (current) use of medications Problem Active [facility] Peripheral neuropathy, hereditary/idiopathic Periphera l neuropathy, hereditary/idiopathic Problem Active [facility] Renal insufficiency Renal insufficiency Problem Active [facility] Diabetes mellitus with peripheral circulatory disorder Diabetes mellitus with peripheral circulatory disorder Problem Active [facility] Back muscle spasm Back muscle spasm Problem Active [facility] Chronic kidney disease, stage III (moderate) Chronic k idney disease, stage III (moderate) Problem Active [facility] Decreased creatinine clearance Decreased creatinine clearance Problem Active [facility] Osteoarthritis of neck Osteoarthritis of neck Problem Active [facility] Neck pain Neck pain Problem Active [facility] Neck muscle spasm Neck muscle spasm Problem Active [facility] 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 Problem Active [facility] Left shoulder pain Left shoulder pain Problem Active [facility] 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 Active [facility] Atrial fibrillation Atrial fibrillation Problem Active [facility] CHF (congestive heart failure) CHF (congestive heart failure) Problem Active [facility] Diabetes mellitus Diabetes mellitus Problem Active [facility] Heavy smoker (more than 20 cigarettes per day) Heavy s moker (more than 20 cigarettes per day) Problem Active [facility] 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, with long-term current use of insulin 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, with long-term current use of insulin Problem Active [facility] 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, with long-term current use of insulin, unspecified CKD stage 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, with long-term current use of insulin, unspecified CKD stage Problem Active [facility] Essential (primary) hypertension Essential (primary) hypertensio n Problem Active [facility] Hyperlipidemia Hyperlipidemia Problem Active [facility] Aftercare following left shoulder joint replacement daly rgery Aftercare following left shoulder joint replacement surgery Problem Active [facility] 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, 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, subsequent encounter Problem Active [facility] BMI 30.0-30.9,adult BMI 30.0-30.9,adult Problem Active [facility] Diabetes Mellitus Diab etes Mellitus Active 05/17/2013 [place] [facility] Problem Active 2013-05-17 15:45:27 Christine Nguyen Benign Hypertensive Heart Disease Benign Hypertensive Heart Disease Active 05/17/2013 [facility] Problem Active 2013-05-17 15:45:27 Hugo Nguyen Edema (On Exam) Neno a (On Exam) Active 05/17/2013 [facility] Problem Active 2013-05-17 15:45:27 [facility] Generalized Anxiety Disorder G eneralized Anxiety Disorder Active 05/17/2013 [facility] Problem Active 2013-05-17 15:45:27 Hugo Nguyen Taking Medication For A Long Time Taking Medication For A Long Time Active 05/17/2013 [facility] Problem Active 2013-05-17 15:45:27 Hugo Nguyen Peripheral Neuropathy Kayla pheral Neuropathy Active 05/17/2013 [place] [facility] Problem Active 2013-05-17 15:45:27 Hugo Nguyen Diabetes Mellitus With Peripheral Circulatory Disorder 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 [facility] Problem Active 2013-05-17 15:45:27 [facility] Hypertension Hype rtension Active 05/17/2013 [facility] Problem Active 2013-05-17 15:45:27 Malcom doanl Patrick Hyperlipidemia Hype rlipidemia Active 05/17/2013 [facility] Problem Active 2013-05-17 15:45:27 [facility] Coronary Artery Disease Humphrey nary Artery Disease Active 05/17/2013 [facility] Problem Active 2013-05-17 15:45: 27 Hugo Nguyen Pain In The Leg (Below The Knee) Pain In The Leg (Below The Knee) Active 05/17/2013 [facility] Problem Active 2013-05-17 15:45:27 [facility] Intermittent Claudication Inte rmittent Claudication Active 05/17/2013 [facility] Problem Active 2013-05-17 15:45: 27 [facility] Anxiety (Symptom) Anxi ety (Symptom) Active 05/17/2013 [facility] Problem Active 2013-05-17 15:45:27 [facility] Chronic Kidney Disease, Stage 3 Chronic Kidney Disease, Stage 3 Active 05/17/2013 [place] [facility] Problem Active 2 15:45:27 [facility] [place] Allergies, Adverse Reactions, Alerts Allergy Name Allergy Type Status Severity Reaction(s) Onset Date Inacti ve Date Treating Clinician Comments Source No Known Drug Allergies No Known Drug Allergies Active [facility] Family History Family Member Diagnosis Comments Start Date Stop Date Source Unknown Family Member Family history of Diabetes Mellitus Family His tory [facility] aunt Family history of hypertension [facility] aunt Family history of cardiac disorder [facility] Sister Family history of Diabetes Mellitus [facility] Social History Social Habit Start Date Stop Date Quantity Comments Source Social History 2013-05-17 15:45:27 2013-05-17 15:45:27 Hugo Nguyen Smoking Status Start Date Stop Date Source Ex-smoker (finding) [facility] Medications Ordered Medication Name Filled Medication Name Start Date Stop Da te Current Medication? Ordering Clinician Indication Dosage Frequency Signature (SIG) Comments Components Source NovoLOG FlexPen 100 UNIT/ML Subcutaneous Solution Pen- injector NovoLOG FlexPen 100 UNIT/ML Subcutaneous Solution Pen-injector 2017-08-11 00:00:00 Yes ANN-MARIE HYATT M.D. 10-13 units thien kfast; 10-13; lunch; 21 supper; 3-5 snacks; CF~40; REplacing HUmalog MDD:80 [facility] Shayan Back & Body 500-32.5 MG Oral Tablet Shayan Back & Body 500-32.5 MG Oral Tablet 2016-07-30 00:00:00 Yes 1 QD TAKE 1 TABLET KODI LY PRN [facility] Accu-Chek Guide In Vitro Strip Accu-Chek Guide In Vitro Stri p 2016-02-14 00:00:00 Yes ANN-MARIE HYATT M.D. Use as directed thre e times daily [facility] Testosterone Cypionate 200 MG/ML Intramuscular Solutio n Testosterone Cypionate 200 MG/ML Intramuscular Solution 2015-12-05 00:00:00 Yes ANN-MARIE DANG M.D. Per PCP [facility] ALPRAZolam 0.5 MG Oral Tablet ALPRAZolam 0.5 MG Oral Tablet 2014 00:00:00 Yes ALYX GALLARDO M.D. 1 Q0.3333D TAKE 1 TABLET 3 TIMES DAILY NEEDED. [facility] BD Pen Needle Mini U/F 31G X 5 MM BD Pen Needle Mini U/F 31G X 5 MM 2013-06-02 00:00:00 Yes ANN-MARIE HYATT M.D. 5 a day [facility] Iron 325 (65 Fe) MG Oral Tablet 2013-05-17 15:45:27 Yes (Active) Hugo Nguyen Vitamin D3 5000 UNIT Oral Tablet 2013-05-17 15:45:27 Yes (Active) Huog Nguyen NovoLOG FlexPen 100 UNIT/ML Subcutaneous Solution 2013-05-17 05:00:00 Yes ; Start Date: 05/17/2013; End Date: (Active) Hugo Nguyen Victoza 18 MG/3ML Subcutaneous Solution 2013-05-12 22:15:25 Yes (Active) Hugo Marcialann OneTouch Delica Lancets Fine Miscellaneous 2013-01-25 06:00:00 Yes ; Start Date: 01/25/2013 (Active) Hugo Nguyen Accu-Chek FastClix Lancets Accu-Chek FastClix Lancets 2013-01-25 00:0 0:00 Yes ANN-MARIE HYATT M.D. Check BG 3x a day [facility] Glimepiride 4 MG Oral Tablet 2012-11-18 05:00:00 Yes ; Start Date: 11/18/2012 (Active) [facility] Pioglitazone HCl 15 MG Oral Tablet 2012-09-12 05:00:00 Yes ; Start Date: 09/12/2012; End Date: (Active) Hugo Nguyen Micronized Colestipol HCl 1 GM Oral Tablet 2012-09-12 05:00:00 Yes ; Start Date: 09/12/2012 (Active) Hugo Nguyen Micronized Colestipol HCl 1 GM Oral Tablet 2012-09-12 05:00:00 Yes ; Start Date: 09/12/2012 (Active) Hugo Nguyen Levemir FlexPen 100 UNIT/ML Subcutaneous Solution 2012-04-08 06:00:00 Yes ; Start Date: 04/08/2012 (Active) Hugo Nguyen NovoTwist 32G X 5 MM Miscellaneous 2012-04-08 06:00:00 Yes ; Start Date: 04/08/2012; End Date: (Active) [facility] [place] Levemir FlexTouch 100 UNIT/ML Subcutaneous Solution Pe n-injector Levemir FlexTouch 100 UNIT/ML Subcutaneous Solution Pen-injector 2012-04-08 00:00:00 Yes ANN-MARIE HYATT M.D. INJECT 22 TO 30 UNITS SUBCUTANEOUSLY EVERY MORNING AND 22 TO 30 UNITS EVERY NIGHT. MAY SELF TITRATE UP TO 60 UNITS DAILY. [facility] NovoTwist 32G X 5 MM NovoTwist 32G X 5 MM 2012-04-08 00:00:00 Yes ANN-MARIE HYATT M.D. USE 4 A DAY DIRECTED [facility] Allopurinol 300 MG Oral Tablet 2012-04-02 06:00:00 Yes ; Start Date: 04/02/2012 (Active) Hugo Nguyen Atorvastatin Calcium 20 MG Oral Tablet 2011-03-19 06:00:00 Yes ; Start Date: 03/19/2011 (Active) Hugo Nguyen Metoprolol Succinate ER 50 MG Oral Tablet Extended Release 2 4 Hour 2011-03-19 06:00:00 Yes ; Start Date: 03/19/2011 (Act saranya) Hugo Nguyen Diazepam 5 MG Oral Tablet 2011-03-19 06:00:00 Yes ; Start Date: 03/19/2011 (Active) Hugo Nguyen Colestipol HCl 1 GM Oral Tablet 2011-03-19 06:00:00 Yes ; Start Date: 03/19/2011 (Active) Hugo Marcialannabelle abdi Omeprazole 20 MG Oral Capsule Delayed Release 2011-03-19 06:00:0 0 Yes ; Start Date: 03/19/2011 (Active) Hugo Nguyen Lisinopril 40 MG Oral Tablet 2011-03-19 06:00:00 Yes ; Start Date: 03/19/2011 (Active) Hugo Nguyen Dipyridamole 75 MG Oral Tablet 2011-03-19 06:00:00 Yes ; Start Date: 03/19/2011 (Active) [facility] [place] Colestipol HCl 1 GM Oral Tablet 2011-03-19 06:00:00 Yes ; Start Date: 03/19/2011 (Active) Hugo abdi Metoprolol Succinate ER 50 MG Oral Tablet Extended Release 2 4 Hour 2011-03-19 06:00:00 Yes ; Start Date: 03/19/2011 (Act saranya) Hugo Nguyen Atorvastatin Calcium 20 MG Oral Tablet Atorvastatin Calcium 20 MG Oral Tablet 2011-03-19 00:00:00 Yes ALYX GALLARDO M.D. QD TAKE 1 TABLET DAILY AT BEDTIME [facility] Metoprolol Succinate ER 50 MG Oral Tablet Extended Rel ease 24 Hour Metoprolol Succinate ER 50 MG Oral Tablet Extended Release 24 Hour 2011-03-19 00:00:00 Yes ALYX GALLARDO M.D. Q0.5D Take 1 tablet twice a day [facility] Colestipol HCl - 1 GM Oral Tablet Colestipol HCl - 1 GM Oral Tablet 2011-03-19 00:00:00 Yes ALYX GALLARDO M.D. Q0.5D Take 1 tablet twice a day [facility] Klor-Con 8 MEQ Oral Tablet Extended Release 2008-12-14 05:00:00 Yes ; Start Date: 12/14/2008 (Active) Raleigh Watkins Actos 45 MG Oral Tablet 2008-02-19 06:00:00 Yes ; Start Date: 02/19/2008 (Active) Hugo Nguyen Hydrochlorothiazide 25 MG Oral Tablet 2007-12-26 06:00:00 Y es ; Start Date: 12/26/2007 (Active) Hugo Nguyen hydroCHLOROthiazide 25 MG Oral Tablet hydroCHLOROthiazide 25 MG Oral Tablet 2007-12-26 00:00:00 Yes ALYX GALLARDO M.D. 1 QD TA KE 1 TABLET DAILY [facility] Omeprazole 20 MG Oral Capsule Delayed Release 2007-09-15 05:00:0 0 Yes ; Start Date: 09/15/2007 (Active) Hugo Nguyen Accu-Chek Compact Test Drum In Vitro Strip 2006-08-23 05:00:00 Yes ; Start Date: 08/23/2006 (Active) Hugo Nguyen Metoprolol Tartrate 50 MG Oral Tablet 2005-10-01 05:00:00 Y es ; Start Date: 10/01/2005; End Date: (Active) Hugo Nguyen Gabapentin 300 MG Oral Capsule 2005-09-29 05:00:00 Yes ; Start Date: 09/29/2005 (Active) Hugo Nguyen Lisinopril 40 MG Oral Tablet 2005-09-29 05:00:00 Yes ; Start Date: 09/29/2005; End Date: (Active) Hugo Nguyen Dipyridamole 75 MG Oral Tablet 2005-09-29 05:00:00 Yes ; Start Date: 09/29/2005; End Date: (Active) Hugo Nguyen GlyBURIDE-MetFORMIN 2.5-500 MG Oral Tablet 2005-09-29 05:00:00 Yes ; Start Date: 09/29/2005 (Active) Hugo Nguyen Aspirin 325 MG Oral Tablet 2005-09-29 05:00:00 Yes ; Start Date: 09/29/2005 (Active) Hugo Nguyen Fish Oil CAPS 2005-09-29 05:00:00 Yes ; [facility] Oral Capsule Gabapentin 300 MG Oral Capsul e 2005-09-29 00:00:00 Yes ALYX GALLARDO M.D. TAKE 2 CAPSUL ES TWICE A DAY [facility] Lisinopril 20 MG Oral Tablet Lisinopril 20 MG Oral Tablet 2005-09-15 00:00:00 Yes ALYX GALLARDO M.D. 1 QD TAKE 1 TABLET DAILY [facility] Dipyridamole 75 MG Oral Tablet Dipyridamole 75 MG Oral Table t 2005-09-29 00:00:00 Yes ALYX GALLARDO M.D. Q0.5D Take 1 tablet twice a day [facility] Aspirin 325 MG Oral Tablet Aspirin 325 MG Oral Tablet 2005-09-29 00:0 0:00 Yes 1 QD TAKE 1 TABLET DAILY. [facility] Vitamin D3 125 MCG (5000 UT) Oral Tablet Vitamin D3 12 5 MCG (5000 UT) Oral Tablet Yes 1 a day [facility] Iron 325 (65 Fe) MG Oral Tablet Iron 325 (65 Fe) MG Oral Tablet Yes 1 QD TAKE 1 TABLET DAILY [facility] Uloric 40 MG Oral Tablet Uloric 40 MG Oral Tablet Yes 1 QD TAKE 1 TABLET DAILY. [facility] Fioricet/Codeine CAPS Fioricet/Codeine CAPS Yes TAKE CAPSULE PRN HEADACHE [facility] Immunizations Ordered Immunization Name Filled Immunization Name Date Status Comments Source Influenza Unknown Completed Approx [id number] [facility] Vital Signs Vital Name Observation Time Observation Value Comments Source Systolic blood pressure 2019-06-29 09:23:00 110 mm[Hg] [facility] Diastolic blood pressure 2019-06-29 09:23:00 70 mm[Hg] [facility] Weight 2019-06-29 09:23:00 208 [lb_av] [facility] Body mass index (BMI) [Ratio] 2019-06-29 09:23:00 28.21 kg/m2 [facility] Heart Rate 2019-06-29 09:23:00 73 /min [facility] Systolic blood pressure 2019-06-29 09:04:00 119 mm[Hg] Loca tion: CHERELLE; Position: Sitting [facility] Diastolic blood pressure 2019-06-29 09:04:00 68 mm[Hg] Loc ation: CHERELLE; Position: Sitting [facility] Weight 2019-06-29 09:04:00 208 [lb_av] [facility] Body mass index (BMI) [Ratio] 2019-06-29 09:04:00 28.21 kg/m2 [facility] Heart Rate 2019-06-29 09:04:00 73 /min [facility] Body height 2019-06-29 09:04:00 72 [in_us] [facility] Body temperature 2019-06-29 09:04:00 97.7 [degF] Method: Temporal [facility] Systolic blood pressure 2019-03-30 15:31:00 138 mm[Hg] [facility] Diastolic blood pressure 2019-03-30 15:31:00 66 mm[Hg] [facility] Weight 2019-03-30 15:31:00 227.3 [lb_av] [facility] Body mass index (BMI) [Ratio] 2019-03-30 15:31:00 30.83 kg/m2 [facility] Heart Rate 2019-03-30 15:31:00 61 /min [facility] Systolic blood pressure 2019-03-30 15:26:00 123 mm[Hg] Loca tion: RUE; Position: Sitting [facility] Diastolic blood pressure 2019-03-30 15:26:00 66 mm[Hg] Loc ation: RUE; Position: Sitting [facility] Weight 2019-03-30 15:26:00 227.1875 [lb_av] [facility] Body mass index (BMI) [Ratio] 2019-03-30 15:26:00 30.81 kg/m2 [facility] Heart Rate 2019-03-30 15:26:00 61 /min [facility] Body height 2019-03-30 15:26:00 72 [in_us] [facility] Systolic blood pressure 2019-03-21 13:32:00 144 mm[Hg] Loca tion: RUE; Position: Sitting [facility] Diastolic blood pressure 2019-03-21 13:32:00 78 mm[Hg] Loc ation: RUE; Position: Sitting [facility] Body height 2019-03-21 13:32:00 72 [in_us] [facility] Weight 2019-03-21 13:32:00 227 [lb_av] [facility] Body mass index (BMI) [Ratio] 2019-03-21 13:32:00 30.79 kg/m2 [facility] Heart Rate 2019-03-21 13:32:00 65 /min Location: R Radial; [facility] BP Systolic 2019-01-19 15:20:00 139 mm[Hg] Location: LUE; Positi on: Sitting [facility] BP Diastolic 2019-01-19 15:20:00 75 mm[Hg] Location: LUE; Positi on: Sitting [facility] Height 2019-01-19 15:20:00 72 [in_us] [facility] Weight 2019-01-19 15:20:00 227.25 [lb_av] [facility] Body Mass Index Calculated 2019-01-19 15:20:00 30.82 kg/m2 [facility] Heart Rate 2019-01-19 15:20:00 61 /min Location: L Radial; [facility] O2 SAT 2019-01-19 15:20:00 98 % Source: RA [facility] BP Systolic 2018-11-24 14:26:00 93 mm[Hg] Location: RUE; Positi on: Sitting [facility] BP Diastolic 2018-11-24 14:26:00 58 mm[Hg] Location: RUE; Positi on: Sitting [facility] Height 2018-11-24 14:26:00 72 [in_us] [facility] Weight 2018-11-24 14:26:00 222.3125 [lb_av] [facility] Body Mass Index Calculated 2018-11-24 14:26:00 30.15 kg/m2 [facility] Heart Rate 2018-11-24 14:26:00 71 /min [facility] BP Systolic 2018-11-16 11:53:00 162 mm[Hg] Location: LLE; Positi on: Sitting [facility] BP Diastolic 2018-11-16 11:53:00 77 mm[Hg] Location: LLE; Positi on: Sitting [facility] Weight 2018-11-16 11:53:00 211 [lb_av] [facility] Body Mass Index Calculated 2018-11-16 11:53:00 28.62 kg/m2 [facility] Heart Rate 2018-11-16 11:53:00 56 /min [facility] BP Systolic 2018-08-24 16:30:00 140 mm[Hg] [facility] BP Diastolic 2018-08-24 16:30:00 70 mm[Hg] [facility] Heart Rate 2018-08-24 16:30:00 62 /min [facility] BP Systolic 2018-08-24 15:34:00 134 mm[Hg] Location: [place]; Positi on: Sitting [facility] BP Diastolic 2018-08-24 15:34:00 75 mm[Hg] Location: LUE; Positi on: Sitting [facility] Heart Rate 2018-08-24 15:34:00 54 /min [facility] Height 2018-08-24 15:34:00 72 [in_us] [facility] Weight 2018-08-24 15:34:00 220.375 [lb_av] [facility] Body Mass Index Calculated 2018-08-24 15:34:00 29.89 kg/m2 [facility] BP Systolic 2018-06-30 14:53:00 95 mm[Hg] Location: CHERELLE; Positi on: Sitting [facility] BP Diastolic 2018-06-30 14:53:00 57 mm[Hg] Location: CHERELLE; Positi on: Sitting [facility] Height 2018-06-30 14:53:00 72 [in_us] [facility] Weight 2018-06-30 14:53:00 220 [lb_av] [facility] Body Mass Index Calculated 2018-06-30 14:53:00 29.84 kg/m2 [facility] Heart Rate 2018-06-30 14:53:00 62 /min Location: L Radial; [facility] O2 SAT 2018-06-30 14:53:00 94 % Source: RA [facility] BP Systolic 2018-05-12 14:45:00 125 mm[Hg] Location: [place]; Positi on: Sitting [facility] BP Diastolic 2018-05-12 14:45:00 74 mm[Hg] Location: [place]; Positi on: Sitting [facility] Weight 2018-05-12 14:45:00 216.3125 [lb_av] [facility] Body Mass Index Calculated 2018-05-12 14:45:00 29.34 kg/m2 [facility] Heart Rate 2018-05-12 14:45:00 73 /min [facility] Height 2018-05-12 14:45:00 72 [in_us] [facility] BP Systolic 2018-05-12 14:39:00 138 mm[Hg] [facility] BP Diastolic 2018-05-12 14:39:00 70 mm[Hg] [facility] Weight 2018-05-12 14:39:00 216.5 [lb_av] [facility] Body Mass Index Calculated 2018-05-12 14:39:00 29.36 kg/m2 [facility] Heart Rate 2018-05-12 14:39:00 73 /min [facility] BP Systolic 2018-02-04 14:46:00 120 mm[Hg] [facility]: [facility] BP Diastolic 2018-02-04 14:46:00 68 mm[Hg] Location: MOON [facility] Height 2018-02-04 14:46:00 72 [in_us] [facility] Weight 2018-02-04 14:46:00 232 [lb_av] [facility] Body Mass Index Calculated 2018-02-04 14:46:00 31.47 kg/m2 [facility] Temperature 2018-02-04 14:46:00 97.9 [degF] Method: Oral [facility] Heart Rate 2018-02-04 14:46:00 94 /min Location: L Brachial Artery; [facility] BP Systolic 2017-12-02 13:56:00 133 mm[Hg] Location: MOON Mcfarlane on: Sitting [facility] BP Diastolic 2017-12-02 13:56:00 75 mm[Hg] Location: MOON Mcfarlane on: Sitting [facility] Height 2017-12-02 13:56:00 72 [in_us] [facility] Weight 2017-12-02 13:56:00 224.125 [lb_av] [facility] Body Mass Index Calculated 2017-12-02 13:56:00 30.4 kg/m2 [facility] Heart Rate 2017-12-02 13:56:00 83 /min Location: L Radial; [facility] BP Systolic 2017-11-11 15:40:00 110 mm[Hg] [facility] BP Diastolic 2017-11-11 15:40:00 70 mm[Hg] [facility] BP Systolic 2017-11-11 15:27:00 94 mm[Hg] Location: MAEVEE; Positi on: Sitting [facility] BP Diastolic 2017-11-11 15:27:00 55 mm[Hg] Location: LUE; Positi on: Sitting [facility] Height 2017-11-11 15:27:00 72 [in_us] [facility] Weight 2017-11-11 15:27:00 231.1875 [lb_av] [facility] Body Mass Index Calculated 2017-11-11 15:27:00 31.35 kg/m2 [facility] Heart Rate 2017-11-11 15:27:00 74 /min [facility] BP Systolic 2017-08-11 14:53:00 138 mm[Hg] [facility] BP Diastolic 2017-08-11 14:53:00 78 mm[Hg] [facility] BP Systolic 2017-08-11 14:26:00 111 mm[Hg] Location: CHERELLE; Positi on: Sitting [facility] BP Diastolic 2017-08-11 14:26:00 64 mm[Hg] Location: MAEVEE; Positi on: Sitting [facility] Height 2017-08-11 14:26:00 72 [in_us] [facility] Weight 2017-08-11 14:26:00 232.0625 [lb_av] [facility] Body Mass Index Calculated 2017-08-11 14:26:00 31.47 kg/m2 [facility] Heart Rate 2017-08-11 14:26:00 73 /min [facility] BP Systolic 2017-06-22 15:30:00 118 mm[Hg] Location: CHERELLE; Positi on: Sitting [facility] BP Diastolic 2017-06-22 15:30:00 72 mm[Hg] Location: CHERELLE; Positi on: Sitting [facility] Height 2017-06-22 15:30:00 72 [in_us] [facility] Weight 2017-06-22 15:30:00 229.375 [lb_av] [facility] Body Mass Index Calculated 2017-06-22 15:30:00 31.11 kg/m2 [facility] Heart Rate 2017-06-22 15:30:00 87 /min Location: L Brachial Artery; [facility] BP Systolic 2017-05-11 16:09:00 140 mm[Hg] [facility] BP Diastolic 2017-05-11 16:09:00 70 mm[Hg] [facility] BP Systolic 2017-05-11 15:43:00 144 mm[Hg] Location: CHERELLE; Positi on: Sitting [facility] BP Diastolic 2017-05-11 15:43:00 66 mm[Hg] Location: CHERELLE; Positi on: Sitting [facility] Height 2017-05-11 15:43:00 72 [in_us] [facility] Weight 2017-05-11 15:43:00 235.5 [lb_av] [facility] Body Mass Index Calculated 2017-05-11 15:43:00 31.94 kg/m2 [facility] Heart Rate 2017-05-11 15:43:00 61 /min [facility] BP Systolic 2017-02-05 13:30:00 110 mm[Hg] [facility] BP Diastolic 2017-02-05 13:30:00 70 mm[Hg] [facility] BP Systolic 2017-02-05 13:11:00 107 mm[Hg] Location: CHERELLE; Positi on: Sitting [facility] BP Diastolic 2017-02-05 13:11:00 61 mm[Hg] Location: CHERELLE; Positi on: Sitting [facility] Height 2017-02-05 13:11:00 72 [in_us] [facility] Weight 2017-02-05 13:11:00 224.3125 [lb_av] [facility] Body Mass Index Calculated 2017-02-05 13:11:00 30.42 kg/m2 [facility] Heart Rate 2017-02-05 13:11:00 71 /min [facility] BP Systolic 2016-12-17 15:04:00 92 mm[Hg] Location: MOON Mcfarlane on: Sitting [facility] BP Diastolic 2016-12-17 15:04:00 54 mm[Hg] Location: MOON Mcfarlane on: Sitting [facility] Height 2016-12-17 15:04:00 72 [in_us] [facility] Weight 2016-12-17 15:04:00 233 [lb_av] [facility] Body Mass Index Calculated 2016-12-17 15:04:00 31.6 kg/m2 [facility] Heart Rate 2016-12-17 15:04:00 57 /min Location: L Radial; [facility] Procedures Procedure Date / Time Performed Performing Clinician Sour e [U] XRAY SHOULDER MIN 2 VWS LEFT [id number] 2019-06-26 00:00:00 [facility] [U] XRAY SHOULDER MIN 2 VWS LEFT [id number] 2019-04-28 00:00:00 [facility] [U] XRAY SHOULDER MIN 2 VWS LEFT [id number] 2019-03-20 00:00:00 [facility] Post Op Promis 29 Survey 2019-03-03 00:00:00 Uni [facility] [U] XRAY SHOULDER MIN 2 VWS LEFT [id number] 2019-02-02 00:00:00 [facility] [U] XRAY SHOULDER MIN 2 VWS LEFT [id number] 2019-01-30 00:00:00 [facility] [[facility]] CBC (INCLUDES DIFF/PLT) 2019-01-19 00:00:00 [facility] [[facility]] CMP W/EGFR 2019-01-19 00:00:00 [facility] [[facility]] CREATINE KINASE, TOTAL 2019-01-19 00:00:00 [facility] [[facility]] LIPID PANEL 2019-01-19 00:00:00 [facility] [[facility]] TSH, 3RD GENERATION W/REFLEX TO FT4 2019-01-19 00:00:00 [facility] Initial Promis 29 Survey 2018-12-29 00:00:00 [facility] MR Shoulder wo contrast [id number] 2018-11-17 00:00:00 [facility] [[facility]] CBC (INCLUDES DIFF/PLT) 2018-06-30 00:00:00 [facility] [[facility]] CMP W/EGFR 2018-06-30 00:00:00 University [facility] [[facility]] CREATINE KINASE, TOTAL 2018-06-30 00:00:00 [facility] [[facility]] LIPID PANEL 2018-06-30 00:00:00 [facility] [QL] TSH, 3RD GENERATION W/REFLEX TO FT4 2018-06-30 00:00:00 University [facility] [N] 2D Echo complete, with Doppler [id number] 2018-06-30 00:00:00 University [facility] STRAPPING OF SHOULDER 2018-02-02 00:00:00 GABINO VILLEGAS [facility] [[facility]] CBC (INCLUDES DIFF/PLT) 2017-12-02 00:00:00 University [facility] [QLH] CMP W/EGFR 2017-12-02 00:00:00 [facility] [QL] LIPID PANEL 2017-12-02 00:00:00 University [facility] [QL] TSH, 3RD GENERATION 2017-12-02 00:00:00 [facility]] CREATINE KINASE, TOTAL 2017-12-02 00:00:00 [facility] [QL] CBC (INCLUDES DIFF/PLT) 2017-06-22 00:00:00 University [facility] [QLH] CMP W/EGFR 2017-06-22 00:00:00 [facility] [QL[facility]] MAGNESIUM 2017-06-22 00:00:00 [facility] [QLH] CREATINE KINASE, TOTAL 2017-06-22 00:00:00 University [facility] [QLH] LIPID PANEL 2017-06-22 00:00:00 University [facility] [QL] TSH, 3RD GENERATION W/REFLEX TO FT4 2017-06-22 00:00:00 [facility] [QL] HEMOGLOBIN A1c 2017-06-22 00:00:00 [facility] [QL] LIPID PANEL 2016-12-17 00:00:00 [facility] [QL] CBC (INCLUDES DIFF/PLT) 2016-12-17 00:00:00 University [facility] [QL[facility]] CMP W/EGFR 2016-12-17 00:00:00 University [facility] [QLH] CREATINE KINASE, TOTAL 2016-12-17 00:00:00 [facility] [QL] TSH, 3RD GENERATION 2016-12-17 00:00:00 [facility] [QL[facility]] HEMOGLOBIN A1c 2016-12-17 00:00:00 [facility] [QL] CARDIO CRP(R) 2016-12-17 00:00:00 [facility] CABG University [facility] History of Hernia Repair [facility] History of Cataract Surgery [facility] History of Shoulder Surgery [facility] Plan of Care Planned Activity Planned Date Details Comments Source Diagnostic Test Pending 2018-11-17 00:00:00 MR Shoulder wo c ontrast [id number] [code = 37823] [facility] Diagnostic Test Pending 2018-06-30 00:00:00 [N] 2D Echo comp lete, with Doppler [id number] [code = [N] 2D Echo complete, with Doppler 35804] [facility] Diagnostic Test Pending 2018-06-30 00:00:00 [N] 2D Echo comp lete, with Doppler 04564 [code = [N] 2D Echo complete, with Doppler 23894] [facility] Future Scheduled Test 2013-05-17 15:45:27 Plan of Care [code = 1877 6-5] [facility] Scheduled Test 2013-05-17 14:30:54 Plan of Care [code = 1877 6-5] [facility] Scheduled Test 2013-05-12 22:15:25 Plan of Care [code = 1877 6-5] [facility] Scheduled Test 2013-05-11 19:15:21 Plan of Care [code = 1877 6-5] [facility] Scheduled Test 2013-02-23 21:00:32 Plan of Care [code = 1877 6-5] [facility] Scheduled Test 2013-02-21 22:15:35 Plan of Care [code = 1877 6-5] [facility] Scheduled Test 2013-02-10 17:25:48 Plan of Care [code = 1877 6-5] [facility] Scheduled Test 2013-02-06 18:15:59 Plan of Care [code = 1877 6-5] [facility] Scheduled Test 2013-01-31 19:30:30 Plan of Care [code = 1877 6-5] [facility] Scheduled Test 2013-01-26 22:45:21 Plan of Care [code = 1877 6-5] [facility] Scheduled Test 2013-01-25 17:15:12 Plan of Care [code = 1877 6-5] [facility] Scheduled Test 2013-01-24 16:45:04 Plan of Care [code = 1877 6-5] [facility] Scheduled Test 2013-01-04 20:30:55 Plan of Care [code = 1877 6-5] [facility] Scheduled Test 2013-01-02 18:40:41 Plan of Care [code = 1877 6-5] [facility] Scheduled Test 2012-11-18 17:15:12 Plan of Care [code = 1877 6-5] [facility] Scheduled Test 2012-11-18 13:45:26 Plan of Care [code = 1877 6-5] [facility] Scheduled Test 2012-11-17 22:30:14 Plan of Care [code = 1877 6-5] [facility] Scheduled Test 2012-10-21 13:15:12 Plan of Care [code = 1877 6-5] [facility] Scheduled Test 2012-09-23 13:55:37 Plan of Care [code = 1877 6-5] [facility] Scheduled Test 2012-09-22 21:26:53 Plan of Care [code = 1877 6-5] [facility] Scheduled Test 2012-09-22 18:55:27 Plan of Care [code = 1877 6-5] [facility] Scheduled Test 2012-09-12 22:00:24 Plan of Care [code = 1877 6-5] [facility] Scheduled Test 2012-09-12 14:30:25 Plan of Care [code = 1877 6-5] [facility] Scheduled Test 2012-09-09 23:30:05 Plan of Care [code = 1877 6-5] [facility] Scheduled Test 2012-08-12 18:36:17 Plan of Care [code = 1877 6-5] [facility] Scheduled Test 2012-07-25 16:31:34 Plan of Care [code = 1877 6-5] [facility] Scheduled Test 2012-07-22 20:40:27 Plan of Care [code = 1877 6-5] [facility] Scheduled Test 2012-07-21 23:15:07 Plan of Care [code = 1877 6-5] [facility] Scheduled Test 2012-06-23 19:20:44 Plan of Care [code = 1877 6-5] [facility] Scheduled Test 2012-06-10 14:45:53 Plan of Care [code = 1877 6-5] [facility] Scheduled Test 2012-05-20 20:46:07 Plan of Care [code = 1877 6-5] [facility] Scheduled Test 2012-05-20 11:30:08 Plan of Care [code = 1877 6-5] [facility] Scheduled Test 2012-04-25 14:16:18 Plan of Care [code = 1877 6-5] [facility] Scheduled Test 2012-04-08 17:15:45 Plan of Care [code = 1877 6-5] [facility] Scheduled Test [QLH] CBC (INCLUDE S DIFF/PLT) [code = [QLH] CBC (INCLUDES DIFF/PLT)] BEFORE 12/28/17 [facility] Future Scheduled Test [QLH] CMP W/EGFR [code = [ QLH] CMP W/EGFR] BEFORE 12/28/17 [facility] Future Scheduled Test [QLH] MAGNESIUM [code = [Q LH] MAGNESIUM] BEFORE 12/28/17 [facility] Future Scheduled Test [QLH] CREATINE KIN ASE, TOTAL [code = [QLH] CREATINE KINASE, TOTAL] BEFORE 12/28/17 [facility] Future Scheduled Test [QLH] LIPID PANEL [code = [QLH] LIPID PANEL] BEFORE 12/28/17 [facility] Future Scheduled Test [QLH] TSH, 3RD GEN ERATION W/REFLEX TO FT4 [code = [QLH] TSH, 3RD GENERATION W/REFLEX TO FT4] BEFORE 12/28/17 [facility] Future Scheduled Test [QLH] HEMOGLOBIN A1c [code = [QLH] HEMOGLOBIN A1c] BEFORE 12/28/17 [facility] Future Scheduled Test [QLH] CBC (INCLUDE S DIFF/PLT) [code = [QLH] CBC (INCLUDES DIFF/PLT)] ONE WEEK BEFORE DEC APPT [facility] Future Scheduled Test [QLH] CMP W/EGFR [code = [ QLH] CMP W/EGFR] ONE WEEK BEFORE DEC APPT [facility] Future Scheduled Test [QLH] CREATINE KIN ASE, TOTAL [code = [QLH] CREATINE KINASE, TOTAL] ONE WEEK BEFORE JAN APPT [facility] Future Scheduled Test [QLH] LIPID PANEL [code = [QLH] LIPID PANEL] ONE WEEK BEFORE JAN APPT [facility] Future Scheduled Test [QLH] TSH, 3RD GEN ERATION W/REFLEX TO FT4 [code = [QLH] TSH, 3RD GENERATION W/REFLEX TO FT4] ONE WEEK BEFORE DEC APPT [facility] Future Appointment 2020-01-02 14:30:00 Melodie AGUSTIN, [facility] Future Appointment 2019-10-10 14:15:00 Melodie JACOBSEN, [facility] Future Appointment 2019-07-27 15:00[facility]00 [facility] Start Date/Time End Date/Time Encounter Type Admission Type Attendi [facility] Care Department Encounter ID Source 2019-06-29 09:00:00 2019-06-29 09:00:00 Appointment; ANN-MARIE HYATT M .D. CHIU, ALICE, M.D. [facility] [id number] [facility] 2019-06-27 15:00:00 2019-06-27 15:00:00 Appointment; VAMSI CHAUHAN M.D. TORRES-BARRE, LAURA, M.D. [facility] [id number] [facility] 2019-05-11 14:00:00 2019-05-11 14:00:00 Appointment; VAMSI CHAUHAN M.D. TORRES-BARRE, LAURA, M.D. [facility] [id number] [facility] 2019-03-30 15:15:00 2019-03-30 15:15:00 Appointment; ANN-MARIE HYATT M .D. CHIU, ALICE, M.D. [facility], [address] [id number] [facility] 2019-03-21 13:00:00 2019-03-21 13:00:00 Appointment; VAMSI CHAUHAN M.D. TORRES-BARRE, LAURA, M.D. [facility] 61 [id number] [facility] 2019-02-14 12:00:00 2019-02-14 12:00:00 Appointment; VAMSI CHAUHAN M.D. TORRES-BARRE, LAURA, M.D. [facility] 60 [id number] [facility] 2019-02-03 11:00:00 2019-02-03 11:00:00 Appointment; VAMSI CHAUHAN M.D. TORRES-BARRE, LAURA, M.D. [facility] [id number] [facility] 2019-01-31 16:30:00 2019-01-31 16:30:00 Appointment; VAMSI CHAUHAN M.D. TORRES-BARRE, LAURA, M.D. [facility] 58 [id number] [facility] 2019-01-23 13:00:00 2019-01-23 13:00:00 Appointment; VAMSI CHAUHAN M.D. TORRES-BARRE, LAURA, M.D. [facility] [id number] [facility] 2019-01-19 15:20:00 2019-01-19 15:20:00 Appointment; FR GERRI GALLARDO M.D. FUENTES, FRANCISCO, M.D. [facility] Cardiology [facility] [id number] [facility] 2019-01-11 14:00:00 2019-01-11 14:00:00 Appointment; ELIZABETHSHORE-MS, E DEANDRE BAYSHORE-MS, ECHO [facility] Multispec[facility]ty [facility] [id number] [facility] 2018-12-20 15:30:00 2018-12-20 15:30:00 Appointment; VAMSI CHAUHAN M.D. TORRES-BARRE, LAURA, M.D. [facility] Orthopedics [facility] 57 [id number] [facility] 2018-11-24 14:15:00 2018-11-24 14:15:00 Appointment; ANN-MARIE HYATT M .D. CHIU, ALICE, M.D. [facility] [id number] [facility] 2018-11-16 10:30:00 2018-11-16 10:30:00 Appointment; VAMSI CHAUHAN M.D. TORRES-BARRE, LAURA, M.D. [facility] Orthopedics [facility] [id number] [facility] 2018-09-06 09:00:00 2018-09-14 23:59:00 Discharged Recurring [facility] [id number] [facility] 2018-08-24 15:45:00 2018-08-24 15:45:00 Appointment; ANN-MARIE HYATT M .D. CHIU, ALICE, M.D. [facility] [id number] [facility] 2018-07-21 09:06:00 2018-08-14 23:59:00 Discharged Recurring [facility] [id number] [facility] 2018-06-15 10:15:00 2018-07-15 23:59:00 Discharged Recurring [facility] [id number] [facility] 2018-06-30 15:20:00 2018-06-30 15:20:00 Appointment; FR GERRI GALLARDO M.D. FUENTES, FRANCISCO, M.D. [facility] [id number] [facility] 2018-05-17 11:07:00 2018-06-14 23:59:00 Discharged Recurring [facility] [id number] [facility] 2018-06-02 15:00:00 2018-06-02 15:00:00 Appointment; FR GERRI GALLARDO M.D. FUENTES, FRANCISCO, M.D. [facility] [id number] [facility] 2018-04-18 14:48:00 2018-05-15 23:59:00 Discharged Recurring [facility] [id number] [facility] 2018-05-12 14:15:00 2018-05-12 14:15:00 Appointment; ANN-MARIE HYATT M .D. CHIU, ALICE, M.D. [facility] [id number] [facility] 2018-04-08 08:07:00 2018-04-14 23:59:00 Discharged Recurring [facility] [id number] [facility] 2018-02-04 14:45:00 2018-02-04 14:45:00 Appointment; ANN-MARIE HYATT M .D. CHIU, ALICE, [facility] [address] [id number] [facility] 2018-02-02 17:33:00 2018-02-02 18:48:00 Departed Emergency Room 1 GABINO VILLEGAS [facility] [id number] [facility] 2017-12-28 14:40:00 2017-12-28 14:40:00 Appointment; FR GERRI GALLARDO M.D. FUENTES, FRANCISCO, M.D. [facility] [id number] [facility] [place] [facility] 2017-12-02 14:40:00 2017-12-02 14:40:00 Appointment; FR GERRI GALLARDO M.D. FUENTES, FRANCISCO, M.D. [facility] Cardiology [id number] [facility] [place] [facility] 2017-11-11 15:15:00 2017-11-11 15:15:00 Appointment; ANN-MARIE HYATT M .D. CHIU, ALICE, M.D. [facility] [id number] [facility] 2017-08-11 14:15:00 2017-08-11 14:15:00 Appointment; ANN-MARIE HYATT M .D. CHIU, ALICE, M.D. [facility] [id number] [facility] 2017-06-22 15:00:00 2017-06-22 15:00:00 Appointment; FR GERRI GALLARDO M.D. FUENTES, FRANCISCO, M.D. [facility] Cardiology [id number] [facility] [place] [facility] 2017-05-11 15:45:00 2017-05-11 15:45:00 Appointment; OLENAANN-MARIE Manning M .D. CHIU, ALICE, M.D. [facility] [id number] [facility] 2017-02-05 13:00:00 2017-02-05 13:00:00 Appointment; ANN-MARIE HYATT M .D. CHIU, ALICE, M.D. [facility] [id number] [facility] 2016-12-17 14:40:00 2016-12-17 14:40:00 Appointment; FR GERRI GALLARDO M.D. FUENTES, FRANCISCO, M.D. [facility]TP [id number] [facility] [place] [facility] 2016-12-01 14:30:00 2016-12-01 14:30:00 Appointment; AMY JOHNSON M.D. JAMALYARIA, FAROKH, M.D. [facility] UTP [id number] [facility] [place] [facility] 2016-11-20 13:30:00 2016-11-20 13:30:00 Appointment; ANN-MARIE HYATT M .D. CHIU, ALICE, M.D. [facility] UTP [id number] [facility] 2016-09-01 15:00:00 2016-09-01 15:00:00 Appointment; AMY JOHNSON M.D. JAMALYARIA, FAROKH, M.D. [facility] UTP [id number] [facility] [place] [facility] 2016-08-28 14:15:00 2016-08-28 14:15:00 Appointment; ANN-MARIE HYATT M .D. CHIU, ALICE, M.D. [facility] UTP [id number] [facility] 2016-07-30 15:30:00 2016-07-30 15:30:00 Appointment; AMY JOHNSON M.D. JAMALYARIA, FAROKH, M.D. [facility] UTP [id number] [facility] [place] [facility] 2016-07-29 15:00:00 2016-07-29 15:00:00 Appointment; AMY JOHNSON M.D. JAMALYARIA, FAROKH, M.D. [facility] UTP [id number] [facility] [place] [facility] 2016-06-11 14:40:00 2016-06-11 14:40:00 Appointment; FR GERRI GALLARDO M.D. FUENTES, FRANCISCO, M.D. [facility] UTP [id number] [facility] [place] [facility] 2016-05-14 14:15:00 2016-05-14 14:15:00 Appointment; ANN-MARIE HYATT M .D. CHIU, ALICE, M.D. [facility] [id number] [facility] 2016-02-14 09:30:00 2016-02-14 09:30:00 Appointment; ANN-MARIE HYATT M .D. CHIU, ALICE, M.D. [facility] [id number] [facility] 2016-01-29 15:00:00 2016-01-29 15:00:00 Appointment; AMY JOHNSON M.D. JAMALYARIA, FAROKH, M.D. [facility] [place] [facility] [id number] [facility] 2015-12-19 13:00:00 2015-12-19 13:00:00 Appointment; AMY JOHNSON M.D. JAMALYARIA, FAROKH, M.D. [facility] UTP [id number] [facility] 2015-12-12 15:00:00 2015-12-12 15:00:00 Appointment; FR GERRI GALLARDO M.D. FUENTES, FRANCISCO, M.D. [facility] UTP [id number] [facility] 2015-12-05 14:15:00 2015-12-05 14:15:00 Appointment; ANN-MARIE HYATT M .D. CHIU, ALICE, M.D. [facility] [id number] [facility] 2015-08-29 14:45:00 2015-08-29 14:45:00 Appointment; ANN-MARIE HYATT M .D. CHIU, ALICE, M.D. [facility] [id number] [facility] 2015-07-04 13:30:00 2015-07-04 13:30:00 Appointment; [facility] WHITE M.D. FINKEL, KEVIN, M.D. [facility] UTP [id number] [facility] 2015-06-27 13:00:00 2015-06-27 13:00:00 Appointment; [facility] WHITE M.D. FINKEL, KEVIN, M.D. [facility] [id number] [facility] 2015-06-13 14:40:00 2015-06-13 14:40:00 Appointment; FR GERRI GALLARDO M.D. FUENTES, FRANCISCO, M.D. [facility]TP [id number] [facility] 2015-05-08 14:45:00 2015-05-08 14:45:00 Appointment; ANN-MARIE HYATT M .D. CHIU, ALICE, M.D. [facility] [id number] [facility] 2015-02-05 14:15:00 2015-02-05 14:15:00 Appointment; ANN-MARIE HYATT M .D. CHIU, ALICE, M.D. [facility] [id number] [facility] 2015-01-28 13:00:00 2015-01-28 13:00:00 Appointment; [place] [facility] UTP [id number] [facility] 2015-01-24 14:20:00 2015-01-24 14:20:00 Appointment; FR GERRI GALLARDO M.D. FUENTES, FRANCISCO, M.D. [facility] UTP [id number] [facility] 2013-05-17 10:45:28 2013-05-17 10:45:27 Outpatient MHIE MHIE [id number] 2013-05-17 09:30:56 2013-05-17 09:30:54 Outpatient MHIE MHIE [id number] 2013-05-12 17:15:27 2013-05-12 17:15:25 Outpatient MHIE MHIE [id number] 2013-05-11 14:15:22 2013-05-11 14:15:21 Outpatient MHIE MHIE [id number] 2013-02-23 15:00:33 2013-02-23 15:00:32 Outpatient MHIE MHIE [id number] 2013-02-21 16:15:37 2013-02-21 16:15:35 Outpatient MHIE MHIE [id number] 2013-02-10 11:25:51 2013-02-10 11:25:48 Outpatient MHIE MHIE [id number] 2013-02-06 12:16:01 2013-02-06 12:15:59 Outpatient MHIE MHIE [id number] 2013-01-31 13:30:31 2013-01-31 13:30:30 Outpatient MHIE MHIE [id number] 2013-01-26 16:45:23 2013-01-26 16:45:21 Outpatient MHIE MHIE [id number] 2013-01-25 11:15:14 2013-01-25 11:15:12 Outpatient MHIE MHIE [id number] 2013-01-24 10:45:06 2013-01-24 10:45:04 Outpatient MHIE MHIE [id number] 2013-01-04 14:30:56 2013-01-04 14:30:55 Outpatient MHIE MHIE [id number] 2013-01-02 12:40:44 2013-01-02 12:40:41 Outpatient MHIE MHIE [id number] 2012-11-18 12:15:14 2012-11-18 12:15:12 Outpatient MHIE MHIE [id number] 2012-11-18 08:45:27 2012-11-18 08:45:26 Outpatient MHIE MHIE [id number] 2012-11-17 17:30:16 2012-11-17 17:30:14 Outpatient MHIE MHIE [id number] 2012-10-21 08:15:13 2012-10-21 08:15:12 Outpatient MHIE MHIE [id number] 2012-09-23 08:55:58 2012-09-23 08:55:37 Outpatient MHIE MHIE [id number] 2012-09-22 16:27:15 2012-09-22 16:26:53 Outpatient MHIE MHIE [id number] 2012-09-22 13:55:51 2012-09-22 13:55:27 Outpatient MHIE MHIE [id number] 2012-09-12 17:00:25 2012-09-12 17:00:24 Outpatient MHIE MHIE [id number] 2012-09-12 09:30:26 2012-09-12 09:30:25 Outpatient MHIE MHIE [id number] 2012-09-09 18:30:26 2012-09-09 18:30:05 Outpatient MHIE MHIE [id number] 2012-08-12 13:36:39 2012-08-12 13:36:17 Outpatient MHIE MHIE [id number] 2012-07-25 11:31:57 2012-07-25 11:31:34 Outpatient MHIE MHIE [id number] 2012-07-22 15:40:50 2012-07-22 15:40:27 Outpatient MHIE MHIE [id number] 2012-07-21 18:15:30 2012-07-21 18:15:07 Outpatient MHIE MHIE [id number] 2012-06-23 14:21:04 2012-06-23 14:20:44 Outpatient MHIE MHIE [id number] 2012-06-10 09:46:13 2012-06-10 09:45:53 Outpatient MHIE MHIE [id number] 2012-05-20 15:46:28 2012-05-20 15:46:07 Outpatient MHIE MHIE [id number] 2012-05-20 06:30:27 2012-05-20 06:30:08 Outpatient MHIE MHIE [id number] 2012-04-25 09:16:37 2012-04-25 09:16:18 Outpatient MHIE MHIE [id number] 2012-04-08 11:16:05 2012-04-08 11:15:45 Outpatient MHIE MHIE [id number] Results Test Description Test Time Test Comments Results Result Comments Source CHEST SINGLE (PORTABLE) 2019-07-20 15:45:00 [place] [address] Patient Name: VERONICA LEOS MR #: [id number] : 1935 Age/Sex: 83/M Req #: [id number] Adm Physician: Ordered by: BILLY NAVAS DO Report #: [id number] Location: ER Room/Bed: Procedure: [id number] DX/CHEST SINGLE (PORTABLE) Exam Date: 07/20/19 Exam Time: 1518 REPORT STATUS: Signed EXAM: CHEST SINGLE (PORTABLE) DATE: 07/20/2019 3:18 PM INDICATION: Hyperkalemia COMPARISON: 02/02/2018 FINDINGS: There are postsurgical changes from prior median sternotomy. The trachea is midline. Right basilar opacities identified daly ggestive of atelectasis. The lungs are otherwise symmetrically expanded without evidence for large focal consolidation, pneumothorax, or significant pleural effusion. Cardiomediastinal silhouette appears mildly prominent which may be secondary to technique. Atherosclerotic calcifications noted within the thoracic aorta. There are partially visualized postsurgical changes from left shoulder arthroplasty. No acute osseous abnormality is identified. IMPRESSION: No acute cardiopulmonary process identified. Signed by: Dr. Lewis Paulino MD on 07/20/2019 3:47 PM Dictated By: LEWIS PAULINO MD 154 Transcribed By: TERESA on 07/20/19 1547 COPY TO: BILLY NAVAS DO [O] Hemoglobin A1c (in office) 2019-06-29 09:05:00 Test Item HEMOGLOBIN A1c (test code = 4548-4) 7.3 [facility]2019-06-29 09:05:00* Test Item Value Reference Range Interpretation Comments Glucose POC Lifescan (test code = Glucose POC Lifescan) 117 [facility][U] XRAY SHOULDER MIN 2 VWS LEFT [id number] 14:57:00Images acquired, not reported on this accession number.[facility][O] Hemoglobin A1c (in office)2019-03-30 15:26:00* Test Item Value Reference Range Interpretation Comments HEMOGLOBIN A1c (test code = 4548-4) 5.8 [facility]2019-03-30 15:25:00* Test Item Value Reference Range Interpretation Comments Glucose POC Lifescan (test code = Glucose POC Lifescan) 167 [facility]icians[facility] Op Promis 29 [id number] 10:29:30* Test Item Value Reference Range Interpretation Comments Pain Interference: (test code = Pain Interference:) 57.3 1 N Pain Intensity: (test code = Pain Intensity:) 40.5 1 N Physical Function: (test code = Physical Function:) 43.2 1 N Satisfaction Role: (test code = Satisfaction Role:) 40 1 N [facility][U] XRAY SHOULDER MIN 2 VWS LEFT [id number] 12:50:00Images acquired, not reported on this accession number.[facility][U] XRAY SHOULDER MIN 2 VWS LEFT [id number] 10:53:00Images acquired, not reported on this accession number.[facility] Initial Promis 29 [id number] 09:55:30* Test Item Value Reference Range Interpretation Comments Pain Interference: (test code = Pain Interference:) 65.6 1 N Pain Intensity: (test code = Pain Intensity:) 51.3 1 N Physical Function: (test code = Physical Function:) 39.8 1 N Satisfaction Role: (test code = Satisfaction Role:) 45.8 1 N [facility]] LIPID [id number] 08:47:00* Test Item Value Reference Range Interpretation [...] Lipidol. 2015;9:129-169. LDL-CHOLESTEROL; Normal (test code = 53999-3) 72 {MG/DL MEHNAZ} N Reference range: <100 Desirable range <100 mg/dL for primary prevention; <70 mg/dL for patients with CHD or diabetic patients with > or = 2 CHD risk factors. LDL-C is now calculated using the Crystal calculation, which is a validated novel method providing better accuracy than the Friedewald equation in the estimation of LDL-C. Dmitriy EATON et al. JONNA. 2013;310(19): 1635-2980 (http ://education.engageSimply.autoGraph/faq/HWW154) CHOL/HDLC RATIO (test code = CHOL/HDLC RATIO) 3.6 {CALC} <5.0 N NON HDL CHOLESTEROL (test code = NON HDL CHOLESTEROL) 104 {MG/DL C AL} <130 N For patients with diabetes plus 1 major ASCVD risk factor, treating to a non-HDL-C goal of <100 mg/dL (LDL-C of <70 mg/dL) is considered a therapeutic option. [facility]] CMP [id number] 08:47:00* Test Item Value Reference Range Interpretation [...] is approximately 13% higher for peopleidentified as -Estonian. eGFR NON- (test code = eGFR NON-MANJULA N CYMRAES) 51 {ML/MIN/1.7} > OR = 60 eGFR [...] N BILIRUBIN, TOTAL; Normal (test code = 07482-7) 0.4 mg/dl 0.2-1.2 N ALKALINE PHSPHATASE (test code = ALKALINE PHSPHATASE) 107 u/l 40-115 N AST; Normal (test code = 1916-6) 19 u/l 10-35 N ALT; Normal (test code = 1742-6) 29 u/l 9-46 N [facility]] CREATINE KINASE, [id number] 08:47:00* Test Item Value Reference Range Interpretation Comments CREATINE KINASE, TOTAL (test code = CREATINE KINASE, TOTAL) 52 u/l 44-196 N [facility]] CBC (INCLUDES DIFF/PLT)2018-12-29 08:47:00* Test Item Value Reference Range Interpretation Comments WHITE BLOOD CELL COUNT (test code = WHITE BLOOD CELL COUNT) 5.2 {Thousand/u} 3.8-10.8 N RED BLOOD CELL COUNT (test code = RED BLOOD CELL COUNT) 4.27 {Million/uL} 4.20-5.80 N HEMAGLOBIN; Normal (test code = 92204-7) 13.6 g/dl 13.2-17.1 N HEMATOCRIT; Normal (test code = 4544-3) 40.3 % 38.5-50.0 N MCV; Normal (test code = 787-2) 94.4 fL 80.0-100.0 N MCHC; Normal (test code = 95654-1) 33.7 g/dl 32.0-36.0 N RDW; Normal (test code = 788-0) 13.1 % 11.0-15.0 N PLATELET COUNT; Below Low Threshold (test code = 777-3) 122 {Thousand/u} 140-400 MPV; Normal (test code = 98219-6) 10.7 fL 7.5-12.5 N ABSOLUTE NEUTROPHILS (test code = ABSOLUTE NEUTROPHILS) 2610 {cells/uL} 9882-8866 N ABSOLUTE LYMPHOCYTES (test code = ABSOLUTE [...] % N MONOCYTES; Normal (test code = 79417-7) 8.1 % N EOSINOPHILS; Normal (test code = 79259-7) 2.5 % N BASOPHILS; Normal (test code = 12672-0) 0.6 % N [facility]] TSH, 3RD [id number] 08:47:00* Test Item Value Reference Range Interpretation Comments TSH; Normal (test code = 51773-3) 4.31 {MIU/L} 0.40-4.50 N [facility][O] Hemoglobin A1c (in office)2018-11-24 14:27:00 * Test Item Value Reference Range Interpretation Comments HEMOGLOBIN A1c (test code = 4548-4) 6.2 [facility])2018-11-24 14:26:00* Test Item Value Reference Range Interpretation Comments Glucose POC Lifescan (test code = Glucose POC Lifescan) 61 [facility][U] XRAY SHOULDER MIN 2 VWS LEFT [id number] 12:01:00Images acquired, not reported on this accession number.[facility][O] Hemoglobin A1c (in office)2018-08-24 15:35:00* Test Item Value Reference Range Interpretation Comments HEMOGLOBIN A1c (test code = 4548-4) 6.3 [facility])2018-08-24 15:35:00* Test Item Value Reference Range Interpretation Comments Glucose POC Lifescan (test code = Glucose POC Lifescan) 144 [facility][O] Hemoglobin A1c (in office)2018-05-12 14:45:00 * Test Item Value Reference Range Interpretation Comments HEMOGLOBIN A1c (test code = 4548-4) 6.4 [facility])2018-05-12 14:45:00* Test Item Value Reference Range Interpretation Comments Glucose POC Lifescan (test code = Glucose POC Lifescan) 150 [facility]] LIPID [id number] 11:39:00* Test Item Value Reference Range Interpretation Comments CHOLESTEROL, TOTAL; Normal (test code = 2093-3) 147 mg/dl <200 N HDL CHOLESTEROL; Normal (test code = 2085-9) 43 mg/dl >40 N TRIGLYCERIDES; Above High Threshold (test code = 2571-8) 150 mg/dl <150 LDL-CHOLESTEROL; Normal (test code = 35417-8) 79 {MG/DL MEHNAZ} N Reference range: <100 Desirable range <100 mg/dL for primary prevention; <70 mg/dL for patients with CHD or diabetic patients with > or = 2 CHD risk factors. LDL-C is now calculated using the Crystal calculation, which is a validated novel method providing better accuracy than the Friedewald equation in the estimation of LDL-C. Dmitriy SS et al. JONNA. 2013;310(19): 5177-6010 (http ://education.Newforma/faq/FWB748) CHOL/HDLC RATIO (test code = CHOL/HDLC RATIO) 3.4 {CALC} <5.0 N NON HDL CHOLESTEROL (test code = NON HDL CHOLESTEROL) 104 {MG/DL C AL} <130 N For patients with diabetes plus 1 major ASCVD risk factor, treating to a non-HDL-C goal of <100 mg/dL (LDL-C of <70 mg/dL) is considered a therapeutic option. [facility]] CMP [id number] 11:39:00* Test Item Value Reference Range Interpretation Comments GLUCOSE; Below Low Threshold (test code = 1547-9) 49 mg/dl 65-9 9 Fasting reference interval UREA NITROGEN (BUN) (test code = UREA NITROGEN (BUN)) 35 mg/dl 7-25 CREATININE (test code = CREATININE) 1.53 mg/dl 0.70-1.11 For patients >49 years of age, the reference limitfor Creatinine is approximately 13% higher for peopleidentified as -Estonian. eGFR NON- (test code = eGFR NON-MANJULA N CYMRAES) 42 {ML/MIN/1.7} > OR = 60 eGFR [...] N BILIRUBIN, TOTAL; Normal (test code = 36847-1) 0.6 mg/dl 0.2-1.2 N ALKALINE PHSPHATASE (test code = ALKALINE PHSPHATASE) 194 u/l 40-115 AST; Normal (test code = 1916-6) 22 u/l 10-35 N ALT; Normal (test code = 1742-6) 22 u/l 9-46 N [facility]] CREATINE KINASE, [id number] 11:39:00* Test Item Value Reference Range Interpretation Comments CREATINE KINASE, TOTAL (test code = CREATINE KINASE, TOTAL) 45 u/l 44-196 N [facility]] CBC (INCLUDES DIFF/PLT)2018-05-10 11:39:00* Test Item Value Reference Range Interpretation Comments WHITE BLOOD CELL COUNT (test code = WHITE BLOOD CELL COUNT) 5.9 {Thousand/u} 3.8-10.8 N RED BLOOD CELL COUNT (test code = RED BLOOD CELL COUNT) 4.66 {Million/uL} 4.20-5.80 N HEMAGLOBIN; Normal (test code = 35597-6) 14.0 g/dl 13.2-17.1 N HEMATOCRIT; Normal (test code = 4544-3) 42.6 % 38.5-50.0 N MCV; Normal (test code = 787-2) 91.4 fL 80.0-100.0 N MCHC; Normal (test code = 21250-6) 32.9 g/dl 32.0-36.0 N RDW; Normal (test code = 788-0) 13.7 % 11.0-15.0 N PLATELET COUNT; Normal (test code = 777-3) 175 {Thousand/u} 140-400 N MPV; Normal (test code = 82426-9) 10.5 fL 7.5-12.5 N ABSOLUTE NEUTROPHILS (test code = ABSOLUTE NEUTROPHILS) 3204 {cells/uL} 8089-7972 N ABSOLUTE LYMPHOCYTES (test code = ABSOLUTE [...] % N MONOCYTES; Normal (test code = 11043-6) 9.6 % N EOSINOPHILS; Normal (test code = 30840-8) 1.5 % N BASOPHILS; Normal (test code = 06118-0) 0.3 % N [facility][] CARDIO CRP(R)2018-05-10 11:39:00* Test Item Value Reference [...] may be associated with infection and inflammation. [facility]] TSH, 3RD [id number] 11:39:00* Test Item Value Reference Range Interpretation Comments TSH; Normal (test code = 18650-1) 2.60 {MIU/L} 0.40-4.50 N [facility]] HEMOGLOBIN [id number] 11:39:00* Test Item Value Reference Range Interpretation Comments HEMOGLOBIN A1c; Above High Threshold (test code = 4548-4) 6.3 {% of total} <5.7 For someone without known diabetes, a he moglobin A1c value between 5.7% and 6.4% is consistent withprediabetes and should be confirmed with a follow-up test. For someone with known diabetes, a value <7%indicates that their diabetes is well controlled. [id number] should be individualized based on duration ofdiabetes, age, comorbid conditions, and otherconsiderations. This assay result is consistent with an increased riskof diabetes. Currently, no consensus exists regarding use ofhemoglobin A1c for diagnosis of diabetes for children. [facility][O] Hemoglobin A1c (in office)2018-02-04 14:47:00 * Test Item Value Reference Range Interpretation Comments HEMOGLOBIN A1c (test code = 4548-4) 7.8 [facility])2018-02-04 14:47:00* Test Item Value Reference Range Interpretation Comments Glucose POC Lifescan (test code = Glucose POC Lifescan) 196 [facility] PhysiciansRIBS BARBARA Calix/PRISCILA- [id number] 18:37:00 [place] [address] Patient Name: VERONICA LEOS MR #: [id number] : 1935 Age/Sex: 82/M Req #: [id number] Adm Physician: Ordered by: GABINO VILLEGAS MD Report #: [id number] Location: [facility] Room/Bed: Procedure: [id number] MG/LILIANA Calix/ROBINSONR- SONALID Exam Date: 02/02/18 Exa m Time: 1816 REPORT STATUS: Signed Left rib multiple views CPT code: 59828 History: Fall Comparis on: Humerus x-rays obtained [...] TO: GABINO VILLEGAS MD HUMERUS 2 VIEW LT - [id number] 18:31:00 [place] [address] Patient Name: VERONICA LEOS MR #: [id number] : 1935 Age/Sex: 82/M Req #: [id number] Adm Physician: Ordered by: GABINO VILLEGAS MD Report #: [id number] Location: [facility] Room/Bed: Procedure: [id number] HOPD/HUMERUS 2 VIEW LT - HOPD Exam Date: 02/02/18 Ex am Time: 1816 REPORT STATUS: Signed Humerus left CPT code: 08800 Indication: Fell off chair, left shou lder [...] 02/02/181836 COPY T O: GABINO VILLEGAS MD [[facility]] LIPID [id number] 08:56:00* Test Item Value Reference Range Interpretation Comments CHOLESTEROL, TOTAL; Normal (test code = 2093-3) 158 mg/dl <200 N HDL CHOLESTEROL; Below Low Threshold (test code = 2085-9) 38 mg/dl >40 TRIGLYCERIDES; Above High Threshold (test code = 2571-8) 285 mg/dl <150 LDL-CHOLESTEROL; Normal (test code = 07385-8) 83 {MG/DL MEHNAZ} N Reference range: <100 Desirable range <100 mg/dL for primary prevention; <70 mg/dL for patients with CHD or diabetic patients with > or = 2 CHD risk factors. LDL-C is now calculated using the Dmitriy-Dajuan calculation, which is a validated novel method providing better accuracy than the Friedewald equation in the estimation of LDL-C. Dmitriy SS et al. JONNA. 2013;310(19): 2357-1323 (http ://education.engageSimply.autoGraph/faq/EFU433) CHOL/HDLC RATIO (test code = CHOL/HDLC RATIO) 4.2 {CALC} <5.0 N NON HDL CHOLESTEROL (test code = NON HDL CHOLESTEROL) 120 {MG/DL C AL} <130 N For patients with diabetes plus 1 major ASCVD risk factor, treating to a non-HDL-C goal of <100 mg/dL (LDL-C of <70 mg/dL) is considered a therapeutic option. [facility]] CMP [id number] 08:56:00* Test Item Value Reference Range Interpretation [...] is approximately 13% higher for peopleidentified as -Estonian. eGFR NON- (test code = eGFR NON-MANJULA N CYMRAES) 43 {ML/MIN/1.7} > OR = 60 eGFR [...] N BILIRUBIN, TOTAL; Normal (test code = 83854-8) 0.6 mg/dl 0.2-1.2 N ALKALINE PHSPHATASE (test code = ALKALINE PHSPHATASE) 92 u/l 40-115 N AST; Normal (test code = 1916-6) 16 u/l 10-35 N ALT; Normal (test code = 1742-6) 17 u/l 9-46 N [facility]] CREATINE KINASE, [id number] 08:56:00* Test Item Value Reference Range Interpretation Comments CREATINE KINASE, TOTAL (test code = CREATINE KINASE, TOTAL) 50 u/l 44-196 N [facility]] CBC (INCLUDES DIFF/PLT)2017-11-25 08:56:00* Test Item Value Reference Range Interpretation Comments WHITE BLOOD CELL COUNT (test code = WHITE BLOOD CELL COUNT) 4.9 {Thousand/u} 3.8-10.8 N RED BLOOD CELL COUNT (test code = RED BLOOD CELL COUNT) 4.44 {Million/uL} 4.20-5.80 N HEMAGLOBIN; Normal (test code = 12636-7) 13.9 g/dl 13.2-17.1 N HEMATOCRIT; Normal (test code = 4544-3) 42.2 % 38.5-50.0 N MCV; Normal (test code = 787-2) 95.0 fL 80.0-100.0 N MCHC; Normal (test code = 06108-0) 32.9 g/dl 32.0-36.0 N RDW; Normal (test code = 788-0) 13.3 % 11.0-15.0 N PLATELET COUNT; Below Low Threshold (test code = 777-3) 129 {Thousand/u} 140-400 Review of the peripheral sme ar revealsdecreased numbers of platelets. MPV; Normal (test code = 94484-4) 10.4 fL 7.5-12.5 N ABSOLUTE NEUTROPHILS (test code = ABSOLUTE NEUTROPHILS) 3097 {cells/uL} 4327-1796 N ABSOLUTE LYMPHOCYTES (test code = ABSOLUTE [...] % N MONOCYTES; Normal (test code = 61360-2) 7.3 % N EOSINOPHILS; Normal (test code = 27974-5) 2.4 % N BASOPHILS; Normal (test code = 16599-2) 0.4 % N COMMENT(S) (test code = COMMENT(S)) See Comment Review of peripheral smear confirmsautomated results. [facility]] TSH, 3RD GENERATION W/REFLEX TO FT4 2017-11-25 08:56:00* Test Item Value Reference Range Interpretation Comments TSH, 3RD GENERATION W/REFLEX TO FT4 (yrley t code = TSH, 3RD GENERATION W/REFLEX TO FT4) 2.13 {MIU/L} 0.40-4.50 N [facility] In [facility])2017-11-11 15:29:00* Test Item Value Reference Range Interpretation Comments Glucose POC Lifescan (test code = Glucose POC Lifescan) 57 [facility][O] Hemoglobin A1c (in office)2017-11-11 15:28:00 * Test Item Value Reference Range Interpretation Comments HEMOGLOBIN A1c (test code = 4548-4) 7.3 [facility][O] Lipid Panel (In Office)2017-11-11 15:28:00* Test Item Value Reference Range Interpretation Comments CHOLESTEROL, TOTAL (test code = 2093-3) 148 HDL CHOLESTEROL (test code = 2085-9) 34 TRIGLYCERIDES (test code = 2571-8) 203 LDL-CHOLESTEROL (test code = 04683-8) 74 NON HDL CHOLESTEROL (test code = NON HDL CHOLESTEROL) 114 T. Chol/HDL Ratio (test code = 9830-1) 4.4 GLUCOSE (test code = 1547-9) 71 [facility]2017-08-11 14:27:00* Test Item Value Reference Range Interpretation Comments Glucose POC Lifescan (test code = Glucose POC Lifescan) 63 [facility][O] Hemoglobin A1c (in office)2017-08-11 14:26:00 * Test Item Value Reference Range Interpretation Comments HEMOGLOBIN A1c (test code = 4548-4) 6.9 [facility][O] Lipid Panel (In Office)2017-08-11 14:26:00* Test Item Value Reference Range Interpretation Comments CHOLESTEROL, TOTAL (test code = 2093-3) 147 HDL CHOLESTEROL (test code = 2085-9) 35 TRIGLYCERIDES (test code = 2571-8) 216 LDL-CHOLESTEROL (test code = 52853-0) 69 NON HDL CHOLESTEROL (test code = NON HDL CHOLESTEROL) 112 T. Chol/HDL Ratio (test code = 9830-1) 4.2 GLUCOSE (test code = 1547-9) 75 [facility]icians[facility] Retinal Eye Exam (Diabetic)2017-06-30 05:00:00* Test Item Value Reference Range Interpretation Comments Negative Diabetic Eye Screening (test code = Negative Diabetic Eye Screening) [id number] [facility]] LIPID [id number] 08:25:00* Test Item Value Reference Range Interpretation Comments CHOLESTEROL, TOTAL; Normal (test code = 3-3) 151 mg/dl <200 N HDL CHOLESTEROL; Below Low Threshold (test code = 2085-9) 39 mg/dl >40 TRIGLYCERIDES; Above High Threshold (test code = 2571-8) 175 mg/dl <150 LDL-CHOLESTEROL; Normal (test code = 47886-4) 85 {MG/DL MEHNAZ} N Reference range: <100 Desirable range <100 mg/dL for primary prevention; <70 mg/dL for patients with CHD or diabetic patients with > or = 2 CHD risk factors. LDL-C is now calculated using the Dmitriy-Graff calculation, which is a validated novel method providing better accuracy than the Friedewald equation in the estimation of LDL-C. Dmitriy SS et al. JONNA. 2013;310(19): 6518-8517 (http ://education.engageSimply.com/faq/THH693) CHOL/HDLC RATIO (test code = CHOL/HDLC RATIO) 3.9 {CALC} <5.0 N NON HDL CHOLESTEROL (test code = NON HDL CHOLESTEROL) 112 {MG/DL C AL} <130 N For patients with diabetes plus 1 major ASCVD risk factor, treating to a non-HDL-C goal of <100 mg/dL (LDL-C of <70 mg/dL) is considered a therapeutic option. [place] [facility]] CMP [id number] 08:25:00* Test Item Value Reference Range Interpretation [...] is approximately 13% higher for peopleidentified as -Estonian. eGFR NON- (test code = eGFR NON-MANJULA N CYMRAES) 52 {ML/MIN/1.7} > OR = 60 eGFR [...] N BILIRUBIN, TOTAL; Normal (test code = 50687-4) 0.5 mg/dl 0.2-1.2 N ALKALINE PHSPHATASE (test code = ALKALINE PHSPHATASE) 79 u/l 40-115 N AST; Normal (test code = 1916-6) 18 u/l 10-35 N ALT; Normal (test code = 1742-6) 17 u/l 9-46 N [facility]] CREATINE KINASE, [id number] 08:25:00* Test Item Value Reference Range Interpretation Comments CREATINE KINASE, TOTAL (test code = CREATINE KINASE, TOTAL) 54 u/l 44-196 N [facility]] CBC (INCLUDES DIFF/PLT)2017-06-15 08:25:00* Test Item Value Reference Range Interpretation Comments WHITE BLOOD CELL COUNT (test code = WHITE BLOOD CELL COUNT) 4.0 {Thousand/u} 3.8-10.8 N RED BLOOD CELL COUNT (test code = RED BLOOD CELL COUNT) 4.64 {Million/uL} 4.20-5.80 N HEMOGLOBIN; Normal (test code = 52955-6) 14.1 g/dl 13.2-17.1 N HEMATOCRIT; Normal (test code = 4544-3) 42.9 % 38.5-50.0 N MCV; Normal (test code = 787-2) 92.5 fL 80.0-100.0 N MCHC; Normal (test code = 03578-4) 32.9 g/dl 32.0-36.0 N RDW; Normal (test code = 788-0) 12.7 % 11.0-15.0 N PLATELET COUNT; Below Low Threshold (test code = 777-3) 98 {Thou sand/u} 140-400 MPV; Normal (test code = 65822-4) 10.5 fL 7.5-12.5 N ABSOLUTE NEUTROPHILS (test code = ABSOLUTE NEUTROPHILS) 2304 {cells/uL} 5379-1564 N ABSOLUTE LYMPHOCYTES (test code = ABSOLUTE [...] % N MONOCYTES; Normal (test code = 48343-6) 8.3 % N EOSINOPHILS; Normal (test code = 48394-3) 2.0 % N BASOPHILS; Normal (test code = 82130-9) 0.5 % N [facility][] CARDIO CRP(R)2017-06-15 08:25:00* Test Item Value [...] may be associated with infection and inflammation. [facility]] TSH, 3RD [id number] 08:25:00* Test Item Value Reference Range Interpretation Comments TSH; Normal (test code = 49613-2) 2.46 {MIU/L} 0.40-4.50 N [facility]] HEMOGLOBIN [id number] 08:25:00* Test Item Value Reference Range Interpretation Comments HEMOGLOBIN A1c; Above High Threshold (test code = 4548-4) 7.3 {% of total} <5.7 For someone without known diabetes, a [facility] D1gdxnha of 6.5% or greater indicates that they [...] A1c for diagnosis of diabetes for children. [facility] In [facility])2017-05-11 15:45:00* Test Item Value Reference Range Interpretation Comments Glucose POC Lifescan (test code = Glucose POC Lifescan) 85 [facility][O] Hemoglobin A1c (in office)2017-05-11 15:44:00 * Test Item Value Reference Range Interpretation Comments HEMOGLOBIN A1c (test code = 4548-4) 7.5 [facility][O] Lipid Panel (In Office)2017-05-11 15:44:00* Test Item Value Reference Range Interpretation Comments CHOLESTEROL, TOTAL (test code = 2093-3) 146 HDL CHOLESTEROL (test code = 2085-9) 37 TRIGLYCERIDES (test code = 2571-8) 243 LDL-CHOLESTEROL (test code = 21067-8) 60 NON HDL CHOLESTEROL (test code = NON HDL CHOLESTEROL) 109 T. Chol/HDL Ratio (test code = 9830-1) 3.9 GLUCOSE (test code = 1547-9) 93 [facility]2017-02-05 13:14:00* Test Item Value Reference Range Interpretation Comments Glucose POC Lifescan (test code = Glucose POC Lifescan) 70 [facility][O] Hemoglobin A1c (in office)2017-02-05 13:12:00 * Test Item Value Reference Range Interpretation Comments HEMOGLOBIN A1c (test code = 4548-4) 6.7 [facility][O] Lipid Panel (In Office)2017-02-05 13:12:00* Test Item Value Reference Range Interpretation Comments CHOLESTEROL, TOTAL (test code = 2093-3) 139 HDL CHOLESTEROL (test code = 2085-9) 39 TRIGLYCERIDES (test code = 2571-8) 225 LDL-CHOLESTEROL (test code = 16491-1) 54 NON HDL CHOLESTEROL (test code = NON HDL CHOLESTEROL) 99 T. Chol/HDL Ratio (test code = 9830-1) 3.5 GLUCOSE (test code = 1547-9) 76 [facility]
--- OUTSIDE RECORDS SUMMARY | 2019-07-20 18:36 | XMS REPORT | Summary of Care ---
Author VERONICA Myers R.N. Organization Unknown Address Unknown Phone Unavailable Care Team Providers Care Metal Handler Name Role Phone SAMI Sewell, ALYX Unavailable Unavailable OLENA Sewell, ANN-MARIE Unavailable Unavailable Davis Ring, Dede Unavailable Unavailable OLENA LEGGETT, ANN-MARIE Unavailable Unavailable Alyx Buckley MD Unavailable Unavailable BERNARDO LEGGETT UT, VAMSI Unavailable [...] TABLET DAILY * Quantity: 90 Refills: 3 BUCKLEY Melodie, ALYX * Start : 29-Sep-2005 Active Dipyridamole 75 MG Oral Tablet Take 1 tablet twice a day * Quantity: 180 Refills: 2 SAMI Sewell, ALYX * Start : 29-Sep-2005 Active Aspirin 325 MG Oral Tablet TAKE 1 TABLET DAILY. * Refills: 0 * Start : 29-Sep-2005 Active hydroCHLOROthiazide 25 MG Oral Tablet TAKE 1 TABLET DAILY * Quantity: 90 Refills: 3 SAMI Sewell, ALYX * Start : 26-Dec-2007 Active Vitamin D3 125 MCG (5000 UT) Oral Tablet 1 a day * Refills: 0 Active Iron 325 (65 Fe) MG Oral Tablet TAKE 1 TABLET DAILY * Quantity: 90 Refills: 3 Active Atorvastatin Calcium 20 MG Oral Tablet TAKE 1 TABLET DAILY AT BEDTIME * Quantity: 90 Refills: 3 ALYX BUCKLEY M.D. * Start : 19-Mar-2011 Active Metoprolol Succinate ER 50 MG Oral Tablet Extended Release 24 Hour Take 1 tablet twice a day * Quantity: 180 Refills: 1 ALYX BUCKLEY M.D. * Start : 19-Mar-2011 Active Colestipol HCl - 1 GM Oral Tablet Take 1 tablet twice a day * Quantity: 180 Refills: 2 SAMI Sewell, ALYX * Start : 19-Mar-2011 [...] Quantity: 180 Refills: 1 ALYX BUCKLEY M.D. Start : 24-Jan-2015 Active Uloric 40 MG [...] thod: Temporal Results Date Description Value Details [id number] [U] XRAY SHOULDER MIN 2 VWS LEFT 16527 XR SHOULDER MIN 2 VWS LEFT Images [...] 20-Dec-2018 15:30 Appointment; [facility]-, ECHO Encounter Diagnosis: Problem not documented On: [...]
--- NOTE | 2019-07-20 18:52 | NUR ---
REPORT RC'D FROM Chastity LECHUGA RN
--- NOTE | 2019-07-20 19:00 | NUR ---
Covid 19 swab obtained and sent to lab.
[2019-07-20] MEDS ORDERED: ONDANSETRON HCL INJ 2MG/ML 2ML 2 MG/ML VIAL IV PRN (19:15)
[2019-07-20] MEDS ORDERED: ACETAMINOPHEN 325 MG TAB PO PRN (19:15)
[2019-07-20] MEDS ORDERED: FUROSEMIDE INJ 10 MG/ML 2 ML VIAL IV ONE (19:15)
[2019-07-20] MEDS ORDERED: HYDRALAZINE HCL 20 MG/ML VIAL IV PRN (19:15)
[2019-07-20] MEDS: FAMOTIDINE 20 MG/2 ML VIAL IV SCH (21:33)
[2019-07-20 21:46] VITALS: BP 137/59
[2019-07-20 22:00] VITALS: BP 137/59
--- NOTE | 2019-07-20 22:00 | NUR ---
83 YEAR OLD MALE RECEIVED FROM ER VIA W/C WITH DX DIABETES, ELEVATED POTASSIUM.PT UNABLE TO GIVE LIST OF MEDS- HE DOES THEM BY COLOR. HE IS ON INSULIN. PT REPORTS ACCUCHECK LOW WHEN WENT TO ER BECAUSE HE DID NOT EAT NIGHT BEFORE OR ALL DAY. pT REPORTS HE DID EAT FOOD HIS BROUGHT HIM. 20 G SL IN LEFT AC. PT IS ALERT AND ORIENTED X2. PT UP TO BATHROOM - KAEXELATE WORKING- HAD 2 DOSES IN ER. PT VOIDING WITHOUT DIFFICULTY. PT NEEDS ASSISTANCE WITH URINAL. TELE ON- PER ER SB WITH 1ST DEGREE AV BLOCK. PT HAS HX CABG BUT DENIES PACEMAKER. PT NOT HAPPY DR GALLARDO NURSE SENT HIM TO ER FOR REPEAT POTASSIUM. hE DID NOT WANT TO STAY AT HOSPITAL. RESPIRATIONS ARE EVEN AND UNLABORED. NO SKIN ISSUES. ORIENTED PT TO ROOM,PMC, AND CALL LIGHT. BED IN LOW POSITION. BED ALARM ON.
--- NOTE | 2019-07-21 01:00 | NUR ---
TELE CALLED PT HR GO DOWN TO 39 - 2 ND DEGREE TYPE [address] GUNN'S OFFICE CALLED. KELLY INSTRUCTED TO CONSULT DR [employer]. B/P 119/50 MAP 69 HR 53 O2 SAT RA - 99. PT DENIES PAIN,SHORTNESS OF BREATH OR FEELING ANY DIFFERENT.ACCUCHECK RECHECKED 222. dR BAILEY NOTIFIED AND INSTRUCTED TO MONITOR ON TELE.
[2019-07-21 01:25] VITALS: BP 137/59
[2019-07-21 01:38] LABS: ALBUMIN 2.9 g/dL (3.5-5.0); CALCIUM 9.2 mg/dL (8.4-10.2); CREATININE, SERUM 1.75 mg/dL (0.72-1.25); POTASSIUM 5.4 mmol/L (3.5-5.1)
[2019-07-21 02:02] LABS: CREATINE KINASE MB 1.1 ng/mL (0-5.0)
[2019-07-21 02:16] LABS: ANION GAP 12.4 mmol/L (8-16)
[2019-07-21] MEDS: ALBUTEROL SULF 0.083% NEB SOLN 3 ML NEB NEB SCH ×4 (03:55→15:00)
--- NOTE | 2019-07-21 04:00 | NUR ---
TELE CALLED TO REPORT BIGEMINY . VS STABLE. PT DENIES PAIN. WILL CONTINUE TO MONITOR TELE AND VS CLOSELY. TO BRING MED LIST.
[2019-07-21 05:42] LABS: BASOPHILS % 0.4 % (0.0-1.0); EOSINOPHILS # (AUTO) 0.1 (0.0-0.4); HEMATOCRIT 32.1 % (38.2-49.6); HEMOGLOBIN 10.4 g/dL (14.0-18.0); LYMPHOCYTES # (AUTO) 1.7 (1.0-3.2); LYMPHOCYTES % 33.6 % (18.0-39.1); MEAN CORPUSCULAR HEMOGLOBIN 31.4 pg (28-32); MEAN CORPUSCULAR HGB CONC 32.4 g/dL (31-35); MONOCYTES # (AUTO) 0.6 (0.2-0.8); MONOCYTES % 10.8 % (4.4-11.3); NEUTROPHILS # (AUTO) 2.7 (2.1-6.9); NEUTROPHILS % 52.8 % (38.7-80.0); PLATELET COUNT 132 x10e3/uL (140-360); RED BLOOD COUNT 3.31 x10e6/uL (4.3-5.7); RED CELL DISTRIBUTION WIDTH 15.6 % (11.7-14.4)
[2019-07-21 06:12] LABS: ANION GAP 12.2 mmol/L (8-16); CALCIUM 9.1 mg/dL (8.4-10.2); CREATININE, SERUM 1.69 mg/dL (0.72-1.25); POTASSIUM 5.2 mmol/L (3.5-5.1)
--- NOTE | 2019-07-21 07:00 | NUR ---
RECEIVED PATIENT RESTING IN BED NO S/S OF DISTRESS. BED LOW, WHEELS LOCKED, SIDE RAILS X2. CALL LIGHT IN REACH WILL CONTINUE TO MONITOR PATIENT.
[2019-07-21 07:47] VITALS: BP 110/48
[2019-07-21] MEDS ORDERED: DEXTROSE 50% SYRINGE 50 ML IV PRN (08:15)
[2019-07-21] MEDS ORDERED: LISINOPRIL 20 MG TAB PO SCH (09:00)
[2019-07-21] MEDS ORDERED: HYDROCHLOROTHIAZIDE 25 MG TAB PO SCH (09:00)
[2019-07-21] MEDS ORDERED: METOPROLOL SUCCINATE 50 MG TAB XL PO SCH (09:00)
[2019-07-21] MEDS ORDERED: ASPIRIN 325 MG TAB PO SCH (09:00)
[2019-07-21 09:24] VITALS: BP 110/48
[2019-07-21] MEDS: DIPYRIDAMOLE 25 MG TAB PO SCH ×2 (09:49→16:30)
[2019-07-21] MEDS: COLESTIPOL HCL 1 G TAB PO SCH ×2 (09:56→16:32)
[2019-07-21] MEDS: FAMOTIDINE 20 MG/2 ML VIAL IV SCH (09:56)
[2019-07-21] MEDS: FERROUS SULFATE 325 MG TAB PO SCH ×2 (09:57→16:32)
[2019-07-21] MEDS: GABAPENTIN 300 MG CAP PO SCH ×2 (09:57→16:32)
[2019-07-21 10:00] LABS: CREATINE KINASE MB 1.9 ng/mL (0-5.0)
[2019-07-21] MEDS ORDERED: FEBUXOSTAT 80 MG TAB PO SCH (10:30)
[2019-07-21] MEDS: INSULIN LISPRO 100 UNIT/1 ML 3ML VIAL SQ SCH ×2 (11:30→16:30)
[2019-07-21 11:31] VITALS: BP 106/49
[2019-07-21 15:53] VITALS: BP 150/77
[2019-07-21 15:56] VITALS: BP 110/70
--- NOTE | 2019-07-21 16:55 | Consultation ---
DATE OF CONSULTATION: 07/21/2019 Cardiology consultation REQUESTING PHYSICIAN: Jessee Henry MD. REASON FOR CONSULTATION: Bradycardia. HISTORY OF PRESENT ILLNESS: This is an 83-year-old man with history of hypertension, hyperlipidemia, diabetes mellitus, and coronary artery disease status post coronary artery bypass, who was instructed to present to the ER for hyperkalemia. The patient reports he had labs drawn prior to his appointment with his outpatient mfts, Dr. Buckley. Yesterday, he was called by the office and instructed to present to the ER due to hyperkalemia. He denied any cardiac complaints. He denied any chest pain, shortness of breath, palpitations, orthopnea, or PND. In the ER, he was found to be hyperkalemic with a potassium of 5.8, and he was admitted for further management. While admitted, the patient was noted to have episodes of bradycardia for which Cardiology is consulted. REVIEW OF SYSTEMS: Negative except as per HPI. PAST MEDICAL HISTORY: 1. Hypertension. 2. Hyperlipidemia. 3. Diabetes mellitus. 4. Coronary artery disease status post coronary artery bypass. PAST SURGICAL HISTORY: 1. Back surgery. 2. Shoulder surgery. 3. Coronary artery bypass. ALLERGIES: NO KNOWN DRUG ALLERGIES. MEDICATIONS: Please see medication list. SOCIAL HISTORY: He reports smoking 6 cigarettes a day. No alcohol or drugs. FAMILY HISTORY: Denies. PHYSICAL EXAMINATION: VITAL SIGNS: Temperature 97.7 degrees, pulse 74, respiratory rate 18, blood pressure 106/49, and oxygen saturation 94% on room air. GENERAL: An elderly man, awake and alert. Well-developed, well-nourished. HEENT: Normocephalic, atraumatic. Pupils equal. No scleral icterus. NECK: Supple. No thyromegaly or cervical lymphadenopathy. No carotid bruits. LUNGS: Clear to auscultation bilaterally. No wheezes or crackles. CARDIOVASCULAR: Normal rate, irregular rhythm. No murmur. Normal S1, S2. ABDOMEN: Soft nontender. EXTREMITIES: No edema. NEUROLOGIC: Nonfocal exam. LABORATORY DATA: Sodium 143, potassium 5.2, chloride 115, CO2 of 21, BUN 42, and creatinine 1.69. Troponin 0.007. TSH 2.529. BNP 223. WBC 5.09, hemoglobin 10.4, hematocrit 32.1, and platelets 132. EKG is sinus bradycardia with first-degree AV block. TELEMETRY: Telemetry was personally reviewed and interpreted revealing second-degree AV block type 1 as well as transient 2-1 AV block and PVCs. IMPRESSION: 1. Hyperkalemia. 2. Second-degree atrioventricular block type 1. 3. premature ventricular contractions. 4. Coronary artery disease status post coronary bypass. 5. Hypertension. 6. Hyperlipidemia. 7. Diabetes mellitus. RECOMMENDATIONS: Trend troponin to rule out myocardial infarction. The patient denies any cardiac complaints. TSH is within normal limits. Discontinue metoprolol. We will review the patient's echocardiogram. If echo is unremarkable, the patient can be discharged home and if echo is unremarkable and no evidence of myocardial infarction, the patient can be discharged home to follow up with his outpatient m[facility] next week. Continue home cardiac medications. Thank you for this consult. We will continue to follow. Salina Reis MD ABS/MODL /[id number]
[2019-07-21] MEDS ORDERED: FERROUS SULFAT325 MG PO (17:56)
[2019-07-21] MEDS ORDERED: ALPRAZOLAM0.5 MG PO (17:56)
[2019-07-21] MEDS ORDERED: ULORIC40 MG PO (17:56)
[2019-07-21] MEDS ORDERED: GABAPENTIN300 MG PO (17:56)
[2019-07-21] MEDS ORDERED: DIPYRIDAMOLE1 GM PO (17:56)
[2019-07-21] MEDS ORDERED: ASPIRIN325 MG PO (17:56)
[2019-07-21] MEDS ORDERED: HYDROCHLOROTHIA25 MG PO (17:56)
[2019-07-21] MEDS ORDERED: LISINOPRIL10 MG PO (17:56)
[2019-07-21] MEDS ORDERED: COLESTIPOL HCL1 GM PO (17:56)
[2019-07-21] MEDS ORDERED: ATORVASTATIN CA20 MG PO (17:56)
--- NOTE | 2019-07-21 18:12 | NUR ---
REMOVED PATIENTS IV CATHETER TIP INTACT AND PRESSURE DRESSING APPLIED. PATIENT DISCHARGED FROM FACILITY. PATIENT GATHERED ALL PERSONAL BELONGINGS, DISCHARGE INSTRUCTIONS AND FOLLOW UP INFORMATION. PATIENT LEFT UNIT IN WHEELCHAIR AND WENT HOME VIA PRIVATE AUTO.
[2019-07-21] MEDS ORDERED: ATORVASTATIN 20 MG TAB PO SCH (21:00)
--- NOTE | 2019-07-22 01:32 | Discharge Summary ---
ADMISSION DIAGNOSES: 1. Hyperkalemia. 2. Second-degree heart block with bradycardia. 3. Hypertension with chronic diastolic congestive heart failure and chronic kidney disease 3. 4. Hyperlipidemia. 5. Gout. 6. Type 2 diabetes with chronic kidney disease 3. 7. Chronic diastolic congestive heart failure. 8. History of hypertension, type 2 diabetes, gastroesophageal reflux disease, hyperlipidemia, chronic back pain, gout, chronic diastolic congestive heart failure, chronic kidney disease 3. SURGICAL HISTORY: Left shoulder repair, CABG, TNA, hernia repair, back surgery. FAMILY HISTORY: The patient's sister has diabetes. SOCIAL HISTORY: The patient admits to occasional alcohol and tobacco use. 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 He was high in the office, but the patient does not remember the value. He denies any symptoms related to the hyperkalemia. On admission, the potassium was 5.8. The patient was admitted. He was given insulin IV and Kayexalate, which eventually the potassium came down to 5.2. He was found to be in second-degree heart block with bradycardia, so Cardiology was consulted. Chest x-ray was negative. BNP was 223. Preliminary echo showed an EF of 60% to 65%. Per Cardiology recommendation, the patient can discharge home, but should discontinue the metoprolol and discontinue the potassium supplement. The patient understands discharge instructions and agrees to plan. Vital signs stable. The patient is afebrile. Dictated by Mora Smith NP MD DONNELL Toussaint/MODL /[id number]
== END 2019-07-21 18:12 | disposition home or self-care (01) ==
LOC: ER 13:45 → ERHOLD 18:05 → MED/SURG 21:49
PROVIDERS: ADMIT Internal Medicine; ATTEND Internal Medicine
DX: E87.5 Hyperkalemia (principal); I44.1 Atrioventricular block, second degree; E78.5 Hyperlipidemia, unspecified; M10.9 Gout, unspecified; I13.0 Hypertensive heart and chronic kidney disease with heart failure and stage 1 through stage 4 chronic kidney disease, or unspecified chronic kidney disease; I50.32 Chronic diastolic (congestive) heart failure; N18.3 Chronic kidney disease, stage 3 (moderate); E11.22 Type 2 diabetes mellitus with diabetic chronic kidney disease; K21.9 Gastro-esophageal reflux disease without esophagitis; I25.10 Atherosclerotic heart disease of native coronary artery without angina pectoris; Z95.1 Presence of aortocoronary bypass graft; R00.1 Bradycardia, unspecified
CPT/HCPCS: 36415 ×2; 71045; 80048; 80053 ×2; 82550 ×2; 82553 ×2; 82948 ×2; 83880; 84443; 84484 ×2; 85025 ×2; 87635; 93005; 93306; 94640; 99284; G0378 ×2; J0610; J1817; J1940; J7799

== ENCOUNTER → 2020-02-21 | Outpatient (CLI) | payer OTHER ==
[~2020-02-21] MED LIST: ALPRAZOLAM0.5 MG PO; ASPIRIN325 MG PO; ATORVASTATIN CA20 MG PO; COLESTIPOL HCL1 GM PO; COVID-19 VACC, MRNA(MODERNA)/PF 100 MCG/0.5 ML VIAL IM ONE; DIPYRIDAMOLE1 GM PO; FERROUS SULFAT325 MG PO; GABAPENTIN300 MG PO; HYDROCHLOROTHIA25 MG PO; LISINOPRIL10 MG PO; ULORIC40 MG PO
== END ==
LOC: VACCPMC 16:30
DX: Z23 Encounter for immunization (principal); Z20.822 Contact with and (suspected) exposure to COVID-19

== ENCOUNTER → 2020-03-21 | Outpatient (CLI) | payer OTHER | END | DRG 951 | LOC: VACCPMC 09:13 | DX: Z23 Encounter for immunization (principal); Z20.822 Contact with and (suspected) exposure to COVID-19 | CPT/HCPCS: 0012A; 91301 ==